=== PATIENT | female | born 1950 | race Caucasian/White ===

== ENCOUNTER 2020-12-23 09:56 | Inpatient (IN) | payer MEDICARE, SELFPAY ==
[2020-12-23] VITALS (17 sets, daily range): BP systolic 174–227; BP diastolic 73–128; PULSE 56–99; RESP 14–22; TEMP 36.2–37.4; O2SAT 94–100; BMI 38.5
--- NOTE | ~2020-12-23 | XR_ITS ---
EXAMINATION: XR CHEST CLINICAL INFORMATION: Dizziness COMPARISON: Chest x-ray August 2019 TECHNIQUE: Frontal view of the chest was obtained. FINDINGS: No significant abnormality is noted involving the heart, lungs, mediastinum, bony thorax or soft tissues. XR/XR chest 1V IMPRESSION: Unremarkable examination.
--- NOTE | ~2020-12-23 | CT_ITS ---
EXAMINATION: CT HEAD WITHOUT CONTRAST CLINICAL INFORMATION: Dizziness COMPARISON: CT scan of the head September 2015 TECHNIQUE: Contiguous axial imaging was performed from the skull base to vertex without intravenous administration of contrast. This CT examination was performed using dose optimization techniques as appropriate, variously including the following: *Automated exposure control *Adjustment of mA and/or kV according to patient size (this includes techniques or standardized protocols for targeted exams where dose is matched to indication/reason for exam; i.e. extremities or head) *Use of iterative reconstruction technique DLP: 618 mGy-cm FINDINGS: There is no evidence of acute intracranial hemorrhage or territorial infarction. No abnormal mass effect or there is stable prominence of the ventricles unchanged compared to prior. There is no measurable mass hemorrhage or cerebral edema. There is periventricular white matter changes compatible small vessel disease. Soft tissues: There 2 stable rounded appearing partially calcified nodules in the scalp on the right and left side in the parietal region on the right and left frontal region on the left unchanged nonspecific. CT/CT head/brain wo con IMPRESSION: No acute intracranial pathology. Stable prominence of the ventricles. Small nonspecific scalp lesions likely benign and unchanged compared to prior.
--- NOTE | ~2020-12-23 | MR_ITS ---
EXAMINATION: MR BRAIN WITHOUT CONTRAST CLINICAL INFORMATION: Cerebrovascular accident. COMPARISON: CT head from 12/23/2020. Brain MRI from 06/04/2011. TECHNIQUE: MRI of the brain was obtained using routine sequences without contrast. FINDINGS: No focal restricted diffusion is demonstrated to suggest acute or subacute cerebral ischemia. No evidence of acute or chronic hemorrhagic products on heme-sensitive imaging. Mild basal ganglia mineralization. Moderate to extensive periventricular and deep white matter T2 FLAIR hyperintensities consistent with underlying microangiopathy, progressed compared to 2011. Proportional prominence of the ventricles and sulcal spaces without evidence of obstructive hydrocephalus. No abnormal mass effect. No midline shift. Normal appearance of the pituitary gland. No abnormalities of the posterior fossa with normal appearance of the brainstem and cerebellum. Normal positioning of the cerebellar tonsils. Normal arterial and venous vascular flow voids are present. Normal, homogeneous marrow signal. Multifocal subcutaneous inclusion cysts along the scalp. No signal abnormalities within the paranasal sinuses or mastoids. MR/MR head/brain wo con IMPRESSION: 1. No acute intracranial abnormalities. 2. Moderate to extensive underlying microangiopathy.
--- NOTE | 2020-12-23 10:38 | ECG_ITS ---
Test Reason : SOB Blood Pressure : / mmHG Vent. Rate : 067 BPM Atrial Rate : 067 BPM P-R Int : 176 ms QRS Dur : 104 ms QT Int : 418 ms P-R-T Axes : 046 -04 159 degrees QTc Int : 441 ms Sinus rhythm with occasional Premature ventricular complexes Possible Left atrial enlargement Left ventricular hypertrophy with repolarization abnormality Abnormal ECG When compared with ECG of 14-SEP-2019 15:59, Premature ventricular complexes are now Present Referred By: Rosa Saldaña Electronically Signed By:POLINA DELCID
--- NOTE | 2020-12-23 10:40 | ED_ITS ---
HPI - Dizziness General Chief Complaint: Weakness Stated Complaint: sob, dizzy, cough x4 days Time Seen by Provider: 12/23/20 10:27 Source: patient and EMS Mode of arrival: EMS Limitations: no limitations History of Present Illness MD elicited complaint: dizziness and other (cough, shortness of breath) Onset (ago): day(s) (5) Timing: gradual onset and constant Severity: moderate Description: sense of movement and room spinning Context: change in body position History of similar symptoms: No Exacerbating factors: change in body position Relieving factors: nothing Associated symptoms: shortness of breath, weakness, nasal congestion and ear fullness Related Data Allergies Allergy/AdvReac Type Severity Reaction Status Date / Time No Known Allergies Allergy Unverified 06/02/20 15:04 N.K.D.A. Allergy Unknown Uncoded 06/17/14 00:00 Review of Systems Review of Systems: Constitutional : No Fever, No Chills ENT/Mouth : No sore throat, posRhinorrhea, No Swallowing Difficulty Eyes: No Eye Pain, No Swelling, No Redness Cardiovascular : No Chest Pain, positive SOB, No Orthopnea, no Edema Respiratory : pos Cough, No Sputum, No Wheezing, positive dyspnea Gastrointestinal : No Nausea, No Vomiting, No Diarrhea, No abdominal Pain, No Hematochezia, No Melena Genitourinary : No Dysuria, No Urinary Frequency, No Hematuria Musculoskeletal : No joint pain, No Myalgias Skin : No Skin Lesions, No rash Neuro : No Weakness, No Numbness, pos Dizziness, No Headache Psych : No Anxiety/Panic, No Depression Heme/Lymph: No Bruising, No Lymphadenopathy Endocrine : No Polyuria, No Polydipsia All other systems reviewed and are negative FORMERLY [facility], [facility] Past Medical History Attestation statement: The following information was validated with the patient. Medical History (Updated 12/23/20 @ 15:46 by Rosa Saldaña DO) HTN (hypertension) Social History Social History (Updated 12/23/20 @ 10:44 by Rosa Saldaña DO) Smoking Status: Never smoker Use of substances other than those prescribed or required for medical reasons: No Advance Directives: No Advance Directives Information Provided: No Physical Exam 2 Vital Signs: Vital Signs: Last Vital Signs Temp 98.9 F 12/23/20 15:11 Pulse 66 12/23/20 15:44 Resp 22 H 12/23/20 15:11 BP 174/81 H 12/23/20 15:58 Pulse Ox 95 12/23/20 15:11 Body Mass Index 38.5 Appearance: Alert. Oriented X3. No acute distress. Eyes: Pupils equal, round and reactive to light. ENT: Pharynx normal. No nystagmus, nasal congestion Neck: Normal inspection. Neck supple. CVS: Normal heart rate and rhythm. Pulses normal. Respiratory: No respiratory distress. Breath sounds normal. Abdomen: Soft and nontender. Skin: Skin warm and dry. Normal skin color. Normal skin turgor. Extremities: No lower extremity edema. No calf ttp Neuro: Oriented X 3. No motor deficit. No sensory deficit. Course Course Course Narrative: HTN likely causing troponin elevation IV hydralazine ordered + UA but no signs of sepsis - ordered ceftriaxone will need repeat troponin no response to hydralazine - IV labetalol ordered good response to IV labetalol, still dizzy will give IV ativan to see if this improves, dizziness could be related to HTN, troponin remains flat BP did improve from the 220s with labetalol still dizzy unable to ambulate will admit for further workup BP down to 170s MDM - Dizziness MDM Narrative Medical decision making narrative: 70 yo female with HTN not on lisinopril for 1 year due to insurance issues, here with 5 days of dizziness worse with turning head to left, URI symptoms, also c/o cough and shortness of breath, at this time will need CT head for mass though likely vertigo 5 days of dizziness could be posterior stroke but no focal neuro deficits, if BP does not reduce in ED may require treatments, labs, CXR, COVID swab, dispo per results and findings. Lab Data Result diagrams: 12/23/20 10:55 12/23/20 10:55 Labs: Lab Results 12/23/20 12/23/20 12/23/20 Range/Units 10:55 10:55 10:55 WBC 10.7 (4.8-10.8) X10*3/uL RBC 5.27 (4.20-5.50) X10*6/uL Hgb 14.6 (12.0-16.0) g/dl Hct 43.2 (37-47) % MCV 82.0 (80-98) fL MCH 27.7 (27.0-33.0) pg MCHC 33.8 (31.0-35.0) g/dl RDW 12.4 (11.0-16.0) % Plt Count 282 (160-400) X10*3/uL MPV 11.0 (9.4-12.3) fL Immature Gran % (Auto) 0.4 (0.0-0.4) % Neut % (Auto) 78.8 H (45-73) % Lymph % (Auto) 13.0 L (20-40) % Garvin % (Auto) 5.3 (2-11) % Eos % (Auto) 2.0 (0-4) % Baso % (Auto) 0.5 (0-2) % Lymph # (Auto) 1.4 (1.2-4.9) X10*3/uL Garvin # (Auto) 0.6 (0.1-1.2) X10*3/uL Eos # (Auto) 0.2 (0.0-0.4) X10*3/uL Baso # (Auto) 0.1 (0.0-0.2) X10*3/uL Abs Immat Gran (auto) 0.04 H (0.00-0.03) X10*3/uL Absolute Neuts (auto) 8.4 H (2.0-8.3) X10*3/uL Absolute Nucleated RBC 0.000 (0.0-0.012) X10*3/uL Nucleated RBC % (auto) 0.0 (0.0-0.2) /100WBC PT 15.1 H (10.8-13.0) SEC INR 1.3 H (0.9-1.1) APTT 34.8 (24.1-38.0) SEC Sodium 141 (135-145) mmol/L Potassium 3.7 (3.3-5.1) mmol/L Chloride 102 (96-108) mmol/L Carbon Dioxide 31 H (22-29) mmol/L Anion Gap 12 (12-20) BUN 9 (9-16) mg/dL Creatinine 0.76 (0.5-1.4) mg/dL Estim Creat Clear Calc 99.1 Estimated GFR > 60 Random Glucose 98 (60-115) mg/dL Calcium 8.6 (8.4-10.2) mg/dL Magnesium 1.9 (1.6-2.6) mg/dL Total Bilirubin 1.5 H (0.0-1.0) mg/dL Direct Bilirubin 0.5 (0.0-0.5) mg/dL AST 20 (5-31) U/L ALT 27 (0-31) U/L Alkaline Phosphatase 65 (39-117) U/L Troponin I High Sens (<3.5-17.0) ng/L B-Natriuretic Peptide (<100) pg/mL Total Protein 6.8 (6.5-8.0) g/dL Albumin 4.1 (3.5-5.0) g/dL Urine Color Urine Appearance Urine pH (5.0-8.0) Ur Specific [place] (1.005-1.025) Urine Protein (NEG-TRACE) MG/DL Urine Glucose (UA) (NEG) MG/DL Urine Ketones (NEG) MG/DL Urine Blood (NEG) Urine Nitrite (NEG) Ur Leukocyte Esterase (NEG) Urine RBC (0) /HPF Urine WBC (0-4) /HPF Ur Squamous Epith Cells /LPF Urine Bacteria /LPF Urine Mucus /LPF Coronavirus (PCR) (Negative) Influenza Type A (PCR) (Negative) Influenza Type B (PCR) (Negative) RSV RNA Qual (PCR) (Negative) 12/23/20 12/23/20 12/23/20 Range/Units 10:56 10:56 10:56 WBC (4.8-10.8) X10*3/uL RBC (4.20-5.50) X10*6/uL Hgb (12.0-16.0) g/dl Hct (37-47) % MCV (80-98) fL MCH (27.0-33.0) pg MCHC (31.0-35.0) g/dl RDW (11.0-16.0) % Plt Count (160-400) X10*3/uL MPV (9.4-12.3) fL Immature Gran % (Auto) (0.0-0.4) % Neut % (Auto) (45-73) % Lymph % (Auto) (20-40) % Garvin % (Auto) (2-11) % Eos % (Auto) (0-4) % Baso % (Auto) (0-2) % Lymph # (Auto) (1.2-4.9) X10*3/uL Garvin # (Auto) (0.1-1.2) X10*3/uL Eos # (Auto) (0.0-0.4) X10*3/uL Baso # (Auto) (0.0-0.2) X10*3/uL Abs Immat Gran (auto) (0.00-0.03) X10*3/uL Absolute Neuts (auto) (2.0-8.3) X10*3/uL Absolute Nucleated RBC (0.0-0.012) X10*3/uL Nucleated RBC % (auto) (0.0-0.2) /100WBC PT (10.8-13.0) SEC INR (0.9-1.1) APTT (24.1-38.0) SEC Sodium (135-145) mmol/L Potassium (3.3-5.1) mmol/L Chloride (96-108) mmol/L Carbon Dioxide (22-29) mmol/L Anion Gap (12-20) BUN (9-16) mg/dL Creatinine (0.5-1.4) mg/dL Estim Creat Clear Calc Estimated GFR Random Glucose (60-115) mg/dL Calcium (8.4-10.2) mg/dL Magnesium (1.6-2.6) mg/dL Total Bilirubin (0.0-1.0) mg/dL Direct Bilirubin (0.0-0.5) mg/dL AST (5-31) U/L ALT (0-31) U/L Alkaline Phosphatase (39-117) U/L Troponin I High Sens 78.3 H (<3.5-17.0) ng/L B-Natriuretic Peptide 292 H (<100) pg/mL Total Protein (6.5-8.0) g/dL Albumin (3.5-5.0) g/dL Urine Color YELLOW Urine Appearance CLOUDY Urine pH 8.0 (5.0-8.0) Ur Specific [place] 1.020 (1.005-1.025) Urine Protein NEG (NEG-TRACE) MG/DL Urine Glucose (UA) NEG (NEG) MG/DL Urine Ketones NEG (NEG) MG/DL Urine Blood TRACE (NEG) Urine Nitrite POS H (NEG) Ur Leukocyte Esterase 1+ H (NEG) Urine RBC 1-4 (0) /HPF Urine WBC 50-75 H (0-4) /HPF Ur Squamous Epith Cells 1+ /LPF Urine Bacteria 3+ /LPF Urine Mucus 1+ /LPF Coronavirus (PCR) NEGATIVE (Negative) Influenza Type A (PCR) NEGATIVE (Negative) Influenza Type B (PCR) NEGATIVE (Negative) RSV RNA Qual (PCR) NEGATIVE (Negative) 12/23/20 Range/Units 15:01 WBC (4.8-10.8) X10*3/uL RBC (4.20-5.50) X10*6/uL Hgb (12.0-16.0) g/dl Hct (37-47) % MCV (80-98) fL MCH (27.0-33.0) pg MCHC (31.0-35.0) g/dl RDW (11.0-16.0) % Plt Count (160-400) X10*3/uL MPV (9.4-12.3) fL Immature Gran % (Auto) (0.0-0.4) % Neut % (Auto) (45-73) % Lymph % (Auto) (20-40) % Garvin % (Auto) (2-11) % Eos % (Auto) (0-4) % Baso % (Auto) (0-2) % Lymph # (Auto) (1.2-4.9) X10*3/uL Garvin # (Auto) (0.1-1.2) X10*3/uL Eos # (Auto) (0.0-0.4) X10*3/uL Baso # (Auto) (0.0-0.2) X10*3/uL Abs Immat Gran (auto) (0.00-0.03) X10*3/uL Absolute Neuts (auto) (2.0-8.3) X10*3/uL Absolute Nucleated RBC (0.0-0.012) X10*3/uL Nucleated RBC % (auto) (0.0-0.2) /100WBC PT (10.8-13.0) SEC INR (0.9-1.1) APTT (24.1-38.0) SEC Sodium (135-145) mmol/L Potassium (3.3-5.1) mmol/L Chloride (96-108) mmol/L Carbon Dioxide (22-29) mmol/L Anion Gap (12-20) BUN (9-16) mg/dL Creatinine (0.5-1.4) mg/dL Estim Creat Clear Calc Estimated GFR Random Glucose (60-115) mg/dL Calcium (8.4-10.2) mg/dL Magnesium (1.6-2.6) mg/dL Total Bilirubin (0.0-1.0) mg/dL Direct Bilirubin (0.0-0.5) mg/dL AST (5-31) U/L ALT (0-31) U/L Alkaline Phosphatase (39-117) U/L Troponin I High Sens 75.2 H (<3.5-17.0) ng/L B-Natriuretic Peptide (<100) pg/mL Total Protein (6.5-8.0) g/dL Albumin (3.5-5.0) g/dL Urine Color Urine Appearance Urine pH (5.0-8.0) Ur Specific [place] (1.005-1.025) Urine Protein (NEG-TRACE) MG/DL Urine Glucose (UA) (NEG) MG/DL Urine Ketones (NEG) MG/DL Urine Blood (NEG) Urine Nitrite (NEG) Ur Leukocyte Esterase (NEG) Urine RBC (0) /HPF Urine WBC (0-4) /HPF Ur Squamous Epith Cells /LPF Urine Bacteria /LPF Urine Mucus /LPF Coronavirus (PCR) (Negative) Influenza Type A (PCR) (Negative) Influenza Type B (PCR) (Negative) RSV RNA Qual (PCR) (Negative) ECG Data Attestation: I personally reviewed and interpreted this ECG as follows: ECG interpretation date: 12/23/20 ECG interpretation time: 11:18 Interpretation: Rate: 67 Rhythm: NSR [place]: left, LVH Normal P waves. Normal JOSE R. Normal QRS complex. ST T wave : no MAT, repolarization abnormality lateral leads T wave inversions qTC: normal prior studies: no acute ischemia The study has been interpreted contemporaneously by me. . Discharge Plan Discharge Clinical Impression: Dizziness, HTN (hypertension), Acute UTI Patient Disposition: Admitted As Inpatient
[2020-12-23] MEDS: Meclizine HCl 25 MG TABLET PO (11:04)
[2020-12-23 11:25] LABS: MANUAL DIFF FLAG NO
[2020-12-23 11:25] LABS: Glucose Urine UA NEG (NEG); Leukocyte Esterase Urine 1+ (NEG); Nitrite Urine POS (NEG); UACC Culture Trigger YES; Urine Blood TRACE (NEG); Urine Ketones NEG (NEG); Urine Protein NEG (NEG-TRACE)
[2020-12-23 11:26] LABS: Appearance Urine CLOUDY; Color Urine YELLOW
[2020-12-23 11:34] LABS: Basophils Absolute Auto 0.1 X10*3/uL (0.0-0.2); Basophils Percent Auto 0.5 % (0-2); Eosinophils Absolute Auto 0.2 X10*3/uL (0.0-0.4); Hematocrit 43.2 % (37-47); Hemoglobin 14.6 g/dl (12.0-16.0); Imm Gran Abs Auto 0.04 X10*3/uL (0.00-0.03); Imm Gran Pct Auto 0.4 % (0.0-0.4); Lymphocytes Absolute Auto 1.4 X10*3/uL (1.2-4.9); Mean Corpuscular HGB Conc 33.8 g/dl (31.0-35.0); Mean Corpuscular Hemoglobin 27.7 pg (27.0-33.0); Monocytes Absolute Auto 0.6 X10*3/uL (0.1-1.2); Monocytes Percent Auto 5.3 % (2-11); Neutrophils Absolute Auto 8.4 X10*3/uL (2.0-8.3); Neutrophils Percent Auto 78.8 % (45-73); Platelet Count 282 X10*3/uL (160-400); Red Blood Count 5.27 X10*6/uL (4.20-5.50); Red Cell Distribution Width 12.4 % (11.0-16.0); White Blood Count 10.7 X10*3/uL (4.8-10.8)
[2020-12-23 11:36] LABS: Squamous Epithelial Cell Urine 1+ /LPF; WBC Urine 50-75 /HPF (0-4)
[2020-12-23 11:36] LABS: INTERNATIONAL NORM RATIO 1.3 (0.9-1.1); Prothrombin Time 15.1 SEC (10.8-13.0)
[2020-12-23 11:37] LABS: Bacteria Urine 3+ /LPF; Mucus Urine 1+ /LPF
[2020-12-23 11:38] LABS: Partial Thromboplastin Time 34.8 SEC (24.1-38.0)
[2020-12-23 11:53] LABS: Alanine Aminotransferase 27 U/L (0-31); Albumin Level 4.1 g/dL (3.5-5.0); Alkaline Phosphatase 65 U/L (39-117); Anion Gap 12 (12-20); Aspartate Amino Transferase 20 U/L (5-31); Bilirubin Direct 0.5 mg/dL (0.0-0.5); Bilirubin Total 1.5 mg/dL (0.0-1.0); Blood Urea Nitrogen 9 mg/dL (9-16); Calcium 8.6 mg/dL (8.4-10.2); Carbon Dioxide 31 mmol/L (22-29); Chloride 102 mmol/L (96-108); Creatinine Clr Calc Pharmacy 99.1; Estimated Glomerular Filt Rate > 60; Glucose Random 98 mg/dL (60-115); Magnesium 1.9 mg/dL (1.6-2.6); Potassium 3.7 mmol/L (3.3-5.1); Sodium 141 mmol/L (135-145); Total Protein 6.8 g/dL (6.5-8.0)
[2020-12-23 12:02] LABS: Influenza A PCR NEGATIVE (Negative); Influenza B PCR NEGATIVE (Negative); Resp Syncy Virus RNA Qual PCR NEGATIVE (Negative); SARS COV2 PCR INHOUSE NEGATIVE (Negative)
[2020-12-23 12:04] LABS: B Type Natriuretic Peptide 292 pg/mL (<100); Troponin-I High Sensitivity 78.3 ng/L (<3.5-17.0)
[2020-12-23] MEDS: cefTRIAXone sodium 1 GM in 0.9 % Sodium Chloride 50 ML IV (14:10)
[2020-12-23] MEDS: hydrALAZINE HCl 20 MG/ML VIAL 10 MG IVPUSH (14:10)
[2020-12-23] MEDS: Labetalol HCL 100 MG/20 ML VIAL 10 MG IVPUSH (15:03)
[2020-12-23 15:45] LABS: Troponin-I High Sensitivity 75.2 ng/L (<3.5-17.0)
[2020-12-23] MEDS: LORazepam 2 MG/ML VIAL 0.5 MG IVPUSH (15:55)
--- NOTE | 2020-12-23 16:53 | PC.NURSE ---
NA [phone] DAUGHTER
--- NOTE | 2020-12-23 19:03 | HP_ITS ---
DATE OF SERVICE: 12/23/2020 CHIEF COMPLAINT: Dizziness. HISTORY OF PRESENTING ILLNESS: This is a 70-year-old female patient, who has not seen a physician in last 1 year, presented to [facility] with symptoms of dizziness of 5 days duration, associated with shortness of breath, weakness, nasal congestion, itchy ears and dry cough. The patient also developed headache this morning. The patient described her dizziness as a spinning sensation with change in position and also at times feels lightheaded. On arrival to the emergency room, the patient was noted to have a blood pressure of 227/99. A CAT scan of the head was obtained to rule out posterior cerebral stroke. The study came back negative. A chest x-ray is unremarkable. The patient's troponin is elevated, but remains flat. EKG showed no evidence of acute ischemia. Due to elevated blood pressure, the patient was treated with IV Cardizem, followed by IV hydralazine and labetalol. Blood pressure improved to 175/77. The patient's dizziness is a little better. At present, she denies any spinning sensation. The patient also complained of urinary frequency, but denies any urinary burning or hematuria. Her urinalysis came back positive for 3+ bacteria, positive nitrites and wbc. In the ER, the patient received 1 dose of IV ceftriaxone. The patient is now being admitted to [facility] with hypertensive urgency, UTI, and dizziness. PAST MEDICAL HISTORY: Significant for hypertension, depression, and irritable bowel syndrome. PAST SURGICAL HISTORY: She is status post cholecystectomy, hysterectomy, appendectomy, and hernia repair. SOCIAL HISTORY: The patient lives alone. Drinks alcohol occasionally. Denies illicit drug use. Ambulates with no assistive device. The patient has 1 daughter and has 3 grandchildren. The patient's son of heroin overdose and committed suicide. FAMILY HISTORY: No premature history of coronary artery disease or cancer. MEDICATIONS: The patient is not on any medication for last 1 year. She does not recall the name of medications that she was on 1 year ago. REVIEW OF SYSTEMS: INSULATION ENGINEMAN: Intermittent dizziness/vertigo and headache. CVS: The patient denies any chest pain or palpitation. RESPIRATORY: She complains of shortness of breath and dry cough. GI: She denies any nausea or vomiting, but had diarrhea that she relates to irritable bowel syndrome. : She complains of urinary frequency. MUSCULOSKELETAL: She denies any pain. Rest of all other systems are reviewed and are negative. PHYSICAL EXAMINATION: GENERAL: Very pleasant female, resting comfortably, does not appear to be in acute distress. VITAL SIGNS: Her vitals are BP 175/77 with a pulse of 65, respiratory rate 14. She is afebrile and a finger oximetry of 96% on room air. HEENT: Pupils equal, round, and reactive to light and accommodation. Extraocular muscles are intact. Anicteric sclerae. Ears: Normal tympanic membranes with some dry wax. NECK: Supple. No JVD. LUNGS: Clear to auscultation bilaterally. HEART: Regular rate and rhythm with a systolic murmur. ABDOMEN: Soft and nontender. EXTREMITIES: Without clubbing, cyanosis, or edema. Good peripheral pulses. NEUROLOGIC: Nonfocal. LABORATORY DATA: Showed a WBC of 10.7, hematocrit of 43.2, and a platelet count of 282. Sodium 141, potassium 3.7, chloride 102, bicarb of 31, BUN 9, creatinine of 0.76, total bilirubin 1.5, normal magnesium 1.9. Troponin 78.3, repeat troponin 75.2. BNP 292. EKG showed sinus rhythm with occasional premature ventricular complexes, possible left atrial enlargement. Left ventricular hypertrophy with repolarization abnormality. Chest x-ray showed no infiltrate. CT head showed no acute abnormality. ASSESSMENT AND PLAN: This is a 70-year-old female patient, who has not seen a primary care physician due to change in her insurance, presented to [facility] with multiple complaints including dizziness of 5 days, associated with shortness of breath, weakness, nasal congestion, itchy ears, dry cough and urinary symptoms suggestive of urinary tract infection. PROBLEM LIST: 1. Hypertensive urgency. The patient noted to have significantly elevated blood pressure, that has improved with multiple antihypertensive medications. We will place the patient on Zestril 20 mg by mouth daily. Follow blood pressure closely and add Norvasc if systolic BP remains above 160. Due to left ventricular hypertrophy with repolarization abnormality and shortness of breath as well as elevated BNP, we will obtain an echocardiogram to assess diastolic function and EF. 2. UTI. The patient has been started on ceftriaxone. We will follow urine culture and adjust antibiotics. 3. Dizziness. Dizziness is likely related to hypertension and urine infection. There was a small component of benign positional vertigo. The patient appears well hydrated, have some URI symptoms. We will use cough medication and use meclizine p.r.n. 4. History of depression. The patient is not on home medication. Support provided. 5. DVT prophylaxis. The patient will be placed on Lovenox. 6. Elevated troponin, likely related to uncontrolled hypertension. We will follow echocardiogram. 7. Elevated BNP, likely related to uncontrolled hypertension causing diastolic dysfunction. We will obtain an echocardiogram and adjust medications. MD CASEY Cannon/KYUNG / [id number]
--- NOTE | 2020-12-23 19:14 | PC.NURSE ---
Pt asleep on stretcher in between care, Pt aaox4 when awoken. Pt states she came to today because I've been dizzy, having difficulty breathing, and weakness for the past four days. Pt states she lives alone and has been holding on to things to walk around the past few days. Pt is aware of plan for admission. Pt denies pain/discomfort at this time. Pt denies dysuria, urinary sx. Pt offers no additional complaints. Pt stretcher is in lowest locked position, rails raised, call young within reach.
[2020-12-23] MEDS: Enoxaparin Sodium 40 MG/0.4 ML SYRINGE SUBCUT (19:24)
--- NOTE | 2020-12-23 19:29 | PC.NURSE ---
Pt on phone with daughter, providing update per pt's request. Pt provided warm blankets per request.
--- NOTE | 2020-12-23 19:59 | PC.NURSE ---
This RN TT Dr Noe to confirm if it is ok for pt to be transferred to floor. Per Dr Noe, it's ok. This RN to call report.
[2020-12-23] MEDS: hydroCHLOROthiazide 25 MG TABLET PO (21:55)
[2020-12-23] MEDS: 0.9 % Sodium Chloride Flush 3 ML SYRINGE IVFLUSH (23:43)
[2020-12-24 07:40] VITALS: BP 172/78; PULSE 62; RESP 18; TEMP 36.4; O2SAT 98
[2020-12-24 08:37] VITALS: BP 172/78; PULSE 62
[2020-12-24] MEDS: 0.9 % Sodium Chloride Flush 3 ML SYRINGE IVFLUSH ×3 (08:37→20:16)
[2020-12-24] MEDS: lisinopriL 20 MG TABLET PO (08:37)
[2020-12-24 08:38] VITALS: BP 172/78; PULSE 62
[2020-12-24] MEDS: amLODIPine Besylate 5 MG TABLET PO (08:38)
--- NOTE | 2020-12-24 11:01 | MHC.CM.PN ---
PATIENT LIVES ALONE. SHE USES NO DME OR [facility] SERVICES. PATIENT DOES NOT HAVE A PCP AN D REPORTS DIFFICULTY SECURING A PROVIDER THAT ACCEPTS HER INSURANCE. IF PATIENT IS STILL ADMITTED THIS SATURDAY, CALL TO [facility] IN [place] WILL BE MADE TO INQUIRE ABOUT ABILITY TO SECURE A PCP. PATIENT WALKS WHERE NEEDED. HER GRANDDAUGHTER LIVES NEARBY AND PROVIDES TRANSPORT IF PATIENT HAS TO TRAVEL FURTHER. IMM 12/24 IN CHART. CM FOLLOWING FOR DC PLANS.
--- NOTE | 2020-12-24 11:51 | HO.PM.IMPN ---
Subjective Subjective Date of Service: 12/24/20 Interval History: Patient feels mild lightheadedness this morning otherwise denies any vertigo, no chest pain, shortness of breath has significantly improved, no nausea, no vomiting, no nasal congestion no headache, eating breakfast no acute issues overnight blood pressure remains elevated 172 or 78 this morning. General no headache, no dizziness no fever chills. CVS no chest pain, no palpitation. Respiratory no cough , mild shortness of breath Gastrointestinal no nausea, no vomiting, no abdominal pain Physical Exam Vital Signs: Vital Signs: Last Vital Signs Temp 97.6 F 12/24/20 07:40 Pulse 62 12/24/20 08:38 Resp 18 12/24/20 07:40 BP 172/78 H 12/24/20 08:38 Pulse Ox 98 12/24/20 07:40 Body Mass Index 38.5 General patient resting comfortably , no acute distress. No nystagmus Neck is supple no JVD. CVS regular rate rhythm, Respiratory lungs clear to auscultation, no respiratory distress, no wheeze, no rhonchi. Gastrointestinal abdomen soft, nontender, bowel sounds audible, no guarding , no rigidity. Extremities no clubbing cyanosis or edema. Neuro nonfocal , speech clear. Skin no rash Objective Data Current Medications Generic Name Dose Route Start Last Admin Trade Name Freq PRN Reason Stop Dose Admin Acetaminophen 650 mg 12/23/20 18:16 Acetaminophen 325 Mg Tablet PO Q6H PRN Pain, Mild (Pain Scale 1-3) Amlodipine Besylate 5 mg 12/24/20 09:00 12/24/20 08:38 Amlodipine Besylate 5 Mg Tablet PO 5 mg DAILY [facility] Administration Protocol Enoxaparin Sodium 40 mg 12/23/20 20:00 12/23/20 19:24 Enoxaparin Sodium 40 Mg/0.4 Ml Syringe SUBCUT 40 mg Q24H [facility] Administration Guaifenesin/Dextromethorphan 10 ml 12/23/20 21:46 Guaifenesin Dm 200/20/10 Ml 10 Ml Syrup PO Q6H PRN cough Ceftriaxone Sodium 1 gm/ 50 mls @ 100 mls/hr 12/24/20 12:00 Sodium Chloride IV Q24H [facility] Lisinopril 20 mg 12/24/20 09:00 12/24/20 08:37 Lisinopril 20 Mg Tablet PO 20 mg DAILY [facility] Administration Protocol Meclizine HCl 12.5 mg 12/23/20 21:46 Meclizine Hcl 12.5 Mg Tablet PO Q6H PRN dizziness Ondansetron HCl 4 mg 12/23/20 18:16 Ondansetron Hcl 4 Mg/2 Ml Vial IVPUSH Q8H PRN Nausea and Vomiting Pharmacy Consult 1 each 12/23/20 16:13 Consult Rx Perform Med Rec MISCELLANE ONCE PRN Consult order Sodium Chloride 3 ml 12/24/20 00:00 12/24/20 08:37 0.9 % Sodium Chloride Flush 3 Ml Syringe IVFLUSH 3 ml QSHIFT [facility] Administration Labs CBC & Chem 7: 12/23/20 10:55 12/23/20 10:55 Assessment and Plan (1) Hypertensive urgency: Status: Acute (2) Dizziness: Status: Acute (3) Acute UTI: Status: Acute (4) Elevated troponin: Status: Acute Assessment and Plan: 70-year-old female patient, who has not seen a primary care physician due to change in her insurance, presented to [facility] with multiple complaints including dizziness of 5 days, associated with shortness of breath, weakness, nasal congestion, itchy ears, dry cough and urinary symptoms suggestive of urinary tract infection. 1. Hypertensive urgency. significantly elevated blood pressure, on arrival to ED, blood pressure improving but remains elevated Patient placed on Zestril 20 mg daily, Norvasc 5 mg daily, follow blood pressure and adjust medication. Patient with history of longstanding hypertension not being treated in last 1 year now with EKG changes suggestive of left ventricular hypertrophy. Follow echo 2. UTI. Symptoms of urinary frequency improved continue IV ceftriaxone day 2 follow urine culture 3. Dizziness. likely related to hypertension and urine infection, also had some component of benign positional vertigo, Dizziness resolved 4. History of depression. not on home medication. Support provided, need outpatient PCP follow-up. 5. DVT prophylaxis. on Lovenox. 6. Elevated troponin, likely related to uncontrolled hypertension, no chest pain no EKG changes follow echo. 7. Elevated BNP, likely related to uncontrolled hypertension causing diastolic dysfunction follow echocardiogram.
[2020-12-24] MEDS: cefTRIAXone sodium 1 GM in 0.9 % Sodium Chloride 50 ML IV (13:42)
[2020-12-24 15:52] VITALS: BP 195/90; PULSE 69; RESP 16; TEMP 36.2; O2SAT 97
[2020-12-24] MEDS: Enoxaparin Sodium 40 MG/0.4 ML SYRINGE SUBCUT (20:13)
[2020-12-24] MEDS: Meclizine HCl 12.5 MG TABLET PO (20:13)
[2020-12-24 23:59] VITALS: BP 158/80; PULSE 64; RESP 16; TEMP 36.5; O2SAT 94
[2020-12-25] VITALS (9 sets, daily range): BP systolic 145–198; BP diastolic 52–90; PULSE 51–72; RESP 14–20; TEMP 36.4–37.3; O2SAT 94–96
--- NOTE | 2020-12-25 | ECG_ITS ---
Test Reason : RHYTH CHANGE Blood Pressure : / mmHG Vent. Rate : 080 BPM Atrial Rate : 079 BPM P-R Int : 000 ms QRS Dur : 108 ms QT Int : 380 ms P-R-T Axes : 000 -04 171 degrees QTc Int : 438 ms Atrial fibrillation Left ventricular hypertrophy with repolizeration abnormality. Abnormal ECG When compared with ECG of 23-DEC-2020 11:12, Atrial fibrillation has replaced Sinus rhythm Referred By: Rubén Moses Electronically Signed By:POLINA DELCID
[2020-12-25] MEDS: hydroCHLOROthiazide 25 MG TABLET PO (09:27)
[2020-12-25] MEDS: Meclizine HCl 12.5 MG TABLET PO ×2 (09:27→20:14)
[2020-12-25] MEDS: lisinopriL 10 MG TABLET 30 MG PO (09:27)
[2020-12-25] MEDS: amLODIPine Besylate 5 MG TABLET PO (09:28)
[2020-12-25] MEDS: 0.9 % Sodium Chloride Flush 3 ML SYRINGE IVFLUSH ×3 (09:28→20:11)
[2020-12-25] MEDS: guaiFENesin DM 200/20/10 ML 10 ML SYRUP PO ×2 (09:31→20:14)
--- NOTE | 2020-12-25 10:23 | P.PNIM_ITS ---
Subjective Subjective Date of Service: 12/25/20 Interval History: Patient complaining of lightheadedness this morning mostly in bed denies any chest pain no shortness of breath, no other acute issues overnight ROS General no headache, no dizziness no fever chills. CVS no chest pain, no palpitation. Respiratory no cough , mild shortness of breath Gastrointestinal no nausea, no vomiting, no abdominal pain Physical Exam Vital Signs: Vital Signs: Last Vital Signs Temp 97.5 F 12/25/20 07:39 Pulse 51 12/25/20 07:39 Resp 14 12/25/20 07:39 BP 182/76 H 12/25/20 09:28 Pulse Ox 95 12/25/20 07:39 Body Mass Index 38.5 General patient resting comfortably , no acute distress. No nystagmus Neck is supple no JVD. CVS regular rate rhythm, Respiratory lungs clear to auscultation, no respiratory distress, no wheeze, no rhonchi. Gastrointestinal abdomen soft, nontender, bowel sounds audible, no guarding , no rigidity. Extremities no clubbing cyanosis or edema. Neuro nonfocal , speech clear. Skin no rash Objective Data Current Medications Generic Name Dose Route Start Last Admin Trade Name Freq PRN Reason Stop Dose Admin Acetaminophen 650 mg 12/23/20 18:16 Acetaminophen 325 Mg Tablet PO Q6H PRN Pain, Mild (Pain Scale 1-3) Amlodipine Besylate 5 mg 12/24/20 09:00 12/25/20 09:28 Amlodipine Besylate 5 Mg Tablet PO 5 mg DAILY [facility] Administration Protocol Enoxaparin Sodium 40 mg 12/23/20 20:00 12/24/20 20:13 Enoxaparin Sodium 40 Mg/0.4 Ml Syringe SUBCUT 40 mg Q24H [facility] Administration Guaifenesin/Dextromethorphan 10 ml 12/23/20 21:46 12/25/20 09:31 Guaifenesin Dm 200/20/10 Ml 10 Ml Syrup PO 10 ml Q6H PRN Administration cough Hydrochlorothiazide 25 mg 12/25/20 09:00 12/25/20 09:27 Hydrochlorothiazide 25 Mg Tablet PO 25 mg DAILY [facility] Administration Protocol Ceftriaxone Sodium 1 gm/ 50 mls @ 100 mls/hr 12/24/20 12:00 12/24/20 15:02 Sodium Chloride IV Infused Q24H [facility] Infusion Lisinopril 30 mg 12/25/20 09:00 12/25/20 09:27 Lisinopril 10 Mg Tablet PO 30 mg DAILY [facility] Administration Protocol Meclizine HCl 12.5 mg 12/23/20 21:46 12/25/20 09:27 Meclizine Hcl 12.5 Mg Tablet PO 12.5 mg Q6H PRN Administration dizziness Ondansetron HCl 4 mg 12/23/20 18:16 Ondansetron Hcl 4 Mg/2 Ml Vial IVPUSH Q8H PRN Nausea and Vomiting Pharmacy Consult 1 each 12/23/20 16:13 Consult Rx Perform Med Rec MISCELLANE ONCE PRN Consult order Sodium Chloride 3 ml 12/24/20 00:00 12/25/20 09:28 0.9 % Sodium Chloride Flush 3 Ml Syringe IVFLUSH 3 ml QSHIFT [facility] Administration Labs CBC & Chem 7: 12/23/20 10:55 12/23/20 10:55 Microbiology Microbiology Results: Microbiology 12/23/20 Unknown Urine clean catch - Clean Catch Midstream Urine Culture - Final Escherichia coli Assessment and Plan (1) Hypertensive urgency: Status: Acute (2) Elevated troponin: Status: Acute (3) Dizziness: Status: Acute (4) Acute UTI: Status: Acute Assessment and Plan: 70-year-old female patient, who has not seen a primary care physician due to change in her insurance, presented to [facility] with multiple complaints including dizziness of 5 days, associated with shortness of breath, weakness, nasal congestion, itchy ears, dry cough and urinary symptoms suggestive of urin shyann tract infection. 1. Hypertensive urgency. significantly elevated blood pressure, on arrival to ED 227/99, blood pressure improving but remains elevated will increase dose of Zestril to 30 mg daily,cont. Norvasc 5 mg daily, and add hctz 25mg daily follow blood pressure and adjust medication. Patient with history of longstanding hypertension not being treated in last 1 year now with EKG changes suggestive of left ventricular hypertrophy. Follow echo 2. UTI. Symptoms of urinary frequency improved continue IV ceftriaxone day 3/7 urine culture 3. Dizziness. likely related to hypertension and urine infection, also had some component of benign positional vertigo, Dizziness resolved, mild persistent lightheadedness likely due to hypertension Check orthostatic studies and encourage by mouth. 4. History of depression. not on home medication. Support provided, need outpatient PCP follow-up. 5. DVT prophylaxis. on Lovenox. 6. Elevated troponin, likely related to uncontrolled hypertension, no chest pain no EKG changes follow echo. 7. Elevated BNP, likely related to uncontrolled hypertension causing diastolic dysfunction follow echocardiogram and bnp.
[2020-12-25] MEDS: cefTRIAXone sodium 1 GM in 0.9 % Sodium Chloride 50 ML IV (11:25)
[2020-12-25] MEDS: Enoxaparin Sodium 40 MG/0.4 ML SYRINGE SUBCUT (20:10)
[2020-12-26 07:06] LABS: Anion Gap 15 (12-20); Blood Urea Nitrogen 23 mg/dL (9-16); Calcium 8.9 mg/dL (8.4-10.2); Carbon Dioxide 25 mmol/L (22-29); Chloride 103 mmol/L (96-108); Creatinine Clr Calc Pharmacy 84.7; Estimated Glomerular Filt Rate > 60; Glucose Random 116 mg/dL (60-115); Potassium 3.4 mmol/L (3.3-5.1); Sodium 140 mmol/L (135-145)
[2020-12-26 07:14] LABS: B Type Natriuretic Peptide 57 pg/mL (<100)
--- NOTE | 2020-12-26 07:30 | CA_ITS ---
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 The visually estimated ejection fraction is between 60-65%. - No obvious valvular pathology seen on this study. Findings Procedure Information Contrast agent, definity, is being given per protocol without apparent complications. Left Ventricle Normal left ventricular cavity size. There is mildly increased left ventricular wall thickness. The left ventricular systolic function is normal. The visually estimated ejection fraction is between 60-65%. There is no evidence of regional wall motion abnormalities. Diastolic function is indeterminate on the basis of available data. Right Ventricle Normal right ventricular cavity size and systolic function. Atria Both atria are normal in size. Aortic Valve There is a normal trileaflet aortic valve. There is mild calcification of the aortic valve. There is no aortic valve stenosis. There is mild aortic valve regurgitation. Mitral Valve The mitral valve appears normal. There is no mitral valve regurgitation. There is no mitral valve stenosis. Pulmonic Valve The pulmonic valve was not well visualized. Tricuspid Valve Normal tricuspid valve structure. There is trace tricuspid valve regurgitation. The pulmonary artery systolic pressure is normal. Great Vessels The aortic annulus, sinuses of valsalva, and asc aorta are normal in size. Venous The inferior vena cava was not well visualized. Pericardium/Pleural There is no evidence of pericardial effusion. Prior Study Comparison No significant change compared to prior study dated: 04/05/2014. Recommendations, Care & Conclusions No obvious valvular pathology seen on this study. Measurements 2D Linear Measurements IVSd: 1.20 0.6-0.9/0.6-1.0 cm LVIDd: 3.90 3.9-5.3/4.2-5.9 cm LVIDd Index: 1.65 2.4-3.2/2.2-3.1 cm/m2 LVIDs: 2.64 2.0-3.6 cm LVPWd: 1.23 0.7-1.1 cm Ao Root: 3.00 2.1-3.5 cm LA Diam: 3.70 2.7-3.8/3.0-4.0 cm LAIDs Index: 1.57 1.5-2.3 cm/m2 LV Mass: 202.09 67-162/88-224 g LV Mass Index: 85.63 43-95/49-115 g/m2 LVOT Diam: 2.00 3.0+(-)1.3 cm 2D Systolic Function EF 4C: 56.20 >55% EF 2C: 52.80 >55% EF BiP: 55.50 >55% Aortic Valve AoV Pk Randy: 1.10 AoV Mn Randy: 0.71 AoV VTI: 0.19 AoV Pk Grad: 5.00 Aov Mn Grad: 2.00 TRISTEN Cont.VTI: 2.34 LVOT LVOT Pk Randy: 0.68 LVOT Mn Randy: 0.50 LVOT VTI: 0.14 LVOT Pk Grad: 2.00 LVOT Mn Grad: 1.00 LVOT Diam: 2.00 LVOT Area: 3.14 Great Vessels Aorta Ao Root-2D: 3.00 2.0-3.7 cm Ao Asc: 3.00 2.1-3.4 cm Ao Arch: 2.30 Updated in Other Vendor System with Status of Final Andreas Moe MD electronically signed on 12/26/2020 4:40:34 PM with status of Final
[2020-12-26 07:42] VITALS: BP 146/80; PULSE 100; RESP 18; TEMP 36.1; O2SAT 94
[2020-12-26 09:13] VITALS: BP 146/80; PULSE 100
[2020-12-26] MEDS: 0.9 % Sodium Chloride Flush 3 ML SYRINGE IVFLUSH ×3 (09:13→21:05)
[2020-12-26] MEDS: hydroCHLOROthiazide 25 MG TABLET PO (09:13)
[2020-12-26] MEDS: lisinopriL 40 MG TABLET PO (09:13)
[2020-12-26 09:16] VITALS: BP 146/80; PULSE 100
[2020-12-26] MEDS: Metoprolol Tartrate 25 MG TABLET PO ×2 (09:16→21:05)
--- NOTE | 2020-12-26 09:39 | P.CONCA_ITS ---
History of Present Illness History of Present Illness Date of Service: 12/26/20 Consult reason: hypertension Chief complaint: dizziness Narrative: This is a cardiology consultation regarding uncontrolled hypertension. It appears that she has a history of hypertension but has not taken any medications for more than year. She had a PCP but apparently due to insurance issues, she has not seen him in an ER or so. She presented with severe dizziness. Blood pressure was very high. Initial blood pressure recorded at 227/99 mm Hg. She has not had any other complaints like angina or shortness of breath or anything else. She was also found to have atrial fibril lation on telemetry which seems to be a new finding. She has had intermittent palpitations in the past. Otherwise she has been commenced on numerous medications and blood pressures are improved now. Otherwise, she has been commenced on numerous medications and blood pressure seems improved. Review of Systems Review of Systems: Yes all other systems are reviewed and are negative Cardiovascular: Cardiovascular: Reports as per HPI, Reports no additional cardiovascular complaints, Denies acrocyanosis, Denies cool extremities, Denies painful fingertips, Denies chest pain, Denies chest pain at rest, Denies diaphoresis, Denies syncope, Denies irregular heart rhythm, Denies claudication, Denies leg edema, Reports lightheadedness, Denies palpitations and Denies dyspnea Respiratory: Respiratory: Denies dyspnea Neurologic: Denies syncope Endocrine: Endocrine: Denies palpitations [facility] Past Medical History Medical History (Updated 12/24/20 @ 11:53 by Huan Lewis MD) HTN (hypertension) Family History Pertinent family history: No premature CAD. Social History Social History (Updated 12/23/20 @ 10:44 by Rosa Saldaña DO) Household Members: None Housing: Other Housing Other:: mobile home Do you presently have visiting nurse or other home services: Yes ([employer]) Smoking Status: Never smoker Use of substances other than those prescribed or required for medical reasons: No Currently Displaying Signs/Symptoms of Drug Intoxication Withdrawal: No Any prior treatment program specific to substance use: No Have you been hit, kicked, punched, or otherwise hurt by someone within the past year? If so, by whom?: No Do you feel safe in your current relationship?: No Current Relationship Is there a partner from a previous relationship who is making you feel unsafe now?: No Are you made to feel afraid or neglected: No [facility] Healthcare Practices: amish Advance Directives: No Advance Directives Information Provided: No Do you have thoughts of harming others: None Do you have a plan to hurt others: No Plan Recently lost weight without trying: No service: No Current occupational status: unemployed Meds Allergies Allergy/AdvReac Type Severity Reaction Status Date / Time No Known Allergies Allergy Unverified 06/02/20 15:04 N.K.D.A. Allergy Unknown Uncoded 06/17/14 00:00 Active Medications: Current Medications Generic Name Dose Route Start Last Admin Trade Name Freq PRN Reason Stop Dose Admin Acetaminophen 650 mg 12/23/20 18:16 Acetaminophen 325 Mg Tablet PO Q6H PRN Pain, Mild (Pain Scale 1-3) Enoxaparin Sodium 40 mg 12/23/20 20:00 12/25/20 20:10 Enoxaparin Sodium 40 Mg/0.4 Ml Syringe SUBCUT 40 mg Q24H [facility] Administration Guaifenesin/Dextromethorphan 10 ml 12/23/20 21:46 12/25/20 20:14 Guaifenesin Dm 200/20/10 Ml 10 Ml Syrup PO 10 ml Q6H PRN Administration cough Hydrochlorothiazide 25 mg 12/25/20 09:00 12/26/20 09:13 Hydrochlorothiazide 25 Mg Tablet PO 25 mg DAILY [facility] Administration Protocol Ceftriaxone Sodium 1 gm/ 50 mls @ 100 mls/hr 12/24/20 12:00 12/25/20 12:06 Sodium Chloride IV Infused Q24H [facility] Infusion Lisinopril 40 mg 12/26/20 09:00 12/26/20 09:13 Lisinopril 40 Mg Tablet PO 40 mg DAILY [facility] Administration Protocol Meclizine HCl 12.5 mg 12/23/20 21:46 12/25/20 20:14 Meclizine Hcl 12.5 Mg Tablet PO 12.5 mg Q6H PRN Administration dizziness Metoprolol Tartrate 25 mg 12/26/20 10:00 12/26/20 09:16 Metoprolol Tartrate 25 Mg Tablet PO 25 mg BID [facility] Administration Protocol Ondansetron HCl 4 mg 12/23/20 18:16 Ondansetron Hcl 4 Mg/2 Ml Vial IVPUSH Q8H PRN Nausea and Vomiting Pharmacy Consult 1 each 12/23/20 16:13 Consult Rx Perform Med Rec MISCELLANE ONCE PRN Consult order Sodium Chloride 3 ml 12/24/20 00:00 12/26/20 09:13 0.9 % Sodium Chloride Flush 3 M[facility] Home Medications Medication Instructions Recorded Confirmed Last Taken Type No Known Home Meds 12/23/20 12/23/20 Unknown History Physical Exam Vital Signs: Vital Signs: Last Vital Signs Temp 97.0 F 12/26/20 07:42 Pulse 100 12/26/20 09:16 Resp 18 12/26/20 07:42 BP 146/80 H 12/26/20 09:16 Pulse Ox 94 12/26/20 07:42 Body Mass Index 38.5 Const: General: cooperative, comfortable and no acute distress Orientation/consciousness: patient oriented x3 HENMT: Other: Unremarkable Neck: Neck: Yes normal visual inspection Chest: Chest palpation & inspection: normal inspection of the chest Resp: Auscultation: clear to auscultation bilaterally, no crackles and no wheezes Cardio: Jugular venous distension: no JVD Palpation: normal PMI Heart sounds: S1 normal heart sound present, S2 normal heart sound present, no gallops, no murmurs and no rubs GI: Palpation (GI): Soft to palpation Back/Spine/Pelvis: Other: unremarkable Skin: General skin exam: no rashes or lesions noted Neuro: General: patient oriented x3 Extrem: General: Yes no clubbing, cyanosis or edema Psych: Mental Status: mental status grossly normal Results Labs and Meds Result diagrams: 12/23/20 10:55 12/26/20 06:01 Lab results: Laboratory Results - last 24 hr 12/26/20 12/26/20 06:01 06:01 Sodium 140 Potassium 3.4 Chloride 103 Carbon Dioxide 25 Anion Gap 15 BUN 23 H D Creatinine 0.89 Estim Creat Clear Calc 84.7 Estimated GFR > 60 Random Glucose 116 H Calcium 8.9 B-Natriuretic Peptide 57 ECG Attestation: I personally reviewed and interpreted this ECG as follows: Interpretation: EKG from admission with sinus rhythm, LVH with repolarization changes and PVC. Left atrial enlargement. Repeat EKG from yesterday today shows atrial fibrillation at 80/Min. Assessment and Plan (1) Hypertensive urgency: Status: Acute (2) Elevated troponin: Status: Acute (3) Dizziness: Status: Acute Blood pressure has improved from 227/99 mm Hg to 146/80 mm Hg. She is currently on hydrochlorothiazide, lisinopril. She was started on amlodipine but has been switched to beta-blockers due to new atrial fibrillation. We can get an echocardiogram for cardiac function assessment. Otherwise, consider MRI brain to exclude any posterior circulation issues due to dizziness and uncontrolled hypertension. CT head is unremarkable. She will need long-term anticoagulation. Troponin elevation is probably from the hypertension itself but may need an outpatient stress test to look for ischemia. We will follow up with you tomorrow.
--- NOTE | 2020-12-26 09:39 | HO.PM.IMPN ---
Subjective Subjective Date of Service: 12/26/20 Interval History: Patient complaining of persistent lightheaded feel like falling down when she stands, overnight noted to be in atrial fibrillation with ventricular rate up to 130, denies chest pain no palpitation, admit symptoms of lightheadedness going on for almost 1 year, no history of syncope. ROS General no headache, no vertigo, no fever chills, lightheadedness with standing CVS no chest pain, no palpitation. Respiratory no cough , no shortness of breath Gastrointestinal no nausea, no vomiting, no abdominal pain Physical Exam Vital Signs: Vital Signs: Last Vital Signs Temp 97.0 F 12/26/20 07:42 Pulse 100 12/26/20 09:16 Resp 18 12/26/20 07:42 BP 146/80 H 12/26/20 09:16 Pulse Ox 94 12/26/20 07:42 Body Mass Index 38.5 General patient resting comfortably , no acute distress. No nystagmus Neck is supple no JVD. CVS irregular rate rhythm, Respiratory lungs clear to auscultation, no respiratory distress, no wheeze, no rhonchi. Gastrointestinal abdomen soft, nontender, bowel sounds audible, no guarding , no rigidity. Extremities no clubbing cyanosis or edema. Neuro nonfocal , speech clear. Skin no rash Objective Data Current Medications Generic Name Dose Route Start Last Admin Trade Name Freq PRN Reason Stop Dose Admin Acetaminophen 650 mg 12/23/20 18:16 Acetaminophen 325 Mg Tablet PO Q6H PRN Pain, Mild (Pain Scale 1-3) Enoxaparin Sodium 40 mg 12/23/20 20:00 12/25/20 20:10 Enoxaparin Sodium 40 Mg/0.4 Ml Syringe SUBCUT 40 mg Q24H LORETO Administration Guaifenesin/Dextromethorphan 10 ml 12/23/20 21:46 12/25/20 20:14 Guaifenesin Dm 200/20/10 Ml 10 Ml Syrup PO 10 ml Q6H PRN Administration cough Hydrochlorothiazide 25 mg 12/25/20 09:00 12/26/20 09:13 Hydrochlorothiazide 25 Mg Tablet PO 25 mg DAILY LORETO Administration Protocol Ceftriaxone Sodium 1 gm/ 50 mls @ 100 mls/hr 12/24/20 12:00 12/25/20 12:06 Sodium Chloride IV Infused Q24H LORETO Infusion Lisinopril 40 mg 12/26/20 09:00 12/26/20 09:13 Lisinopril 40 Mg Tablet PO 40 mg DAILY [facility] Administration Protocol Meclizine HCl 12.5 mg 12/23/20 21:46 12/25/20 20:14 Meclizine Hcl 12.5 Mg Tablet PO 12.5 mg Q6H PRN Administration dizziness Metoprolol Tartrate 25 mg 12/26/20 10:00 12/26/20 09:16 Metoprolol Tartrate 25 Mg Tablet PO 25 mg BID [facility] Administration Protocol Ondansetron HCl 4 mg 12/23/20 18:16 Ondansetron Hcl 4 Mg/2 Ml Vial IVPUSH Q8H PRN Nausea and Vomiting Pharmacy Consult 1 each 12/23/20 16:13 Consult Rx Perform Med Rec MISCELLANE ONCE PRN Consult order Sodium Chloride 3 ml 12/24/20 00:00 12/26/20 09:13 0.9 % Sodium Chloride Flush 3 Ml Syringe IVFLUSH 3 ml QSHIFT [facility] Administration Labs CBC & Chem 7: 12/23/20 10:55 12/26/20 06:01 Microbiology Microbiology Results: Microbiology 12/23/20 Unknown Urine clean catch - Clean Catch Midstream Urine Culture - Final Escherichia coli Assessment and Plan (1) New onset atrial fibrillation: Status: Acute (2) Hypertensive urgency: Status: Acute (3) Elevated troponin: Status: Acute (4) Dizziness: Status: Acute (5) HTN (hypertension): Status: Acute (6) Acute UTI: Status: Acute Assessment and Plan: 70-year-old female patient, who has not seen a primary care physician due to change in her insurance, presented to [facility] with multiple complaints including dizziness of 5 days, associated with shortness of breath, weakness, nasal congestion, itchy ears, dry cough and urinary symptoms suggestive of urinary tract infection. New onset atrial fibrillation with rapid ventricular rate Patient noted to be in atrial fibrillation since yesterday afternoon,ongoing lightheadedness likely related to AFib, patient has no chest pain no palpitation, chads vascular score of [address] head on admission negative but due to symptoms of lightheadedness and near-syncope will obtain an MRI study to rule out posterior cerebellar CVA prior to starting Eliquis Will start patient on metoprolol 25 b.i.d., follow echocardiogram, case discussed with Cardiology Elevated troponin, likely related to uncontrolled hypertension, and intermittent atrial fibrillation, no chest pain, no ischemic changes on EKG follow echo. Elevated BNP, likely related to uncontrolled hypertension and intermittent atrial fibrillation causing diastolic dysfunction follow echocardiogram , BNP improved from 292 to 57. Hypertensive urgency. Patient stop using her antihypertensive 1 year ago since her insurance changed and she was unable to find a new PCP Patient started on Zestril dose gradually increased to 40 mg, continue hydrochlorothiazide 20, will DC Norvasc 5 mg since added metoprolol 25 b.i.d. Will increase it further to 50 b.i.d. if heart rate and bp tolerates UTI. Symptoms of urinary frequency resolved on IV ceftriaxone day 4 will switch to by mouth ceftriaxone for 3 more days Dizziness/lightheadedness was likely related to uncontrolled hypertension and atrial fibrillation CT head negative will check MRI rule out acute CVA. History of depression. not on home medication. Support provided, need outpatient PCP follow-up. DVT prophylaxis. on Lovenox.
[2020-12-26 10:48] LABS: Thyroid Stimulating Hormone 1.77 uIU/mL (0.32-4.0)
--- NOTE | 2020-12-26 11:15 | MHC.CM.PN ---
EMR REVIEWED, PT HAS NEW AFIB, AMLODIPINE SWITCHED TO BETA BRIJESH WITH PLAN TO TITRATE UP, CARDIOLOGY CONSULT DONE AND AWAITING ECHO, NO PLAN FOR D/C TODAY.
[2020-12-26] MEDS: guaiFENesin DM 200/20/10 ML 10 ML SYRUP PO ×2 (12:36→18:46)
[2020-12-26 14:33] VITALS: BP 145/83; PULSE 98; RESP 18; TEMP 36.4; O2SAT 99
[2020-12-26 15:27] VITALS: BP 124/64; PULSE 63; RESP 20; TEMP 36.9; O2SAT 95
[2020-12-26] MEDS: Enoxaparin Sodium 40 MG/0.4 ML SYRINGE SUBCUT (21:05)
[2020-12-26 23:19] VITALS: BP 144/81; PULSE 69; RESP 20; TEMP 36.4; O2SAT 96
[2020-12-27] VITALS (9 sets, daily range): BP systolic 131–152; BP diastolic 67–92; PULSE 58–111; RESP 15–19; TEMP 36.1–36.8; O2SAT 94–97
[2020-12-27] MEDS: Apixaban 5 MG TABLET PO ×2 (08:30→20:38)
[2020-12-27] MEDS: hydroCHLOROthiazide 25 MG TABLET PO (08:30)
[2020-12-27] MEDS: lisinopriL 40 MG TABLET PO (08:31)
[2020-12-27] MEDS: 0.9 % Sodium Chloride Flush 3 ML SYRINGE IVFLUSH ×3 (08:36→20:38)
--- NOTE | 2020-12-27 09:26 | P.PNCA_ITS ---
Subjective Subjective Date of Service: 12/27/20 Interval history: She states that she feels okay. No specific complaints. Review of Systems Review of Systems Yes all other systems are reviewed and are negative Cardiovascular: Reports as per HPI, Reports no additional cardiovascular complaints, Denies acrocyanosis, Denies cool extremities, Denies painful fi ngertips, Denies chest pain, Denies chest pain at rest, Denies diaphoresis, Denies syncope, Denies irregular heart rhythm, Denies claudication, Denies leg edema, Reports lightheadedness, Denies palpitations and Denies dyspnea Respiratory: Denies dyspnea Denies syncope Endocrine: Denies palpitations Physical Exam Vital Signs: Last Vital Signs Temp 97.0 F 12/27/20 07:35 Pulse 100 12/27/20 08:31 Resp 18 12/27/20 07:35 BP 152/92 H 12/27/20 08:31 Pulse Ox 95 12/27/20 07:35 Body Mass Index 38.5 Const General: cooperative, comfortable and no acute distress Orientation/consciousness: patient oriented x3 HENMT Other: Unremarkable Neck Neck: Yes normal visual inspection Chest Chest palpation & inspection: normal inspection of the chest Resp Auscultation: clear to auscultation bilaterally, no crackles and no wheezes Cardio Jugular venous distension: no JVD Palpation: normal PMI Heart sounds: S1 normal heart sound present, S2 normal heart sound present, no gallops, no murmurs and no rubs GI Palpation (GI): Soft to palpation Back/Spine/Pelvis Other: unremarkable Skin General skin exam: no rashes or lesions noted Neuro General: patient oriented x3 Extrem General: Yes no clubbing, cyanosis or edema Psych Mental Status: mental status grossly normal Results Labs and Meds Result diagrams: 12/23/20 10:55 12/26/20 06:01 Lab results: Laboratory Results - last 24 hr 12/26/20 06:01 TSH 1.77 Imaging Radiologist's impression: Impressions Brain MRI 12/26/20 11:28 IMPRESSION: 1. No acute intracranial abnormalities. 2. Moderate to extensive underlying microangiopathy. Progress Note: A&P Assessment and plan (1) Hypertensive urgency: Status: Acute (2) Elevated troponin: Status: Acute (3) PAF (paroxysmal atrial fibrillation): Status: Acute Assessment and Plan: Blood pressure has improved from 227/99 mm Hg to 152/92 mm Hg. She is currently on hydrochlorothiazide, lisinopril, metoprolol. She was started on amlodipine but has been switched to beta-blockers due to new atrial fibrillation. Troponin elevation is probably from the hypertension itself but may need an outpatient stress test to look for ischemia. Eliquis for anticoagulation. Discharge planning. We will arrange office follow-up. Fall Risk Details Current Medications: Current Medications Generic Name Dose Route Start Last Admin Trade Name Freq PRN Reason Stop Dose Admin Acetaminophen 650 mg 12/23/20 18:16 Acetaminophen 325 Mg Tablet PO Q6H PRN Pain, Mild (Pain Scale 1-3) Apixaban 5 mg 12/27/20 09:00 12/27/20 08:30 Apixaban 5 Mg Tablet PO 5 mg BID LORETO Administration Cefuroxime Axetil 250 mg 12/27/20 08:00 12/27/20 08:47 Cefuroxime Axetil 250 Mg Tablet PO 250 mg Q12H LORETO Administration Guaifenesin/Dextromethorphan 10 ml 12/23/20 21:46 12/26/20 18:46 Guaifenesin Dm 200/20/10 Ml 10 Ml Syrup PO 10 ml Q6H PRN Administration cough Hydrochlorothiazide 25 mg 12/25/20 09:00 12/27/20 08:30 Hydrochlorothiazide 25 Mg Tablet PO 25 mg DAILY [facility] Administration Protocol Lisinopril 40 mg 12/26/20 09:00 12/27/20 08:31 Lisinopril 40 Mg Tablet PO 40 mg DAILY [facility] Administration Protocol Meclizine HCl 12.5 mg 12/23/20 21:46 12/25/20 20:14 Meclizine Hcl 12.5 Mg Tablet PO 12.5 mg Q6H PRN Administration dizziness Metoprolol Tartrate 50 mg 12/27/20 09:00 Metoprolol Tartrate 25 Mg Tablet PO BID LORETO Protocol Ondansetron HCl 4 mg 12/23/20 18:16 Ondansetron Hcl 4 Mg/2 Ml Vial IVPUSH Q8H PRN Nausea and Vomiting Pharmacy Consult 1 each 12/23/20 16:13 Consult Rx Perform Med Rec MISCELLANE ONCE PRN Consult order Sodium Chloride 3 ml 12/24/20 00:00 12/27/20 08:36 0.9 % Sodium Chloride Flush 3 Ml Syringe IVFLUSH 3 ml QSHIFT LORETO Administration Time Spent With Patient Time: Total time spent is greater than 50% in coordination of care (as documented) at patient's floor/unit and/or counseling patient: Time with patient: less than 15 minutes
[2020-12-27] MEDS: Metoprolol Tartrate 25 MG TABLET 50 MG PO (10:02)
--- NOTE | 2020-12-27 10:39 | MHC.SL.SWA ---
Speech Pathologist Impression: Within Functional Limits Risk of Aspiration Due to: None Dysphasia Diet Status: No Change Liquid Consistency and Strategies for Safe Swallow: Liquid Intake Recommendation: Thin Liquid Intake Strategies: Unrestricted Solid Food Consistency: Dietary Recommendations: Regular Additional Modifications to Solid Foods: Oral Medication Intake: Whole with Liquid Compensatory Strategies and Precautions to be Taken for Safe Swallow: Sitting Upright (90 deg) Liquids from Cup Liquids from Straw Small Bites and Sips Alternate Liquids/Solids Supervision While Eating and Drinking for Safe Swallow: None Needed Foods to Avoid: Swallowing Recommended Treatments: Recommendation for Speech: NA:Typical Evaluation Comment: Frequency/Duration: Date Range for Service Req: Timeline to reassess: Research Quality Assurance Specialist Clinican/Clinical Fellow: Yes: Jeannette Castañeda M.A., [facility] Supervisory Statement: I have reviewed and agree with the student/clinical fellow's documentation: Speech Language Pathologist:
--- NOTE | 2020-12-27 15:39 | MHC.CM.PN ---
CALL TO [facility] ([phone]) TO INQUIRE IF THEY ACCEPT PATIENT'S INSURANCE. THEY ACCEPT, BUT COPAY MAY BE HIGH. INFO RELAYED TO PATIENT. PATIENT WOULD LIKE TO RE-SECURE A PROVIDER. INFORMATION ABOUT [facility]IST[facility] ALSO GIVEN TO PATIENT IN THE EVENT THAT SHE QUALIFIES FOR ADDITIONAL BENEFITS
--- NOTE | 2020-12-27 15:50 | MHC.CM.PN ---
CALL TO TRANSPORT X [phone] RIDES TO [facility] AT 1530. TAXI VOUCHER COMPLETED AND GIVEN TO RN FOR PATIENT. IMM 12/27 IN CHART.
--- NOTE | 2020-12-27 16:16 | PM.DS ---
DS: Providers Provider Date of Service: 12/28/20 Date of admission: 12/23/20 18:16 Primary care physician: None Physician Consults: 12/26/20 07:04 Consult to Cardiology Routine Consulting Provider: Andreas Moe Reason for consultation: [facility] Has provider been notified: No DS: Diagnosis Discharge Diagnosis (1) Hypertensive urgency: Status: Acute (2) Elevated troponin: Status: Acute (3) PAF (paroxysmal atrial fibrillation): Status: Acute DS: Medications Discharge Medications Home Medications: Previous Rx's Medication Instructions Recorded apixaban [Eliquis] 5 mg PO BID #60 tab 12/27/20 cefuroxime axetil 250 mg PO Q12H #7 tab 12/27/20 hydrochlorothiazide 25 mg PO DAILY #30 tab 12/27/20 lisinopril 40 mg PO DAILY #30 tab 12/27/20 metoprolol tartrate 50 mg PO BID #60 tab 12/27/20 DS: Summary Hospital Course Hospital Course: HPI from Dr. Lewis 70-year-old female patient, who has not seen a physician in last 1 year, presented to [facility] with symptoms of dizziness of 5 days duration, associated with shortness of breath, weakness, nasal congestion, itchy ears and dry cough. The patient also developed headache this morning. The patient described her dizziness as a spinning sensation with change in position and also at times feels lightheaded. On arrival to the emergency room, the patient was noted to have a blood pressure of 227/99. A CAT scan of the head was obtained to rule out posterior cerebral stroke. The study came back negative. A chest x-ray is unremarkable. The patient's troponin is elevated, but remains flat. EKG showed no evidence of acute ischemia. Due to elevated blood pressure, the patient was treated with IV Cardizem, followed by IV hydralazine and labetalol. Blood pressure improved to 175/77. The patient's dizziness is a little better. At present, she denies any spinning sensation. The patient also complained of urinary frequency, but denies any urinary burning or hematuria. Her urinalysis came back positive for 3+ bacteria, positive nitrites and wbc. In the ER, the patient received 1 dose of IV ceftriaxone. The patient is now being admitted to [facility] with hypertensive urgency, UTI, and dizziness. Hospital coruse: Dizziness likely from HTN urgengency AFIB that is new with RVR--HR has gone up to 130s but has come down and is being managed with Metoprolol. Cardiology has seen her and recommend Eliquis for stroke prevention. HR rate is presently controlled, presently heart rate in the 60 UTI d/t EColi, treat with Ceftin upon discharge, was on Ceftriaxone in hospital elevated troponin, likely related to uncontrolled hypertension, and intermittent atrial fibrillation, no chest pain, no ischemic changes on EKG follow echo. Elevated BNP, likely related to uncontrolled hypertension and intermittent atrial fibrillation causing diastolic dysfunction follow echocardiogram , BNP improved from 292 to 57. Hypertensive urgency. Patient stop using her antihypertensive 1 year ago since her insurance changed and she was unable to find a new PCP Patient started on Zestril dose gradually increased to 40 mg, continue hydrochlorothiazide 25, Metoprolol 25 bid and titrated up to 50 bid. Time Spent with Patient Time attestation: Total time spent providing and/or coordinating discharge services: Discharge coordination time: Greater than 30 minutes Physical Exam Vital Signs: Vital Signs: Last Vital Signs Selected Entries 12/28/20 07:34 Temperature 97.2 F Pulse Rate 67 Respiratory Rate 18 Blood Pressure 158/57 H Pulse Oximetry 95 Oxygen Delivery Me thod Room Air Body Mass Index 38.5 General: AO X 3, no acute distress Resp: CTA bilateral CVS: S1,S2,iregular GI: +BS, NT, no distention Skin: No rash Neuro: motor grossly intact Psych: appropriate affect Discharge Plan Discharge Anticipated Discharge Date/Time: 12/28/20 09:28 Patient Disposition: Home, Self-Care Discharge Diagnosis: Atrial Fibrillation, dizziness, UTI, Uncontrolled HTN Referrals: Physician,None [Primary Care Provider] - Discharge Medications: New cefuroxime axetil 250 mg Tablet 250 mg PO Q12H Qty: 7 RF: 0 Eliquis 5 mg Tablet 5 mg PO BID Qty: 60 RF: 0 lisinopril 40 mg Tablet 40 mg PO DAILY Qty: 30 RF: 0 metoprolol tartrate 25 mg Tablet 50 mg PO BID Qty: 60 RF: 0 hydrochlorothiazide 25 mg Tablet 25 mg PO DAILY Qty: 30 RF: 0 Discharge Orders: Discharge Order (Routine); Ordered 12/27/20 Ordered By: Rubén Moses Activity on Discharge: As tolerated Stand Alone Forms: Patient Portal Discharge page Care Plan Goals: prevent rehospitalization and control of dizziness Health Concerns: atrial fibrilation Plan of Treatment: Take Metoprolol and Eliquis as directed and follow up with your heart doctor, and PC. Take cefuroxime for UTI. Take Lisinopril, Hydrochlorothiazide and Metoprolol for blood pressure control Assessment: New atrial fibrilation that is associated with dizziness and is now better and managment as stated above
[2020-12-27] MEDS: Meclizine HCl 12.5 MG TABLET PO (16:27)
[2020-12-27] MEDS: guaiFENesin DM 200/20/10 ML 10 ML SYRUP PO (16:31)
--- NOTE | 2020-12-27 18:30 | P.PNIM_ITS ---
Subjective Subjective Date of Service: 12/27/20 Interval History: Seen in f/u for new afib and dizziness, HR is controlled, still has some dizziness however better Physical Exam Vital Signs: Vital Signs: Last Vital Signs Temp 97.3 F 12/27/20 15:18 Pulse 58 12/27/20 15:18 Resp 16 12/27/20 15:18 BP 133/77 12/27/20 15:18 Pulse Ox 94 12/27/20 15:18 Body Mass Index 38.5 General: AO X 3, no acute distress Resp: CTA bilateral CVS: S1,S2, iregular GI: +BS, NT, no distention Skin: No rash Neuro: motor grossly intact Psych: appropriate affect Objective Data Current Medications Generic Name Dose Route Start Last Admin Trade Name Freq PRN Reason Stop Dose Admin Acetaminophen 650 mg 12/23/20 18:16 Acetaminophen 325 Mg Tablet PO Q6H PRN Pain, Mild (Pain Scale 1-3) Apixaban 5 mg 12/27/20 09:00 12/27/20 08:30 Apixaban 5 Mg Tablet PO 5 mg BID LORETO Administration Cefuroxime Axetil 250 mg 12/27/20 08:00 12/27/20 08:47 Cefuroxime Axetil 250 Mg Tablet PO 250 mg Q12H LORETO Administration Guaifenesin/Dextromethorphan 10 ml 12/23/20 21:46 12/27/20 16:31 Guaifenesin Dm 200/20/10 Ml 10 Ml Syrup PO 10 ml Q6H PRN Administration cough Hydrochlorothiazide 25 mg 12/25/20 09:00 12/27/20 08:30 Hydrochlorothiazide 25 Mg Tablet PO 25 mg DAILY [facility]OR[facility]O Administration Protocol Lisinopril 40 mg 12/26/20 09:00 12/27/20 08:31 Lisinopril 40 Mg Tablet PO 40 mg DAILY [facility] Administration Protocol Meclizine HCl 12.5 mg 12/23/20 21:46 12/27/20 16:27 Meclizine Hcl 12.5 Mg Tablet PO 12.5 mg Q6H PRN Administration dizziness Metoprolol Tartrate 50 mg 12/27/20 09:00 12/27/20 10:02 Metoprolol Tartrate 25 Mg Tablet PO 50 mg BID LORETO Administration Protocol Ondansetron HCl 4 mg 12/23/20 18:16 Ondansetron Hcl 4 Mg/2 Ml Vial IVPUSH Q8H PRN Nausea and Vomiting Pharmacy Consult 1 each 12/23/20 16:13 Consult Rx Perform Med Rec MISCELLANE ONCE PRN Consult order Sodium Chloride 3 ml 12/24/20 00:00 12/27/20 16:28 0.9 % Sodium Chloride Flush 3 Ml Syringe IVFLUSH 3 ml QSHIFT [facility] Administration Labs CBC & Chem 7: 12/23/20 10:55 12/26/20 06:01 Microbiology Microbiology Results: Microbiology 12/23/20 Unknown Urine clean catch - Clean Catch Midstream Urine Culture - Final Escherichia coli Assessment and Plan (1) Hypertensive urgency: Status: Acute (2) Elevated troponin: Status: Acute (3) PAF (paroxysmal atrial fibrillation): Status: Acute Assessment and Plan: 70-year-old female patient, who has not seen a primary care physician due to change in her insurance, presented to [facility] with multiple complaints including dizziness of 5 days, associated with shortness of breath, weakness, nasal congestion, itchy ears, dry cough and urinary symptoms suggestive of urinary tract infection. New AFIB--rate controlled, continue Metoptolol at 50 bid Eliquis for stroke prevention Elevated troponin, likely d/t af, uncontrolled HTN. No evidence of ischemia, no further w/u at this time Elevated BNP, likely related to uncontrolled hypertension and intermittent atrial fibrillation causing diastolic dysfunction follow echocardiogram , BNP improved from 292 to 57. Hypertensive urgency.--now normal, was not taken her meds at home d/t insurance issues. continue Metoprolol, Lisinopril, and HCTZ. Norvasc stopped since metoprolol added UTI d/t E. coli, stop Ceftriaxone and add Ceftin Dizziness/lightheadedness was likely related to uncontrolled hypertension and atrial fibrillation CT head negative will check MRI rule out acute CVA..symptoms treatment with meclizine History of depression. not on med, no SI, outpatient f/u DVT prophylaxis. on Lovenox.
[2020-12-28 04:00] VITALS: BP 140/70; PULSE 56; RESP 18; TEMP 36.1; O2SAT 97
[2020-12-28 07:34] VITALS: BP 158/57; PULSE 67; RESP 18; TEMP 36.2; O2SAT 95
--- NOTE | 2020-12-28 09:43 | MHC.CM.PN ---
Pt discharging today home self-care, taxi voucher for transport, pt given paphlet w/[facility] providers and pt reports she will chose [facility] since she had him before, pt aware she need to call her insurance and let them know after verifying he is taking pts.
--- NOTE | 2020-12-28 10:05 | P.PNCA_ITS ---
Subjective Subjective Date of Service: 12/28/20 Interval history: She states that she feels well. No specific complaints. Review of Systems Review of Systems Yes all other systems are reviewed and are negative Cardiovascular: Reports as per HPI, Reports no additional cardiovascular complaints, Denies acrocyanosis, Denies cool extremities, Denies painful fi ngertips, Denies chest pain, Denies chest pain at rest, Denies diaphoresis, Denies syncope, Denies irregular heart rhythm, Denies claudication, Denies leg edema, Reports lightheadedness, Denies palpitations and Denies dyspnea Respiratory: Denies dyspnea Denies syncope Endocrine: Denies palpitations Physical Exam Vital Signs: Last Vital Signs Temp 97.2 F 12/28/20 07:34 Pulse 67 12/28/20 07:34 Resp 18 12/28/20 07:34 BP 158/57 H 12/28/20 07:34 Pulse Ox 95 12/28/20 07:34 Body Mass Index 38.5 Const General: cooperative, comfortable and no acute distress Orientation/consciousness: patient oriented x3 HENMT Other: Unremarkable Neck Neck: Yes normal visual inspection Chest Chest palpation & inspection: normal inspection of the chest Resp Auscultation: clear to auscultation bilaterally, no crackles and no wheezes Cardio Jugular venous distension: no JVD Palpation: normal PMI Heart sounds: S1 normal heart sound present, S2 normal heart sound present, no gallops, no murmurs and no rubs GI Palpation (GI): Soft to palpation Back/Spine/Pelvis Other: unremarkable Skin General skin exam: no rashes or lesions noted Neuro General: patient oriented x3 Extrem General: Yes no clubbing, cyanosis or edema Psych Mental Status: mental status grossly normal Results Labs and Meds Result diagrams: 12/23/20 10:55 12/26/20 06:01 Progress Note: A&P Assessment and plan (1) Hypertensive urgency: Status: Acute (2) Elevated troponin: Status: Acute (3) PAF (paroxysmal atrial fibrillation): Status: Acute Assessment and Plan: Blood pressure has improved from 227/99 mm Hg to 158/57 mm Hg. She is currently on hydrochlorothiazide, lisinopril, metoprolol. She was started on amlodipine but has been switched to beta-blockers due to new atrial fibrillation. Troponin elevation is probably from the hypertension itself but may need an outpatient stress test to look for ischemia. [place] for anticoagulation. On telemetry today, she is back in normal sinus rhythm. Heart rate about 60/Min. We will arrange follow-up after discharge. Fall Risk Details Current Medications: Current Medications Generic Name Dose Route Start Last Admin Trade Name Freq PRN Reason Stop Dose Admin Acetaminophen 650 mg 12/23/20 18:16 Acetaminophen 325 Mg Tablet PO Q6H PRN Pain, Mild (Pain Scale 1-3) Apixaban 5 mg 12/27/20 09:00 12/27/20 20:38 Apixaban 5 Mg Tablet PO 5 mg BID LORETO Administration Cefuroxime Axetil 250 mg 12/27/20 08:00 12/27/20 20:38 Cefuroxime Axetil 250 Mg Tablet PO 250 mg Q12H LORETO Administration Guaifenesin/Dextromethorphan 10 ml 12/23/20 21:46 12/27/20 16:31 Guaifenesin Dm 200/20/10 Ml 10 Ml Syrup PO 10 ml Q6H PRN Administration cough Hydrochlorothiazide 25 mg 12/25/20 09:00 12/27/20 08:30 Hydrochlorothiazide 25 Mg Tablet PO 25 mg DAILY LORETO Administration Protocol Lisinopril 40 mg 12/26/20 09:00 12/27/20 08:31 Lisinopril 40 Mg Tablet PO 40 mg DAILY LORETO Administration Protocol Meclizine HCl 12.5 mg 12/23/20 21:46 12/27/20 16:27 Meclizine Hcl 12.5 Mg Tablet PO 12.5 mg Q6H PRN Administration dizziness Metoprolol Tartrate 50 mg 12/27/20 09:00 12/27/20 20:39 Metoprolol Tartrate 25 Mg Tablet PO Not Given BID LORETO Protocol Ondansetron HCl 4 mg 12/23/20 18:16 Ondansetron Hcl 4 Mg/2 Ml Vial IVPUSH Q8H PRN Nausea and Vomiting Pharmacy Consult 1 each 12/23/20 16:13 Consult Rx Perform Med Rec MISCELLANE ONCE PRN Consult order Sodium Chloride 3 ml 12/24/20 00:00 12/27/20 20:38 0.9 % Sodium Chloride Flush 3 Ml Syringe IVFLUSH 3 ml QSHIFT LORETO Administration Time Spent With Patient Time: Total time spent is greater than 50% in coordination of care (as documented) at patient's floor/unit and/or counseling patient: Time with patient: less than 15 minutes
[2020-12-28 10:09] VITALS: BP 158/57; PULSE 67
[2020-12-28] MEDS: Apixaban 5 MG TABLET PO (10:09)
[2020-12-28] MEDS: lisinopriL 40 MG TABLET PO (10:09)
[2020-12-28] MEDS: Metoprolol Tartrate 25 MG TABLET 50 MG PO (10:09)
[2020-12-28] MEDS: hydroCHLOROthiazide 25 MG TABLET PO (10:10)
[2020-12-28] MEDS: 0.9 % Sodium Chloride Flush 3 ML SYRINGE IVFLUSH (10:10)
[2020-12-28 11:15] VITALS: BP 147/65; PULSE 92; RESP 18; TEMP 36.8; O2SAT 95
== END 2020-12-28 13:11 | disposition home or self-care (01) | DRG 690 ==
LOC: HO.ED 16:08 → HO.EDOVER 18:39 → HO.S3 19:48
PROVIDERS: Admitting Provider Hospitalist; Emergency Provider Emergency Medicine; Visit Provider Internal Medicine
DX: N39.0 Urinary tract infection, site not specified (principal); I16.0 Hypertensive urgency; B96.20 Unspecified Escherichia coli [E. coli] as the cause of diseases classified elsewhere; I48.0 Paroxysmal atrial fibrillation; Z20.822 Contact with and (suspected) exposure to COVID-19
CPT/HCPCS: 0241U; 36415; 70450; 70551; 71045; 80048; 80076; 81001; 81003; 83735; 83880; 84443; 84484; 85025; 85610; 85730; 87086; 87088; 87186; 92610; 93005; 93306; 96365; 96375; 99285; J0696; J1650; J2060; Q9957

== ENCOUNTER → 2021-01-18 13:51 | Outpatient (BNVA) | payer MEDICARE, SELFPAY | PROVIDERS: Visit Provider Internal Medicine | DX: I48.0 Paroxysmal atrial fibrillation (principal); I10 Essential (primary) hypertension; R77.8 Other specified abnormalities of plasma proteins | CPT/HCPCS: 93005; 99212 ==

== ENCOUNTER → 2021-02-07 08:00 | Outpatient (REF) | payer MEDICARE, SELFPAY ==
--- NOTE | ~2021-02-07 | NM_ITS ---
Lexiscan Myocardial perfusion study Indication: Atrial fibrillation, uncontrolled hypertension, elevated troponins, assess for coronary disease and ischemia Technique: The patient was brought in for a Lexiscan perfusion study on 02/07/2021 and was injected 0.4 mg of Lexiscan intravenously. Within a minute of this injection 35 mCi of sestamibi was given intravenously. Images were obtained using the SPECT gamma camera interlaced with the gating device. Images were obtained in supine position. Resting perfusion study was performed on 02/10/2021. Patient was administered 35 mCi of sestamibi intravenously at rest. Images were then obtained in supine position. Total DLP 133mGy-cm. Images were processed with the software and compared side to side in short axis, horizontal long axis and vertical long axis views. Findings: Raw acquisition reviewed. The stress perfusion study showed slightly diminished tracer uptake in the mid to distal anterior, anteroseptal wall, basal inferolateral cardoso. With CT attenuation correction, overall, there is significant improvement in uptake in the above areas and hence could be all artifactual. The gated study shows normal LV systolic function with calculated LVEF of 58%. LV cavity is normal in size. The gated study shows normal wall thickening and contraction of segments. Resting study shows no significant perfusion abnormality. Gating at rest reveals normal wall motion with ejection fraction at 58%. The findings are consistent with no definite reversible or fixed perfusion defects. NM/NM cardiolite stress test Impression: 1. Myocardial perfusion imaging study shows no definitive evidence of any ischemia or infarction. 2. Gated LVEF is 58% during stress and rest. 3. Transient ischemic dilatation not present. EKG component of the test reported separately.
--- NOTE | 2021-02-07 08:30 | CA_ITS ---
Acquisition Time: 2021-02-07 08:34:52 Total Exercise Time: 00:03:53 Test Indications: CP Medications: SEE CHART Protocol: MADDIE Max HR: 095 BPM 62% of Pred: 151 BPM Max BP: 154/090 mmHG Max Work Load: 5.6 METS Exercise stress test with exercise 3 min 53 sec of Maddei protocol, with moderate shortness of breath and fatigue with request to stop exercise. Assisted to sitting position and once recovered testing changed to a pharmacological stress test with Lexiscan injection while sitting and kicking her legs, without anginal symptoms, with isolated PVCs, PACs and 2-3 beat runs atrial tachycardia, with normotensive response to injection, with nondiagnostic EKG for ischemia, In recovery she reported lightheadedness that was treated with Aminophylline 75mg IVP with resolution of symptom. Nuclear images pending. Test reviewed with Dr Moe. Referred By: Andreas Moe Overread By: LYLA HILARIO
== END ==
LOC: HO.CARD 08:00
PROVIDERS: Visit Provider Internal Medicine
DX: I48.0 Paroxysmal atrial fibrillation (principal); R77.8 Other specified abnormalities of plasma proteins
CPT/HCPCS: 78452; 93016; 93017; 93018; A9500; J0280; J2785

== ENCOUNTER 2021-04-17 09:02 | Outpatient (REF) | payer MEDICARE, SELFPAY ==
[2021-04-17 10:54] LABS: Anion Gap 13 (12-20); Blood Urea Nitrogen 20 mg/dL (9-16); Calcium 9.9 mg/dL (8.4-10.2); Carbon Dioxide 29 mmol/L (22-29); Chloride 104 mmol/L (96-108); Estimated Glomerular Filt Rate > 60; Glucose Random 88 mg/dL (60-115); Potassium 3.9 mmol/L (3.3-5.1); Sodium 142 mmol/L (135-145)
== END 2021-04-17 09:03 | disposition home or self-care (01) ==
LOC: HO.LAB 09:02
PROVIDERS: Visit Provider Internal Medicine
DX: I10 Essential (primary) hypertension (principal); I48.0 Paroxysmal atrial fibrillation; R77.8 Other specified abnormalities of plasma proteins; Z79.01 Long term (current) use of anticoagulants; Z79.899 Other long term (current) drug therapy
CPT/HCPCS: 36415; 80048; 99212

== ENCOUNTER 2021-08-08 11:49 | Outpatient (REF) | payer MEDICARE, SELFPAY ==
--- NOTE | ~2021-08-08 | XR_ITS ---
EXAMINATION: XR knee RT 3V, XR knee LT 3V CLINICAL INFORMATION: Reason for Exam M25.561 - Pain in right knee COMPARISON: None available at the time of this dictation. TECHNIQUE: frontal, lateral, tunnel and patella sunrise views FINDINGS: BONES: No fracture or dislocation is present. JOINTS: Narrowing of joint spaces suggest mild degenerative osteoarthritis. This has involved medial compartment on both side, symmetric involvement. Small osteophyte from the edges of articular surface medial compartment femoral condyles. 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 No joint effusion.
--- NOTE | ~2021-08-08 | XR_ITS ---
EXAMINATION: XR knee RT 3V, XR knee LT 3V CLINICAL INFORMATION: Reason for Exam M25.561 - Pain in right knee COMPARISON: None available at the time of this dictation. TECHNIQUE: frontal, lateral, tunnel and patella sunrise views FINDINGS: BONES: No fracture or dislocation is present. JOINTS: Narrowing of joint spaces suggest mild degenerative osteoarthritis. This has involved medial compartment on both side, symmetric involvement. Small osteophyte from the edges of articular surface medial compartment femoral condyles. 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 No joint effusion.
[2021-08-08 12:04] LABS: MANUAL DIFF FLAG NO
[2021-08-08 12:51] LABS: Basophils Absolute Auto 0.1 X10*3/uL (0.0-0.2); Basophils Percent Auto 0.8 % (0-2); Eosinophils Absolute Auto 0.2 X10*3/uL (0.0-0.4); Eosinophils Percent Auto 2.8 % (0-4); Hematocrit 43.1 % (37.0-47.0); Hemoglobin 14.5 g/dl (12.0-16.0); Imm Gran Abs Auto 0.02 X10*3/uL (0.00-0.03); Imm Gran Pct Auto 0.3 % (0.0-0.4); Lymphocytes Absolute Auto 2.3 X10*3/uL (1.2-4.9); Mean Corpuscular HGB Conc 33.6 g/dl (31.0-35.0); Mean Corpuscular Hemoglobin 28.5 pg (27.0-33.0); Mean Corpuscular Volume 84.7 fL (80.0-98.0); Mean Platelet Volume 11.5 fL (9.4-12.3); Monocytes Absolute Auto 0.5 X10*3/uL (0.1-1.2); Monocytes Percent Auto 6.5 % (2-11); Neutrophils Absolute Auto 4.5 x10*3/uL (2.0-8.3); Neutrophils Percent Auto 59.6 % (45-73); Platelet Count 307 X10*3/uL (160-400); Red Blood Count 5.09 X10*6/uL (4.20-5.50); Red Cell Distribution Width 11.9 % (11.0-16.0); White Blood Count 7.5 X10*3/uL (4.8-10.8)
[2021-08-08 13:13] LABS: Alanine Aminotransferase 13 U/L (0-31); Albumin Level 4.3 g/dL (3.5-5.0); Alkaline Phosphatase 52 U/L (39-117); Anion Gap 12 (12-20); Aspartate Amino Transferase 13 U/L (5-31); Bilirubin Total 1.1 mg/dL (0.0-1.0); Blood Urea Nitrogen 14 mg/dL (9-16); Calcium 9.5 mg/dL (8.4-10.2); Carbon Dioxide 29 mmol/L (22-29); Chloride 104 mmol/L (96-108); Cholesterol 204 mg/dL; Estimated Glomerular Filt Rate > 60; Glucose Fasting 91 mg/dL (60-99); HDL Cholesterol 33 mg/dL; LDL Cholesterol Calculated 132 mg/dl; Potassium 4.6 mmol/L (3.3-5.1); Sodium 140 mmol/L (135-145); Total Protein 7.1 g/dL (6.5-8.0); Triglycerides 199 mg/dL
[2021-08-08 13:30] LABS: Erythrocyte Sedimentation Rate 7 MM/HR (0-20)
[2021-08-08 13:35] LABS: Vitamin D 25-OH Total 13.4 ng/mL (>30)
[2021-08-08 13:42] LABS: Folate 13.1 ng/mL (> or = 4.0); Vitamin B12 582 pg/mL (200-900)
[2021-08-08 14:41] LABS: Appearance Urine CLOUDY; Color Urine YELLOW; Glucose Urine UA NEG (NEG); Leukocyte Esterase Urine 3+ (NEG); Nitrite Urine NEG (NEG); Specific Gravity - Urine 1.025 (1.005-1.025); UACC Culture Trigger YES; Urine Blood 1+ (NEG); Urine Ketones NEG (NEG); Urine Protein TRACE MG/DL (NEG-TRACE)
[2021-08-08 14:53] LABS: WBC Urine TNTC /HPF (0-4)
[2021-08-08 14:54] LABS: Bacteria Urine 1+ /LPF; Squamous Epithelial Cell Urine 1+ /LPF
== END 2021-08-08 11:50 | disposition home or self-care (01) ==
LOC: HO.LAB 11:49
PROVIDERS: PCP Internal Medicine; Visit Provider Internal Medicine
DX: I10 Essential (primary) hypertension (principal); E55.9 Vitamin D deficiency, unspecified; E53.8 Deficiency of other specified B group vitamins; E78.00 Pure hypercholesterolemia, unspecified; M25.561 Pain in right knee; M25.562 Pain in left knee
CPT/HCPCS: 36415; 73562; 80053; 80061; 81001; 82306; 82607; 82746; 84443; 85025; 85652; 87086; 87088; 87186

== ENCOUNTER 2021-08-30 11:46 | Emergency (ER) | payer MEDICARE, SELFPAY ==
--- NOTE | ~2021-08-30 | CT_ITS ---
EXAMINATION: CT HEAD WITHOUT CONTRAST CLINICAL INFORMATION: Dizziness COMPARISON: December 21, [id number] and December 23, 2020 TECHNIQUE: Contiguous axial imaging was performed from the skull base to vertex without intravenous administration of contrast. This CT examination was performed using dose optimization techniques as appropriate, variously including the following: *Automated exposure control *Adjustment of mA and/or kV according to patient size (this includes techniques or standardized protocols for targeted exams where dose is matched to indication/reason for exam; i.e. extremities or head) *Use of iterative reconstruction technique DLP: 610 mGy-cm FINDINGS: There is an intraparenchymal hemorrhage seen within the left cerebellum with no extension into the fourth ventricle. There is mass impression upon the fourth ventricle with some low density surrounding edema present about the hematoma. No evidence of herniation is seen. There is diffuse prominence of the ventricular system which is stable compared to prior study but which also seems more prominent than suspected for the sulci and there may be some degree of hydrocephalus present. No midline structure shift is appreciated. There is a large amount of periventricular white matter low density consistent with microangiopathy. Paranasal sinuses and mastoid air cells unremarkable. Calcified scalp lesions again seen. CT/CT head/brain wo con IMPRESSION: Left cerebellar hemorrhage without herniation. No intraventricular hemorrhage identified. Findings consistent with microangiopathy. This critical result was discussed with Dr. Saldaña at 12:50 PM on August 30, 2021 and it was ascertained that the content and urgency of the report was understood at the time of direct communication.
--- NOTE | ~2021-08-30 | XR_ITS ---
EXAMINATION: XR CHEST CLINICAL INFORMATION: Weakness COMPARISON: December 23, 2020 TECHNIQUE: AP portable view of the chest was obtained. FINDINGS: No significant abnormality is noted involving the heart, lungs, mediastinum, bony thorax or soft tissues. XR/XR chest 1V IMPRESSION: No acute disease.
--- NOTE | 2021-08-30 12:11 | ED.DIZZY ---
HPI - Dizziness General Stated Complaint: DIZZY,WEAK,VOMITING,DIARRHEA Time Seen by Provider: 08/30/21 11:52 Source: patient and old records reviewed Mode of arrival: EMS Limitations: no limitations History of Present Illness MD elicited complaint: dizziness, lightheadedness and other (n/v/d ) Onset (ago): day(s) (Saturday) Timing: sudden onset Severity: severe Description: lightheadedness, off-balance and difficulty walking Context: change in body position History of similar symptoms: No Exacerbating factors: movement/ambulation and change in body position Relieving factors: remaining still Associated symptoms: nausea, vomiting, malaise, weakness and other (states she cannot get up, did not take her medications since saturday) Associated neuro symptoms: other (cannot walk because she is so weak) Related Data Previous Rx's Medication Instructions Recorded apixaban 5 mg tablet (Eliquis) 5 mg PO BID #60 tab 08/09/21 hydrochlorothiazide 25 mg tablet 25 mg PO DAILY #90 tab 08/16/21 lisinopril 40 mg tablet 40 mg PO DAILY #90 tab 08/16/21 metoprolol tartrate 50 mg tablet 50 mg PO BID 90 Days #180 tab 08/16/21 Allergies Allergy/AdvReac Type Severity Reaction Status Date / Time No Known Allergies Allergy Verified 06/30/21 10:55 Review of Systems Review of Systems: Constitutional : No Weight loss, No Fever, No Chills, pos Fatigue, pos Malaise ENT/Mouth : No sore throat, No Rhinorrhea Eyes: No Eye Pain, No Swelling, No Redness Cardiovascular : No Chest Pain, No SOB, No Dyspnea on Exertion, No Orthopnea, No Edema, No Palpitations Respiratory : No Cough, No Sputum, No Wheezing Gastrointestinal : pos Nausea, pos Vomiting, pos Diarrhea, No Constipation, No abdominal Pain, No Hematochezia, No Melena Genitourinary : No Dysuria, No Urinary Frequency, No Hematuria, Musculoskeletal : No joint pain, No Myalgias, No Joint Swelling Skin : No Skin Lesions, No rash Neuro : pos Weakness, No Numbness, pos Dizziness, No Headache Psych : No Anxiety/Panic, No Depression Heme/Lymph: No Bruising, No Bleeding,No Lymphadenopathy Endocrine : No Polyuria, No Polydipsia All other systems reviewed and are negative [facility] Past Medical History Medical History Essential hypertension HTN (hypertension) Obesity (BMI 30-39.9) Surgical History Hx of appendectomy Hx of cholecystectomy Hx of hernia repair Hx of hysterectomy Family History Family History Father No problems noted. Mother No problems noted. Social History Social History Household Members: None Housing: Other Housing Other:: mobile home Do you presently have visiting nurse or other home services: Yes ([employer]) Alcohol intake: current Alcohol intake frequency: does not drink Patient Tobacco Use Status: Never used Tobacco Second Hand Smoke Exposure: Yes Use of substances other than those prescribed or required for medical reasons: No Advance Directives: Yes Advance Directives Information Provided: No Advance Directives on File: No service: No Current occupational status: disabled Physical Exam Vital Signs: Vital Signs: Last Vital Signs Temp 98.3 F 08/30/21 12:35 Pulse 68 08/30/21 13:12 Resp 14 08/30/21 13:12 BP 184/72 H 08/30/21 13:12 Pulse Ox 99 08/30/21 13:12 BMI result Body Mass Index 31.5 Appearance: Alert. Oriented X3. No acute distress. Eyes: Pupils equal, round and reactive to light. no nystagmus, denies visual field cut ENT: Pharynx moderately dry MM Neck: Normal inspection. Neck supple. CVS: Normal heart rate and rhythm. Pulses normal. Respiratory: No respiratory distress. Breath sounds normal. Abdomen: Soft and nontender. Skin: Skin warm and dry. pale skin color. Normal skin turgor. Extremities: No lower extremity edema. No calf ttp Neuro: Oriented X 3. No motor deficit. No sensory deficit. no drift, cannot ambulate Course Course Course Narrative: + CT head for L cerebellar bleed patient adamantly denies vision changes to me, she adamantly denies trauma and her last dose of eliquis was Saturday AM 1236 BP 180 will order nicardipine drip goal 140 - GCS 15 call from Radiology no herniation but L cerebellar bleed - some mass effect, patient remains GCS 15 - stat call to transfer centers. [facility] call out to neurology 1pm - call back decision 115pm Dr. Shah to ICU, continue nicardipine gtt The intraparenchymal bleed within the left cerebellum measures approximately 3.0 x 2.5 cm in size and extends vertically for a length of 2.6 cm. LABS PENDING POC INR 1.2 MDM - Dizziness MDM Narrative Medical decision making narrative: 71 yo female hx of HTN, PAF on metoprolol and eliquis - has had dizziness weakness, n/v/d that started abruptly on Saturday she has no focal deficits - at this time denies CP/SOB or GIB symptoms will need labs, IVF, symptomatic medications, EKG, ortho VS and CT head to r/o ICH - she denies trauma but does take eliquis has not taken any of her medications since Saturday. Dispo per results and findings. Lab Data Result diagrams: 08/30/21 12:52 08/30/21 12:52 Labs: Lab Results 08/30/21 Range/Units 13:05 Whole Blood PT 14.9 H (11.1-13.5) sec Whole Blood INR 1.2 H (0.9-1.1) Critical Care Time Critical Care Time Critical Care Time: Yes Total Critical Care Time: 60 Attestation: review of records, medical consult, nicardipine gtt, transfer to tertiary center I attest to this time spent taking care of the patient Discharge Plan Discharge Clinical Impression: Acute cerebellar hemorrhage Patient Disposition: Pending Sale To [facility] Transfer Details: [facility] Prescriptions: No Action Eliquis 5 mg tablet 5 mg PO BID Qty: 60 RF: 5 hydrochlorothiazide 25 mg tablet 25 mg PO DAILY Qty: 90 RF: 3 lisinopril 40 mg tablet 40 mg PO DAILY Qty: 90 RF: 3 metoprolol tartrate 50 mg tablet 50 mg PO BID 90 Days Qty: 180 RF: 3
[2021-08-30 12:35] VITALS: BP 180/100; BP 186/72; PULSE 58; PULSE 62; RESP 16; TEMP 36.8; O2SAT 97; O2SAT 98; BMI 31.5
[2021-08-30] MEDS: niCARdipine HCL 25 MG in 0.9 % Sodium Chloride 250 ML 52 MG IVCONT (12:56)
--- NOTE | 2021-08-30 12:58 | PC.NURSE ---
@ 1257PM DR SNOWDEN REQUESTS CALL OUT TO [facility] PT TX LINE ELIA ANSWERS,TAKES PT INFO AND REQUESTS TO SPEAK WITH DR SP SNOWDEN TAKES OVER CALL RIGHT AWAY
[2021-08-30 13:00] LABS: MANUAL DIFF FLAG NO
[2021-08-30 13:02] LABS: Basophils Absolute Auto 0.1 X10*3/uL (0.0-0.2); Basophils Percent Auto 0.3 % (0-2); Eosinophils Percent Auto 0.3 % (0-4); Hematocrit 50.3 % (37.0-47.0); Hemoglobin 17.2 g/dl (12.0-16.0); Imm Gran Abs Auto 0.06 X10*3/uL (0.00-0.03); Imm Gran Pct Auto 0.4 % (0.0-0.4); Lymphocytes Absolute Auto 1.9 X10*3/uL (1.2-4.9); Lymphocytes Percent Auto 12.9 % (20-40); Mean Corpuscular HGB Conc 34.2 g/dl (31.0-35.0); Mean Corpuscular Volume 81.9 fL (80.0-98.0); Mean Platelet Volume 10.9 fL (9.4-12.3); Monocytes Percent Auto 6.9 % (2-11); Neutrophils Absolute Auto 11.5 x10*3/uL (2.0-8.3); Neutrophils Percent Auto 79.2 % (45-73); Platelet Count 352 X10*3/uL (160-400); Red Blood Count 6.14 X10*6/uL (4.20-5.50); Red Cell Distribution Width 12.1 % (11.0-16.0); White Blood Count 14.5 X10*3/uL (4.8-10.8)
[2021-08-30] MEDS: ondansetron HCL 4 MG/2 ML VIAL IVPUSH (13:08)
[2021-08-30 13:09] LABS: Prothrombin Time Whole Bld POC 14.9 sec (11.1-13.5); ~PT, ~INR - Anti Coag Clinic 1.2 (0.9-1.1)
[2021-08-30 13:12] VITALS: BP 184/72; PULSE 68; RESP 14; O2SAT 99
--- NOTE | 2021-08-30 13:15 | MHC.STROKE ---
I RECEIVED A CALL FROM DR SNOWDEN IN THE ED + LEFT OCCIPITAL BLEED. ONSET 08/28/21. THE PATIENT SAID SHE HAS FELT WEAK, DIZZY, NAUSEOUS, AND UPON EXAMINATION SHE HAS A RIGHT VISUAL FIELD CUT. I AM UNABLE TO WALK HER BUT + FOR [place]. SHE IS BEING KEPT NPO. I DID EXPLAIN THE PLAN OF CARE. SHE IS ON ELIQUIS FOR AFIB AND HAS NOT TAKEN IT SINCE SATURDAY. SHE DOES NOT HAVE ANY CANCER HISTORY. SHE IS HTN AND CURRENTLY BEING TREATED. DR SNOWDEN IS CONTACTING TERTIARY FACILITIES FOR NEUROSURGICAL BACK UP.
[2021-08-30 13:17] VITALS: BP 180/72
[2021-08-30 13:20] LABS: COVID-19 Test Negative (Negative)
[2021-08-30 13:24] LABS: INTERNATIONAL NORM RATIO 1.3 (0.9-1.1); Prothrombin Time 14.8 SEC (9.9-13.0)
[2021-08-30 13:27] LABS: Partial Thromboplastin Time 36.3 SEC (24.1-38.0)
[2021-08-30 13:29] VITALS: BP 177/61; PULSE 67; RESP 14; O2SAT 96
[2021-08-30 13:32] VITALS: BP 175/68
[2021-08-30 13:36] LABS: Troponin-I High Sensitivity 50.2 ng/L (<3.5-17.0)
[2021-08-30] MEDS: 0.9 % Sodium Chloride 1,000 ML 999 ML IV (13:41)
[2021-08-30 14:07] LABS: Alanine Aminotransferase 14 U/L (0-31); Albumin Level 4.6 g/dL (3.5-5.0); Alkaline Phosphatase 69 U/L (39-117); Anion Gap 18 (12-20); Aspartate Amino Transferase 21 U/L (5-31); Bilirubin Direct 0.5 mg/dL (0.0-0.5); Blood Urea Nitrogen 14 mg/dL (9-16); Calcium 10.2 mg/dL (8.4-10.2); Carbon Dioxide 24 mmol/L (22-29); Chloride 103 mmol/L (96-108); Creatinine Clr Calc Pharmacy 76.9; Estimated Glomerular Filt Rate > 60; Glucose Random 109 mg/dL (60-115); Lipase 28 U/L (8-78); Magnesium 2.1 mg/dL (1.6-2.6); Potassium 3.7 mmol/L (3.3-5.1); Sodium 141 mmol/L (135-145); Total Protein 8.1 g/dL (6.5-8.0)
--- NOTE | 2021-08-30 15:01 | PC.NURSE ---
this Rn attempted twice to call number that was provided for nurse to nurse transfer. there was no answer twice from nurses station. this rn notifed ems of this and told them if [facility] could call this nurse for report. the floor patient had gone to called about 1 hour post patient leaving the Ed and stated that they did not receive report and that this rn should have called the monorail charger operator phone. explained above scenario to nurse and she did not trudi report from this rn, hung up the phone.
== END 2021-08-30 14:13 | disposition short-term general hospital (02) ==
PROVIDERS: Emergency Provider Emergency Medicine; PCP Internal Medicine
DX: I61.4 Nontraumatic intracerebral hemorrhage in cerebellum (principal); I10 Essential (primary) hypertension; I48.0 Paroxysmal atrial fibrillation; Z79.01 Long term (current) use of anticoagulants; Z79.899 Other long term (current) drug therapy; Z20.822 Contact with and (suspected) exposure to COVID-19
CPT/HCPCS: 36415; 70450; 71045; 80048; 80076; 83690; 83735; 84484; 85025; 85610; 85730; 87040; 87147; 87205; 87635; 96361; 96374; 96375; 99285; 99291; J2405

== ENCOUNTER 2021-09-25 15:45 | Emergency (ER) | payer MEDICARE, SELFPAY ==
--- NOTE | ~2021-09-25 | CT_ITS ---
EXAMINATION: CT ABDOMEN AND PELVIS WITHOUT CONTRAST CLINICAL INFORMATION: Abdominal pain with leukocytosis. COMPARISON: None TECHNIQUE: Multidetector volumetric imaging was performed from the superior aspect of the liver through the pubic symphysis. Sagittal and coronal reformatted images were obtained on the technologist's workstation. This CT examination was performed using dose optimization techniques as appropriate, variously including the following: *Automated exposure control *Adjustment of mA and/or kV according to patient size (this includes techniques or standardized protocols for targeted exams where dose is matched to indication/reason for exam; i.e. extremities or head) *Use of iterative reconstruction technique DLP: 829 mGy-cm FINDINGS: LUNG BASES: There is bandlike atelectasis right lower lobe with minimal right posterior pleural thickening. The heart size is normal. There are coronary artery calcifications present. LIVER, GALLBLADDER, AND BILIARY TREE: The liver is normal in size, shape, and attenuation. No focal hepatic lesion or biliary ductal dilatation is present. The gallbladder has been surgically removed. PANCREAS: Unremarkable. SPLEEN: Unremarkable. ADRENAL GLANDS: Unremarkable. KIDNEYS AND URETERS: The kidneys are normal in size, shape, and attenuation. No hydronephrosis, hydroureter, or calculi seen. No perinephric stranding. There is anechoic cyst in midpole left kidney measuring 4.6 x 2.8 cm. BLADDER: The bladder is significantly distended without any bladder wall thickening, radiopaque calculi. GASTROINTESTINAL TRACT: There is scattered stool throughout the colon without any significant distention. The small bowel loops are normal caliber. Appendix is not visualized. No inflammatory process seen in the abdomen. There is no free air or free fluid. ABDOMINAL WALL: There is abdominal mesh in the epigastric region from previous surgical hernia repair. LYMPH NODES: Normal. VASCULAR: Unremarkable. PELVIC VISCERA: There is distended distal sigmoid colon and rectum with mural thickening and pre sacral soft tissue thickening with fat stranding suggestive of proctitis. Anal narrowing or stricture cannot be excluded. This could be causing bladder outlet obstruction. OSSEOUS STRUCTURES: There is vacuum disc phenomena at the L4-L5 disc level. Rest of the disc levels appear unremarkable. No lytic or sclerotic process seen. CT/CT abdomen pelvis wo con IMPRESSION: Significant bilateral distention from bladder outlet obstruction. Mural thickening of distal sigmoid and rectal region likely proctitis. [id number] presacral soft tissue thickening and mild fat stranding is seen in this region. Cannot exclude anal stricture. Recommend clinical correlation. There is no proximal bowel obstruction seen. Left renal cyst with bilateral perinephric stranding. No radiopaque renal calculi or hydronephrosis. Fleischner guidelines were followed.
--- NOTE | ~2021-09-25 | XR_ITS ---
EXAMINATION: XR CHEST CLINICAL INFORMATION: Leukocytosis. COMPARISON: Chest x-ray 08/30/2021 TECHNIQUE: Frontal view of the chest was obtained. FINDINGS: No significant abnormality is noted involving the heart, lungs, mediastinum, bony thorax or soft tissues. XR/XR chest 1V IMPRESSION: Unremarkable examination.
[2021-09-25 16:00] VITALS: BP 156/82; PULSE 86; O2SAT 97
[2021-09-25 16:08] VITALS: BP 125/44; PULSE 86; RESP 16; TEMP 37.3; O2SAT 97; BMI 32.5
--- NOTE | 2021-09-25 16:14 | ED_ITS ---
HPI - Abdominal Pain General Chief Complaint: Nausea/Vomiting/Diarrhea Stated Complaint: Abdominal Pain Time Seen by Provider: 09/25/21 16:13 Source: patient Mode of arrival: ambulatory Limitations: no limitations History of Present Illness HPI narrative: Patient is 71 years old came from [facility] with history of hypertension CVA with left-sided weakness walks with walker came here for diarrhea and nausea for last 2 days patient had multiple bowel movements more than 10 day was not taking any antibiotics lately labs were done in the intermediate showed WBC count of 23.3. No fever no chills complaining of diffuse abdominal pain. No fever no chills Related Data Home Medications Medication Instructions Recorded Confirmed nifedipine 60 mg PO DAILY 09/26/21 09/26/21 rosuvastatin 5 mg PO BEDTIME 09/26/21 09/26/21 Previous Rx's Medication Instructions Recorded hydrochlorothiazide 25 mg tablet 25 mg PO DAILY #90 tab 08/16/21 lisinopril 40 mg tablet 40 mg PO DAILY #90 tab 08/16/21 metoprolol tartrate 50 mg tablet 50 mg PO BID 90 Days #180 tab 08/16/21 Allergies Allergy/AdvReac Type Severity Reaction Status Date / Time No Known Allergies Allergy Verified 06/30/21 10:55 Review of Systems Review of Systems Yes all other systems are reviewed and are negative Physical Exam Vital Signs: Vital Signs: Last Vital Signs Temp 100.8 F H 09/25/21 21:12 Pulse 81 09/25/21 23:34 Resp 18 09/25/21 23:34 BP 169/64 H 09/25/21 23:34 Pulse Ox 98 09/25/21 23:34 BMI result Body Mass Index 32.5 Appearance: Alert. Oriented X3. No acute distress. Eyes: No pallor or icterus ENT: Pharynx normal. Oral Mucosa dry Neck: Normal inspection. Neck supple. CVS: Normal heart rate and rhythm. Pulses normal. Respiratory: No respiratory distress. Equal air entry bilateral, no wheezing/rales/rhonchi Abdomen: Soft , diffuse tenderness no rebound tenderness or guarding, Bowel sounds are present, no mass palpable, no CVA tenderness Rectal semi-soft stool manual disimpaction done Skin: Skin warm and dry. Normal skin color. Normal skin turgor. Extremities: No lower extremity edema. No calf tenderness Neuro: Oriented X 3. Left-sided residual weakness MDM - Abdominal Pain MDM Narrative Medical decision making narrative: Patient diffuse abdominal pain rectal examination revealed soft stool no significant tenderness on examination patient a elevated WBC count CT scan showed proctitis patient has significant elevated WBC count etiology not clear, significant leukocytosis without any significant source of infection except proctitis, stool sample sent for C diff was negative patient is COVID negative also dose of Levaquin and Flagyl given the ER. Case discussed with intermediate staff will not be able to take the patient back to intermediate as patient supposed to go home today. Humphrey catheter was placed in the ER patient is feeling much better case discussed with case management patient does not have any arrangement made yet to go home will keep her overnight for case management evaluation and management the morning once arrangement is done will remove the Uhmphrey catheter Differential Diagnosis Differential diagnosis: Likely abdominal pain Medical Records Attestation: I reviewed the patient's medical records. Lab Data Attestation: I reviewed the patient's lab results. Result diagrams: 09/25/21 22:51 09/25/21 16:47 Labs: Lab Results 09/25/21 09/25/21 09/25/21 Range/Units 16:47 16:47 16:47 WBC 21.6 H (4.8-10.8) X10*3/uL RBC 4.98 (4.20-5.50) X10*6/uL Hgb 14.2 (12.0-16.0) g/dl Hct 41.8 (37.0-47.0) % MCV 83.9 (80.0-98.0) fL MCH 28.5 (27.0-33.0) pg MCHC 34.0 (31.0-35.0) g/dl RDW 11.9 (11.0-16.0) % Plt Count 334 (160-400) X10*3/uL MPV 10.8 (9.4-12.3) fL Immature Gran % (Auto) 0.5 H (0.0-0.4) % Neut % (Auto) 85.1 H (45-73) % Lymph % (Auto) 7.1 L (20-40) % Nash % (Auto) 7.0 (2-11) % Eos % (Auto) 0.1 (0-4) % Baso % (Auto) 0.2 (0-2) % Lymph # (Auto) 1.5 (1.2-4.9) X10*3/uL Nash # (Auto) 1.5 H (0.1-1.2) X10*3/uL Eos # (Auto) 0.0 (0.0-0.4) X10*3/uL Baso # (Auto) 0.1 (0.0-0.2) X10*3/uL Abs Immat Gran (auto) 0.10 H (0.00-0.03) X10*3/uL Absolute Neuts (auto) 18.4 H (2.0-8.3) x10*3/uL Absolute Nucleated RBC 0.000 (0.0-0.012) X10*3/uL Nucleated RBC % (auto) 0.0 (0.0-0.2) /100WBC Smear Tech's Comments VERIFIED Sodium 139 (135-145) mmol/L Potassium 4.1 (3.3-5.1) mmol/L Chloride 101 (96-108) mmol/L Carbon Dioxide 32 H (22-29) mmol/L Anion Gap 10 L (12-20) BUN 20 H (9-16) mg/dL Creatinine 0.81 (0.5-1.4) mg/dL Estim Creat Clear Calc 81.2 Estimated GFR > 60 Random Glucose 120 H (60-115) mg/dL Lactic Acid (0.5-2.0) mmol/L Calcium 9.4 D (8.4-10.2) mg/dL Magnesium 2.0 (1.6-2.6) mg/dL Total Bilirubin 1.3 H (0.0-1.0) mg/dL AST 15 (5-31) U/L ALT 19 (0-31) U/L Alkaline Phosphatase 51 D (39-117) U/L Total Protein 6.9 (6.5-8.0) g/dL Albumin 4.0 (3.5-5.0) g/dL Lipase 14 (8-78) U/L Urine Color Urine Appearance Urine pH (5.0-8.0) Ur Specific [place] (1.005-1.025) Urine Protein (NEG-TRACE) MG/DL Urine Glucose (UA) (NEG) MG/DL Urine Ketones (NEG) MG/DL Urine Blood (NEG) Urine Nitrite (NEG) Ur Leukocyte Esterase (NEG) C. difficile Tox B Gene (Negative) COVID-19 (DENNIS) Negative (Negative) COVID-19 Clin Com See Note 09/25/21 09/25/21 09/25/21 Range/Units 18:06 19:44 21:29 WBC (4.8-10.8) X10*3/uL RBC (4.20-5.50) X10*6/uL Hgb (12.0-16.0) g/dl Hct (37.0-47.0) % MCV (80.0-98.0) fL MCH (27.0-33.0) pg MCHC (31.0-35.0) g/dl RDW (11.0-16.0) % Plt Count (160-400) X10*3/uL MPV (9.4-12.3) fL Immature Gran % (Auto) (0.0-0.4) % Neut % (Auto) (45-73) % Lymph % (Auto) (20-40) % Nash % (Auto) (2-11) % Eos % (Auto) (0-4) % Baso % (Auto) (0-2) % Lymph # (Auto) (1.2-4.9) X10*3/uL Nash # (Auto) (0.1-1.2) X10*3/uL Eos # (Auto) (0.0-0.4) X10*3/uL Baso # (Auto) (0.0-0.2) X10*3/uL Abs Immat Gran (auto) (0.00-0.03) X10*3/uL Absolute Neuts (auto) (2.0-8.3) x10*3/uL Absolute Nucleated RBC (0.0-0.012) X10*3/uL Nucleated RBC % (auto) (0.0-0.2) /100WBC Smear Tech's Comments Sodium (135-145) mmol/L Potassium (3.3-5.1) mmol/L Chloride (96-108) mmol/L Carbon Dioxide (22-29) mmol/L Anion Gap (12-20) BUN (9-16) mg/dL Creatinine (0.5-1.4) mg/dL Estim Creat Clear Calc Estimated GFR Random Glucose (60-115) mg/dL Lactic Acid 1.8 (0.5-2.0) mmol/L Calcium (8.4-10.2) mg/dL Magnesium (1.6-2.6) mg/dL Total Bilirubin (0.0-1.0) mg/dL AST (5-31) U/L ALT (0-31) U/L Alkaline Phosphatase (39-117) U/L Total Protein (6.5-8.0) g/dL Albumin (3.5-5.0) g/dL Lipase (8-78) U/L Urine Color YELLOW Urine Appearance CLEAR Urine pH 6.0 (5.0-8.0) Ur Specific [place] 1.015 (1.005-1.025) Urine Protein NEG (NEG-TRACE) MG/DL Urine Glucose (UA) NEG (NEG) MG/DL Urine Ketones NEG (NEG) MG/DL Urine Blood NEG (NEG) Urine Nitrite NEG (NEG) Ur Leukocyte Esterase NEG (NEG) C. difficile Tox B Gene NEGATIVE (Negative) COVID-19 (DENNIS) (Negative) COVID-19 Clin Com 09/25/21 Range/Units 22:51 WBC 18.2 H (4.8-10.8) X10*3/uL RBC 4.37 (4.20-5.50) X10*6/uL Hgb 12.4 (12.0-16.0) g/dl Hct 36.7 L (37.0-47.0) % MCV 84.0 (80.0-98.0) fL MCH 28.4 (27.0-33.0) pg MCHC 33.8 (31.0-35.0) g/dl RDW 12.0 (11.0-16.0) % Plt Count 266 (160-400) X10*3/uL MPV 10.4 (9.4-12.3) fL Immature Gran % (Auto) 0.4 (0.0-0.4) % Neut % (Auto) 85.0 H (45-73) % Lymph % (Auto) 7.6 L (20-40) % Nash % (Auto) 6.5 (2-11) % Eos % (Auto) 0.2 (0-4) % Baso % (Auto) 0.3 (0-2) % Lymph # (Auto) 1.4 (1.2-4.9) X10*3/uL Nash # (Auto) 1.2 (0.1-1.2) X10*3/uL Eos # (Auto) 0.0 (0.0-0.4) X10*3/uL Baso # (Auto) 0.1 (0.0-0.2) X10*3/uL Abs Immat Gran (auto) 0.07 H (0.00-0.03) X10*3/uL Absolute Neuts (auto) 15.4 H (2.0-8.3) x10*3/uL Absolute Nucleated RBC 0.000 (0.0-0.012) X10*3/uL Nucleated RBC % (auto) 0.0 (0.0-0.2) /100WBC Smear Tech's Comments Sodium (135-145) mmol/L Potassium (3.3-5.1) mmol/L Chloride (96-108) mmol/L Carbon Dioxide (22-29) mmol/L Anion Gap (12-20) BUN (9-16) mg/dL Creatinine (0.5-1.4) mg/dL Estim Creat Clear Calc Estimated GFR Random Glucose (60-115) mg/dL Lactic Acid (0.5-2.0) mmol/L Calcium (8.4-10.2) mg/dL Magnesium (1.6-2.6) mg/dL Total Bilirubin (0.0-1.0) mg/dL AST (5-31) U/L ALT (0-31) U/L Alkaline Phosphatase (39-117) U/L Total Protein (6.5-8.0) g/dL Albumin (3.5-5.0) g/dL Lipase (8-78) U/L Urine Color Urine Appearance Urine pH (5.0-8.0) Ur Specific [place] (1.005-1.025) Urine Protein (NEG-TRACE) MG/DL Urine Glucose (UA) (NEG) MG/DL Urine Ketones (NEG) MG/DL Urine Blood (NEG) Urine Nitrite (NEG) Ur Leukocyte Esterase (NEG) C. difficile Tox B Gene (Negative) COVID-19 (DENNIS) (Negative) COVID-19 Clin Com Discharge Plan Discharge Clinical Impression: Acute proctitis, Acute urinary retention Patient Disposition: Home, Self-Care Instructions: Proctitis (ED), Acute Urinary Retention in Women (ED) Additional Instructions: Avoid constipation Antibiotics as advised for local proctitis Stool softener for chronic constipation Report to the ER if high-grade fever or worsening of abdominal pain/vomiting Prescriptions: New amoxicillin-pot clavulanate [Augmentin] 875-125 mg tablet 1 tab PO BID Qty: 20 RF: 0 No Action Eliquis 5 mg tablet 5 mg PO BID Qty: 60 RF: 5 hydrochlorothiazide 25 mg tablet 25 mg PO DAILY Qty: 90 RF: 3 lisinopril 40 mg tablet 40 mg PO DAILY Qty: 90 RF: 3 metoprolol tartrate 50 mg tablet 50 mg PO BID 90 Days Qty: 180 RF: 3 PMFSH Past Medical History Medical History Essential hypertension HTN (hypertension) Obesity (BMI 30-39.9) Surgical History Hx of appendectomy Hx of cholecystectomy Hx of hernia repair Hx of hysterectomy Family History Family History Father No problems noted. Mother No problems noted. Social History Social History Household Members: None Housing: Other Housing Other:: mobile home Do you presently have visiting nurse or other home services: Yes ([employer]) Alcohol intake: current Alcohol intake frequency: does not drink Patient Tobacco Use Status: Never used Tobacco Second Hand Smoke Exposure: Yes Advance Directives: No Advance Directives Information Provided: Yes service: No Current occupational status: disabled
[2021-09-25 16:55] LABS: Basophils Absolute Auto 0.1 X10*3/uL (0.0-0.2); Basophils Percent Auto 0.2 % (0-2); Eosinophils Percent Auto 0.1 % (0-4); Hematocrit 41.8 % (37.0-47.0); Hemoglobin 14.2 g/dl (12.0-16.0); Imm Gran Pct Auto 0.5 % (0.0-0.4); Lymphocytes Absolute Auto 1.5 X10*3/uL (1.2-4.9); Lymphocytes Percent Auto 7.1 % (20-40); MANUAL DIFF FLAG SCAN; Mean Corpuscular Hemoglobin 28.5 pg (27.0-33.0); Mean Corpuscular Volume 83.9 fL (80.0-98.0); Mean Platelet Volume 10.8 fL (9.4-12.3); Monocytes Absolute Auto 1.5 X10*3/uL (0.1-1.2); Neutrophils Absolute Auto 18.4 x10*3/uL (2.0-8.3); Neutrophils Percent Auto 85.1 % (45-73); Platelet Count 334 X10*3/uL (160-400); Red Blood Count 4.98 X10*6/uL (4.20-5.50); Red Cell Distribution Width 11.9 % (11.0-16.0); SCAN SMEAR FLAG 1; White Blood Count 21.6 X10*3/uL (4.8-10.8)
[2021-09-25 17:10] LABS: Alanine Aminotransferase 19 U/L (0-31); Alkaline Phosphatase 51 U/L (39-117); Anion Gap 10 (12-20); Aspartate Amino Transferase 15 U/L (5-31); Bilirubin Total 1.3 mg/dL (0.0-1.0); Blood Urea Nitrogen 20 mg/dL (9-16); Calcium 9.4 mg/dL (8.4-10.2); Carbon Dioxide 32 mmol/L (22-29); Chloride 101 mmol/L (96-108); Creatinine Clr Calc Pharmacy 81.2; Estimated Glomerular Filt Rate > 60; Glucose Random 120 mg/dL (60-115); Lipase 14 U/L (8-78); Potassium 4.1 mmol/L (3.3-5.1); Sodium 139 mmol/L (135-145); Total Protein 6.9 g/dL (6.5-8.0)
[2021-09-25] MEDS: 0.9 % Sodium Chloride 1,000 ML 999 ML IV ×2 (17:10→22:12)
[2021-09-25 17:12] LABS: COVID-19 Test Negative (Negative); IDNOW Serial# 55D5AD1C
[2021-09-25 17:13] LABS: SLIDE REVIEW VERIFIED
[2021-09-25 18:00] VITALS: BP 169/69; PULSE 74; RESP 17; O2SAT 96
[2021-09-25] MEDS: ondansetron HCL 4 MG/2 ML VIAL IVPUSH (18:15)
[2021-09-25] MEDS: levoFLOXacin/D5W 500 MG/100 ML PIGGYBACK 100 MG IV (18:18)
[2021-09-25 18:22] LABS: Lactic Acid 1.8 mmol/L (0.5-2.0)
[2021-09-25] MEDS: metroNIDAZOLE/NS 500 MG/100 ML PIGGYBACK 100 MG IV (18:29)
--- NOTE | 2021-09-25 19:42 | PC.NURSE ---
pt cleaned up several times and pt has loose stool in stretcher. Pt to CT at this time. stool sample collected to lab for eval.
--- NOTE | 2021-09-25 20:14 | PC.NURSE ---
family updated with pt's permission. pt c/o abd pain rating pain 05/26. aware.
[2021-09-25 21:09] LABS: CDiff Gene PCR NEGATIVE (Negative)
[2021-09-25 21:12] VITALS: TEMP 38.2
[2021-09-25 21:39] LABS: Appearance Urine CLEAR; Color Urine YELLOW; Glucose Urine UA NEG (NEG); Leukocyte Esterase Urine NEG (NEG); Nitrite Urine NEG (NEG); Specific Gravity - Urine 1.015 (1.005-1.025); Urine Blood NEG (NEG); Urine Ketones NEG (NEG); Urine Protein NEG (NEG-TRACE)
[2021-09-25 22:56] LABS: MANUAL DIFF FLAG NO
[2021-09-25 22:57] LABS: Basophils Absolute Auto 0.1 X10*3/uL (0.0-0.2); Basophils Percent Auto 0.3 % (0-2); Eosinophils Percent Auto 0.2 % (0-4); Hematocrit 36.7 % (37.0-47.0); Hemoglobin 12.4 g/dl (12.0-16.0); Imm Gran Abs Auto 0.07 X10*3/uL (0.00-0.03); Imm Gran Pct Auto 0.4 % (0.0-0.4); Lymphocytes Absolute Auto 1.4 X10*3/uL (1.2-4.9); Lymphocytes Percent Auto 7.6 % (20-40); Mean Corpuscular HGB Conc 33.8 g/dl (31.0-35.0); Mean Corpuscular Hemoglobin 28.4 pg (27.0-33.0); Mean Platelet Volume 10.4 fL (9.4-12.3); Monocytes Absolute Auto 1.2 X10*3/uL (0.1-1.2); Monocytes Percent Auto 6.5 % (2-11); Neutrophils Absolute Auto 15.4 x10*3/uL (2.0-8.3); Platelet Count 266 X10*3/uL (160-400); Red Blood Count 4.37 X10*6/uL (4.20-5.50); White Blood Count 18.2 X10*3/uL (4.8-10.8)
--- NOTE | 2021-09-25 22:58 | PC.NURSE ---
PT WAS BLADDER SCAN +900 ML, PT WAS THEN STRAIGHT CATH AND GOT OUT 960ML OF DK COLORED URINE OBTAINED. MD AT BEDSIDE AND INSTRUCTED TO PUT IN ZAPIEN CATH. NS UP AND RUNNING W/O, SITE INTACT. REPEAT CBC OBTAINED TO LAB PER INSTRUCTIONS. PT ALERT, AND SPEAKING IN FULL SENTENCES. RESPIRATIONS EASY, N/L. SKIN W/D/PALE. VS OBTAINED.
[2021-09-25 23:34] VITALS: BP 169/64; PULSE 81; RESP 18; O2SAT 98
--- NOTE | 2021-09-25 23:38 | PC.NURSE ---
SPOKE WITH [facility] AND ACCORDING TO NURSING THEY REFUSE TO TAKE PT BACK D/T INSURANCE LAPSE. CALLED DAUGHTER NA AND PT IS GOING THERE INSTEAD. PT DENIES ANY COMPLAINTS AT THIS TIME. ZAPIEN BEING REMOVED P/T DISCHARGE. PT DENIES ANY ABD PAIN OR COMPLAINTS. NS INFUSED AND REPEAT CBC OK'D ACCORDING TO . IV BEING REMOVED ALSO.
--- NOTE | 2021-09-25 23:55 | PC.NURSE ---
case mgt involved and conversing with [facility] nurse about d/c to home. Daughter, Joan, denies having home care at home. pt states i can walk with a walker . [facility] states everything is set up for home care and meals on wheels .
--- NOTE | 2021-09-26 00:08 | PC.NURSE ---
pt is now staying for case mgt.
--- NOTE | 2021-09-26 00:11 | MHC.CM.ED ---
Dr Nguyen asked CM to speak with patient and retirement about D/C plans for pt. Pt came from [facility]. Was supposed to be d/c today. Was sent to ED for evaluation for N/diarrhea and abd pain. Elevated WBC. Medically cleared by Dr. Nguyen. Pt states she needs a walker. States to CM that she doesn't walk. Has some deficits from the stroke. Pt thinks she was supposed to go home. Pt cannot stay awake for interview. CM called her daughter, Joan Chi ([phone]). Joan states she wasn't expecting her mother to stay with her, but I guess I'll figure it out . Joan tells CM she is unprepared to take her mother tonight. States she doesn't know if D/C services were arranged by the retirement. CM called the retirement ([facility]) and spoke to the nurse, who tells CM that she cannot go back, as she was supposed to be D/C and her insurance ran out . States she will speak with her DON. CM asked about D/C services. RN for [facility] read the [facility] notes. Pt has D/C services set up with [facility] for SN and PT. Pt also has meals on wheels set up from [facility]. States they did not give her a walker. Pt has not ambulated in the ED. Ambulance was called to transport pt home before CM had the opportunity to evaluate the situation. Ambulance transportation was cancelled. CM spoke with Dr. Nguyen regarding safe discharge at midnight for this patient. Pt to stay as CM until the am when D/C plans can be verified and patient can be assessed for ambulation. CM will need to speak with daughter in the am after services can be verified. CM to follow for d/c needs.
[2021-09-26 03:54] VITALS: PULSE 85; RESP 20; O2SAT 96
--- NOTE | 2021-09-26 05:48 | PC.NURSE ---
pt had lg BM in stretcher, pt cleaned up at this time. pt denies complaints. pt is aware she is staying for case mgt. in am. Pt alert, respirations easy, n/l. skin w/d will continue to monitor pt.
[2021-09-26 05:55] VITALS: BP 127/76; PULSE 82; RESP 16; O2SAT 98
--- NOTE | 2021-09-26 08:47 | PC.NURSE ---
physical therapy at bedside
--- NOTE | 2021-09-26 08:55 | PHA.MEDREC ---
Pharmacy Consult ? Medication Reconciliation Pharmacy has reviewed the medication reconciliation completed by Alma Rosa Lizarraga. Hydralazine and colace were missed. Nifedipine dose was entered incorrectly. Patient came from [facility]. Jaimee Sotomayor, PharmD
[2021-09-26 08:57] VITALS: BP 127/76; PULSE 82; O2SAT 98
--- NOTE | 2021-09-26 09:13 | MHC.CM.ED ---
Patient remains in ER. Physical therapy eval completed. Short term rehab is recommended. Referral made to [facility] [place]. Continue to monitor for d/c needs.
[2021-09-26 09:34] VITALS: BP 136/67; PULSE 81; RESP 18; TEMP 36.8; O2SAT 97
[2021-09-26] MEDS: Metoprolol Tartrate 50 MG TABLET PO (09:35)
[2021-09-26] MEDS: lisinopriL 40 MG TABLET PO (09:36)
[2021-09-26] MEDS: Docusate Sodium 100 MG CAPSULE PO (09:36)
[2021-09-26] MEDS: Amoxicillin/Potassium Clav 875 MG TABLET PO (09:36)
[2021-09-26] MEDS: hydroCHLOROthiazide 25 MG TABLET PO (09:36)
[2021-09-26] MEDS: hydrALAZINE HCl 10 MG TABLET PO ×2 (09:36→12:31)
--- NOTE | 2021-09-26 09:40 | PC.NURSE ---
pt alert and oriented, skin pwd, reparations even and unlabored, pt denies pain at this time. pt does heave a vaughn cath in place and 750ml of dark yellow urine emptied
--- NOTE | 2021-09-26 10:25 | MHC.CM.ED ---
[facility] requesting Flu swab and updated Covid swab. Swabs ordered and pending. Continue to monitor for d/c needs.
[2021-09-26 11:49] LABS: Influenza A PCR NEGATIVE (Negative); Influenza B PCR NEGATIVE (Negative); Resp Syncy Virus RNA Qual PCR NEGATIVE (Negative); SARS COV2 PCR INHOUSE NEGATIVE (Negative)
--- NOTE | 2021-09-26 11:58 | MHC.CM.ED ---
Addendum entered by Tanisha Armenta 09/26/21 12:39: Attempted to reach patient's daughter, Joan Chi, via telephone at [phone]. Left voicemail explaining [facility] [place] was in the process of obtaining insurance auth. Original Note: Covid and Flu swabs are negative. [facility] is in the process of obtaining insurance auth. Continue to monitor for d/c needs.
[2021-09-26 12:28] VITALS: BP 147/56; PULSE 61; RESP 16; O2SAT 97
--- NOTE | 2021-09-26 14:59 | MHC.CM.ED ---
Addendum entered by Tanisha Armenta 09/26/21 15:43: Received telephone call from patient's son in law, Jon. Jon can be reached via telephone at [phone]. Joan's correct telephone number is [phone]. Both are aware patient will be returning back to [facility]. Patient stated to Martine of [facility] that she was not returning to [facility]. Crystal RN spoke with patient. Patient verbalizes understanding and agreeable to d/c plan. Original Note: [facility] has obtained insurance auth. Patient can leave at 4pm. [facility] booked. Med [facility] with chart. Attempted to reach patient's daughter, Joan via telephone at [phone]. Left voicemail explaining patient was returning to [facility]. Patient, Ana MONTGOMERY and Tasha HEADLEY aware. Continue to monitor for d/c needs.
--- NOTE | 2021-09-26 16:15 | PC.NURSE ---
johana quiroz d/c per dr palomo verbal order prior to transfer report given kaila mckenna
== END 2021-09-26 16:21 | disposition skilled nursing facility (03) ==
PROVIDERS: Physician Assistant Medical; Emergency Provider Internal Medicine
DX: K62.89 Other specified diseases of anus and rectum (principal); R33.9 Retention of urine, unspecified; R10.9 Unspecified abdominal pain; R19.7 Diarrhea, unspecified; D72.829 Elevated white blood cell count, unspecified; Z20.822 Contact with and (suspected) exposure to COVID-19; I69.351 Hemiplegia and hemiparesis following cerebral infarction affecting right dominant side
CPT/HCPCS: 0241U; 36415; 51702; 51798; 71045; 74176; 80053; 81003; 83605; 83690; 83735; 85025; 87040; 87493; 87635; 96361; 96374; 96375; 97162; 99284; 99285; J1956; J2405

== ENCOUNTER 2021-11-09 14:22 | Emergency (ER) | payer MEDICARE, SELFPAY ==
--- NOTE | 2021-11-09 | ECG_ITS ---
Test Reason : BRADYCARDIA Blood Pressure : / mmHG Vent. Rate : 050 BPM Atrial Rate : 050 BPM P-R Int : 176 ms QRS Dur : 092 ms QT Int : 456 ms P-R-T Axes : 104 003 233 degrees QTc Int : 415 ms Sinus bradycardia Septal infarct , age undetermined ST & T wave abnormality, consider inferolateral ischemia Abnormal ECG When compared with ECG of 25-DEC-2020 23:53, Sinus rhythm has replaced Atrial fibrillation Vent. rate has decreased BY [address] no longer depressed in Lateral leads Referred By: Generic ED Physician Electronically Signed By:POLINA DELCID
--- NOTE | ~2021-11-09 | XR_ITS ---
EXAMINATION: XR CHEST CLINICAL INFORMATION: Hypertension COMPARISON: September 25, 2021 TECHNIQUE: Frontal view of the chest was obtained. FINDINGS: No significant abnormality is noted involving the heart, lungs, mediastinum, bony thorax or soft tissues. XR/XR chest 1V IMPRESSION: No acute disease.
--- NOTE | ~2021-11-09 | CT_ITS ---
EXAMINATION: CT HEAD WITHOUT CONTRAST CLINICAL INFORMATION: Hypertension and dizziness. COMPARISON: CT head dated from 08/30/2021. TECHNIQUE: Contiguous axial imaging was performed from the skull base to vertex without intravenous administration of contrast. This CT examination was performed using dose optimization techniques as appropriate, variously including the following: *Automated exposure control *Adjustment of mA and/or kV according to patient size (this includes techniques or standardized protocols for targeted exams where dose is matched to indication/reason for exam; i.e. extremities or head) *Use of iterative reconstruction technique DLP: 598 mGy-cm FINDINGS: There is no evidence of acute intracranial hemorrhage or edematous territorial infarction. Scattered hypoattenuation in the periventricular and deep white matter are consistent with moderate microangiopathy. Batista-white matter differentiation is preserved. Stable prominence of the ventricles. No evidence for obstructive hydrocephalus. No abnormal mass effect or midline shift. No extra-axial fluid collections. No acute soft tissue or osseous abnormalities. Nonspecific left occipital scalp lesion is unchanged. Mild mucosal thickening of the paranasal sinuses. 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 The mastoids are clear. CT/CT head/brain wo con IMPRESSION: No evidence of acute intracranial hemorrhage or edematous territorial infarction. Background of chronic microangiopathy and generalized cerebral volume loss.
[2021-11-09 14:41] VITALS: BP 178/49; BP 189/99; PULSE 51; PULSE 52; RESP 12; TEMP 36.7; O2SAT 99; BMI 30.5
[2021-11-09 15:24] LABS: Appearance Urine HAZY; Color Urine YELLOW; Glucose Urine UA NEG (NEG); Leukocyte Esterase Urine NEG (NEG); Nitrite Urine NEG (NEG); Specific Gravity - Urine <= 1.005 (1.005-1.025); Urine Blood NEG (NEG); Urine Ketones NEG (NEG); Urine Protein NEG (NEG-TRACE)
--- NOTE | 2021-11-09 16:04 | ED.GENADULT ---
HPI - General Adult General Chief complaint: General Medical Stated complaint: HYPERTENSION Time Seen by Provider: 11/09/21 15:51 Source: patient Mode of arrival: ambulatory Limitations: no limitations History of Present Illness HPI narrative: 71-year-old female history of hypertension takes metoprolol 50 mg and lisinopril, recently prescribed another 2 medication for high blood pressure but unable to felt because high co-payment and patient do not have the money, sent by her PCP to check up on her high blood pressure, patient been complaining also of being dizzy and lightheadedness, felt chest pain while she is waiting in the emergency department about an hour ago, now she is chest pain-free describes the pain as mid chest pain with no radiation, no shortness of breath, pain free now. Nothing aggravated the pain or relieved the pain, patient used to that dizziness and chest pain. Patient declined any recent travel or lower extremity swelling. Related Data Home Medications Medication Instructions Recorded Confirmed docusate sodium 100 mg capsule 100 mg PO BID 09/26/21 09/26/21 (Colace) Previous Rx's Medication Instructions Recorded amoxicillin 875 mg-potassium 1 tab PO BID 10 Days #20 tab 09/26/21 clavulanate 125 mg tablet (Augmentin) hydralazine 10 mg tablet 10 mg PO QID 30 Days #120 tab 11/04/21 hydrochlorothiazide 25 mg tablet 25 mg PO DAILY 30 Days #30 tab 11/04/21 lisinopril 40 mg tablet 40 mg PO DAILY 30 Days #30 tab 11/04/21 metoprolol tartrate 50 mg tablet 50 mg PO BID 30 Days #60 tab 11/04/21 nifedipine 60 mg tablet,extended 120 mg PO DAILY 30 Days #60 tab 11/04/21 release 24 hr rosuvastatin 5 mg tablet 5 mg PO BEDTIME 30 Days #30 tab 11/04/21 Allergies Allergy/AdvReac Type Severity Reaction Status Date / Time No Known Allergies Allergy Verified 10/27/21 13:53 Review of Systems Review of Systems: All other systems are reviewed and are negative Constitutional: Reports as per HPI and Reports no additional constitutional complaints Eyes: Reports as per HPI and Reports no additional eye complaints Reports system reviewed and no additional complaints, except as documented Cardiovascular: Reports as per HPI and Reports no additional cardiovascular complaints Respiratory: Reports as per HPI and Reports no additional respiratory complaints Gastrointestinal: Reports as per HPI and Reports no additional gastrointestinal complaints Genitourinary: Reports no additional female genitourinary complaints Musculoskeletal: Reports no additional musculoskeletal complaints Skin/Breast: Reports system reviewed and no additional complaints, except as docu Psychiatric: Reports no additional psychiatric complaints Endocrine: Reports no additional endocrine complaints Hematologic/Lymphatic: Reports no additional hematologic/lymphatic complaints Allergic/Immunologic: Reports no additional allergic/immunologic complaints Reports system reviewed and no additional complaints, except as documented and Reports Abnormal speech present [facility] Past Medical History Medical History Essential hypertension HTN (hypertension) Left-sided cerebrovascular accident (CVA) Obesity (BMI 30-39.9) Surgical History Hx of appendectomy Hx of cholecystectomy Hx of hernia repair Hx of hysterectomy Family History Family History Father No problems noted. Mother No problems noted. 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 Blood pressure elevated. Heart rate normal. Respiration rate normal. Temperature normal. Oxygen saturation normal. Appearance: Alert. Oriented X3. No acute distress. Head: Normal external exam. Normocephalic. Atraumatic. No Reinoso signs noted. No raccoon eyes noted Eyes: PERRLA. EOMI. Conjunctiva and sclera normal. Eyelids normal. ENT: TM's Normal. Pharynx normal. Uvula midline. Moist mucous membranes. No trismus noted. No drooling noted. No muffled voice noted. Neck: Normal inspection. Neck supple. FROM. No adenopathy. Thyroid Normal. No meningeal signs. No neck mass noted. CVS: Normal heart rate and rhythm. Heart sound normal. No murmurs noted. Pulses normal throughout. Respiratory: No respiratory distress. Painless inspiration. Breath sounds normal. No wheezes/rales/rhonchi noted. Chest nontender. No accessory muscle usage noted or decreased air movement noted. Abdomen: Soft and nontender. Bowel sounds normal in all 4 quadrants. No distention noted. No organomegaly noted. No visible injury noted. Back: No CVA tenderness. Full range of motion noted. Skin: Skin warm and dry. Normal skin color. Normal skin turgor. No rashes/lesions/lacerations noted. Extremities: No lower extremity edema. Extremities exhibit normal range of motion. Extremities nontender. Neuro: Oriented X 3. Cranial nerve exam: II-XII are grossly intact No motor deficit. No sensory deficit. Reflexes normal. Course Course Course Narrative: Assessment and plan. 71-year-old female came in for evaluation of high blood pressure and found to be also bradycardic could be an effect of beta ortega, patient also is feeling dizziness and felt chest pain while she is in the emergency department. Labs are pending, case was signed out to Dr. Wang for further evaluation and labs check and dispo accordingly. Medical Decision Making Lab Data Lab results reviewed: Yes I reviewed the patient's lab results. Labs: Lab Results 11/09/21 Range/Units 15:10 Urine Color YELLOW Urine Appearance HAZY Urine pH 6.0 (5.0-8.0) Ur Specific [place] <= 1.005 (1.005-1.025) Urine Protein NEG (NEG-TRACE) MG/DL Urine Glucose (UA) NEG (NEG) MG/DL Urine Ketones NEG (NEG) MG/DL Urine Blood NEG (NEG) Urine Nitrite NEG (NEG) Ur Leukocyte Esterase NEG (NEG) ECG Data Attestation: I personally reviewed and interpreted this ECG as follows: Interpretation: Sinus bradycardia at 50 beats per minutes, normal intervals, diffuse T-wave inversion in V 4 to V 6. Discharge Plan Discharge Clinical Impression: Essential hypertension, Bradycardia, Dizziness, Chest pain Prescriptions: No Action hydralazine 10 mg tablet 10 mg PO QID 30 Days Qty: 120 0RF hydrochlorothiazide 25 mg tablet 25 mg PO DAILY 30 Days Qty: 30 0RF Protocol: Hold for SBP< HOLD for SBP < : 90 lisinopril 40 mg tablet 40 mg PO DAILY 30 Days Qty: 30 0RF Protocol: Hold for SBP< HOLD for SBP < : 90 metoprolol tartrate 50 mg tablet 50 mg PO BID 30 Days Qty: 60 0RF nifedipine 60 mg tablet extended release 24 hr 120 mg PO DAILY 30 Days Qty: 60 0RF rosuvastatin 5 mg tablet 5 mg PO BEDTIME 30 Days Qty: 30 0RF docusate sodium [Colace] 100 mg Capsule 100 mg PO BID 0RF amoxicillin-pot clavulanate [Augmentin] 875-125 mg tablet 1 tab PO BID 10 Days Qty: 20 0RF
[2021-11-09 16:08] VITALS: BP 192/73; PULSE 48; RESP 12; TEMP 36.8; O2SAT 97
[2021-11-09 16:19] LABS: MANUAL DIFF FLAG NO
[2021-11-09 16:31] LABS: Basophils Absolute Auto 0.1 X10*3/uL (0.0-0.2); Basophils Percent Auto 0.7 % (0-2); Eosinophils Absolute Auto 0.3 X10*3/uL (0.0-0.4); Eosinophils Percent Auto 3.7 % (0-4); Hematocrit 34.5 % (37.0-47.0); Hemoglobin 11.4 g/dl (12.0-16.0); Imm Gran Abs Auto 0.04 X10*3/uL (0.00-0.03); Imm Gran Pct Auto 0.5 % (0.0-0.4); Lymphocytes Absolute Auto 2.4 X10*3/uL (1.2-4.9); Lymphocytes Percent Auto 32.4 % (20-40); Mean Corpuscular Hemoglobin 28.1 pg (27.0-33.0); Mean Platelet Volume 10.4 fL (9.4-12.3); Monocytes Absolute Auto 0.7 X10*3/uL (0.1-1.2); Monocytes Percent Auto 8.9 % (2-11); Neutrophils Absolute Auto 3.9 x10*3/uL (2.0-8.3); Neutrophils Percent Auto 53.8 % (45-73); Platelet Count 296 X10*3/uL (160-400); Red Blood Count 4.06 X10*6/uL (4.20-5.50); Red Cell Distribution Width 13.2 % (11.0-16.0); White Blood Count 7.3 X10*3/uL (4.8-10.8)
[2021-11-09 16:39] LABS: Alanine Aminotransferase 6 U/L (0-31); Albumin Level 3.8 g/dL (3.5-5.0); Alkaline Phosphatase 53 U/L (39-117); Anion Gap 10 (12-20); Aspartate Amino Transferase 9 U/L (5-31); Bilirubin Direct 0.3 mg/dL (0.0-0.5); Bilirubin Total 0.9 mg/dL (0.0-1.0); Blood Urea Nitrogen 11 mg/dL (9-16); Calcium 9.1 mg/dL (8.4-10.2); Carbon Dioxide 30 mmol/L (22-29); Chloride 106 mmol/L (96-108); Creatinine Clr Calc Pharmacy 83.4; Estimated Glomerular Filt Rate > 60; Glucose Random 83 mg/dL (60-115); Lipase 38 U/L (8-78); Potassium 4.2 mmol/L (3.3-5.1); Sodium 142 mmol/L (135-145); Total Protein 6.3 g/dL (6.5-8.0)
[2021-11-09 16:45] LABS: Troponin-I High Sensitivity 20.3 ng/L (<3.5-17.0)
[2021-11-09] MEDS: hydrALAZINE HCl 25 MG TABLET PO (17:23)
--- NOTE | 2021-11-09 17:42 | PC.NURSE ---
spoke with pt about d/c - she will need transportation. ambulates with a walker following a stroke she had two months ago
== END 2021-11-09 19:17 | disposition home or self-care (01) ==
PROVIDERS: Emergency Provider Emergency Medicine
DX: I10 Essential (primary) hypertension (principal); R42 Dizziness and giddiness; R07.9 Chest pain, unspecified; R51.9 Headache, unspecified; R00.1 Bradycardia, unspecified; I48.91 Unspecified atrial fibrillation; E78.5 Hyperlipidemia, unspecified; Z79.02 Long term (current) use of antithrombotics/antiplatelets; Z86.73 Personal history of transient ischemic attack (TIA), and cerebral infarction without residual deficits
CPT/HCPCS: 36415; 70450; 71045; 80048; 80076; 81003; 83690; 84484; 85025; 93005; 99284

== ENCOUNTER 2022-07-28 16:57 | Inpatient (IN) | payer MEDICARE, SELFPAY ==
[2022-07-28] VITALS (7 sets, daily range): BP systolic 132–207; BP diastolic 64–88; PULSE 51–68; RESP 12–16; TEMP 36.5–37.2; O2SAT 95–98; BMI 29.8
--- NOTE | 2022-07-28 | ECG_ITS ---
Test Reason : assessing rhythm change Blood Pressure : / mmHG Vent. Rate : 061 BPM Atrial Rate : 061 BPM P-R Int : 208 ms QRS Dur : 120 ms QT Int : 438 ms P-R-T Axes : 045 -46 168 degrees QTc Int : 440 ms Normal sinus rhythm Left anterior fascicular block Left ventricular hypertrophy with QRS widening and repolarization abnormality ( R in aVL , [place] product , Romhilt-Mora ) Abnormal ECG No significant changes seen Referred By: Kamari Gallegos Electronically Signed By:JUSTO BARNETT MD
--- NOTE | ~2022-07-28 | XR_ITS ---
EXAMINATION: XR chest 1V CLINICAL INFORMATION: Reason for Exam dizziness, cp COMPARISON: October 2021 TECHNIQUE: XR chest 1V Tubes and lines: None Lungs and pleura: Both lungs are clear. Heart and mediastinum: The mediastinum is within normal limits.. Bones/soft tissue: Skeletal structures included are normal for patient's age. XR/XR chest 1V IMPRESSION: No radiographic evidence of acute cardiopulmonary disease.
--- NOTE | ~2022-07-28 | CT_ITS ---
EXAMINATION: CT HEAD WITHOUT CONTRAST CLINICAL INFORMATION: Severe headache COMPARISON: 11/09/2021 TECHNIQUE: Contiguous axial imaging was performed from the skull base to vertex without intravenous administration of contrast. This CT examination was performed using dose optimization techniques as appropriate, variously including the following: *Automated exposure control *Adjustment of mA and/or kV according to patient size (this includes techniques or standardized protocols for targeted exams where dose is matched to indication/reason for exam; i.e. extremities or head) *Use of iterative reconstruction technique DLP: 611 mGy-cm FINDINGS: There is no evidence of acute intracranial hemorrhage or territorial infarction. No abnormal mass effect or midline shift is seen. [place] to white matter differentiation is well preserved. No extra-axial fluid collections are identified. Similar appearance of the ventricles and sulci prominence of the lateral ventricles bilaterally. No hydrocephalus. Patchy areas of periventricular and subcortical white matter hypoattenuation are again seen. No skull fracture. Calcified scalp lesions again seen. The mastoid air cells and visualized portions of the paranasal sinuses are well aerated. CT/CT head/brain wo IV con IMPRESSION: No acute intracranial pathology. No significant change from prior study.
--- NOTE | 2022-07-28 17:04 | ECG_ITS ---
Test Reason : WEAKNESS Blood Pressure : / mmHG Vent. Rate : 053 BPM Atrial Rate : 053 BPM P-R Int : 194 ms QRS Dur : 116 ms QT Int : 460 ms P-R-T Axes : 033 -45 170 degrees QTc Int : 431 ms Sinus bradycardia Left anterior fascicular block Left ventricular hypertrophy with QRS widening and repolarization abnormality ( R in aVL , [place] product , Romhilt-Mora ) Abnormal ECG When compared with ECG of 09-NOV-2021 14:40, Left anterior fascicular block is now Present T wave inversion no longer evident in Inferior leads Referred By: Cuate Kirby Electronically Signed By:JUSTO BARNETT MD
[2022-07-28 17:52] LABS: MANUAL DIFF FLAG NO
--- NOTE | 2022-07-28 17:52 | ED.WEAKNESS ---
HPI - Weakness General Chief complaint: Weakness Stated complaint: dizziness Time Seen by Provider: 07/28/22 17:03 Source: patient and EMS Mode of arrival: EMS Limitations: no limitations History of Present Illness HPI Narrative: This is a 72-year-old female history of left-sided CVA, hypertension, paroxysmal AFib, depression, anxiety presenting to the emergency department with weakness, dry cough, malaise, fatigue, dizziness sore throat, headache x1 day. Patient reports that this all came on suddenly, she reports that her cough is very uncomfortable, tells me she feels very tired and out of energy. Reports a sudden-onset headache, she tells me it is bothering her a lot. Patient reports dizziness she tells me she gets dizzy all the time feels like her typical dizziness. She denies chest pain, shortness of breath, nausea, vomiting, abdominal pain, urinary symptoms, fevers, chills. To note patient's living environment is unkempt per EMS, they were barely able to get in to patient's home, patient arrives with his strong odor again appears unkempt. Patient not on blood thinners. MD Complaint: generalized weakness Related Data Home Medications Medication Instructions Recorded Confirmed docusate sodium 100 mg capsule 100 mg PO BID 09/26/21 11/09/21 (Colace) Previous Rx's Medication Instructions Recorded amoxicillin 875 mg-potassium 1 tab PO BID Proctitis 10 days #20 09/26/21 clavulanate 125 mg tablet tabs (Augmentin) hydralazine 10 mg tablet 10 mg PO QID 30 days #120 tabs 11/04/21 hydrochlorothiazide 25 mg tablet 25 mg PO DAILY 30 days #30 tabs 11/04/21 lisinopril 40 mg tablet 40 mg PO DAILY 30 days #30 tabs 11/04/21 metoprolol tartrate 50 mg tablet 50 mg PO BID 30 days #60 tabs 11/04/21 hydralazine 25 mg tablet 25 mg PO QID #120 tabs 11/09/21 nifedipine 60 mg tablet,extended 120 mg PO DAILY #60 tabs 12/04/21 release 24 hr rosuvastatin 5 mg tablet 5 mg PO BEDTIME 30 days #30 tabs 04/02/22 Allergies Allergy/AdvReac Type Severity Reaction Status Date / Time No Known Allergies Allergy Verified 10/27/21 13:53 Review of Systems Review of Systems: Constitutional : No Weight loss, No Fever, No Chills, + Fatigue, + Malaise ENT/Mouth : + sore throat, No Rhinorrhea Eyes: No Eye Pain, No Swelling, No Redness Cardiovascular : No Chest Pain, No SOB, No Dyspnea on Exertion, No Orthopnea, No Edema, No Palpitations Respiratory : No Cough, No Sputum, No Wheezing Gastrointestinal : No Nausea, No Vomiting, No Diarrhea, No Constipation, No abdominal Pain, No Hematochezia, No Melena Genitourinary : No Dysuria, No Urinary Frequency, No Hematuria, Musculoskeletal : No joint pain, No Myalgias, No Joint Swelling Skin : No Skin Lesions, No rash Neuro : + Weakness, No Numbness, + Dizziness, + Headache Psych : No Anxiety/Panic, No Depression All other systems reviewed and are negative Yes all other systems are reviewed and are negative [facility] Past Medical History Attestation statement: The following information was validated with the patient. Source: old records reviewed and nursing notes reviewed Medical History Essential hypertension HTN (hypertension) Left-sided cerebrovascular accident (CVA) Obesity (BMI 30-39.9) Surgical History Hx of appendectomy Hx of cholecystectomy Hx of hernia repair Hx of hysterectomy Family History Family History Father No problems noted. Mother No problems noted. Social History Social History Household Members: None Housing: Other Housing Other:: mobile home Do you presently have visiting nurse or other home services: Yes ([employer]) Alcohol intake: current Alcohol intake frequency: does not drink Patient Tobacco Use Status: Former Tobacco user Smoked in Last 30 Days: No Second Hand Smoke Exposure: Yes Use of substances other than those prescribed or required for medical reasons: No Advance Directives: Yes Advance Directives on File: Yes Advance Directives Date on File: 09/26/21 service: No Current occupational status: disabled Physical Exam Vital Signs: Vital Signs: Last Vital Signs Temp 98.8 F 07/28/22 20:16 Pulse 59 07/28/22 20:16 Resp 16 07/28/22 20:16 BP 207/84 H 07/28/22 20:16 Pulse Ox 95 07/28/22 20:16 O2 Del Method 07/28/22 20:16 BMI result Body Mass Index 29.8 vss Appearance: Alert.? Oriented X3.? No acute distress.?Unkempt . Patient speaking in full sentences controlling secretions well. Head: Normocephalic, atraumatic, no step-offs or deformities Eyes: Pupils equal, round and reactive to light.? ENT: Pharynx normal. Uvula midline. No signs of abscess. Neck: Normal inspection.? Neck supple.? CVS: Normal heart rate and rhythm.? Pulses normal.? Respiratory: No respiratory distress.? Breath sounds normal.? Abdomen: Soft and nontender.? Skin: Skin warm and dry.? Normal skin color.? Normal skin turgor.? Extremities: No lower extremity edema.? No calf ttp. Global weakness Neuro: Oriented X 3.? No motor deficit.? No sensory deficit. CN 2-12 intact. Normal finger to nose, heel to valencia, negative pronator drift. Course Reevaluation(s) Reevaluation #1: Patient's CBC with slight leukocytosis. Chemistry with no acute electrolyte abnormalities requiring intervention. Patient's troponin elevated 32.2, repeat troponin pending EKG with some ST depressions in the lateral leads more prominent than previous EKGs. Bilirubin elevated however no tenderness to palpation of abdomen. Flu/COVID/RSV negative. Chest x-ray with no acute findings. Head CT pending. Repeat troponin, urine, orthostatics vital signs pending. Gave patient's home blood pressure medications as patient is noted to be hypertensive. Time: 20:16 Reevaluation #2: Gave more of patient's home blood pressure medications. Patient noted to have significant UTI lactic acid, blood cultures and antibiotics given. Time: 20:46 Reevaluation #3: Trop flat unlikley acs Time: 20:56 Additional Reevaluation(s): 2114 Pressure improving, at this time patient will be admitted to the hospital for further intervention and treatment. Hospitalist accepts admission. Medications Administered Discontinued Medications Generic Name Dose Route Start Last Admin Trade Name Freq PRN Reason Stop Dose Admin Hydrochlorothiazide 25 mg 07/28/22 20:15 07/28/22 20:49 Hydrochlorothiazide 25 Mg Tablet PO 07/28/22 20:16 25 mg ONCE ONE Administration Protocol Ceftriaxone Sodium 1 gm/ 50 mls @ 100 mls/hr 07/28/22 20:43 07/28/22 20:48 Sodium Chloride IV 07/28/22 21:12 100 mls/hr ONCE ONE Administration Lisinopril 40 mg 07/28/22 20:15 07/28/22 20:49 Lisinopril 40 Mg Tablet PO 07/28/22 20:16 40 mg ONCE ONE Administration Protocol Metoprolol Tartrate 50 mg 07/28/22 20:41 07/28/22 20:49 Metoprolol Tartrate 50 Mg Tablet PO 07/28/22 20:42 50 mg ONCE ONE Administration Protocol MDM - Weakness MDM Narrative Medical decision making narrative: 1704 72-year-old female presents with upper respiratory symptoms, sore throat, headache x1 day. Sudden onset Physical examination patient appears unkempt, neuro nonfocal, cerebellar intact. Global weakness. Headache likely typical headache, unlikely stroke, posterior stroke. Sore throat likely viral in origin unlikely peritonsillar abscess or epiglottitis. Cough likely secondary to viral infection unlikely pneumonia, PE. Will obtain flu/COVID/RSV to rule this out. Plan at this time is strep test, flu/COVID/RSV, basic labs, urine, chest x-ray. Will also order obtain troponin and EKG. Medical Records Attestation: I reviewed the patient's medical records. Lab Data Attestation: I reviewed the patient's lab results. Result diagrams: 07/28/22 17:47 07/28/22 18:15 Labs: Lab Results 07/28/22 07/28/22 07/28/22 Range/Units 17:47 17:47 17:47 WBC 12.1 H (4.8-10.8) X10*3/uL RBC 5.02 D (4.20-5.50) X10*6/uL Hgb 13.9 D (12.0-16.0) g/dl Hct 40.5 (37.0-47.0) % MCV 80.7 (80.0-98.0) fL MCH 27.7 (27.0-33.0) pg MCHC 34.3 (31.0-35.0) g/dl RDW 12.7 (11.0-16.0) % Plt Count 280 (160-400) X10*3/uL MPV 10.8 (9.4-12.3) fL Immature Gran % (Auto) 0.3 (0.0-0.4) % Neut % (Auto) 72.0 (45-73) % Lymph % (Auto) 19.3 L (20-40) % Forrest % (Auto) 6.6 (2-11) % Eos % (Auto) 1.2 (0-4) % Baso % (Auto) 0.6 (0-2) % Lymph # (Auto) 2.3 (1.2-4.9) X10*3/uL Forrest # (Auto) 0.8 (0.1-1.2) X10*3/uL Eos # (Auto) 0.2 (0.0-0.4) X10*3/uL Baso # (Auto) 0.1 (0.0-0.2) X10*3/uL Abs Immat Gran (auto) 0.04 H (0.00-0.03) X10*3/uL Absolute Neuts (auto) 8.7 H (2.0-8.3) x10*3/uL Absolute Nucleated RBC 0.000 (0.0-0.012) X10*3/uL Nucleated RBC % (auto) 0.0 (0.0-0.2) /100WBC Sodium (135-145) mmol/L Potassium (3.3-5.1) mmol/L Chloride (96-108) mmol/L Carbon Dioxide (22-29) mmol/L Anion Gap (12-20) BUN (9-16) mg/dL Creatinine (0.5-1.4) mg/dL Estim Creat Clear Calc Estimated GFR Random Glucose (60-115) mg/dL Calcium (8.4-10.2) mg/dL Magnesium (1.6-2.6) mg/dL Total Bilirubin (0.0-1.0) mg/dL AST (5-31) U/L ALT (0-31) U/L Alkaline Phosphatase (39-117) U/L Troponin I High Sens 32.2 H D (<3.5-17.0) ng/L B-Natriuretic Peptide (<100) pg/mL Total Protein (6.5-8.0) g/dL Albumin (3.5-5.0) g/dL Urine Color Urine Appearance Urine pH (5.0-9.0) Ur Specific Misenheimer (1.005-1.025) Urine Protein (Neg-Trace) mg/dL Urine Glucose (UA) (Negative) mg/dL Urine Ketones (Negative) mg/dL Urine Blood (Negative) Urine Nitrite (Negative) Ur Leukocyte Esterase (Negative) Urine RBC (0-2) /HPF Urine WBC (0-5) /HPF Ur Squamous Epith Cells (0-2) /HPF Urine Bacteria (None Seen) Hyaline Casts (0-2) /LPF COVID-19 ([facility]) Negative (Negative) COVID-19 Clin Com See Note Influenza Type A (PCR) (Negative) Influenza Type B (PCR) (Negative) RSV RNA Qual (PCR) (Negative) SARS-CoV-2 RNA (RT-PCR) (Negative) S. pyogenes GrpA JULIO CESAR (Negative) 07/28/22 07/28/22 07/28/22 Range/Units 17:47 18:15 18:15 WBC (4.8-10.8) X10*3/uL RBC (4.20-5.50) X10*6/uL Hgb (12.0-16.0) g/dl Hct (37.0-47.0) % MCV (80.0-98.0) fL MCH (27.0-33.0) pg MCHC (31.0-35.0) g/dl RDW (11.0-16.0) % Plt Count (160-400) X10*3/uL MPV (9.4-12.3) fL Immature Gran % (Auto) (0.0-0.4) % Neut % (Auto) (45-73) % Lymph % (Auto) (20-40) % Forrest % (Auto) (2-11) % Eos % (Auto) (0-4) % Baso % (Auto) (0-2) % Lymph # (Auto) (1.2-4.9) X10*3/uL Forrest # (Auto) (0.1-1.2) X10*3/uL Eos # (Auto) (0.0-0.4) X10*3/uL Baso # (Auto) (0.0-0.2) X10*3/uL Abs Immat Gran (auto) (0.00-0.03) X10*3/uL Absolute Neuts (auto) (2.0-8.3) x10*3/uL Absolute Nucleated RBC (0.0-0.012) X10*3/uL Nucleated RBC % (auto) (0.0-0.2) /100WBC Sodium 139 (135-145) mmol/L Potassium 4.0 (3.3-5.1) mmol/L Chloride 105 (96-108) mmol/L Carbon Dioxide 22 (22-29) mmol/L Anion Gap 16 (12-20) BUN 13 (9-16) mg/dL Creatinine 0.82 (0.5-1.4) mg/dL Estim Creat Clear Calc 78.3 Estimated GFR > 60 Random Glucose 94 (60-115) mg/dL Calcium 8.9 (8.4-10.2) mg/dL Magnesium 1.9 (1.6-2.6) mg/dL Total Bilirubin 1.5 H (0.0-1.0) mg/dL AST 16 D (5-31) U/L ALT 10 (0-31) U/L Alkaline Phosphatase 56 (39-117) U/L Troponin I High Sens (<3.5-17.0) ng/L B-Natriuretic Peptide 139 H (<100) pg/mL Total Protein 7.0 (6.5-8.0) g/dL Albumin 4.0 (3.5-5.0) g/dL Urine Color Urine Appearance Urine pH (5.0-9.0) Ur Specific Misenheimer (1.005-1.025) Urine Protein (Neg-Trace) mg/dL Urine Glucose (UA) (Negative) mg/dL Urine Ketones (Negative) mg/dL Urine Blood (Negative) Urine Nitrite (Negative) Ur Leukocyte Esterase (Negative) Urine RBC (0-2) /HPF Urine WBC (0-5) /HPF Ur Squamous Epith Cells (0-2) /HPF Urine Bacteria (None Seen) Hyaline Casts (0-2) /LPF COVID-19 ([facility]) (Negative) COVID-19 Clin Com Influenza Type A (PCR) (Negative) Influenza Type B (PCR) (Negative) RSV RNA Qual (PCR) (Negative) SARS-CoV-2 RNA (RT-PCR) (Negative) S. pyogenes GrpA JULIO CESAR Negative (Negative) 07/28/22 07/28/22 07/28/22 Range/Units 18:15 20:23 20:23 WBC (4.8-10.8) X10*3/uL RBC (4.20-5.50) X10*6/uL Hgb (12.0-16.0) g/dl Hct (37.0-47.0) % MCV (80.0-98.0) fL MCH (27.0-33.0) pg MCHC (31.0-35.0) g/dl RDW (11.0-16.0) % Plt Count (160-400) X10*3/uL MPV (9.4-12.3) fL Immature Gran % (Auto) (0.0-0.4) % Neut % (Auto) (45-73) % Lymph % (Auto) (20-40) % Forrest % (Auto) (2-11) % Eos % (Auto) (0-4) % Baso % (Auto) (0-2) % Lymph # (Auto) (1.2-4.9) X10*3/uL Forrest # (Auto) (0.1-1.2) X10*3/uL Eos # (Auto) (0.0-0.4) X10*3/uL Baso # (Auto) (0.0-0.2) X10*3/uL Abs Immat Gran (auto) (0.00-0.03) X10*3/uL Absolute Neuts (auto) (2.0-8.3) x10*3/uL Absolute Nucleated RBC (0.0-0.012) X10*3/uL Nucleated RBC % (auto) (0.0-0.2) /100WBC Sodium (135-145) mmol/L Potassium (3.3-5.1) mmol/L Chloride (96-108) mmol/L Carbon Dioxide (22-29) mmol/L Anion Gap (12-20) BUN (9-16) mg/dL Creatinine (0.5-1.4) mg/dL Estim Creat Clear Calc Estimated GFR Random Glucose (60-115) mg/dL Calcium (8.4-10.2) mg/dL Magnesium (1.6-2.6) mg/dL Total Bilirubin (0.0-1.0) mg/dL AST (5-31) U/L ALT (0-31) U/L Alkaline Phosphatase (39-117) U/L Troponin I High Sens 29.6 H (<3.5-17.0) ng/L B-Natriuretic Peptide (<100) pg/mL Total Protein (6.5-8.0) g/dL Albumin (3.5-5.0) g/dL Urine Color Yellow Urine Appearance Cloudy Urine pH 7.0 (5.0-9.0) Ur Specific Misenheimer <= 1.005 (1.005-1.025) Urine Protein Trace (Neg-Trace) mg/dL Urine Glucose (UA) Negative (Negative) mg/dL Urine Ketones Negative (Negative) mg/dL Urine Blood Trace H (Negative) Urine Nitrite Positive H (Negative) Ur Leukocyte Esterase Large (3+) H (Negative) Urine RBC 0-2 (0-2) /HPF Urine WBC >50 H (0-5) /HPF Ur Squamous Epith Cells 0-2 (0-2) /HPF Urine Bacteria 2+ (None Seen) Hyaline Casts 0-2 (0-2) /LPF COVID-19 ([facility]) (Negative) COVID-19 Clin Com Influenza Type A (PCR) NEGATIVE (Negative) Influenza Type B (PCR) NEGATIVE (Negative) RSV RNA Qual (PCR) NEGATIVE (Negative) SARS-CoV-2 RNA (RT-PCR) NEGATIVE (Negative) S. pyogenes GrpA JULIO CESAR (Negative) ECG Data Attestation: I personally reviewed and interpreted this ECG as follows: ECG interpretation date: 07/28/22 ECG interpretation time: 18:13 Prior ECG tracings: available for review Interpretation: Ventricular rate of 53, AL QRS normal, QT/QTC normal. EKG with sinus bradycardia and a left anterior fascicular lack left ventricular hypertrophy, some ST depressions noted in the lateral leads, will compare to previous. Critical Care Time Critical Care Time Critical Care Time: No Discharge Plan Discharge Clinical Impression: Hypertensive urgency, Urinary tract infection, Elevated troponin, Weakness Patient Disposition: Admitted As Inpatient
[2022-07-28 17:54] LABS: Basophils Absolute Auto 0.1 X10*3/uL (0.0-0.2); Basophils Percent Auto 0.6 % (0-2); Eosinophils Absolute Auto 0.2 X10*3/uL (0.0-0.4); Eosinophils Percent Auto 1.2 % (0-4); Hematocrit 40.5 % (37.0-47.0); Hemoglobin 13.9 g/dl (12.0-16.0); Imm Gran Abs Auto 0.04 X10*3/uL (0.00-0.03); Imm Gran Pct Auto 0.3 % (0.0-0.4); Lymphocytes Absolute Auto 2.3 X10*3/uL (1.2-4.9); Lymphocytes Percent Auto 19.3 % (20-40); Mean Corpuscular HGB Conc 34.3 g/dl (31.0-35.0); Mean Corpuscular Hemoglobin 27.7 pg (27.0-33.0); Mean Corpuscular Volume 80.7 fL (80.0-98.0); Mean Platelet Volume 10.8 fL (9.4-12.3); Monocytes Absolute Auto 0.8 X10*3/uL (0.1-1.2); Monocytes Percent Auto 6.6 % (2-11); Neutrophils Absolute Auto 8.7 x10*3/uL (2.0-8.3); Platelet Count 280 X10*3/uL (160-400); Red Blood Count 5.02 X10*6/uL (4.20-5.50); Red Cell Distribution Width 12.7 % (11.0-16.0); White Blood Count 12.1 X10*3/uL (4.8-10.8)
--- NOTE | 2022-07-28 17:57 | ECG_ITS ---
Test Reason : EKG CHANGES Blood Pressure : / mmHG Vent. Rate : 055 BPM Atrial Rate : 055 BPM P-R Int : 202 ms QRS Dur : 122 ms QT Int : 454 ms P-R-T Axes : 042 -44 140 degrees QTc Int : 434 ms Sinus bradycardia Left anterior fascicular block Left ventricular hypertrophy with QRS widening and repolarization abnormality ( R in aVL , [place] product , Romhilt-Mora ) Abnormal ECG When compared with ECG of 28-JUL-2022 17:31, No significant change was found Referred By: Cuate Kirby Electronically Signed By:JUSTO BARNETT MD
[2022-07-28 18:07] LABS: COVID-19 Test Negative (Negative)
[2022-07-28 18:13] LABS: Troponin-I High Sensitivity 32.2 ng/L (<3.5-17.0)
[2022-07-28 18:29] LABS: Strep A Nucleic Acid Negative (Negative)
[2022-07-28 18:39] LABS: Alanine Aminotransferase 10 U/L (0-31); Alkaline Phosphatase 56 U/L (39-117); Anion Gap 16 (12-20); Aspartate Amino Transferase 16 U/L (5-31); Bilirubin Total 1.5 mg/dL (0.0-1.0); Blood Urea Nitrogen 13 mg/dL (9-16); Calcium 8.9 mg/dL (8.4-10.2); Carbon Dioxide 22 mmol/L (22-29); Chloride 105 mmol/L (96-108); Creatinine Clr Calc Pharmacy 78.3; Estimated Glomerular Filt Rate > 60; Glucose Random 94 mg/dL (60-115); Magnesium 1.9 mg/dL (1.6-2.6); Sodium 139 mmol/L (135-145)
[2022-07-28 18:53] LABS: B Type Natriuretic Peptide 139 pg/mL (<100)
[2022-07-28 18:59] LABS: Influenza A PCR NEGATIVE (Negative); Influenza B PCR NEGATIVE (Negative); Resp Syncy Virus RNA Qual PCR NEGATIVE (Negative); SARS COV2 PCR INHOUSE NEGATIVE (Negative)
[2022-07-28 20:32] LABS: Appearance Urine Cloudy; Color Urine Yellow; Glucose Urine UA Negative (Negative); Leukocyte Esterase Urine Large (3+) (Negative); Nitrite Urine Positive (Negative); Specific Gravity - Urine <= 1.005 (1.005-1.025); UMIC TRIGGER UACC YES; Urine Blood Trace (Negative); Urine Ketones Negative (Negative); Urine Protein Trace mg/dL (Neg-Trace)
[2022-07-28 20:47] LABS: Bacteria Urine 2+ (None Seen); Hyaline Casts Urine 0-2 /LPF (0-2); RBC Urine 0-2 /HPF (0-2); Squamous Epithelial Cell Urine 0-2 /HPF (0-2); Troponin-I High Sensitivity 29.6 ng/L (<3.5-17.0); UACC Culture Trigger YES; WBC Urine >50 /HPF (0-5)
[2022-07-28] MEDS: cefTRIAXone sodium 1 GM in 0.9 % Sodium Chloride 50 ML IV (20:48)
[2022-07-28] MEDS: lisinopriL 40 MG TABLET PO (20:49)
[2022-07-28] MEDS: hydroCHLOROthiazide 25 MG TABLET PO (20:49)
[2022-07-28] MEDS: Metoprolol Tartrate 50 MG TABLET PO (20:49)
--- NOTE | 2022-07-28 21:09 | PM.IMHP ---
History of Present Illness Date of Service: 07/28/22 Chief Complaint: Headache This is a 72-year-old female with pertinent history of paroxysmal atrial fibrillation, essential hypertension who presents to the emergency department for evaluation of headache. Patient also complaining of dizziness, generalized weakness, increased urinary frequency , sore throat. Patient reports sudden-onset headache, bilateral, constant and without any relieving factors. Also states she has been dizzy over the last couple of days. Patient lives in a trailer and as per EMS, her living environment was very unkempt and with strong odor. There was cat/dog litter everywhere. Patient use a walker to ambulate but states she has been getting progressively weaker and does not think she can go back to her trailer due to weakness. Patient does have a history of UTI and complains of increased frequency and hesitancy that started 2-3 days ago. States she is compliant with all her medications but does not remember the name of them. Was supposed to be on Eliquis for paroxysmal AFib but as per ER provider, she is not taking it. At the time of my evaluation, she told me she is taking all her medications. She last saw her primary care physician more than a year ago. In the emergency department, patient was found to have elevated blood pressure with systolic greater than 200 Review of Systems Constitutional: Constitutional: Reports fatigue, Reports poor appetite and Reports weakness ENT: Reports dizziness Cardiovascular: Cardiovascular: Reports lightheadedness Respiratory: Respiratory: Reports cough Gastrointestinal: Gastrointestinal: Reports no additional gastrointestinal complaints Genitourinary: Genitourinary: Reports urinary frequency Neurologic: Reports dizziness and Reports weakness Endocrine: Endocrine: Reports fatigue [facility] Medical History Essential hypertension HTN (hypertension) Left-sided cerebrovascular accident (CVA) Obesity (BMI 30-39.9) Family History Father No problems noted. Mother No problems noted. Surgical History Hx of appendectomy Hx of cholecystectomy Hx of hernia repair Hx of hysterectomy Social History Household Members: None Housing: Other Housing Other:: mobile home Do you presently have visiting nurse or other home services: Yes ([employer]) Alcohol intake: current Alcohol intake frequency: does not drink Patient Tobacco Use Status: Former Tobacco user Smoked in Last 30 Days: No Second Hand Smoke Exposure: Yes Use of substances other than those prescribed or required for medical reasons: No Advance Directives: Yes Advance Directives on File: Yes Advance Directives Date on File: 09/26/21 service: No Current occupational status: disabled Meds Allergies Allergy/AdvReac Type Severity Reaction Status Date / Time No Known Allergies Allergy Verified 10/27/21 13:53 Active Medications: Current Medications Acetaminophen (Acetaminophen 325 Mg Tablet) 650 mg PO Q6H PRN PRN Reason: Pain, Mild (Pain Scale 1-3) Enoxaparin Sodium (Enoxaparin Sodium 40 Mg/0.4 Ml Syringe) 40 mg SUBCUT Q24H [facility] Ceftriaxone Sodium 1 gm/ (Sodium Chloride) 50 mls @ 100 mls/hr IV ONCE ONE Stop: 07/28/22 21:12 Last Admin: 07/28/22 20:48 Dose: 100 mls/hr Ceftriaxone Sodium 1 gm/ (Sodium Chloride) 50 mls @ 100 mls/hr IV DAILY [facility] Melatonin (Melatonin 3 Mg Tablet) 6 mg PO BEDTIME PRN PRN Reason: Insomnia Ondansetron HCl (Ondansetron Hcl 4 Mg/2 Ml Vial) 4 mg IVPUSH Q8H PRN PRN Reason: Nausea and Vomiting Pharmacy Consult (Consult Rx Perform Med Rec) 1 each MISCELLANE ONCE PRN PRN Reason: Consult order Sodium Chloride (0.9 % Sodium Chloride Flush 3 Ml Syringe) 3 ml IVFLUSH QSHIFT [facility] Home Medications Medication Instructions Recorded Confirmed Last Taken Type docusate sodium 100 mg capsule 100 mg PO BID 09/26/21 11/09/21 Unknown History (Colace) Physical Exam Vital Signs and Narrative: Vital Signs: Last Vital Signs Temp 98.8 F 07/28/22 20:16 Pulse 59 07/28/22 20:16 Resp 16 07/28/22 20:16 BP 207/84 H 07/28/22 20:16 Pulse Ox 95 07/28/22 20:16 O2 Del Method 07/28/22 20:16 BMI result Body Mass Index 29.8 Elderly female lying in bed in no distress Neck supple, no JVD Bradycardic, S1-S2 heard Decreased breath sounds at bases Abdomen soft nontender, no guarding, no rigidity Patient is awake, alert and oriented to self, place, time and person ; no focal motor deficit Psych: Normal mood Results Labs CBC and Chem 7: 07/28/22 17:47 07/28/22 18:15 Labs: Laboratory Results - last 24 hr 07/28/22 07/28/22 07/28/22 17:47 17:47 17:47 MCV 80.7 MCH 27.7 MCHC 34.3 RDW 12.7 Plt Count 280 MPV 10.8 Immature Gran % (Auto) 0.3 Neut % (Auto) 72.0 Lymph % (Auto) 19.3 L [place] % (Auto) 6.6 Eos % (Auto) 1.2 Baso % (Auto) 0.6 Lymph # (Auto) 2.3 [place] # (Auto) 0.8 Eos # (Auto) 0.2 Baso # (Auto) 0.1 Abs Immat Gran (auto) 0.04 H Absolute Neuts (auto) 8.7 H Absolute Nucleated RBC 0.000 Nucleated RBC % (auto) 0.0 Anion Gap Estim Creat Clear Calc Estimated GFR Random Glucose Calcium Magnesium Total Bilirubin AST ALT Alkaline Phosphatase Troponin I High Sens 32.2 H D B-Natriuretic Peptide Total Protein Albumin Urine Color Urine Appearance Urine pH Ur Specific [place] Urine Protein Urine Glucose (UA) Urine Ketones Urine Blood Urine Nitrite Ur Leukocyte Esterase Urine RBC Urine WBC Ur Squamous Epith Cells Urine Bacteria Hyaline Casts COVID-19 ([facility]) Negative COVID-19 Clin Com See Note Influenza Type A (PCR) Influenza Type B (PCR) RSV RNA Qual (PCR) SARS-CoV-2 RNA (RT-PCR) S. pyogenes GrpA JULIO CESAR 07/28/22 07/28/22 07/28/22 17:47 18:15 18:15 MCV MCH MCHC RDW Plt Count MPV Immature Gran % (Auto) Neut % (Auto) Lymph % (Auto) [place] % (Auto) Eos % (Auto) Baso % (Auto) Lymph # (Auto) [place] # (Auto) Eos # (Auto) Baso # (Auto) Abs Immat Gran (auto) Absolute Neuts (auto) Absolute Nucleated RBC Nucleated RBC % (auto) Anion Gap 16 Estim Creat Clear Calc 78.3 Estimated GFR > 60 Random Glucose 94 Calcium 8.9 Magnesium 1.9 Total Bilirubin 1.5 H AST 16 D ALT 10 Alkaline Phosphatase 56 Troponin I High Sens B-Natriuretic Peptide 139 H Total Protein 7.0 Albumin 4.0 Urine Color Urine Appearance Urine pH Ur Specific [place] Urine Protein Urine Glucose (UA) Urine Ketones Urine Blood Urine Nitrite Ur Leukocyte Esterase Urine RBC Urine WBC Ur Squamous Epith Cells Urine Bacteria Hyaline Casts COVID-19 ([facility]) COVID-19 Clin Com Influenza Type A (PCR) Influenza Type B (PCR) RSV RNA Qual (PCR) SARS-CoV-2 RNA (RT-PCR) S. pyogenes GrpA JULIO CESAR Negative 07/28/22 07/28/22 07/28/22 18:15 20:23 20:23 MCV MCH MCHC RDW Plt Count MPV Immature Gran % (Auto) Neut % (Auto) Lymph % (Auto) [place] % (Auto) Eos % (Auto) Baso % (Auto) Lymph # (Auto) [place] # (Auto) Eos # (Auto) Baso # (Auto) Abs Immat Gran (auto) Absolute Neuts (auto) Absolute Nucleated RBC Nucleated RBC % (auto) Anion Gap Estim Creat Clear Calc Estimated GFR Random Glucose Calcium Magnesium Total Bilirubin AST ALT Alkaline Phosphatase Troponin I High Sens 29.6 H B-Natriuretic Peptide Total Protein Albumin Urine Color Yellow Urine Appearance Cloudy Urine pH 7.0 Ur Specific [place] <= 1.005 Urine Protein Trace Urine Glucose (UA) Negative Urine Ketones Negative Urine Blood Trace H Urine Nitrite Positive H Ur Leukocyte Esterase Large (3+) H Urine RBC 0-2 Urine WBC >50 H Ur Squamous Epith Cells 0-2 Urine Bacteria 2+ Hyaline Casts 0-2 COVID-19 ([place]) COVID-19 Clin Com Influenza Type A (PCR) NEGATIVE Influenza Type B (PCR) NEGATIVE RSV RNA Qual (PCR) NEGATIVE SARS-CoV-2 RNA (RT-PCR) NEGATIVE S. pyogenes GrpA JULIO CESAR Imaging Radiologist's Impressions: Impressions Chest X-Ray 07/28/22 17:30 IMPRESSION: No radiographic evidence of acute cardiopulmonary disease. Head CT 07/28/22 20:23 IMPRESSION: No acute intracranial pathology. No significant change from prior study. Assessment and Plan (1) Hypertensive urgency: Status: Acute (2) Urinary tract infection: Status: Acute (3) Elevated troponin: Status: Acute (4) Essential hypertension: Status: Acute (5) PAF (paroxysmal atrial fibrillation): Status: Acute Plan This is a 72-year-old female with pertinent history of paroxysmal atrial fibrillation, essential hypertension who presents to the emergency department for evaluation of headache. #. Hypertensive urgency -?complicance of home medications. Has not followed up with a physician outpatient for more than a year. Home po medications and IV hydralazine given in the ER. Normalize BP over 24hours to prevent suddent lowering. Follow BP and adjust medications -EKG with LVH. Obtaining echo #. Acute UTI -Iniated IV rocephin. Follow culture #. Dizziness -likely d/t elevated BP. Will place on cardiac specialist as has a history of afib. Orthostatic vital signs pending #. Elevated troponin -likely type2. No chest pain #. Paroxysmal Afib -previously on eliquis. Unclear complicance. Restart anticoagulation #. Generalized weakness -progressive due to deconditioning and patient does not think she can go back to her trailer. Consult PT to eval and treat. May need placement Med rec pending DVT prophylaxis: Eliquis 5 mg b.i.d. Cardiac diet Full code Admit as inpatient and will require two night minimum hospital stay for close monitoring of blood pressure. Physical eval pending for safe disposition. Quality Stroke Does the patient have a stroke diagnosis?: No VTE Prior VTE?: No VTE Risk Level:: Medical - moderate - high VTE Device Contraindication: Treatment Not Indicated VTE Drug Contraindication: N/A - Med Ordered
[2022-07-28] MEDS: Apixaban 5 MG TABLET PO (21:48)
[2022-07-28] MEDS: hydrALAZINE HCl 20 MG/ML VIAL IVPUSH (21:48)
--- NOTE | 2022-07-28 22:09 | PC.NURSE ---
RN to RN report given to VALENTINA Joseph at overflow. Pt going to bed 2. Pt aware.
[2022-07-28 22:14] LABS: Lactic Acid 0.9 mmol/L (0.5-2.0)
[2022-07-28] MEDS: Benzonatate 100 MG CAPSULE 200 MG PO (22:55)
[2022-07-28] MEDS: ondansetron HCL 4 MG/2 ML VIAL IVPUSH (22:55)
[2022-07-28] MEDS: Melatonin 3 MG TABLET 6 MG PO (22:55)
[2022-07-28] MEDS: 0.9 % Sodium Chloride Flush 3 ML SYRINGE IVFLUSH (23:50)
[2022-07-29] VITALS (7 sets, daily range): BP systolic 144–180; BP diastolic 57–90; PULSE 49–63; RESP 13–19; TEMP 36.8–37.2; O2SAT 91–95
[2022-07-29 06:20] LABS: MANUAL DIFF FLAG NO
--- NOTE | 2022-07-29 06:28 | PC.NURSE ---
Patient slept the majority of the night without incident. Turns self in bed as needed. VSS.
[2022-07-29 06:29] LABS: Basophils Absolute Auto 0.1 X10*3/uL (0.0-0.2); Basophils Percent Auto 0.6 % (0-2); Eosinophils Absolute Auto 0.1 X10*3/uL (0.0-0.4); Eosinophils Percent Auto 1.2 % (0-4); Hematocrit 44.2 % (37.0-47.0); Hemoglobin 14.6 g/dl (12.0-16.0); Imm Gran Abs Auto 0.03 X10*3/uL (0.00-0.03); Imm Gran Pct Auto 0.3 % (0.0-0.4); Lymphocytes Percent Auto 20.1 % (20-40); Mean Corpuscular Hemoglobin 26.9 pg (27.0-33.0); Mean Corpuscular Volume 81.4 fL (80.0-98.0); Mean Platelet Volume 11.3 fL (9.4-12.3); Monocytes Absolute Auto 0.8 X10*3/uL (0.1-1.2); Monocytes Percent Auto 7.7 % (2-11); Neutrophils Absolute Auto 6.9 x10*3/uL (2.0-8.3); Neutrophils Percent Auto 70.1 % (45-73); Platelet Count 296 X10*3/uL (160-400); Red Blood Count 5.43 X10*6/uL (4.20-5.50); Red Cell Distribution Width 12.9 % (11.0-16.0); White Blood Count 9.8 X10*3/uL (4.8-10.8)
[2022-07-29 06:51] LABS: Anion Gap 16 (12-20); Blood Urea Nitrogen 14 mg/dL (9-16); Calcium 9.5 mg/dL (8.4-10.2); Carbon Dioxide 23 mmol/L (22-29); Chloride 104 mmol/L (96-108); Creatinine Clr Calc Pharmacy 79.2; Estimated Glomerular Filt Rate > 60; Glucose Random 107 mg/dL (60-115); Potassium 3.8 mmol/L (3.3-5.1); Sodium 139 mmol/L (135-145)
[2022-07-29 07:02] LABS: Thyroid Stimulating Hormone 1.72 uIU/mL (0.32-4.0)
[2022-07-29] MEDS: Apixaban 5 MG TABLET PO ×2 (07:45→20:24)
--- NOTE | 2022-07-29 07:45 | HO.PM.IMPN ---
Subjective Subjective Date of Service: 07/29/22 Interval History: Seen in f/u for HTN urgency and UTI Interval history: Feels better, up and walking to bathroom on own, BP is better Review of Systems no chest pain no sob weakness Physical Exam Vital Signs: Vital Signs: Last Vital Signs Temp 98.5 F 07/28/22 22:52 Pulse 49 L 07/29/22 06:28 Resp 15 07/29/22 04:03 BP 162/63 H 07/29/22 06:28 Pulse Ox 96 07/28/22 22:52 O2 Del Method 07/29/22 06:28 BMI result Body Mass Index 29.8 Const: Other: Neck supple, no JVD Bradycardic, S1-S2 heard Decreased breath sounds at bases Abdomen soft nontender, no guarding, no rigidity Patient is awake, alert and oriented to self, place, time and person ; no focal motor deficit Psych: Normal mood Objective Data Active Medications Acetaminophen (Acetaminophen 325 Mg Tablet) 650 mg PO Q6H PRN PRN Reason: Pain, Mild (Pain Scale 1-3) Apixaban (Apixaban 5 Mg Tablet) 5 mg PO BID [facility] Last Admin: 07/28/22 21:48 Dose: 5 mg Documented By: JOSE Benzonatate (Benzonatate 100 Mg Capsule) 200 mg PO TID PRN PRN Reason: cough Last Admin: 07/28/22 22:55 Dose: 200 mg Documented By: ANNIE Ceftriaxone Sodium 1 gm/ (Sodium Chloride) 50 mls @ 100 mls/hr IV DAILY [facility] Melatonin (Melatonin 3 Mg Tablet) 6 mg PO BEDTIME PRN PRN Reason: Insomnia Last Admin: 07/28/22 22:55 Dose: 6 mg Documented By: ANNIE Ondansetron HCl (Ondansetron Hcl 4 Mg/2 Ml Vial) 4 mg IVPUSH Q8H PRN PRN Reason: Nausea and Vomiting Last Admin: 07/28/22 22:55 Dose: 4 mg Documented By: ANNIE Pharmacy Consult (Consult Rx Perform Med Rec) 1 each MISCELLANE ONCE PRN PRN Reason: Consult order Sodium Chloride (0.9 % Sodium Chloride Flush 3 Ml Syringe) 3 ml IVFLUSH QSHIFT [facility] Last Admin: 07/29/22 07:07 Dose: Not Given Documented By: JESSICA Non-Admin Reason: IV Running Labs CBC & Chem 7: 07/29/22 05:59 07/29/22 05:59 Labs: Laboratory Results - last 24 hr 07/28/22 07/28/22 07/28/22 17:47 17:47 17:47 MCV 80.7 MCH 27.7 MCHC 34.3 RDW 12.7 Plt Count 280 MPV 10.8 Immature Gran % (Auto) 0.3 Neut % (Auto) 72.0 Lymph % (Auto) 19.3 L [place] % (Auto) 6.6 Eos % (Auto) 1.2 Baso % (Auto) 0.6 Lymph # (Auto) 2.3 [place] # (Auto) 0.8 Eos # (Auto) 0.2 Baso # (Auto) 0.1 Abs Immat Gran (auto) 0.04 H Absolute Neuts (auto) 8.7 H Absolute Nucleated RBC 0.000 Nucleated RBC % (auto) 0.0 Anion Gap Estim Creat Clear Calc Estimated GFR Random Glucose Lactic Acid Calcium Magnesium Total Bilirubin AST ALT Alkaline Phosphatase Troponin I High Sens 32.2 H D B-Natriuretic Peptide Total Protein Albumin TSH Urine Color Urine Appearance Urine pH Ur Specific [place] Urine Protein Urine Glucose (UA) Urine Ketones Urine Blood Urine Nitrite Ur Leukocyte Esterase Urine RBC Urine WBC Ur Squamous Epith Cells Urine Bacteria Hyaline Casts COVID-19 ([facility]) Negative COVID-19 Clin Com See Note Influenza Type A (PCR) Influenza Type B (PCR) RSV RNA Qual (PCR) SARS-CoV-2 RNA (RT-PCR) S. pyogenes GrpA JULIO CESAR 07/28/22 07/28/22 07/28/22 17:47 18:15 18:15 MCV MCH MCHC RDW Plt Count MPV Immature Gran % (Auto) Neut % (Auto) Lymph % (Auto) [place] % (Auto) Eos % (Auto) Baso % (Auto) Lymph # (Auto) [place] # (Auto) Eos # (Auto) Baso # (Auto) Abs Immat Gran (auto) Absolute Neuts (auto) Absolute Nucleated RBC Nucleated RBC % (auto) Anion Gap 16 Estim Creat Clear Calc 78.3 Estimated GFR > 60 Random Glucose 94 Lactic Acid Calcium 8.9 Magnesium 1.9 Total Bilirubin 1.5 H AST 16 D ALT 10 Alkaline Phosphatase 56 Troponin I High Sens B-Natriuretic Peptide 139 H Total Protein 7.0 Albumin 4.0 TSH Urine Color Urine Appearance Urine pH Ur Specific [place] Urine Protein Urine Glucose (UA) Urine Ketones Urine Blood Urine Nitrite Ur Leukocyte Esterase Urine RBC Urine WBC Ur Squamous Epith Cells Urine Bacteria Hyaline Casts COVID-19 ([facility]) COVID-19 Clin Com Influenza Type A (PCR) Influenza Type B (PCR) RSV RNA Qual (PCR) SARS-CoV-2 RNA (RT-PCR) S. pyogenes GrpA JULIO CESAR Negative 07/28/22 07/28/22 07/28/22 18:15 20:23 20:23 MCV MCH MCHC RDW Plt Count MPV Immature Gran % (Auto) Neut % (Auto) Lymph % (Auto) [place] % (Auto) Eos % (Auto) Baso % (Auto) Lymph # (Auto) [place] # (Auto) Eos # (Auto) Baso # (Auto) Abs Immat Gran (auto) Absolute Neuts (auto) Absolute Nucleated RBC Nucleated RBC % (auto) Anion Gap Estim Creat Clear Calc Estimated GFR Random Glucose Lactic Acid Calcium Magnesium Total Bilirubin AST ALT Alkaline Phosphatase Troponin I High Sens 29.6 H B-Natriuretic Peptide Total Protein Albumin TSH Urine Color Yellow Urine Appearance Cloudy Urine pH 7.0 Ur Specific [place] <= 1.005 Urine Protein Trace Urine Glucose (UA) Negative Urine Ketones Negative Urine Blood Trace H Urine Nitrite Positive H Ur Leukocyte Esterase Large (3+) H Urine RBC 0-2 Urine WBC >50 H Ur Squamous Epith Cells 0-2 Urine Bacteria 2+ Hyaline Casts 0-2 COVID-19 ([place]) COVID-19 Clin Com Influenza Type A (PCR) NEGATIVE Influenza Type B (PCR) NEGATIVE RSV RNA Qual (PCR) NEGATIVE SARS-CoV-2 RNA (RT-PCR) NEGATIVE S. pyogenes GrpA JULIO CESAR 07/28/22 07/29/22 07/29/22 21:59 05:59 05:59 MCV 81.4 MCH 26.9 L MCHC 33.0 RDW 12.9 Plt Count 296 MPV 11.3 Immature Gran % (Auto) 0.3 Neut % (Auto) 70.1 Lymph % (Auto) 20.1 [place] % (Auto) 7.7 Eos % (Auto) 1.2 Baso % (Auto) 0.6 Lymph # (Auto) 2.0 [place] # (Auto) 0.8 Eos # (Auto) 0.1 Baso # (Auto) 0.1 Abs Immat Gran (auto) 0.03 Absolute Neuts (auto) 6.9 Absolute Nucleated RBC 0.000 Nucleated RBC % (auto) 0.0 Anion Gap 16 Estim Creat Clear Calc 79.2 Estimated GFR > 60 Random Glucose 107 Lactic Acid 0.9 Calcium 9.5 D Magnesium Total Bilirubin AST ALT Alkaline Phosphatase Troponin I High Sens B-Natriuretic Peptide Total Protein Albumin TSH 1.72 Urine Color Urine Appearance Urine pH Ur Specific [place] Urine Protein Urine Glucose (UA) Urine Ketones Urine Blood Urine Nitrite Ur Leukocyte Esterase Urine RBC Urine WBC Ur Squamous Epith Cells Urine Bacteria Hyaline Casts COVID-19 ([place]) COVID-19 Clin Com Influenza Type A (PCR) Influenza Type B (PCR) RSV RNA Qual (PCR) SARS-CoV-2 RNA (RT-PCR) S. pyogenes GrpA JULIO CESAR Assessment and Plan (1) Hypertensive urgency: Status: Acute (2) Urinary tract infection: Status: Acute Plan This is a 72-year-old female with pertinent history of paroxysmal atrial fibrillation, essential hypertension who presents to the emergency department for evaluation of headache. #. Hypertensive urgency -?complicance of home medications. Has not followed up with a physician outpatient for more than a year. given hoe po lisinopril 40 and IV hydralazine given in the ER. Normalize BP over 24hours to prevent suddent lowering. Follow BP and adjust medications -EKG with LVH. Obtaining echo -hold home metoprolol d/t bradycardia -hold Lisinopril d/t receiving 40 last night but resume tomorrow #. Acute --UTI, no sepsis - IV rocephin. Follow culture #. Dizziness resolved -likely d/t elevated BP. continue monitoring #. Elevated troponin 32-->29 -likely type2. No chest pain and repeat lower #. Paroxysmal Afib -previously on eliquis. Unclear complicance. Restart anticoagulation #. Generalized weakness -progressive due to deconditioning and patient does not think she can go back to her trailer. Consult PT to eval and treat. May need placement case managment to look into living situation tomorrow DVT prophylaxis:? Eliquis 5 mg b.i.d. Cardiac diet Full code Need for inaptient: HTN urgency that needs med adjustement, including IV meds for BP control Quality Stroke Does the patient have a stroke diagnosis?: No VTE Prior VTE?: No VTE Risk Level:: Medical - moderate - high VTE Device Contraindication: Treatment Not Indicated VTE Drug Contraindication: N/A - Med Ordered
--- NOTE | 2022-07-29 09:07 | PC.NURSE ---
pt 1 assist to get out of bed. ambulates independently with steady gait to bathroom and back. aware of plan of care denied having any questions at this time.
--- NOTE | 2022-07-29 10:13 | MHC.CM.PN ---
Patient reports living alone, does not drive; takes [facility] transport services, owns walker. Goal is to return home (? services). CM to follow.
--- NOTE | 2022-07-29 10:42 | PHA.MEDREC ---
Pharmacy Consult ? Medication Reconciliation Pharmacy has completed the medication reconciliation. Spoke with patient in overflow. patient is only taking metoprolol and lisinopril. She does not take any OTC meds or cholesterol medications
--- NOTE | 2022-07-29 14:22 | PC.NURSE ---
attempt to call report. awaiting rn call back
--- NOTE | 2022-07-29 16:00 | MHC.CM.PN ---
LATE NOTE FOR 07/29/22 09:45: Attempted to connect w/patient's contact listed on file (daughter Joan) via phone x's 2. No answer. This CM then interviewed patient at bedside (see documented note/intake review). CM to follow.
[2022-07-29] MEDS: 0.9 % Sodium Chloride Flush 3 ML SYRINGE IVFLUSH ×2 (17:17→19:47)
[2022-07-29] MEDS: Docusate Sodium 100 MG CAPSULE PO (20:24)
[2022-07-29] MEDS: cefTRIAXone sodium 1 GM in 0.9 % Sodium Chloride 50 ML IV (20:24)
[2022-07-30] VITALS (8 sets, daily range): BP systolic 143–170; BP diastolic 67–85; PULSE 50–74; RESP 16–18; TEMP 36.3–37.2; O2SAT 93–98
--- NOTE | 2022-07-30 07:00 | CA_ITS ---
Transthoracic Echocardiogram Patient (Last, First, Middle): Jazmyn Chi, Gender: Female Date of : 1950 Age: 72 Procedure Date: 07/30/2022 Procedure Type: Transthoracic Echocardiogram Location: S3E Height: 180.34 cm Weight: 93.9 kg BSA: 2.14 m2 Heart Rate: 63 bpm BP: 161 / 84 mmHg Officer Lieutenant: CONRAD Referring MD: Cherie Gallegos MD Hot Iron Worker: Karri Jackson MD Symptoms: uncontrolled HTN Study Quality: Adequate w contrast ECG Rhythm: Sinus Conclusions: - 1. Hyperdynamic LV systolic function with LVEF of greater than 70% with impaired relaxation filling pattern 2. Normal cardiac valvular Doppler 3. Normal RV systolic pressure 4. No pericardial effusion Findings Procedure Information Contrast agent, definity, is being given per protocol without apparent complications. Left Ventricle Normal left ventricular cavity size. There is normal left ventricular wall thickness. The left ventricular systolic function is hyperdynamic. The visually estimated ejection fraction is >70%. Spectral Doppler is indicative of an impaired relaxation filling pattern. E/E prime ratio is between 8 and 15 consistent with indeterminate filling pressures. There is mild septal asymmetric hypertrophy. Right Ventricle Normal right ventricular cavity size and systolic function. Atria The left atrium is normal in size. Interatrial shunt cannot be excluded. The right atrium is normal in size. Aortic Valve Normal aortic valve structure and function. There is no aortic valve stenosis. There is no aortic valve regurgitation. Mitral Valve There is mild anterior and posterior mitral leaflet thickening. There is trace mitral valve regurgitation. There is no mitral valve stenosis. Pulmonic Valve The pulmonic valve was not well visualized. Tricuspid Valve Likely normal tricuspid valve structure and function. There is trace tricuspid valve regurgitation. The right ventricular systolic pressure is normal. Great Vessels All visible segments of the aorta are normal in size. The pulmonary artery was not well visualized. Venous The inferior vena cava is normal in size and collapses greater than 50% with inspiration. Pericardium/Pleural There is no evidence of pericardial effusion. Prior Study Comparison No significant change compared to prior study dated: 12/26/2020. Measurements 2D Linear Measurements IVSd: 1.32 0.6-0.9/0.6-1.0 cm LVIDd: 4.44 3.9-5.3/4.2-5.9 cm LVIDd Index: 2.07 2.4-3.2/2.2-3.1 cm/m2 LVIDs: 2.83 2.0-3.6 cm LVPWd: 0.85 0.7-1.1 cm LA Diam: 4.00 2.7-3.8/3.0-4.0 cm LAIDs Index: 1.87 1.5-2.3 cm/m2 LV Mass: 208.65 67-162/88-224 g LV Mass Index: 97.50 43-95/49-115 g/m2 LVOT Diam: 2.10 3.0+(-)1.3 cm 2D Systolic Function EF 4C: 73.50 >55% EF 2C: 75.50 >55% EF BiP: 74.60 >55% Mitral Valve MV Pk E: 0.38 MV PK A: 0.75 MV Decel Time: 251.00 E/A: 0.50 E'Lateral: 4.62 E'Medial: 2.50 E/E' Med: 15.10 E/E' Lat: 8.20 PHT: 73.00 MVA PHT: 3.01 Decel Hamilton: 1.50 Aortic Valve AoV Pk Randy: 1.71 AoV Mn Randy: 1.04 AoV VTI: 0.29 AoV Pk Grad: 12.00 Aov Mn Grad: 5.00 TRISTEN Cont.VTI: 2.40 LVOT LVOT Pk Randy: 1.01 LVOT Mn Randy: 0.72 LVOT VTI: 0.20 LVOT Pk Grad: 4.00 LVOT Mn Grad: 2.00 LVOT Diam: 2.10 LVOT Area: 3.46 Diastolic Function MV Pk E: 0.38 MV Pk A: 0.75 E/A: 0.50 E'Medial: 2.50 E/E' Med: 15.10 E' Laterial: 4.62 E/E' Lat: 8.20 Right Ventricle TAPSE (mm): 21.40 TVS' Randy: 15.50 Great Vessels Aorta Sinus of Valsalva: 2.60 2.0-3.5 cm Ao Asc: 3.00 2.1-3.4 cm Pulmonary Veins Pulm Vein S/D 1.80 Pulmonary Valve PV Pk Randy: 1.34 Peak PV Grad: 7.00 Updated in Other Vendor System with Status of Final Karri Jackson MD electronically signed on 07/30/2022 4:39:17 PM with status of Final
[2022-07-30] MEDS: Apixaban 5 MG TABLET PO ×2 (07:54→20:16)
[2022-07-30] MEDS: 0.9 % Sodium Chloride Flush 3 ML SYRINGE IVFLUSH ×3 (07:54→23:55)
[2022-07-30] MEDS: Docusate Sodium 100 MG CAPSULE PO ×2 (07:54→20:16)
[2022-07-30] MEDS: cefTRIAXone sodium 1 GM in 0.9 % Sodium Chloride 50 ML IV (07:55)
--- NOTE | 2022-07-30 09:40 | P.PNIM_ITS ---
Subjective Subjective Date of Service: 07/30/22 Interval History: cc:weakness interval history:cough Cardiovascular Cardiovascular: Reports no additional cardiovascular complaints Respiratory Respiratory: Reports no additional respiratory complaints Physical Exam Vital Signs: Vital Signs: Last Vital Signs Temp 98.6 F 07/30/22 07:43 Pulse 51 07/30/22 07:43 Resp 18 07/30/22 07:43 BP 165/76 H 07/30/22 07:43 Pulse Ox 93 07/30/22 07:43 O2 Del Method 07/30/22 07:43 BMI result Body Mass Index 29.8 Const: Other: Neck supple, no JVD Bradycardic, S1-S2 heard Decreased breath sounds at bases Abdomen soft nontender, no guarding, no rigidity Patient is awake, alert and oriented to self, place, time and person ; no focal motor deficit Psych: Normal mood Objective Data Active Medications Acetaminophen (Acetaminophen 325 Mg Tablet) 650 mg PO Q6H PRN PRN Reason: Pain, Mild (Pain Scale 1-3) Apixaban (Apixaban 5 Mg Tablet) 5 mg PO BID [facility] Last Admin: 07/30/22 07:54 Dose: 5 mg Documented By: MARIAJOSE Benzonatate (Benzonatate 100 Mg Capsule) 200 mg PO TID PRN PRN Reason: cough Last Admin: 07/28/22 22:55 Dose: 200 mg Documented By: ANNIE Docusate Sodium (Docusate Sodium 100 Mg Capsule) 100 mg PO BID [facility] Last Admin: 07/30/22 07:54 Dose: 100 mg Documented By: MARIAJOSE Ceftriaxone Sodium 1 gm/ (Sodium Chloride) 50 mls @ 100 mls/hr IV DAILY [facility] Last Infusion: 07/30/22 08:30 Dose: 100 mls/hr Documented By: MARIAJOSE Melatonin (Melatonin 3 Mg Tablet) 6 mg PO BEDTIME PRN PRN Reason: Insomnia Last Admin: 07/28/22 22:55 Dose: 6 mg Documented By: ANNIE Ondansetron HCl (Ondansetron Hcl 4 Mg/2 Ml Vial) 4 mg IVPUSH Q8H PRN PRN Reason: Nausea and Vomiting Last Admin: 07/28/22 22:55 Dose: 4 mg Documented By: ANNIE Pharmacy Consult (Consult Rx Perform Med Rec) 1 each MISCELLANE ONCE PRN PRN Reason: Consult order Sodium Chloride (0.9 % Sodium Chloride Flush 3 Ml Syringe) 3 ml IVFLUSH QSHIFT [facility] Last Admin: 07/30/22 07:54 Dose: 3 ml Documented By: MARIAJOSE Labs CBC & Chem 7: 07/29/22 05:59 07/29/22 05:59 Microbiology Microbiology Results: Microbiology 07/28/22 22:13 Blood Culture - Preliminary Blood - Venous No growth after 24 hours. 07/28/22 22:13 Blood Culture - Preliminary Blood - Venous No growth after 24 hours. Assessment and Plan (1) Hypertensive urgency: Status: Acute (2) Urinary tract infection: Status: Acute Plan 72-year-old female with pertinent history of paroxysmal atrial fibrillation, essential hypertension who presents to the emergency department for evaluation of headache. Hypertensive urgency ?compliance of home medications. Has not followed up with a physician outpatient for more than a yearadjust medications EKG with LVH. Obtaining echo hold home metoprolol d/t bradycardia continue lisinopril 40mg daily Acute --UTI, no sepsis IV rocephin. Follow culture Dizziness resolved Paroxysmal Afib restarted eliquis hold metoprolol for sinus radha Generalized weakness progressive due to deconditioning and patient does not think she can go back to her trailer. Consult PT to eval and treat. May need placement DVT prophylaxis:? Eliquis 5 mg b.i.d. Cardiac diet Full code reason for continued hospitalization:follow up echo, awaiting cultures, rehab Quality Stroke Does the patient have a stroke diagnosis?: No VTE Prior VTE?: No VTE Risk Level:: Medical - moderate - high VTE Device Contraindication: Treatment Not Indicated VTE Drug Contraindication: N/A - Med Ordered
[2022-07-30] MEDS: lisinopriL 40 MG TABLET PO (10:58)
[2022-07-30] MEDS: Benzonatate 100 MG CAPSULE 200 MG PO (11:39)
[2022-07-30] MEDS: Metoprolol Tartrate 12.5 MG HALFTAB PO ×2 (13:01→20:15)
[2022-07-30] MEDS: Metoprolol Tartrate 25 MG TABLET PO (14:01)
--- NOTE | 2022-07-30 15:23 | MHC.CM.PN ---
EMR REVIEWED, PT RECOMMENDING HOME W/SERVICES, PER PT REQUEST PCP APPT MADE FOR THIS 08/02 AT 11:30AM, CM HAS SET UP C SHUTTLE FOR TRANSPORT AND THEY WILL GRADES 1 THRU 6 VISITING TEACHER PT AT 10:30AM. PT ADAMANTLY DENIES HAVING CATS OR BRYCE LITTER AROUND, PT DID REPORT SHE HAS A DOG AND PEE PADS FOR DOG, PT REPORTS HER MICHAEL COMES DAILY TO ASSIST HER AND SHE IS ADAMANT ABOUT RETURNING HOME AND NOT TO [facility], PT AGREEABLE TO HOME SERVICES.
--- NOTE | 2022-07-30 15:25 | PC.NURSE ---
Dr Costa made aware of increase in heart rate from radha to 80-90's Given 12.5 metoprolol. rate then increased into 130's. additional 25mg given at 1500 a-fib in the 70's-80's
[2022-07-30] MEDS: Acetaminophen 325 MG TABLET 650 MG PO (18:36)
[2022-07-30] MEDS: ondansetron HCL 4 MG/2 ML VIAL IVPUSH (19:24)
[2022-07-31] VITALS (8 sets, daily range): BP systolic 141–182; BP diastolic 65–79; PULSE 55–60; RESP 17–18; TEMP 36.3–37; O2SAT 95–98
--- NOTE | 2022-07-31 | ECG_ITS ---
Test Reason : cp Blood Pressure : / mmHG Vent. Rate : 058 BPM Atrial Rate : 000 BPM P-R Int : 000 ms QRS Dur : 124 ms QT Int : 446 ms P-R-T Axes : 000 -47 141 degrees QTc Int : 437 ms Atrial fibrillation with slow ventricular response Left anterior fascicular block Left ventricular hypertrophy with QRS widening and repolarization abnormality ( R in aVL , Tee product , Romhilt-Mora ) Abnormal ECG When compared with ECG of 28-JUL-2022 23:23, Atrial fibrillation has replaced Sinus rhythm T wave inversion less evident in Lateral leads Referred By: Sylvester Brown Electronically Signed By:JUSTO BARNETT MD
--- NOTE | 2022-07-31 02:25 | PM.EVENT ---
Event Note Date of Service: 07/31/22 Event Note: pt HR is the 30s w 3 s pause. asymptomatic. will obtail ekg. hold metoprolol. get tsh
--- NOTE | 2022-07-31 03:20 | PC.NURSE ---
REPORTED FROM [facility] [place] [facility], 2345 THAT PATIENTS HR DIPPED TO 34 FOR AN INSTANT WITH A RHYTHM OF AFIB. PATIENT WAS AWAKENED AND DENIED CP/PRESSURE, HEADACHE, FEELING DIZZY, OR ANY CHANGE OR PAIN. VITALS 97.6-55-17-149/72 95 % ROOM AIR. HOSPITALIST MADE AWARE WITH NO NEW ORDERS. 0213 ALERTED BY [facility] [place] [facility] OF HR AGAIN 34 WITH A 3 SECOND PAUSE. PT AGAIN AWAKENED WITH NO CHANGES. HOSPITALIST AT THIS TIME ASKED FOR AN EKG READING WHICH WAS DONE AND PHOTO RESULTS SENT TO HER. NOTED SHE ORDERED LABWORK AND WROTE A NOTE; SEE DOCUMENTATION. EKG PLACED IN CHART. 0300 [facility] [place] [facility] LET THIS MOLD MAKER PLASTER KNOW THAT PATIENT CONVERTED TO SB WITH FIRST DEGREE AV BLOCK. PT REMAINS COMFORTABLE AND AGAIN HOSPITALIST WAS MADE AWARE OF HER CONVERSION. WILL CONTINUE TO MONITOR PT CLOSELY.
[2022-07-31 06:30] LABS: Thyroid Stimulating Hormone 1.66 uIU/mL (0.32-4.0)
[2022-07-31] MEDS: Apixaban 5 MG TABLET PO ×2 (08:20→20:13)
[2022-07-31] MEDS: lisinopriL 40 MG TABLET PO (08:20)
[2022-07-31] MEDS: cefTRIAXone sodium 1 GM in 0.9 % Sodium Chloride 50 ML IV (08:20)
[2022-07-31] MEDS: Docusate Sodium 100 MG CAPSULE PO ×2 (08:20→20:13)
[2022-07-31] MEDS: 0.9 % Sodium Chloride Flush 3 ML SYRINGE IVFLUSH ×3 (08:20→20:13)
--- NOTE | 2022-07-31 11:27 | P.PNIM_ITS ---
Subjective Subjective Date of Service: 07/31/22 Interval History: cc:weakness interval history:cough, asymptomatic radha in 30s overnight Cardiovascular Cardiovascular: Reports no additional cardiovascular complaints Respiratory Respiratory: Reports no additional respiratory complaints Physical Exam Vital Signs: Vital Signs: Last Vital Signs Temp 97.7 F 07/31/22 11:16 Pulse 57 07/31/22 11:16 Resp 17 07/31/22 11:16 BP 172/72 H 07/31/22 11:16 Pulse Ox 98 07/31/22 11:16 O2 Del Method 07/31/22 11:16 BMI result Body Mass Index 29.8 Const: Other: Neck supple, no JVD Bradycardic, S1-S2 heard Decreased breath sounds at bases Abdomen soft nontender, no guarding, no rigidity Patient is awake, alert and oriented to self, place, time and person ; no focal motor deficit Psych: Normal mood Objective Data Active Medications Acetaminophen (Acetaminophen 325 Mg Tablet) 650 mg PO Q6H PRN PRN Reason: Pain, Mild (Pain Scale 1-3) Last Admin: 07/30/22 18:36 Dose: 650 mg Documented By: HARRY Apixaban (Apixaban 5 Mg Tablet) 5 mg PO BID [facility] Last Admin: 07/31/22 08:20 Dose: 5 mg Documented By: MARIAJOSE Benzonatate (Benzonatate 100 Mg Capsule) 200 mg PO TID PRN PRN Reason: cough Last Admin: 07/30/22 11:39 Dose: 200 mg Documented By: MARIAJOSE Docusate Sodium (Docusate Sodium 100 Mg Capsule) 100 mg PO BID [facility] Last Admin: 07/31/22 08:20 Dose: 100 mg Documented By: MARIAJOSE Ceftriaxone Sodium 1 gm/ (Sodium Chloride) 50 mls @ 100 mls/hr IV DAILY [facility] Last Infusion: 07/31/22 09:18 Dose: 100 mls/hr Documented By: MARIAJOSE Lisinopril (Lisinopril 40 Mg Tablet) 40 mg PO DAILY [facility]; Protocol Last Admin: 07/31/22 08:20 Dose: 40 mg Documented By: MARIAJOSE Melatonin (Melatonin 3 Mg Tablet) 6 mg PO BEDTIME PRN PRN Reason: Insomnia Last Admin: 07/28/22 22:55 Dose: 6 mg Documented By: ANNIE Ondansetron HCl (Ondansetron Hcl 4 Mg/2 Ml Vial) 4 mg IVPUSH Q8H PRN PRN Reason: Nausea and Vomiting Last Admin: 07/30/22 19:24 Dose: 4 mg Documented By: HARRY Pharmacy Consult (Consult Rx Perform Med Rec) 1 each MISCELLANE ONCE PRN PRN Reason: Consult order Sodium Chloride (0.9 % Sodium Chloride Flush 3 Ml Syringe) 3 ml IVFLUSH QSHIFT [facility] Last Admin: 07/31/22 08:20 Dose: 3 ml Documented By: MARIAJOSE Labs CBC & Chem 7: 07/29/22 05:59 07/29/22 05:59 Labs: Laboratory Results - last 24 hr 07/31/22 05:11 TSH 1.66 Microbiology Microbiology Results: Microbiology 07/28/22 22:13 Blood Culture - Preliminary Blood - Venous No growth after 48 hours. 07/28/22 22:13 Blood Culture - Preliminary Blood - Venous No growth after 48 hours. 07/28/22 Unknown Urine Culture - Final Urine clean catch - Urine hicks top Assessment and Plan (1) Hypertensive urgency: Status: Acute (2) Urinary tract infection: Status: Acute Plan 72-year-old female with pertinent history of paroxysmal atrial fibrillation, essential hypertension who presents to the emergency department for evaluation o f headache. Hypertensive urgency ?compliance of home medications. Has not followed up with a physician outpatient for more than a yearadjust medications EKG with LVH. echo - hyperdynamic continue lisinopril 40mg daily amlodipine 5mg daily added pyuria urine culture with normal chi dc IV rocephin Dizziness resolved Paroxysmal Afib with RVR and sinus radha and occasional pauses restarted eliquis holding metoprolol for sinus radha cardio eval, ?need for pacer DVT prophylaxis:? Eliquis 5 mg b.i.d. Cardiac diet Full code reason for continued hospitalization:tachy radha, cardio eval Quality Stroke Does the patient have a stroke diagnosis?: No VTE Prior VTE?: No VTE Risk Level:: Medical - moderate - high VTE Device Contraindication: Treatment Not Indicated VTE Drug Contraindication: N/A - Med Ordered
[2022-07-31] MEDS: amLODIPine Besylate 5 MG TABLET PO (12:05)
[2022-07-31] MEDS: Spironolactone 25 MG TABLET 12.5 MG PO (12:05)
[2022-07-31] MEDS: Dronedarone HCl 400 MG TABLET PO ×2 (12:06→20:13)
--- NOTE | 2022-07-31 12:10 | PM.CNCAR ---
History of Present Illness History of Present Illness Date of Service: 07/31/22 Requesting physician: Zaid Costa Consult reason: atrial fibrillation Chief complaint: headache Narrative: I was consulted to see Jazmyn in cardiology consultation today for recurrent atrial fibrillation with slow heart rate during nighttime. She then subsequently converted to sinus rhythm without any significant pauses. Patient remained in sinus rhythm since then. She was diagnosed with atrial fibrillation last year and had workup done at that time which has shown normal structure of the heart with normal myocardial perfusion and normal LV systolic function. She was on Eliquis at that point time and subsequently had seen Dr. Moe and the last office visit was last April. Since then she has not been in cardiology office. She says that she was never given a follow-up appointment. She was also told as per her to come of the Eliquis therapy. She has prior history of noncompliance. She says she has been compliant medications and not been feeling well in the last few days was having headache and came to the hospital was noted to have uncontrolled blood pressure as well also noted to have UTI. Blood pressure remains uncontrolled. She developed atrial fibrillation yesterday with rapid ventricular response subsequently converted to sinus rhythm. She did have symptoms of palpitation rapid heart rate with chest pressure. She denies any symptoms when I was interviewing her. Review of Systems Constitutional: Constitutional: Reports no additional constitutional complaints and Reports headache(s) Eyes: Eyes: Reports no additional eye complaints ENT: Reports headache(s) Cardiovascular: Cardiovascular: Reports chest pain, Denies leg edema, Denies lightheadedness, Denies Loss of Consciousness, Reports palpitations and Denies dyspnea Respiratory: Respiratory: Reports no additional respiratory complaints and Denies dyspnea Gastrointestinal: Gastrointestinal: Reports no additional gastrointestinal complaints Musculoskeletal: Musculoskeletal: Reports no additional musculoskeletal complaints Neurologic: Reports headache(s) Psychiatric: Psychiatric: Reports no additional psychiatric complaints Endocrine: Endocrine: Reports palpitations PMFSH Past Medical History Medical History Essential hypertension HTN (hypertension) Left-sided cerebrovascular accident (CVA) Obesity (BMI 30-39.9) Family History Family History Father No problems noted. Mother No problems noted. Surgical History Surgical History Hx of appendectomy Hx of cholecystectomy Hx of hernia repair Hx of hysterectomy Social History Social History Household Members: None Housing: Other Housing Other:: lives in a trailer Do you presently have visiting nurse or other home services: No Alcohol intake: current Alcohol intake frequency: does not drink Patient Tobacco Use Status: Former Tobacco user Second Hand Smoke Exposure: Yes Advance Directives Date on File: 09/26/21 service: No Current occupational status: disabled Meds Allergies Allergy/AdvReac Type Severity Reaction Status Date / Time No Known Allergies Allergy Verified 10/27/21 13:53 Active Medications: Current Medications Acetaminophen (Acetaminophen 325 Mg Tablet) 650 mg PO Q6H PRN PRN Reason: Pain, Mild (Pain Scale 1-3) Last Admin: 07/30/22 18:36 Dose: 650 mg Amlodipine Besylate (Amlodipine Besylate 5 Mg Tablet) 5 mg PO DAILY [facility]; Protocol Last Admin: 07/31/22 12:05 Dose: 5 mg Apixaban (Apixaban 5 Mg Tablet) 5 mg PO BID [facility] Last Admin: 07/31/22 08:20 Dose: 5 mg Benzonatate (Benzonatate 100 Mg Capsule) 200 mg PO TID PRN PRN Reason: cough Last Admin: 07/30/22 11:39 Dose: 200 mg Docusate Sodium (Docusate Sodium 100 Mg Capsule) 100 mg PO BID [facility] Last Admin: 07/31/22 08:20 Dose: 100 mg Dronedarone (Dronedarone Hcl 400 Mg Tablet) 400 mg PO BID [facility] Last Admin: 07/31/22 12:06 Dose: 400 mg Lisinopril (Lisinopril 40 Mg Tablet) 40 mg PO DAILY [facility]; Protocol Last Admin: 07/31/22 08:20 Dose: 40 mg Melatonin (Melatonin 3 Mg Tablet) 6 mg PO BEDTIME PRN PRN Reason: Insomnia Last Admin: 07/28/22 22:55 Dose: 6 mg Ondansetron HCl (Ondansetron Hcl 4 Mg/2 Ml Vial) 4 mg IVPUSH Q8H PRN PRN Reason: Nausea and Vomiting Last Admin: 07/30/22 19:24 Dose: 4 mg Pharmacy Consult (Consult Rx Perform Med Rec) 1 each MISCELLANE ONCE PRN PRN Reason: Consult order Sodium Chloride (0.9 % Sodium Chloride Flush 3 Ml Syringe) 3 ml IVFLUSH QSHIFT [facility] Last Admin: 07/31/22 08:20 Dose: 3 ml Spironolactone (Spironolactone 25 Mg Tablet) 12.5 mg PO DAILY [facility]; Protocol Last Admin: 07/31/22 12:05 Dose: 12.5 mg Physical Exam Vital Signs: Vital Signs: Last Vital Signs Temp 97.7 F 07/31/22 11:16 Pulse 57 07/31/22 11:16 Resp 17 07/31/22 11:16 BP 172/72 H 07/31/22 11:16 Pulse Ox 98 07/31/22 11:16 O2 Del Method 07/31/22 11:16 BMI result Body Mass Index 29.8 Const: General: cooperative, comfortable, no acute distress, alert and awake Nutritional Appearance: overweight Orientation/consciousness: patient oriented x3 Limitations: no limitations HEENT: Head: Yes normocephalic and Yes atraumatic Neck: Neck: Yes trachea midline, Yes supple and Yes no JVD Resp: Effort & Inspection: normal respiratory effort Auscultation: clear to auscultation bilaterally Cardio: Jugular venous distension: no JVD Palpation: normal PMI Rate: regular rate Rhythm: regular rhythm Heart sounds: S1 normal heart sound present, S2 normal heart sound present, no click, no gallops, no murmurs and no rubs GI: Auscultation: normal bowel sounds Skin: General skin exam: no rashes or lesions noted Neuro: General: patient oriented x3 and no focal motor deficits Extrem: General: Yes no clubbing, cyanosis or edema Objective Labs and Meds Result diagrams: 07/29/22 05:59 07/29/22 05:59 Lab results: Laboratory Results - last 24 hr 07/31/22 05:11 TSH 1.66 Assessment and Plan (1) PAF (paroxysmal atrial fibrillation): Status: Acute Symptomatic paroxysmal atrial fibrillation this elderly woman with multiple risk factors. She is at high risk for thromboembolic complication and strongly recommended her to be on oral anticoagulation therapy without interpretation given her prior CVA. Eliquis has been restarted on hospitalization. Also given symptomatic nature of atrial fibrillation and only on low-dose metoprolol with slow heart rate, will switch her to antiarrhythmic drug therapy with Multaq. 400 mg b.i.d.. Perform EKG prior to Multaq and tomorrow to check for QT prolongation. She does have sinus bradycardia and may have a component of tachy-radha but there is no indication for pacemaker at this point time. She needs better blood pressure control. Also possibility of obstructive sleep apnea treatment for that should be pursued. (2) Severe uncontrolled high blood pressure: Status: Acute Uncontrolled blood pressure, she says she is compliant with medications. Currently on lisinopril therapy. Please add amlodipine 5 mg to regimen as well as Aldactone 12.5 mg to regimen. Better blood pressure control is required. Education regarding hypertension to be pursued. Low-salt diet to be pursued. A blood pressure is better controlled by tomorrow can probably be discharged home. Check basic metabolic profile tomorrow. Will follow up with you Procedures Date of Service Date of Service: 07/31/22
[2022-07-31] MEDS: Benzonatate 100 MG CAPSULE 200 MG PO (20:50)
--- NOTE | 2022-07-31 23:55 | PC.NURSE ---
Patient blood pressure at is 182/78 manual in semi henderson at 2350. Hospitalist is aware, no action at this time.
--- NOTE | 2022-08-01 | ECG_ITS ---
Test Reason : f/u qtc Blood Pressure : / mmHG Vent. Rate : 053 BPM Atrial Rate : 053 BPM P-R Int : 192 ms QRS Dur : 124 ms QT Int : 458 ms P-R-T Axes : 025 -43 129 degrees QTc Int : 429 ms Sinus bradycardia Left axis deviation Left ventricular hypertrophy with QRS widening and repolarization abnormality ( R in aVL , Tee product , Romhilt-Mora ) Abnormal ECG When compared with ECG of 31-JUL-2022 02:32, Sinus rhythm has replaced Atrial fibrillation Referred By: Alejandro Desir Electronically Signed By:JUSTO BARNETT MD
[2022-08-01 03:10] VITALS: BP 180/77; PULSE 54; RESP 18; TEMP 36.3; O2SAT 99
[2022-08-01 07:31] VITALS: BP 195/84; PULSE 53; RESP 18; TEMP 36.7; O2SAT 97
[2022-08-01] MEDS: Docusate Sodium 100 MG CAPSULE PO (08:07)
[2022-08-01] MEDS: 0.9 % Sodium Chloride Flush 3 ML SYRINGE IVFLUSH (08:07)
[2022-08-01] MEDS: Dronedarone HCl 400 MG TABLET PO (08:07)
[2022-08-01] MEDS: lisinopriL 40 MG TABLET PO (08:07)
[2022-08-01] MEDS: Apixaban 5 MG TABLET PO (08:07)
[2022-08-01 08:52] LABS: Hematocrit 43.2 % (37.0-47.0); Hemoglobin 14.5 g/dl (12.0-16.0); Mean Corpuscular HGB Conc 33.6 g/dl (31.0-35.0); Mean Corpuscular Hemoglobin 27.8 pg (27.0-33.0); Mean Corpuscular Volume 82.9 fL (80.0-98.0); Mean Platelet Volume 11.4 fL (9.4-12.3); Platelet Count 251 X10*3/uL (160-400); Red Blood Count 5.21 X10*6/uL (4.20-5.50); Red Cell Distribution Width 12.5 % (11.0-16.0); White Blood Count 8.3 X10*3/uL (4.8-10.8)
[2022-08-01] MEDS: amLODIPine Besylate 10 MG TABLET PO (09:13)
[2022-08-01] MEDS: Spironolactone 25 MG TABLET 12.5 MG PO (09:14)
[2022-08-01 11:15] LABS: Anion Gap 14 (12-20); Calcium 9.2 mg/dL (8.4-10.2); Carbon Dioxide 25 mmol/L (22-29); Chloride 107 mmol/L (96-108); Creatinine Clr Calc Pharmacy 84.4; Estimated Glomerular Filt Rate > 60; Glucose Fasting 113 mg/dL (60-99); Potassium 3.9 mmol/L (3.3-5.1); Sodium 142 mmol/L (135-145)
[2022-08-01 11:21] LABS: Blood Urea Nitrogen 16 mg/dL (9-16)
[2022-08-01 11:31] VITALS: BP 132/60; PULSE 59; RESP 17; TEMP 36.9; O2SAT 96
--- NOTE | 2022-08-01 12:02 | PM.DS ---
DS: Providers Provider Date of Service: 08/01/22 Date of admission: 07/28/22 21:25 Primary care physician: Unknown Physician Consults: 07/31/22 09:52 Consult to Cardiology Routine Consulting Provider: Karri Jackson Reason for consultation: afib, tachy radha DS: Diagnosis Discharge Diagnosis (1) PAF (paroxysmal atrial fibrillation): Status: Acute (2) Severe uncontrolled high blood pressure: Status: Acute (3) Hypertensive urgency: Status: Acute (4) Urinary tract infection: Status: Acute DS: Summary Hospital Course Hospital Course: Admission note HPI This is a 72-year-old female with pertinent history of paroxysmal atrial fibrillation, essential hypertension who presents to the emergency department for evaluation of headache.? Patient also complaining of dizziness, generalized weakness, increased urinary frequency ,? sore throat.? Patient reports sudden-onset headache, bilateral, constant and without any relieving factors. Also states she has been dizzy over the last couple of days. ? Patient lives in a trailer and as per EMS, her living environment was very unkempt and with strong odor.? There was cat/dog litter everywhere. Patient use a walker to ambulate but states she has been getting progressively weaker and does not think she can go back to her trailer due to weakness. Patient does have a history of UTI and complains of increased frequency and hesitancy that started 2-3 days ago.? States she is compliant with all her medications but does not remember the name of them.? Was supposed to be on Eliquis for paroxysmal AFib but as per ER provider, she is not taking it.? At the time of my evaluation, she told me she is taking all her medications.? She last saw her primary care physician more than a year ago. Hospital course The patient was admitted for evaluation of headache. Found to have significantly elevated blood pressure readings. Controlled with addition of amlodipine, lisinopril and spironolactone. Recommended for close monitoring of blood pressure at home and record readings for 1 week with a plan to follow-up with PCP or pairer substandard for further adjustments of home medications. Noticed to have sinus bradycardia and occasional pauses on her cardiac monitoring believed to be a result of being metoprolol which was held per cardiology recommendation with fair response as it heart rate remained in 50s to 60s with no episode of pauses noted. To be followed as outpatient with Cardiology. Found to have urine infection treated with IV ceftriaxone with good response. Finished antibiotic course during hospital stay as urine culture grew mixed bacteria. Discontinue metoprolol Start amlodipine 10 mg and spironolactone 12.5 mg Continue lisinopril 40 mg daily Monitor your blood pressure at home and record readings twice daily for the next week and reported to your PCP or pairer substandard Time Spent with Patient Time attestation: Total time spent providing and/or coordinating discharge services: Discharge coordination time: Greater than 30 minutes Quality: Safe Use of Opioids Does Pt have an Active Cancer Diagnosis on the Problem List?: No Quality: Stroke Does the patient have a stroke diagnosis?: No Physical Exam Vital Signs: Vital Signs: Last Vital Signs Temp 98.4 F 08/01/22 11:31 Pulse 59 08/01/22 11:31 Resp 17 08/01/22 11:31 BP 132/60 08/01/22 11:31 Pulse Ox 96 08/01/22 11:31 O2 Del Method 08/01/22 11:31 BMI result Body Mass Index 29.8 Const: Other: Constitutional : Awake, interactive, not in distress Neck : Normal inspection, Supple Cardiovascular : RRR, no JVP, no lower extremity edema Respiratory : good bilateral air entry, no crackles, wheezes or rhonchi Gastrointestinal: soft, lax, Normal bowel sounds, Non tender Skin : Warm, Dry Neurological : Alert & oriented x3, No focal deficit DS: Data Data Completed and Pending Labs on day of discharge: Laboratory Results - last 24 hr 08/01/22 08/01/22 08:16 10:20 WBC 8.3 RBC 5.21 Hgb 14.5 Hct 43.2 MCV 82.9 MCH 27.8 MCHC 33.6 RDW 12.5 Plt Count 251 MPV 11.4 Absolute Nucleated RBC 0.000 Nucleated RBC % (auto) 0.0 Sodium 142 Potassium 3.9 Chloride 107 Carbon Dioxide 25 Anion Gap 14 BUN 16 Creatinine 0.76 Estim Creat Clear Calc 84.4 Estimated GFR > 60 Fasting Glucose 113 H Calcium 9.2 Preliminary micro results at discharge 07/28/22 22:13 Blood Culture - Preliminary Blood - Venous No growth after 48 hours. 07/28/22 22:13 Blood Culture - Preliminary Blood - Venous No growth after 48 hours. Imaging Chest x-ray: Radiologist's impression: ITS Impressions Chest X-Ray 07/28/22 17:30 IMPRESSION: No radiographic evidence of acute cardiopulmonary disease. Head CT 07/28/22 20:23 IMPRESSION: No acute intracranial pathology. No significant change from prior study. Discharge Plan Discharge Anticipated Discharge Date/Time: 08/01/22 11:58 Patient Disposition: Home Health Service Discharge Diagnosis: Hypertensive urgency UTI Referrals: Luis HASTINGS [Outside] - 3-5 Days (RETIREMENT AND HOME PHYSICAL THERAPY) Brenden Guzmán MD [Physician] - 1 Day (YOU HAVE AN APPT THURSDAY 08/02 AT 11:30AM, [facility] [place] [facility] WILL PICK YOU UP AT 10:30AM ) Discharge Medications: New amlodipine 10 mg Tablet 10 mg PO DAILY 30 Days Qty: 30 0RF Protocol: Hold for SBP< HOLD for SBP < : 90 Multaq 400 mg Tablet 400 mg PO BID Qty: 60 0RF spironolactone 25 mg Tablet 12.5 mg PO DAILY Qty: 30 0RF Protocol: Hold for SBP< HOLD for SBP < : 90 Continued lisinopril 40 mg tablet 40 mg PO DAILY 30 Days Qty: 30 0RF Protocol: Hold for SBP< HOLD for SBP < : 90 Discontinued metoprolol tartrate 50 mg tablet 50 mg PO BID 30 Days Qty: 60 0RF Discharge Orders: Discharge Order (Routine); Ordered 08/01/22 Ordered By: Alejandro Desir Diet: Low salt diet Activity on Discharge: As tolerated Stand Alone Forms: Patient Portal Discharge page Care Plan Goals: Read below Health Concerns: Read below Plan of Treatment: Read below Assessment: You were admitted to the hospital for evaluation of headache. Found to have significantly elevated blood pressure readings controlled with adjustments of your home medications with addition of amlodipine. Seen by Cardiology for recurrent episode of slow heart rate recommending to discontinue metoprolol. Discontinue metoprolol Start amlodipine 10 mg and spironolactone 12.5 mg Continue lisinopril 40 mg daily Monitor your blood pressure at home and record readings twice daily for the next week and reported to your PCP or pairer substandard Discharge Date/Time: 08/01/22 13:35
--- NOTE | 2022-08-01 12:06 | W.MHC.F2F ---
Service Date Service Date: 08/01/22 Encounter Date of encounter: 08/01/22 Reasons for Services Signs and symptoms assessed: physical deconditioning Reason for care home: medication treatment and teach disease management Reason for physical therapy: home safety and mobility and therapeutic exercises Homebound: Leaving the home is medically contraindicated at this time without the asist of a device and/or another person due th the listed conditions above and below. Reason homebound: unsteady gait / fall risk Certification: Based on the above findings, I certify that this patient is confined to the home and needs intermittent care home care, physical therapy and/or speech therapy, or continues to need occupational therapy. The patient is under my care, and I have initiated the establishment of the plan of care. The patient will be followed by a physician who will periodically review the plan of care.
--- NOTE | 2022-08-01 12:20 | MHC.CM.PN ---
PT MEDICALLY CLEARED FOR D/C HOME W/NEW [facility] FOR [facility] AND HOME PT, PT WILL NEED [facility] [place] [facility] FOR TRANSPORT.
--- NOTE | 2022-08-01 13:03 | P.PNCA_ITS ---
Subjective Subjective Date of Service: 08/01/22 <JUAN Posada - Last Filed: 08/01/22 13:18> 08/01/22 <Karri Jackson MD - Last Filed: 08/01/22 14:35> Principal diagnosis: Uncontrolled HTN, PAF <JUAN Posada - Last Filed: 08/01/22 13:18> Interval history: Seen at 1000. Today she reports feeling well and would like to go home. She denies any headache or vision changes. No dizziness with walking this am. No chest pains, sob, palpitations. Tele monitor showing SB/ SR with rates 50-60s. <JUAN Posada - Last Filed: 08/01/22 13:18> Review of Systems Review of Systems as above <JUAN Posada - Last Filed: 08/01/22 13:18> Yes all other systems are reviewed and are negative <JUAN Posada - Last Filed: 08/01/22 13:18> Physical Exam Vital Signs: Last Vital Signs Temp 98.4 F 08/01/22 11:31 Pulse 59 08/01/22 11:31 Resp 17 08/01/22 11:31 BP 132/60 08/01/22 11:31 Pulse Ox 96 08/01/22 11:31 O2 Del Method 08/01/22 11:31 BMI result Body Mass Index 29.8 <JUAN Posada - Last Filed: 08/01/22 13:18> Const General: cooperative, comfortable and no acute distress <JUAN Posada - Last Filed: 08/01/22 13:18> Orientation/consciousness: patient oriented x3 <JUAN Posada - Last Filed: 08/01/22 13:18> HEENT Head: Yes normal to inspection <JUAN Posada - Last Filed: 08/01/22 13:18> Neck Neck: Yes normal visual inspection <JUAN Posada - Last Filed: 08/01/22 13:18> Resp Effort & Inspection: normal respiratory effort <JUAN Posada - Last Filed: 08/01/22 13:18> Auscultation: clear to auscultation bilaterally, no crackles, no rales, no rhonchi and no wheezes <Katiamilka Bacon [facility] - Last Filed: 08/01/22 13:18> Cardio Jugular venous distension: no JVD <[facility] Arleen [facility] - Last Filed: 08/01/22 13:18> Rate: regular rate <[facility] Arleen [facility] - Last Filed: 08/01/22 13:18> Rhythm: regular rhythm <[facility] - Last Filed: 08/01/22 13:18> Heart sounds: S1 normal heart sound present, S2 normal heart sound present, no gallops, no murmurs and no rubs <[facility] Arleen [facility] - Last Filed: 08/01/22 13:18> GI Inspection: Yes normal to inspection <[facility] Arleen [facility] - Last Filed: 08/01/22 13:18> Neuro General: patient oriented x3 <Katia Arleen [facility] - Last Filed: 08/01/22 13:18> Extrem General: Yes normal to inspection <[facility] Arleen [facility] - Last Filed: 08/01/22 13:18> Psych Appearance: grossly normal <[facility] Arleen [facility] - Last Filed: 08/01/22 13:18> Mental Status: mental status grossly normal <[facility] Arleen [facility] - Last Filed: 08/01/22 13:18> Speech and movement: Normal speech and movement present <[facility] Arleen [facility] - Last Filed: 08/01/22 13:18> Objective Labs and Meds Result diagrams: : 08/01/22 08:16 08/01/22 10:20 <Katia Arleen [facility] - Last Filed: 08/01/22 13:18> Lab results: Laboratory Results - last 24 hr 08/01/22 08/01/22 08:16 10:20 WBC 8.3 RBC 5.21 Hgb 14.5 Hct 43.2 MCV 82.9 MCH 27.8 MCHC 33.6 RDW 12.5 Plt Count 251 MPV 11.4 Absolute Nucleated RBC 0.000 Nucleated RBC % (auto) 0.0 Sodium 142 Potassium 3.9 Chloride 107 Carbon Dioxide 25 Anion Gap 14 BUN 16 Creatinine 0.76 Estim Creat Clear Calc 84.4 Estimated GFR > 60 Fasting Glucose 113 H Calcium 9.2 <JUAN Posada - Last Filed: 08/01/22 13:18> Progress Note: A&P Assessment and plan (1) Severe uncontrolled high blood pressure: Status: Acute <JUAN Posada - Last Filed: 08/01/22 13:18> Assessment and Plan: Hx HTN and noncompliance. BP uncontrolled this admit. Given her usual Lisinopril. Metoprolol had been stopped. Started on Amlodipine and then dose increased. Aldactone added. BP this am after recieving meds is down to 132/60. She reports feeling well with no concerning symptoms. If BP remains controlled this afternoon - can be discharged from cardiology perspective. Continue Lisinopril, Amlodipine, aldactone. Plan for BMP in 1 week. <SHAMEKA Posada - Last Filed: 08/01/22 13:18> Hx HTN and noncompliance. BP uncontrolled this admit. Given her usual Lisinopril. Metoprolol had been stopped. Started on Amlodipine and then dose increased. Aldactone added. BP this am after recieving meds is down to 132/60. She reports feeling well with no concerning symptoms. If BP remains controlled this afternoon - can be discharged from cardiology perspective. Continue Lisinopril, Amlodipine, aldactone. Plan for BMP in 1 week. Patient seen and examined. Case discussed with Katia Bacon. Blood pressure is better controlled after addition of Aldactone and amlodipine. Continue the same. Outpatient follow-up in couple of weeks after blood test in 1 week. Continue lisinopril therapy. Importance of compliance with medication was discussed. <Karri Jackson MD - Last Filed: 08/01/22 14:35> (2) PAF (paroxysmal atrial fibrillation): Status: Acute <JUAN Posada - Last Filed: 08/01/22 13:18> Assessment and Plan: Hx of PAF. Had been on metoprolol however notes indicate noncompliance. She had stopped her Eliquis. She has high CXHADSVASc score 5, with prior CVA. Strict need for Eliquis compliance reviewed with her. Noted to have PAF at times this admit. Rates mostly slow. Her Metoprolol was stopped and changed to Multaq 400mg bid. EKG this am shows SB, rate 53, QTc 429ms. We will arrange for outpt c ardiology follow up. <JUAN Posada - Last Filed: 08/01/22 13:18> Hx of PAF. Had been on metoprolol however notes indicate noncompliance. She had stopped her Eliquis. She has high CXHADSVASc score 5, with prior CVA. Strict need for Eliquis compliance reviewed with her. Noted to have PAF at times this admit. Rates mostly slow. Her Metoprolol was stopped and changed to Multaq 400mg bid. EKG this am shows SB, rate 53, QTc 429ms. We will arrange for outpt cardiology follow up. Patient seen and examined. Case discussed with Katia dominguez. Continue Multaq for rhythm control. Patient symptomatic atrial fibrillation. Avoid other rate lowering medication due to sinus bradycardia. Follow up with outpatient Holter monitor. Continue full oral anticoagulation, currently on Eliquis. With prior history of stroke she is at high risk for recurrent stroke. This was discussed with her. Compliance was strongly recommended. Will follow up in the clinic after outpatient Holter monitor. Will sign of the case at this point time. Patient can be discharged home. <Karri Jackson MD - Last Filed: 08/01/22 14:35> Time Spent With Patient Time: Total time spent is greater than 50% in coordination of care (as documented) at patient's floor/unit and/or counseling patient: 22 <JUAN Posada - Last Filed: 08/01/22 13:18> Progress Note: Quality Stroke Does the patient have a stroke diagnosis?: No <JUAN Posada - Last Filed: 08/01/22 13:18> Procedures Date of Service Date of Service: 08/01/22 <JUAN Posada - Last Filed: 08/01/22 13:18>
== END 2022-08-01 13:35 | disposition home health service (06) | DRG 305 ==
LOC: HO.ED 21:15 → HO.EDOVER 21:43 → HO.S3 07-29 14:09
PROVIDERS: Internal Medicine; Physician Assistant; Admitting Provider Student in an Organized Health Care Education/Training Program; Emergency Provider Student in an Organized Health Care Education/Training Program; Visit Provider Student in an Organized Health Care Education/Training Program
DX: I16.0 Hypertensive urgency (principal); N39.0 Urinary tract infection, site not specified; I49.5 Sick sinus syndrome; I10 Essential (primary) hypertension; Z86.73 Personal history of transient ischemic attack (TIA), and cerebral infarction without residual deficits; Z20.822 Contact with and (suspected) exposure to COVID-19; Z91.199 Patient's noncompliance with other medical treatment and regimen due to unspecified reason; Z87.891 Personal history of nicotine dependence; Z79.899 Other long term (current) drug therapy
CPT/HCPCS: 0241U; 36415; 70450; 71045; 80048; 80053; 81001; 83605; 83735; 83880; 84443; 84484; 85025; 85027; 87040; 87086; 87635; 87651; 93005; 93306; 97110; 97116; 97161; 99285; J0696; J2405; Q9957

== ENCOUNTER 2022-08-29 16:02 | Inpatient (IN) | payer MEDICARE, SELFPAY ==
--- NOTE | ~2022-08-29 | CT_ITS ---
EXAMINATION: CT ABDOMEN AND PELVIS WITHOUT CONTRAST CLINICAL INFORMATION: Diffuse abdominal pain, diarrhea. COMPARISON: CT abdomen/pelvis 09/25/2021. TECHNIQUE: Multidetector volumetric imaging was performed from the superior aspect of the liver through the pubic symphysis. Sagittal and coronal reformatted images were obtained on the technologist's workstation. This CT examination was performed using dose optimization techniques as appropriate, variously including the following: *Automated exposure control *Adjustment of mA and/or kV according to patient size (this includes techniques or standardized protocols for targeted exams where dose is matched to indication/reason for exam; i.e. extremities or head) *Use of iterative reconstruction technique DLP: 923 mGy-cm FINDINGS: LUNG BASES: Multiple sub-5 mm are noted, for instance in the left lower lobe on image 60 and lingula on image 93, series 4. Mild subsegmental atelectasis. No focal consolidation or pleural effusion. Partially imaged coronary artery calcifications. LIVER, GALLBLADDER, AND BILIARY TREE: The liver is normal in size, shape, and attenuation. No focal hepatic lesion or biliary ductal dilatation is present. Cholecystectomy. PANCREAS: Unremarkable. SPLEEN: Unremarkable. ADRENAL GLANDS: Unremarkable. KIDNEYS AND URETERS: No nephrolithiasis or hydronephrosis. Redemonstration of a lobulated thinly septated water density cyst in the left kidney measuring up to 4.7 cm on axial image 41, series 3. No perinephric fat stranding. BLADDER: Unremarkable. GASTROINTESTINAL TRACT: Small hiatal hernia with circumferential wall thickening of the lower esophagus. There is fluid distention of the distal small bowel and proximal colon suggesting diarrhea. There is mild wall thickening and hyperemia with minimal surrounding fat stranding of the terminal ileum (7:47). No significant pericolonic inflammatory changes. ABDOMINAL WALL: Surgical changes in the upper abdominal wall with multiple surgical tacks. No significant hernia. LYMPH NODES: No pathologically enlarged lymph nodes. VASCULAR: Limited noncontrast examination. The abdominal aorta is of normal diameter. PELVIC VISCERA: Hysterectomy. No pelvic mass. OSSEOUS STRUCTURES: No acute or aggressive appearing osseous abnormalities. Degenerative changes of the spine. CT/CT abdomen pelvis wo IV con IMPRESSION: 1. Fluid distention of the distal small bowel and proximal colon suggesting diarrhea. 2. There is mild wall thickening and hyperemia of the terminal ileum with minimal surrounding fat stranding suggesting an active inflammatory process of the small bowel. 3. Small hiatal hernia with circumferential wall thickening of the lower esophagus which could be related with reflux esophagitis. 4. Sub-5 mm pulmonary nodules are nonspecific. Assuming patient has no history of malignancy, recommend follow-up per Fleischner Society recommendations. According to the UPDATED 2017 Fleischner Society recommendations, the advised followup imaging for solid nodules < 6 mm is: LOW RISK PATIENT: No routine follow up. HIGH RISK PATIENT: Optional CT at 12 months.
--- NOTE | ~2022-08-29 | NM_ITS ---
Lexiscan Myocardial perfusion study Indication: Abnormal EKG, assess for coronary disease and ischemia Technique: The patient was brought in for a Lexiscan perfusion study on 09/03/2022 and was injected 0.4 mg of Lexiscan intravenously. Within a minute of this injection 35 mCi of sestamibi was given intravenously. Images were obtained using the SPECT gamma camera interlaced with the gating device. Images were obtained in supine position. Resting perfusion study was performed on 08/31/2022. Patient was administered 35 mCi of sestamibi intravenously at rest. Images were then obtained in supine position. Images were processed with the software and compared side to side in short axis, horizontal long axis and vertical long axis views. Total DLP 136mGy-cm. Findings: Raw acquisition reviewed. The stress perfusion study showed diminished tracer uptake in the distal part of lateral wall. With CT attenuation correction there is complete resolution in this area suggestive of soft tissue attenuation artifact. The gated study shows normal LV systolic function with calculated LVEF of 55%. LV cavity is normal in size. The gated study shows normal wall thickening and contraction of segments. Resting study shows no significant perfusion abnormality. Gating at rest reveals normal wall motion with ejection fraction at 57%. The findings are consistent with reversible lateral wall defect but resolving with CT attenuation correction suggestive of soft tissue attenuation artifact. NM/NM delmy perf SPECT rest & str Impression: 1. Myocardial perfusion imaging study shows no clear evidence of any ischemia or infarction. Likely normal myocardial perfusion. 2. Gated LVEF is 54% during stress and 57% during rest. 3. Transient ischemic dilatation not present. EKG component of the test reported separately.
--- NOTE | ~2022-08-29 | XR_ITS ---
EXAMINATION: XR CHEST CLINICAL INFORMATION: Symptomatic bradycardia COMPARISON: July 28, 2022 TECHNIQUE: AP portable view of the chest was obtained. FINDINGS: No significant abnormality is noted involving the heart, lungs, mediastinum, bony thorax or soft tissues. Pads are seen overlying the left chest. XR/XR chest 1V IMPRESSION: No acute disease.
[2022-08-29 16:07] VITALS: BP 128/70; PULSE 62; O2SAT 98
--- NOTE | 2022-08-29 16:20 | ED_ITS ---
HPI - Abdominal Pain General Chief Complaint: Nausea/Vomiting/Diarrhea <Noemy Phoenix NP - Last Filed: 08/29/22 16:23> Stated Complaint: N/V/D X'S 3 DAYS PER EMS <Noemy Phoenix NP - Last Filed: 08/29/22 16:23> Time Seen by Provider: 08/29/22 20:44 <Noemy Phoenix NP - Last Filed: 08/29/22 16:23> Source: patient <Santiago Hernandez MD - Last Filed: 08/29/22 23:43> Mode of arrival: EMS <Santiago Hernandez MD - Last Filed: 08/29/22 23:43> Limitations: no limitations <Santiago Hernandez MD - Last Filed: 08/29/22 23:43> History of Present Illness HPI narrative: 72-year-old female who presents emergency department for evaluation of 4 days of diarrhea and abdominal pain. The patient states that she has had constant diarrhea over the past 4 days. She states she is moving her bowels every 30 minutes. She describes the diarrhea as her right knee and brown with no blood in it. She also states that has a very foul smell. The patient states that she is also having lower abdominal pain which she describes as a sharp, intermittent pain which is 8/10. She states that today prior to coming to the emergency department she was feeling lightheaded and dizzy as if she was going to pass out. The patient denied fever but states she has been having chills. She states she had a slight sore throat and a nonproductive cough and feels short of breath. Patient had nausea with no vomiting. The patient was hospitalized at [facility] from 07/28/2022 until 08/01/2022. She presented for hypertension, headache, weakness and a urinary tract infection. Patient was treated with ceftriaxone while she was on the hospital. Patient grew mixed chi greater than 100,000 colony-forming urine out of her urine culture. <Santiago Hernandez MD - Last Filed: 08/29/22 23:43> MD elicited complaint: abdominal pain <Santiago Hernandez MD - Last Filed: 08/29/22 23:43> Pertinent past history: past UTI <Santiago Hernandez MD - Last Filed: 08/29/22 23:43> Onset (ago): day(s) (4) <Santiago Hernandez MD - Last Filed: 08/29/22 23:43> Pain Consistency: intermittent <Santiago Hernandez MD - Last Filed: 08/29/22 23:43> Location: LUQ, RLQ and suprapubic <Santiago Hernandez MD - Last Filed: 08/29/22 23:43> Severity: severe <Santiago Hernandez MD - Last Filed: 08/29/22 23:43> Pain scale (0-10): 8 <Santiago Hernandez MD - Last Filed: 08/29/22 23:43> Quality: sharp <Santiago Hernandez MD - Last Filed: 08/29/22 23:43> Radiation: none <Santiago Hernandez MD - Last Filed: 08/29/22 23:43> Migration to: no migration <Santiago Hernandez MD - Last Filed: 08/29/22 23:43> Exacerbating factors: bowel movement <Santiago Hernandez MD - Last Filed: 08/29/22 23:43> Relieving factors: nothing <Santiago Hernandez MD - Last Filed: 08/29/22 23:43> Context: recent antibiotic use (07/28/2022) <Santiago Hernandez MD - Last Filed: 08/29/22 23:43> Associated symptoms: nausea, diarrhea and chills <Santiago Hernandez MD - Last Filed: 08/29/22 23:43> Related Data Home Medications: Previous Rx's Medication Instructions Recorded Eliquis 2.5 mg tablet (apixaban) 2.5 mg PO BID 30 days #60 tabs 08/02/22 amlodipine 10 mg tablet 10 mg PO DAILY 30 days #30 tabs 08/02/22 dronedarone 400 mg tablet (Multaq) 400 mg PO BID #60 tabs 08/02/22 lisinopril 40 mg tablet 40 mg PO DAILY 30 days #30 tabs 08/02/22 spironolactone 25 mg tablet 12.5 mg PO DAILY #30 tabs 08/02/22 warfarin 5 mg tablet 5 mg PO DAILY 30 days #30 tabs 08/27/22 <Noemy Phoenix NP - Last Filed: 08/29/22 16:23> Allergies/Adverse Reactions: Allergies Allergy/AdvReac Type Severity Reaction Status Date / Time No Known Allergies Allergy Verified 08/05/22 17:12 <Noemy Phoenix NP - Last Filed: 08/29/22 16:23> Review of Systems Review of Systems Yes all other systems are reviewed and are negative <Santiago Hernandez MD - Last Filed: 08/29/22 23:43> [facility] Past Medical History [facility] Narrative: Social history: She denies tobacco use, she states she was a former cigarette smoker and quit 1 year prior. She occasionally drinks alcohol. She denies drug use. <Santiago Hernandez MD - Last Filed: 08/29/22 23:43> Medical History: Medical History Essential hypertension HTN (hypertension) Left-sided cerebrovascular accident (CVA) Obesity (BMI 30-39.9) PAF (paroxysmal atrial fibrillation) Paroxysmal atrial fibrillation Pure hypercholesterolemia Severe uncontrolled high blood pressure <Noemy Phoenix NP - Last Filed: 08/29/22 16:23> Surgical History: Surgical History Hx of appendectomy Hx of cholecystectomy Hx of hernia repair Hx of hysterectomy <Noemy Phoenix NP - Last Filed: 08/29/22 16:23> Family History Family History: Family History Father No problems noted. Mother No problems noted. <Noemy Phoenix NP - Last Filed: 08/29/22 16:23> Social History Social History: Social History Household Members: None Housing: Other Housing Other:: lives in a trailer Do you presently have visiting nurse or other home services: No Alcohol intake: current Alcohol intake frequency: does not drink Patient Tobacco Use Status: Former Tobacco user Second Hand Smoke Exposure: Yes Advance Directives: Yes Advance Directives on File: Yes Advance Directives Date on File: 09/26/21 service: No Current occupational status: disabled <Noemy Phoenix NP - Last Filed: 08/29/22 16:23> Physical Exam ED Vital Signs: Vital Signs - 24 hr 08/29/22 16:21 08/29/22 22:23 Temperature 98.2 F 98.4 F Pulse Rate 58 54 Respiratory Rate 20 16 Blood Pressure 144/57 H 139/60 Pulse Oximetry 97 99 Oxygen Delivery Method Room Air Room Air BMI result Body Mass Index 28.7 <Noemy Phoenix NP - Last Filed: 08/29/22 16:23> Vital Signs - 24 hr 08/29/22 16:21 08/29/22 22:23 Temperature 98.2 F 98.4 F Pulse Rate 58 54 Respiratory Rate 20 16 Blood Pressure 144/57 H 139/60 Pulse Oximetry 97 99 Oxygen Delivery Method Room Air Room Air BMI result Body Mass Index 28.7 <Santiago Hernandez MD - Last Filed: 08/29/22 23:43> Const Other: Awake, alert, female patient, pleasant, cooperative, answers all questions appropriately, patient was incontinent of diarrheal stool <Santiago Hernandez MD - Last Filed: 08/29/22 23:43> HENMT Head: Yes normal to inspection, Yes normocephalic and Yes atraumatic <Santiago Hernandez MD - Last Filed: 08/29/22 23:43> Ears: external ears normal <Santiago Hernandez MD - Last Filed: 08/29/22 23:43> General nose exam: Normal external nose present <Santiago Hernandez MD - Last Filed: 08/29/22 23:43> Face and sinus: Yes normal facial exam <Santiago Hernandez MD - Last Filed: 08/29/22 23:43> Mouth: Normal oral and palatal mucosa present <Santiago Hernandez MD - Last Filed: 12/14/22 23:43> Throat: Yes posterior oropharynx normal <Santiaog Hernandez MD - Last Filed: 08/29/22 23:43> Eyes General: appearance normal, both eyes and all related structures <Santiago Hernandez MD - Last Filed: 08/29/22 23:43> Pupils: Equal, round and reactive pupils present <Santiago Hernandez MD - Last Filed: 08/29/22 23:43> Neck Neck: Yes normal visual inspection, Yes no lymphadenopathy, Yes trachea midline and Yes supple <Santiago Hernandez MD - Last Filed: 08/29/22 23:43> Chest Chest palpation & inspection: normal inspection of the chest and normal palpation of entire chest wall <Santiago Hernandez MD - Last Filed: 08/29/22 23:43> Resp Effort & Inspection: normal respiratory effort and able to speak in complete sentences <Santiago Hernandez MD - Last Filed: 08/29/22 23:43> Auscultation: clear to auscultation bilaterally <Santiago Hernandez MD - Last Filed: 08/29/22 23:43> Cardio Rate: regular rate <MD Luis Lam Last Filed: 08/29/22 23:43> Rhythm: regular rhythm <Santiago Hernandez MD - Last Filed: 08/29/22 23:43> Heart sounds: S1 normal heart sound present, S2 normal heart sound present and no murmurs <Santiago Hernandez MD - Last Filed: 08/29/22 23:43> GI Inspection: Yes normal to inspection <Santiago Hernandez MD - Last Filed: 08/29/22 23:43> Palpation (GI): Soft to palpation, Tenderness to palpation present (GI) in the LLQ ([id number]), in the RLQ ([id number]) and suprapubicly (Mild) and no guarding <MD Luis Lam Last Filed: 08/29/22 23:43> Auscultation: normal bowel sounds <MD Luis Lam Last Filed: 08/29/22 23:43> General: Yes no CVA tenderness <Santiago Hernandez MD - Last Filed: 08/29/22 23:43> Back/Spine/Pelvis Back: no CVA tenderness <Santiago Hernandez MD - Last Filed: 08/29/22 23:43> Skin General skin exam: no rashes or lesions noted <Santiago Hernandez MD - Last Filed: 08/29/22 23:43> Neuro Cranial nerves: Yes CN's II-XII intact bilaterally and Yes Equal, round and reactive pupils present <Santiago Hernandez MD - Last Filed: 08/29/22 23:43> Cognition (Neuro): normal cognition <Santiago Hernandez MD - Last Filed: 08/29/22 23:43> Motor exam (neuro): 5/5 motor strength present throughout <Santiago Hernandez MD - Last Filed: 08/29/22 23:43> Extrem General: Yes normal to inspection <Santiago Hernandez MD - Last Filed: 08/29/22 23:43> Psych Appearance: grossly normal <Santiago Hernandez MD - Last Filed: 08/29/22 23:43> Speech and movement: Normal speech and movement present <Santiago Hernandez MD - Last Filed: 23:43> Affect: normal affect <Santiago Hernandez MD - Last Filed: 08/29/22 23:43> Attitude: cooperative <Santiago Hernandez MD - Last Filed: 08/29/22 23:43> Thought process: Normal thought process present <Santiago Hernandez MD - Last Filed: 08/29/22 23:43> Thought content: Normal thought content present <Santiago Hernandez MD - Last Filed: 08/29/22 23:43> Course Course Course Narrative: This is a rapid medical exam. Defer additional HPI, ROS and PE to primary provider. 72-year-old female history of left-sided CVA, hypertension, paroxysmal AFib on coumadin, depression, anxiety?here complaints of diarrhea (episodes >10 per day nonbloody), abdominal pain, nausea. No fevers, chills, urinary symptoms. Will need labs, stool studies, UA, EKG, rsv/flu/covid testing. VSS <Noemy Phoenix NP - Last Filed: 08/29/22 16:23> This is a rapid medical exam. Defer additional HPI, ROS and PE to primary provider. 72-year-old female history of left-sided CVA, hypertension, paroxysmal AFib on coumadin, depression, anxiety?here complaints of diarrhea (episodes >10 per day nonbloody), abdominal pain, nausea. No fevers, chills, urinary symptoms. Will need labs, stool studies, UA, EKG, rsv/flu/covid testing. VSS 2151: RME reviewed. 72-year-old female presented to the emergency department for evaluation of constant, diarrhea every 30 minutes x4 days, weakness, lightheadedness and lower abdominal pain. Patient was recently hospitalized and treated with IV antibiotics from 07/28/2022 until 08/01/2022. Vital signs were unremarkable. Abdominal exam did reveal lower abdominal tenderness. Patient most likely has C difficile colitis. Laboratory evaluation: CBC was normal. CMP was normal except for an elevated BUN of 23. INR was 1.2 (patient is on warfarin-she is subtherapeutic). Bilirubin is elevated at 1.4-this is mainly indirect. COVID-19, flu and RSV were negative. Patient was ordered to get normal saline IV x1 L, Zofran 4 mg IV and Toradol 15 mg IV. Stool samples will be obtained. I ordered vancomycin 250 mg orally. I will discuss admission with the covering hospitalist. 2340: I did discuss the patient's presentation with the covering hospitalist, Dr. Brown and patient will be admitted. <Santiago Hernandez MD - Last Filed: 08/29/22 23:43> Medical Decision Making Lab Data Result Diagrams: : 08/29/22 16:53 08/29/22 16:51 <Noemy Phoenix NP - Last Filed: 08/29/22 16:23> Labs: Lab Results 08/29/22 08/29/22 08/29/22 Range/Units 16:51 16:51 16:51 WBC (4.8-10.8) X10*3/uL RBC (4.20-5.50) X10*6/uL Hgb (12.0-16.0) g/dl Hct (37.0-47.0) % MCV (80.0-98.0) fL MCH (27.0-33.0) pg MCHC (31.0-35.0) g/dl RDW (11.0-16.0) % Plt Count (160-400) X10*3/uL MPV (9.4-12.3) fL Immature Gran % (Auto) (0.0-0.4) % Neut % (Auto) (45-73) % Lymph % (Auto) (20-40) % Ripley % (Auto) (2-11) % Eos % (Auto) (0-4) % Baso % (Auto) (0-2) % Lymph # (Auto) (1.2-4.9) X10*3/uL Ripley # (Auto) (0.1-1.2) X10*3/uL Eos # (Auto) (0.0-0.4) X10*3/uL Baso # (Auto) (0.0-0.2) X10*3/uL Abs Immat Gran (auto) (0.00-0.03) X10*3/uL Absolute Neuts (auto) (2.0-8.3) x10*3/uL Absolute Nucleated RBC (0.0-0.012) X10*3/uL Nucleated RBC % (auto) (0.0-0.2) /100WBC PT 14.2 H (10.0-13.1) SEC INR 1.2 H (0.9-1.1) Sodium 140 (135-145) mmol/L Potassium 4.8 D (3.3-5.1) mmol/L Chloride 103 (96-108) mmol/L Carbon Dioxide 28 (22-29) mmol/L Anion Gap 14 (12-20) BUN 23 H (9-16) mg/dL Creatinine 0.96 (0.5-1.4) mg/dL Estim Creat Clear Calc 65.6 Estimated GFR 57 Random Glucose 95 (60-115) mg/dL Lactic Acid (0.5-2.0) mmol/L Calcium 10.0 D (8.4-10.2) mg/dL Magnesium 2.0 (1.6-2.6) mg/dL Total Bilirubin 1.4 H (0.0-1.0) mg/dL Direct Bilirubin 0.3 (0.0-0.5) mg/dL AST 14 (5-31) U/L ALT 13 (0-31) U/L Alkaline Phosphatase 62 (39-117) U/L Total Protein 7.9 (6.5-8.0) g/dL Albumin 4.7 (3.5-5.0) g/dL Influenza Type A (PCR) NEGATIVE (Negative) Influenza Type B (PCR) NEGATIVE (Negative) RSV RNA Qual (PCR) NEGATIVE (Negative) SARS-CoV-2 RNA (RT-PCR) NEGATIVE (Negative) 08/29/22 08/29/22 Range/Units 16:51 16:53 WBC 8.9 (4.8-10.8) X10*3/uL RBC 5.70 H (4.20-5.50) X10*6/uL Hgb 15.4 (12.0-16.0) g/dl Hct 46.3 (37.0-47.0) % MCV 81.2 (80.0-98.0) fL MCH 27.0 (27.0-33.0) pg MCHC 33.3 (31.0-35.0) g/dl RDW 12.8 (11.0-16.0) % Plt Count 349 D (160-400) X10*3/uL MPV 10.9 (9.4-12.3) fL Immature Gran % (Auto) 0.2 (0.0-0.4) % Neut % (Auto) 64.2 (45-73) % Lymph % (Auto) 27.0 (20-40) % Ripley % (Auto) 6.0 (2-11) % Eos % (Auto) 1.7 (0-4) % Baso % (Auto) 0.9 (0-2) % Lymph # (Auto) 2.4 (1.2-4.9) X10*3/uL Ripley # (Auto) 0.5 (0.1-1.2) X10*3/uL Eos # (Auto) 0.2 (0.0-0.4) X10*3/uL Baso # (Auto) 0.1 (0.0-0.2) X10*3/uL Abs Immat Gran (auto) 0.02 (0.00-0.03) X10*3/uL Absolute Neuts (auto) 5.7 (2.0-8.3) x10*3/uL Absolute Nucleated RBC 0.000 (0.0-0.012) X10*3/uL Nucleated RBC % (auto) 0.0 (0.0-0.2) /100WBC PT (10.0-13.1) SEC INR (0.9-1.1) Sodium (135-145) mmol/L Potassium (3.3-5.1) mmol/L Chloride (96-108) mmol/L Carbon Dioxide (22-29) mmol/L Anion Gap (12-20) BUN (9-16) mg/dL Creatinine (0.5-1.4) mg/dL Estim Creat Clear Calc Estimated GFR Random Glucose (60-115) mg/dL Lactic Acid 1.3 (0.5-2.0) mmol/L Calcium (8.4-10.2) mg/dL Magnesium (1.6-2.6) mg/dL Total Bilirubin (0.0-1.0) mg/dL Direct Bilirubin (0.0-0.5) mg/dL AST (5-31) U/L ALT (0-31) U/L Alkaline Phosphatase (39-117) U/L Total Protein (6.5-8.0) g/dL Albumin (3.5-5.0) g/dL Influenza Type A (PCR) (Negative) Influenza Type B (PCR) (Negative) RSV RNA Qual (PCR) (Negative) SARS-CoV-2 RNA (RT-PCR) (Negative) <Noemy Phoenix, CONCAVING MACHINE OPERATOR - Last Filed: 08/29/22 16:23> Lab Results 08/29/22 08/29/22 08/29/22 Range/Units 16:51 16:51 16:51 WBC (4.8-10.8) X10*3/uL RBC (4.20-5.50) X10*6/uL Hgb (12.0-16.0) g/dl Hct (37.0-47.0) % MCV (80.0-98.0) fL MCH (27.0-33.0) pg MCHC (31.0-35.0) g/dl RDW (11.0-16.0) % Plt Count (160-400) X10*3/uL MPV (9.4-12.3) fL Immature Gran % (Auto) (0.0-0.4) % Neut % (Auto) (45-73) % Lymph % (Auto) (20-40) % Ripley % (Auto) (2-11) % Eos % (Auto) (0-4) % Baso % (Auto) (0-2) % Lymph # (Auto) (1.2-4.9) X10*3/uL Ripley # (Auto) (0.1-1.2) X10*3/uL Eos # (Auto) (0.0-0.4) X10*3/uL Baso # (Auto) (0.0-0.2) X10*3/uL Abs Immat Gran (auto) (0.00-0.03) X10*3/uL Absolute Neuts (auto) (2.0-8.3) x10*3/uL Absolute Nucleated RBC (0.0-0.012) X10*3/uL Nucleated RBC % (auto) (0.0-0.2) /100WBC PT 14.2 H (10.0-13.1) SEC INR 1.2 H (0.9-1.1) Sodium 140 (135-145) mmol/L Potassium 4.8 D (3.3-5.1) mmol/L Chloride 103 (96-108) mmol/L Carbon Dioxide 28 (22-29) mmol/L Anion Gap 14 (12-20) BUN 23 H (9-16) mg/dL Creatinine 0.96 (0.5-1.4) mg/dL Estim Creat Clear Calc 65.6 Estimated GFR 57 Random Glucose 95 (60-115) mg/dL Lactic Acid (0.5-2.0) mmol/L Calcium 10.0 D (8.4-10.2) mg/dL Magnesium 2.0 (1.6-2.6) mg/dL Total Bilirubin 1.4 H (0.0-1.0) mg/dL Direct Bilirubin 0.3 (0.0-0.5) mg/dL AST 14 (5-31) U/L ALT 13 (0-31) U/L Alkaline Phosphatase 62 (39-117) U/L Total Protein 7.9 (6.5-8.0) g/dL Albumin 4.7 (3.5-5.0) g/dL Influenza Type A (PCR) NEGATIVE (Negative) Influenza Type B (PCR) NEGATIVE (Negative) RSV RNA Qual (PCR) NEGATIVE (Negative) SARS-CoV-2 RNA (RT-PCR) NEGATIVE (Negative) 08/29/22 08/29/22 Range/Units 16:51 16:53 WBC 8.9 (4.8-10.8) X10*3/uL RBC 5.70 H (4.20-5.50) X10*6/uL Hgb 15.4 (12.0-16.0) g/dl Hct 46.3 (37.0-47.0) % MCV 81.2 (80.0-98.0) fL MCH 27.0 (27.0-33.0) pg MCHC 33.3 (31.0-35.0) g/dl RDW 12.8 (11.0-16.0) % Plt Count 349 D (160-400) X10*3/uL MPV 10.9 (9.4-12.3) fL Immature Gran % (Auto) 0.2 (0.0-0.4) % Neut % (Auto) 64.2 (45-73) % Lymph % (Auto) 27.0 (20-40) % Ripley % (Auto) 6.0 (2-11) % Eos % (Auto) 1.7 (0-4) % Baso % (Auto) 0.9 (0-2) % Lymph # (Auto) 2.4 (1.2-4.9) X10*3/uL Ripley # (Auto) 0.5 (0.1-1.2) X10*3/uL Eos # (Auto) 0.2 (0.0-0.4) X10*3/uL Baso # (Auto) 0.1 (0.0-0.2) X10*3/uL Abs Immat Gran (auto) 0.02 (0.00-0.03) X10*3/uL Absolute Neuts (auto) 5.7 (2.0-8.3) x10*3/uL Absolute Nucleated RBC 0.000 (0.0-0.012) X10*3/uL Nucleated RBC % (auto) 0.0 (0.0-0.2) /100WBC PT (10.0-13.1) SEC INR (0.9-1.1) Sodium (135-145) mmol/L Potassium (3.3-5.1) mmol/L Chloride (96-108) mmol/L Carbon Dioxide (22-29) mmol/L Anion Gap (12-20) BUN (9-16) mg/dL Creatinine (0.5-1.4) mg/dL Estim Creat Clear Calc Estimated GFR Random Glucose (60-115) mg/dL Lactic Acid 1.3 (0.5-2.0) mmol/L Calcium (8.4-10.2) mg/dL Magnesium (1.6-2.6) mg/dL Total Bilirubin (0.0-1.0) mg/dL Direct Bilirubin (0.0-0.5) mg/dL AST (5-31) U/L ALT (0-31) U/L Alkaline Phosphatase (39-117) U/L Total Protein (6.5-8.0) g/dL Albumin (3.5-5.0) g/dL Influenza Type A (PCR) (Negative) Influenza Type B (PCR) (Negative) RSV RNA Qual (PCR) (Negative) SARS-CoV-2 RNA (RT-PCR) (Negative) <Santiago Hernandez MD - Last Filed: 08/29/22 23:43> Medications Administered Discontinued Medications Generic Name Dose Route Start Last Admin Trade Name Freq PRN Reason Stop Dose Admin Sodium Chloride 1,000 mls @ 999 mls/hr 08/29/22 21:56 08/29/22 22:34 Ns IV 08/29/22 22:56 999 mls/hr .Q1H1M STA Administration Ketorolac Tromethamine 15 mg 08/29/22 21:56 08/29/22 22:34 Ketorolac Tromethamine 15 Mg/Ml Vial IVPUSH 08/29/22 21:57 15 mg ONCE STA Administration Ondansetron HCl 4 mg 08/29/22 21:56 08/29/22 22:33 Ondansetron Hcl 4 Mg/2 Ml Vial IVPUSH 08/29/22 21:57 4 mg ONCE ONE Administration Vancomycin HCl 250 mg 08/29/22 21:56 08/29/22 22:33 Vancomycin Hcl 125 Mg Capsule PO 08/29/22 21:57 250 mg ONCE ONE Administration <Noemy Phoenix NP - Last Filed: 08/29/22 16:23> Medications Administered Discontinued Medications Generic Name Dose Route Start Last Admin Trade Name Katelynn PRN Reason Stop Dose Admin Sodium Chloride 1,000 mls @ 999 mls/hr 08/29/22 21:56 08/29/22 22:34 Ns IV 08/29/22 22:56 999 mls/hr .Q1H1M STA Administration Ketorolac Tromethamine 15 mg 08/29/22 21:56 08/29/22 22:34 Ketorolac Tromethamine 15 Mg/Ml Vial IVPUSH 08/29/22 21:57 15 mg ONCE STA Administration Ondansetron HCl 4 mg 08/29/22 21:56 08/29/22 22:33 Ondansetron Hcl 4 Mg/2 Ml Vial IVPUSH 08/29/22 21:57 4 mg ONCE ONE Administration Vancomycin HCl 250 mg 08/29/22 21:56 08/29/22 22:33 Vancomycin Hcl 125 Mg Capsule PO 08/29/22 21:57 250 mg ONCE ONE Administration <Santiago Hernandez MD - Last Filed: 08/29/22 23:43> Discharge Plan Discharge Prescriptions: No Action warfarin 5 mg tablet 5 mg PO DAILY 30 Days Qty: 30 3RF amlodipine 10 mg tablet 10 mg PO DAILY 30 Days Qty: 30 2RF Protocol: Hold for SBP< HOLD for SBP < : 90 Multaq 400 mg tablet 400 mg PO BID Qty: 60 2RF lisinopril 40 mg tablet 40 mg PO DAILY 30 Days Qty: 30 2RF Protocol: Hold for SBP< HOLD for SBP < : 90 spironolactone 25 mg tablet 12.5 mg PO DAILY Qty: 30 2RF Protocol: Hold for SBP< HOLD for SBP < : 90 Eliquis 2.5 mg tablet 2.5 mg PO BID 30 Days Qty: 60 5RF <Noemy Phoenix CONCAVING MACHINE OPERATOR - Last Filed: 08/29/22 16:23>
[2022-08-29 16:21] VITALS: BP 144/57; PULSE 58; RESP 20; TEMP 36.8; O2SAT 97; BMI 28.7
--- NOTE | 2022-08-29 16:22 | ECG_ITS ---
Test Reason : WEAKNESS Blood Pressure : / mmHG Vent. Rate : 059 BPM Atrial Rate : 059 BPM P-R Int : 174 ms QRS Dur : 108 ms QT Int : 424 ms P-R-T Axes : 045 -30 132 degrees QTc Int : 419 ms Sinus bradycardia Left axis deviation Left ventricular hypertrophy with repolarization abnormality ( R in aVL , [place] product ) Abnormal ECG When compared with ECG of 01-AUG-2022 10:59, No significant change was found Referred By: Noemy Phoenix Electronically Signed By:POLINA DELCID
[2022-08-29 17:00] LABS: MANUAL DIFF FLAG NO
[2022-08-29 17:02] LABS: Basophils Absolute Auto 0.1 X10*3/uL (0.0-0.2); Basophils Percent Auto 0.9 % (0-2); Eosinophils Absolute Auto 0.2 X10*3/uL (0.0-0.4); Eosinophils Percent Auto 1.7 % (0-4); Hematocrit 46.3 % (37.0-47.0); Hemoglobin 15.4 g/dl (12.0-16.0); Imm Gran Abs Auto 0.02 X10*3/uL (0.00-0.03); Imm Gran Pct Auto 0.2 % (0.0-0.4); Lymphocytes Absolute Auto 2.4 X10*3/uL (1.2-4.9); Mean Corpuscular HGB Conc 33.3 g/dl (31.0-35.0); Mean Corpuscular Volume 81.2 fL (80.0-98.0); Mean Platelet Volume 10.9 fL (9.4-12.3); Monocytes Absolute Auto 0.5 X10*3/uL (0.1-1.2); Neutrophils Absolute Auto 5.7 x10*3/uL (2.0-8.3); Neutrophils Percent Auto 64.2 % (45-73); Platelet Count 349 X10*3/uL (160-400); Red Cell Distribution Width 12.8 % (11.0-16.0); White Blood Count 8.9 X10*3/uL (4.8-10.8)
[2022-08-29 17:07] LABS: INTERNATIONAL NORM RATIO 1.2 (0.9-1.1); Prothrombin Time 14.2 SEC (10.0-13.1)
[2022-08-29 17:12] LABS: Lactic Acid 1.3 mmol/L (0.5-2.0)
[2022-08-29 17:18] LABS: Alanine Aminotransferase 13 U/L (0-31); Albumin Level 4.7 g/dL (3.5-5.0); Alkaline Phosphatase 62 U/L (39-117); Anion Gap 14 (12-20); Aspartate Amino Transferase 14 U/L (5-31); Bilirubin Direct 0.3 mg/dL (0.0-0.5); Bilirubin Total 1.4 mg/dL (0.0-1.0); Blood Urea Nitrogen 23 mg/dL (9-16); Carbon Dioxide 28 mmol/L (22-29); Chloride 103 mmol/L (96-108); Creatinine Clr Calc Pharmacy 65.6; Estimated Glomerular Filt Rate 57; Glucose Random 95 mg/dL (60-115); Potassium 4.8 mmol/L (3.3-5.1); Sodium 140 mmol/L (135-145); Total Protein 7.9 g/dL (6.5-8.0)
[2022-08-29 17:53] LABS: Influenza A PCR NEGATIVE (Negative); Influenza B PCR NEGATIVE (Negative); Resp Syncy Virus RNA Qual PCR NEGATIVE (Negative); SARS COV2 PCR INHOUSE NEGATIVE (Negative)
[2022-08-29 22:23] VITALS: BP 139/60; PULSE 54; RESP 16; TEMP 36.9; O2SAT 99
[2022-08-29] MEDS: vancomycin HCL 125 MG CAPSULE 250 MG PO (22:33)
[2022-08-29] MEDS: ondansetron HCL 4 MG/2 ML VIAL IVPUSH (22:33)
[2022-08-29] MEDS: 0.9 % Sodium Chloride 1,000 ML 999 ML IV (22:34)
[2022-08-29] MEDS: Ketorolac Tromethamine 15 MG/ML VIAL IVPUSH (22:34)
[2022-08-29 23:54] LABS: CDiff Gene PCR NEGATIVE (Negative)
[2022-08-30] VITALS (15 sets, daily range): BP systolic 105–137; BP diastolic 46–92; PULSE 32–69; RESP 12–20; TEMP 36.7–37; O2SAT 88–100; BMI 32.2
--- NOTE | 2022-08-30 | ECG_ITS ---
Test Reason : syncope Blood Pressure : / mmHG Vent. Rate : 041 BPM Atrial Rate : 041 BPM P-R Int : 238 ms QRS Dur : 128 ms QT Int : 500 ms P-R-T Axes : 047 -35 159 degrees QTc Int : 412 ms Marked sinus bradycardia with 1st degree A-V block Left axis deviation Left ventricular hypertrophy with QRS widening and repolarization abnormality ( R in aVL , Tee product ) Cannot rule out Septal infarct , age undetermined Abnormal ECG When compared with ECG of 29-AUG-2022 16:37, DC interval has increased Minimal criteria for Septal infarct are now Present Nonspecific T wave abnormality now evident in Inferior leads T wave inversion more evident in Lateral leads [facility]: [facility] Electron[facility] Signed By:
[2022-08-30] MEDS: 0.9 % Sodium Chloride 1,000 ML 999 ML IV (00:09)
[2022-08-30] MEDS: Lactated Ringers 1,000 ML 100 ML IVCONT ×2 (04:07→12:27)
[2022-08-30 05:51] LABS: Basophils Absolute Auto 0.1 X10*3/uL (0.0-0.2); Basophils Percent Auto 0.8 % (0-2); Eosinophils Absolute Auto 0.2 X10*3/uL (0.0-0.4); Eosinophils Percent Auto 2.1 % (0-4); Hematocrit 38.6 % (37.0-47.0); Hemoglobin 12.7 g/dl (12.0-16.0); Imm Gran Abs Auto 0.01 X10*3/uL (0.00-0.03); Imm Gran Pct Auto 0.1 % (0.0-0.4); Lymphocytes Absolute Auto 2.5 X10*3/uL (1.2-4.9); Lymphocytes Percent Auto 34.9 % (20-40); MANUAL DIFF FLAG NO; Mean Corpuscular HGB Conc 32.9 g/dl (31.0-35.0); Mean Corpuscular Hemoglobin 26.7 pg (27.0-33.0); Mean Corpuscular Volume 81.1 fL (80.0-98.0); Mean Platelet Volume 10.9 fL (9.4-12.3); Monocytes Absolute Auto 0.5 X10*3/uL (0.1-1.2); Monocytes Percent Auto 6.9 % (2-11); Neutrophils Absolute Auto 3.9 x10*3/uL (2.0-8.3); Neutrophils Percent Auto 55.2 % (45-73); Platelet Count 258 X10*3/uL (160-400); Red Blood Count 4.76 X10*6/uL (4.20-5.50); Red Cell Distribution Width 12.7 % (11.0-16.0); White Blood Count 7.1 X10*3/uL (4.8-10.8)
--- NOTE | 2022-08-30 06:02 | PM.IMHP ---
History of Present Illness Date of Service: 08/30/22 Chief Complaint: abd pain, diarrhea 72-year-old female with past medical history of AFib, CVA, HLD, depression and anxiety, HTN, obesity, presents to the hospital with complaints of abdominal pain as well as diarrhea. Patient was recently discharged from the hospital after being treated for UTI. Patient reports that she was on antibiotics about a week and half ago. Treated with ceftriaxone IV. Patient returns today stating significant abdominal pain around the umbilical region, nonradiating, sharp, intermittent, relieved with pain pain medication received in the ED. Patient reports nausea with no vomiting, she reports significant diarrhea every 30 minutes to the point where she cannot even get to the bathroom. She denies any fever no chills, no chest pain no shortness of breath, no urinary symptoms and no lower extremity edema. No weakness numbness or tingling. On arrival to the ED patient hemodynamically stable with no significant abnormal vitals Labs are significant for WBC count of 8.9, otherwise unremarkable, INR 1.2, labs otherwise unremarkable Abdominal pelvic CT shows fluid distension of the distal small bowel and proximal colon suggesting diarrhea, mild wall thickening and hyperemia of the terminal ileum with minimal surrounding fat stranding suggesting an active inflammatory process of the small bowel C diff negative, GI panel pending Review of Systems Review of Systems: Yes all other systems are reviewed and are negative [facility] Medical History Essential hypertension HTN (hypertension) Left-sided cerebrovascular accident (CVA) Obesity (BMI 30-39.9) PAF (paroxysmal atrial fibrillation) Paroxysmal atrial fibrillation Pure hypercholesterolemia Severe uncontrolled high blood pressure Family History Father No problems noted. Mother No problems noted. Surgical History Hx of appendectomy Hx of cholecystectomy Hx of hernia repair Hx of hysterectomy Social History Household Members: None Housing: Other Housing Other:: lives in a trailer Do you presently have visiting nurse or other home services: No Alcohol intake: current Alcohol intake frequency: holidays/special occasions only Patient Tobacco Use Status: Former Tobacco user Smoked in Last 30 Days: No Second Hand Smoke Exposure: Yes Use of substances other than those prescribed or required for medical reasons: No Advance Directives: Yes Advance Directives on File: Yes Advance Directives Date on File: 09/26/21 service: No Current occupational status: disabled Meds Allergies Allergy/AdvReac Type Severity Reaction Status Date / Time No Known Allergies Allergy Verified 08/05/22 17:12 Active Medications: Current Medications Acetaminophen (Acetaminophen 325 Mg Tablet) 650 mg PO Q6H PRN PRN Reason: Pain, Mild (Pain Scale 1-3) Enoxaparin Sodium (Enoxaparin Sodium 40 Mg/0.4 Ml Syringe) 40 mg SUBCUT Q24H [facility] Lactated Ringer's (Lr) 1,000 mls @ 100 mls/hr IVCONT .Q10H [facility] Last Admin: 08/30/22 04:07 Dose: 100 mls/hr Omeprazole (Omeprazole 40 Mg Capsule.Dr) 40 mg PO BID@0630,1630 [facility] Ondansetron HCl (Ondansetron Hcl 4 Mg/2 Ml Vial) 4 mg IVPUSH Q8H PRN PRN Reason: Nausea and Vomiting Sodium Chloride (0.9 % Sodium Chloride Flush 3 Ml Syringe) 3 ml IVFLUSH QSHIFT [facility] Home Medications Medication Instructions Recorded Confirmed Last Taken Type ibuprofen 600 mg tablet 1 tab PO Q6H PRN pain 08/30/22 08/30/22 Unknown History lisinopril 40 mg tablet 1 tab PO DAILY 08/30/22 08/30/22 Unknown History metoprolol tartrate 50 mg tablet 1 tab PO BID 08/30/22 08/30/22 Unknown History Physical Exam Vital Signs and Narrative: Vital Signs: Last Vital Signs Temp 98.2 F 08/30/22 02:56 Pulse 50 08/30/22 02:56 Resp 13 08/30/22 02:56 BP 123/52 L 08/30/22 02:56 Pulse Ox 96 08/30/22 02:56 O2 Del Method 08/30/22 02:56 BMI result Body Mass Index 28.7 Const: General: cooperative and no acute distress Orientation/consciousness: patient oriented x3 Eyes: General: appearance normal, both eyes and all related structures Resp: Effort & Inspection: normal respiratory effort Auscultation: clear to auscultation bilaterally Cardio: Rate: regular rate Rhythm: regular rhythm GI: Other: abdomen is tender diffusely, worse in the umbilical region, no rebound or guarding Palpation (GI): Soft to palpation Auscultation: normal bowel sounds Skin: General skin exam: no rashes or lesions noted Neuro: General: patient oriented x3 Cognition (Neuro): normal cognition Extrem: General: Yes normal to inspection and Yes no pedal edema Results Labs CBC and Chem 7: 08/30/22 05:42 08/30/22 05:42 Labs: Laboratory Results - last 24 hr 08/29/22 08/29/22 08/29/22 16:51 16:51 16:51 MCV MCH MCHC RDW Plt Count MPV Immature Gran % (Auto) Neut % (Auto) Lymph % (Auto) [place] % (Auto) Eos % (Auto) Baso % (Auto) Lymph # (Auto) [place] # (Auto) Eos # (Auto) Baso # (Auto) Abs Immat Gran (auto) Absolute Neuts (auto) Absolute Nucleated RBC Nucleated RBC % (auto) PT 14.2 H INR 1.2 H Anion Gap 14 Estim Creat Clear Calc 65.6 Estimated GFR 57 Random Glucose 95 Lactic Acid Calcium 10.0 D Magnesium 2.0 Total Bilirubin 1.4 H Direct Bilirubin 0.3 AST 14 ALT 13 Alkaline Phosphatase 62 Total Protein 7.9 Albumin 4.7 C. difficile Tox B Gene Influenza Type A (PCR) NEGATIVE Influenza Type B (PCR) NEGATIVE RSV RNA Qual (PCR) NEGATIVE SARS-CoV-2 RNA (RT-PCR) NEGATIVE 08/29/22 08/29/22 08/29/22 16:51 16:53 23:00 MCV 81.2 MCH 27.0 MCHC 33.3 RDW 12.8 Plt Count 349 D MPV 10.9 Immature Gran % (Auto) 0.2 Neut % (Auto) 64.2 Lymph % (Auto) 27.0 [place] % (Auto) 6.0 Eos % (Auto) 1.7 Baso % (Auto) 0.9 Lymph # (Auto) 2.4 [place] # (Auto) 0.5 Eos # (Auto) 0.2 Baso # (Auto) 0.1 Abs Immat Gran (auto) 0.02 Absolute Neuts (auto) 5.7 Absolute Nucleated RBC 0.000 Nucleated RBC % (auto) 0.0 PT INR Anion Gap Estim Creat Clear Calc Estimated GFR Random Glucose Lactic Acid 1.3 Calcium Magnesium Total Bilirubin Direct Bilirubin AST ALT Alkaline Phosphatase Total Protein Albumin C. difficile Tox B Gene NEGATIVE Influenza Type A (PCR) Influenza Type B (PCR) RSV RNA Qual (PCR) SARS-CoV-2 RNA (RT-PCR) 08/30/22 05:42 MCV 81.1 MCH 26.7 L MCHC 32.9 RDW 12.7 Plt Count 258 D MPV 10.9 Immature Gran % (Auto) 0.1 Neut % (Auto) 55.2 Lymph % (Auto) 34.9 [place] % (Auto) 6.9 Eos % (Auto) 2.1 Baso % (Auto) 0.8 Lymph # (Auto) 2.5 [place] # (Auto) 0.5 Eos # (Auto) 0.2 Baso # (Auto) 0.1 Abs Immat Gran (auto) 0.01 Absolute Neuts (auto) 3.9 Absolute Nucleated RBC 0.000 Nucleated RBC % (auto) 0.0 PT INR Anion Gap Estim Creat Clear Calc Estimated GFR Random Glucose Lactic Acid Calcium Magnesium Total Bilirubin Direct Bilirubin AST ALT Alkaline Phosphatase Total Protein Albumin C. difficile Tox B Gene Influenza Type A (PCR) Influenza Type B (PCR) RSV RNA Qual (PCR) SARS-CoV-2 RNA (RT-PCR) Imaging Radiologist's Impressions: Impressions Abdomen/Pelvis CT 08/30/22 01:00 IMPRESSION: 1. Fluid distention of the distal small bowel and proximal colon suggesting diarrhea. 2. There is mild wall thickening and hyperemia of the terminal ileum with minimal surrounding fat stranding suggesting an active inflammatory process of the small bowel. 3. Small hiatal hernia with circumferential wall thickening of the lower esophagus which could be related with reflux esophagitis. 4. Sub-5 mm pulmonary nodules are nonspecific. Assuming patient has no history of malignancy, recommend follow-up per Fleischner Society recommendations. According to the UPDATED 2017 Fleischner Society recommendations, the advised followup imaging for solid nodules < 6 mm is: LOW RISK PATIENT: No routine follow up. HIGH RISK PATIENT: Optional CT at 12 months. Assessment and Plan (1) Abdominal pain: Qualifiers: Abdominal location: generalized Qualified Code(s): R10.84 - Generalized abdominal pain Status: Acute (2) Diarrhea: Qualifiers: Diarrhea type: infectious Qualified Code(s): A09 - Infectious gastroenteritis and colitis, unspecified Status: Acute (3) At risk for Clostridium difficile infection: Status: Acute (4) Inflammation of small intestine: Status: Acute Plan 72-year-old female who was recently discharged from the hospital after being treated with IV antibiotics for UTI presents to the hospital with complaints of abdominal pain and diarrhea # abdominal pain/diarrhea - although at high risk of C diff infection given the recent antibiotic and the frequency of diarrhea patient has but c diff serology negative - CT abdomen showing small bowel inflammation - at this time will place on bowel rest - IV fluids - GI consulted - GI panel pending # paroxysmal AFib - subtherapeutic INR - resume Coumadin - continue metoprolol # hypertension - soft - hold antihypertensives in the setting of acute diarrhea DVT prophylaxis: Coumadin Time Spent With Patient Time: Total time managing care of this patient today ____ minutes. Quality Stroke Does the patient have a stroke diagnosis?: No VTE Prior VTE?: No VTE Risk Level:: Medical - moderate - high VTE Device Contraindication: Treatment Not Tolerated VTE Drug Contraindication: N/A - Med Ordered
[2022-08-30 06:09] LABS: Anion Gap 10 (12-20); Blood Urea Nitrogen 23 mg/dL (9-16); Calcium 8.4 mg/dL (8.4-10.2); Carbon Dioxide 24 mmol/L (22-29); Chloride 108 mmol/L (96-108); Creatinine Clr Calc Pharmacy 74.1; Estimated Glomerular Filt Rate > 60; Glucose Random 97 mg/dL (60-115); Potassium 4.3 mmol/L (3.3-5.1); Sodium 138 mmol/L (135-145)
--- NOTE | 2022-08-30 06:21 | PC.NURSE ---
pt has abd pain 03/25 hospitalist called and order for pain med being entered.
[2022-08-30 06:30] LABS: Appearance Urine Cloudy; Color Urine Yellow; Glucose Urine UA Negative (Negative); Leukocyte Esterase Urine Trace (Negative); Nitrite Urine Negative (Negative); UMIC TRIGGER UACC YES; Urine Blood Negative (Negative); Urine Ketones Negative (Negative); Urine Protein Negative (Neg-Trace)
[2022-08-30] MEDS: Omeprazole 40 MG CAPSULE.DR PO ×2 (06:34→16:38)
[2022-08-30 06:42] LABS: Bacteria Urine Trace (None Seen); Calcium Oxalate Crystals Urine Present; Hyaline Casts Urine >20 /LPF (0-2); UACC Culture Trigger YES
--- NOTE | 2022-08-30 07:17 | PM.GICN ---
History of Present Illness Data of Consult Service Date: 08/30/22 Requesting physician: Sylvester Brown Primary Care Provider: Unknown Physician HPI Reason for consult: Diarrhea, abd pain, small bowel inflammation? ?72 YF with history of AFib, CVA, HLD, depression and anxiety, HTN, obesity seen at [facility] on 08/29/22 abdominal pain and diarrhea for 4 days.? Patient stated that she has had constant diarrhea and moves her bowels every 30 minutes.? She described the diarrhea as foul smelling, brown with no blood in it.? Patient also complained of sharp, intermittent, 8/10 lower abdominal pain. She states that today prior to coming to the emergency department she was feeling lightheaded and dizzy as if she was going to pass out.? She complained of chills, slight sore throat, a nonproductive cough and felt short of breath and denied fever.? Patient had nausea with no vomiting. Pt lives by herself and has meals delivered to her daily (Meals on wheels) and may have eaten macaroni and cheese before her symptoms started. Her daughter's BF checks in on her every day. She denies having any BMs over night. Pt denies having a colonoscopy in the past and no records found in [employer]. The patient was hospitalized at from 07/28/2022 until 08/01/2022.? She presented for hypertension, headache, weakness and a urinary tract infection and was treated with ceftriaxone while she was on the hospital.? Urine test grew mixed chi greater than 100,000 colony-forming urine out of her urine culture She reported that she was on antibiotics about a week and half ago.? On arrival to the ED patient hemodynamically stable with no significant abnormal vitals Labs are significant for WBC count of 8.9, INR 1.2,? labs otherwise unremarkable C diff negative, GI panel pending Pain was relieved with pain? pain medication received in the ED. 08/30/[address] showed: 1.? Fluid distention of the distal small bowel and proximal colon suggesting diarrhea. 2.? There is mild wall thickening and hyperemia of the terminal ileum with minimal surrounding fat stranding suggesting an active inflammatory process of the small bowel. 3.? Small hiatal hernia with circumferential wall thickening of the lower esophagus which could be related with reflux esophagitis. 4.? Sub-5 mm pulmonary nodules are nonspecific. Assuming patient has no history of malignancy, recommend follow-up per Fleischner Society ? Review of Systems Constitutional: Constitutional: Reports no additional constitutional complaints, Denies chills, Denies fever(s) and Denies night sweats Eyes: Eyes: Reports no additional eye complaints, Denies blurry vision, Denies change in vision, Denies diplopia, Denies eye discharge, Denies loss of vision and Denies eye pain ENT: Denies dizziness Cardiovascular: Cardiovascular: Reports no additional cardiovascular complaints, Denies chest pain, Denies lightheadedness, Denies Loss of Consciousness and Denies dyspnea Respiratory: Respiratory: Reports no additional respiratory complaints and Denies dyspnea Gastrointestinal: Gastrointestinal: Reports no additional gastrointestinal complaints, Denies abdominal pain, Denies melena, Denies hematochezia, Denies change in bowel habits, Denies change in stool character, Reports diarrhea, Reports nausea and Reports vomiting Genitourinary: Genitourinary: Denies hematuria, Denies urinary frequency, Denies dysuria, Denies urinary incontinence, Denies urinary hesitancy and Denies urinary urgency Musculoskeletal: Musculoskeletal: Reports no additional musculoskeletal complaints, Denies numbness and Denies tingling Neurologic: Denies dizziness, Denies loss of vision, Denies numbness and Denies tingling Psychiatric: Psychiatric: Reports no additional psychiatric complaints Endocrine: Endocrine: Reports no additional endocrine complaints Hematologic/Lymphatic: Hematologic/Lymphatic: Reports no additional hematologic/lymphatic complaints Allergic/Immunologic: Allergic/Immunologic: Reports no additional allergic/immunologic complaints PMFSH Past Medical History Medical History Essential hypertension HTN (hypertension) Left-sided cerebrovascular accident (CVA) Obesity (BMI 30-39.9) Paroxysmal atrial fibrillation Pure hypercholesterolemia Severe uncontrolled high blood pressure Family History Family History Father Heart disease Pacemaker Diabetes Mother Stroke Sister Thyroid disease Surgical History Surgical History Hx of appendectomy Hx of cholecystectomy Hx of hernia repair Hx of hysterectomy Social History Social History Household Members: None Housing: Other Housing Other:: [facility] Do you presently have visiting nurse or other home services: Yes ([facility] 2 x/week, PT 1 x/week) Alcohol intake: current Alcohol intake frequency: does not drink Alcohol type: beer Patient Tobacco Use Status: Former Tobacco user Quit Date: 2016 Tobacco use type: Cigarette Smoked in Last 30 Days: No e-Cigarette/Vaping Use: Never Used Second Hand Smoke Exposure: Yes Use of substances other than those prescribed or required for medical reasons: No Advance Directives: Yes Advance Directives on File: Yes Advance Directives Date on File: 09/26/21 service: No Current occupational status: disabled Gender identity: Female Meds Allergies Allergy/AdvReac Type Severity Reaction Status Date / Time No Known Allergies Allergy Verified 08/05/22 17:12 Active Medications: Current Medications Acetaminophen (Acetaminophen 325 Mg Tablet) 650 mg PO Q6H PRN PRN Reason: Pain, Mild (Pain Scale 1-3) Amlodipine Besylate (Amlodipine Besylate 10 Mg Tablet) 10 mg PO DAILY [facility]; Protocol Dronedarone (Dronedarone Hcl 400 Mg Tablet) 400 mg PO BID [facility] Enoxaparin Sodium (Enoxaparin Sodium 40 Mg/0.4 Ml Syringe) 40 mg SUBCUT Q24H [facility] Lactated Ringer's (Lr) 1,000 mls @ 100 mls/hr IVCONT .Q10H [facility] Last Admin: 08/30/22 04:07 Dose: 100 mls/hr Metoprolol Tartrate (Metoprolol Tartrate 50 Mg Tablet) 50 mg PO BID [facility]; Protocol Morphine Sulfate (Morphine Sulfate 4 Mg/Ml Cartridge) 4 mg IVPUSH Q4H PRN; Protocol PRN Reason: Pain, Severe (Pain Scale 7-10) Omeprazole (Omeprazole 40 Mg Capsule.Dr) 40 mg PO BID@0630,1630 [facility] Last Admin: 08/30/22 06:34 Dose: 40 mg Ondansetron HCl (Ondansetron Hcl 4 Mg/2 Ml Vial) 4 mg IVPUSH Q8H PRN PRN Reason: Nausea and Vomiting Sodium Chloride (0.9 % Sodium Chloride Flush 3 Ml Syringe) 3 ml IVFLUSH QSHIFT [facility] Warfarin Sodium (Warfarin Sodium 5 Mg Tablet) 5 mg PO DAILY [facility] Home Medications Medication Instructions Recorded Confirmed Last Taken Type lisinopril 40 mg tablet 1 tab PO DAILY 08/30/22 09/07/22 Unknown History metoprolol tartrate 50 mg tablet 1 tab PO BID 09/07/22 Unknown History omeprazole 40 mg capsule,delayed 1 cap PO DAILY 09/07/22 Unknown History release Physical Exam Vital Signs: Vital Signs: Last Vital Signs Temp 98.2 F 08/30/22 02:56 Pulse 50 08/30/22 02:56 Resp 13 08/30/22 02:56 BP 123/52 L 08/30/22 02:56 Pulse Ox 96 08/30/22 02:56 O2 Del Method 08/30/22 02:56 BMI result Body Mass Index 28.7 Const: General: no acute distress and ill appearing Nutritional Appearance: overweight Orientation/consciousness: patient oriented x3 Limitations: no limitations HEENT: Head: Yes normal to inspection Ears: hearing grossly normal bilaterally Eyes: Sclerae: sclerae normal Pupils: Equal, round and reactive pupils present Neck: Neck: Yes normal visual inspection Chest: Chest palpation & inspection: normal inspection of the chest Resp: Effort & Inspection: normal respiratory effort Auscultation: clear to auscultation bilaterally Cardio: Palpation: normal PMI Rhythm: other (Irregularly irregular ) Heart sounds: S1 normal heart sound present, S2 normal heart sound present and no murmurs GI: Palpation (GI): Soft to palpation, Tenderness to palpation present (GI) (Mild to moderate diffuse abdominal tenderness without rebound) and No hepatosplenomegaly present Auscultation: normal bowel sounds Rectal Exam - Female: deferred Skin: General skin exam: no rashes or lesions noted Neuro: General: patient oriented x3, gait normal and moves all extremities Cranial nerves: Yes Equal, round and reactive pupils present Psych: Appearance: grossly normal Mental Status: mental status grossly normal Results Labs 09/04/22 05:57 09/04/22 05:57 Labs: Short CBC 08/29/22 08/30/22 Range/Units 16:53 05:42 WBC 8.9 7.1 (4.8-10.8) X10*3/uL Hgb 15.4 12.7 (12.0-16.0) g/dl Hct 46.3 38.6 (37.0-47.0) % Plt Count 349 D 258 D (160-400) X10*3/uL BMP 08/29/22 08/30/22 16:51 05:42 Sodium 140 138 Potassium 4.8 D 4.3 Chloride 103 108 Carbon Dioxide 28 24 BUN 23 H 23 H Creatinine 0.96 0.85 Calcium 10.0 D 8.4 D Liver Function 08/29/22 Range/Units 16:51 Total Bilirubin 1.4 H (0.0-1.0) mg/dL Direct Bilirubin 0.3 (0.0-0.5) mg/dL AST 14 (5-31) U/L ALT 13 (0-31) U/L Alkaline Phosphatase 62 (39-117) U/L Albumin 4.7 (3.5-5.0) g/dL Urine 08/30/22 Range/Units 06:24 Urine Color Yellow Urine Appearance Cloudy Urine pH 5.0 (5.0-9.0) Ur Specific [place] 1.020 (1.005-1.025) Urine Protein Negative (Neg-Trace) mg/dL Urine Glucose (UA) Negative (Negative) mg/dL Assessment and Plan (1) Abdominal pain: Qualifiers: Abdominal location: generalized Qualified Code(s): R10.84 - Generalized abdominal pain Status: Resolved (2) Inflammation of small intestine: Status: Resolved (3) Diarrhea: Qualifiers: Diarrhea type: infectious Qualified Code(s): A09 - Infectious gastroenteritis and colitis, unspecified Status: Resolved Plan 72 YF with history of AFib, CVA, HLD, depression and anxiety, HTN, obesity seen at [facility] on 08/29/22 abdominal pain and diarrhea for 4 days.? She reported that she was on antibiotics about a week and half ago. Denies having any BMs overnight? C diff negative, GI panel pending. Pt likely has acute viral or bacterial gastroenteritis - (possibly Yersinia or Campylobacter infection) 08/30/[address] showed 1. Fluid distention of the distal small bowel and proximal colon suggesting diarrhea. 2.? There is mild wall thickening and hyperemia of the terminal ileum with minimal surrounding fat stranding suggesting an active inflammatory process of the small bowel. RECOMMENDATIONS: 1. Continue IV fluids 2. Start a clear liquid diet today. 3. Await results of GI panel Time Spent With Patient Time: Total time managing care of this patient today ____ minutes. Procedures Date of Service Date of Service: 08/30/22
[2022-08-30] MEDS: Morphine Sulfate 4 MG/ML CARTRIDGE IVPUSH ×2 (07:42→22:18)
--- NOTE | 2022-08-30 07:58 | PM.EVENT ---
Event Note Date of Service: 08/30/22 Event Note: Pt seen, labs, meds, vitals reviewed. Had a syncopal episode while on comode and has been bradycardic into 30s, 40s, no heart bloock. Given a 1 mg of atropine with improved HR. A/P per H and P from this morning, awaiting GI input for further diarreha, abd pain. Cardiology eval for syncope, bradycadia Time Spent With Patient Time: Total time managing care of this patient today ____ minutes.
[2022-08-30] MEDS: Atropine Sulfate 1 MG/10 ML SYRINGE IVPUSH (08:44)
--- NOTE | 2022-08-30 08:44 | PHA.MEDREC ---
Pharmacy Consult ? Medication Reconciliation Pharmacy has reviewed the medication reconciliation competed by Velma. Patient no longer taking ibuprofen. Patient report warfarin was a new medication that was start about 2 days ago. She was schedule this week to get INR check. Jaimee Sotomayor, [employer]
--- NOTE | 2022-08-30 08:49 | PC.NURSE ---
Pt became unresponsive while on the commode, was placed back into bed, admitting attending contacted. Pads placed on pt, ekg obtained showing heart block. MD bedside for verbal order of Atropine given at 0844/ HR was in the 30s and increased into the 60s
[2022-08-30 09:02] LABS: Glucose, Whole Blood 116 mg/dL (60-115)
--- NOTE | 2022-08-30 11:17 | PM.CNCAR ---
History of Present Illness History of Present Illness Date of Service: 08/30/22 Chief complaint: N/V/D Narrative: This is a cardiology consultation regarding sinus bradycardia/syncope. She has a history of paroxysmal atrial fibrillation. In the past, she was only on metoprolol 50 mg b.i.d.. Subsequently, it seems that she was put on Multaq recently after recent hospitalization. Currently, she is here for abdominal pain and diarrhea and found to have C diff infection. In this process, she apparently was on the commode and at that time not clear she was straining or not. However, the heart rate was in the 30s and apparently there is a question of syncope. Then she got atropine. Now heart rate is higher somewhere in the 50s. Patient herself seems very sleepy and barely answering any questions. When I questioned her regarding cardiac symptoms, she is stating no. 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 Review of Systems Review of Systems: Yes all other systems are reviewed and are negative Constitutional: Constitutional: Reports as per HPI Eyes: Eyes: Reports as per HPI ENT: Reports as per HPI Cardiovascular: Cardiovascular: Reports as per HPI, Denies acrocyanosis, Denies cool extremities, Denies chest pain, Denies leg edema, Denies lightheadedness, Denies palpitations and Denies dyspnea Respiratory: Respiratory: Reports as per HPI, Reports no additional respiratory complaints and Denies dyspnea Gastrointestinal: Gastrointestinal: Reports as per HPI and Reports no additional gastrointestinal complaints Genitourinary: Genitourinary: Reports as per HPI Musculoskeletal: Musculoskeletal: Reports no additional musculoskeletal complaints and Reports as per HPI Integumentary/Breasts: Skin/Breast: Reports system reviewed and no additional complaints, except as docu Neurologic: Reports system reviewed and no additional complaints, except as documented and Reports as per HPI Psychiatric: Psychiatric: Reports no additional psychiatric complaints and Reports as per HPI Endocrine: Endocrine: Reports no additional endocrine complaints, Reports as per HPI and Denies palpitations Hematologic/Lymphatic: Hematologic/Lymphatic: Reports no additional hematologic/lymphatic complaints and Reports as per HPI Allergic/Immunologic: Allergic/Immunologic: Reports no additional allergic/immunologic complaints and Reports as per HPI [facility] Past Medical History Medical History (Updated 08/30/22 @ 11:22 by Andreas Moe MD) Essential hypertension HTN (hypertension) Left-sided cerebrovascular accident (CVA) Obesity (BMI 30-39.9) PAF (paroxysmal atrial fibrillation) Paroxysmal atrial fibrillation Pure hypercholesterolemia Severe uncontrolled high blood pressure Family History Family History Father No problems noted. Mother No problems noted. Surgical History Surgical History Hx of appendectomy Hx of cholecystectomy Hx of hernia repair Hx of hysterectomy Social History Social History Household Members: None Housing: Other Housing Other:: lives in a trailer Do you presently have visiting nurse or other home services: No Alcohol intake: current Alcohol intake frequency: holidays/special occasions only Patient Tobacco Use Status: Former Tobacco user Smoked in Last 30 Days: No Second Hand Smoke Exposure: Yes Use of substances other than those prescribed or required for medical reasons: No Advance Directives: Yes Advance Directives on File: Yes Advance Directives Date on File: 09/26/21 service: No Current occupational status: disabled [employer] Allergies Allergy/AdvReac Type Severity Reaction Status Date / Time No Known Allergies Allergy Verified 08/05/22 17:12 Active Medications: Current Medications Acetaminophen (Acetaminophen 325 Mg Tablet) 650 mg PO Q6H PRN PRN Reason: Pain, Mild (Pain Scale 1-3) Amlodipine Besylate (Amlodipine Besylate 10 Mg Tablet) 10 mg PO DAILY [facility]; Protocol Last Admin: 08/30/22 08:53 Dose: Not Given Enoxaparin Sodium (Enoxaparin Sodium 40 Mg/0.4 Ml Syringe) 40 mg SUBCUT Q24H [facility] Lactated Ringer's (Lr) 1,000 mls @ 100 mls/hr IVCONT .Q10H [facility] Last Admin: 08/30/22 04:07 Dose: 100 mls/hr Morphine Sulfate (Morphine Sulfate 4 Mg/Ml Cartridge) 4 mg IVPUSH Q4H PRN; Protocol PRN Reason: Pain, Severe (Pain Scale 7-10) Last Admin: 08/30/22 07:42 Dose: 4 mg Omeprazole (Omeprazole 40 Mg Capsule.Dr) 40 mg PO BID@0630,1630 [facility] Last Admin: 08/30/22 06:34 Dose: 40 mg Ondansetron HCl (Ondansetron Hcl 4 Mg/2 Ml Vial) 4 mg IVPUSH Q8H PRN PRN Reason: Nausea and Vomiting Sodium Chloride (0.9 % Sodium Chloride Flush 3 Ml Syringe) 3 ml IVFLUSH QSHIFT [facility] Last Admin: 08/30/22 07:34 Dose: Not Given Warfarin Sodium (Warfarin Sodium 5 Mg Tablet) 5 mg PO DAILY@1800 [facility] Home Medications Medication Instructions Recorded Confirmed Last Taken Type ibuprofen 600 mg tablet 1 tab PO Q6H PRN pain 08/30/22 08/30/22 Unknown History lisinopril 40 mg tablet 1 tab PO DAILY 08/30/22 08/30/22 Unknown History metoprolol tartrate 50 mg tablet 1 tab PO BID 08/30/22 08/30/22 Unknown History Physical Exam Vital Signs: Vital Signs: Last Vital Signs Temp 98.2 F 08/30/22 02:56 Pulse 69 08/30/22 08:48 Resp 14 08/30/22 08:48 BP 114/57 L 08/30/22 08:48 Pulse Ox 93 08/30/22 08:48 O2 Del Method 08/30/22 08:48 O2 Flow Rate 2 08/30/22 08:48 BMI result Body Mass Index 28.7 Const: General: comfortable, no acute distress, ill appearing, lethargic and tired appearing Orientation/consciousness: lethargic HEENT: Other: Unremarkable Head: Yes normal to inspection Neck: Neck: Yes normal visual inspection Chest: Chest palpation & inspection: normal inspection of the chest Resp: Auscultation: clear to auscultation bilaterally Cardio: Palpation: normal PMI Heart sounds: S1 normal heart sound present, S2 normal heart sound present, no gallops, no murmurs and no rubs GI: Palpation (GI): Soft to palpation Back/Spine/Pelvis: Other: unremarkable Skin: General skin exam: no rashes or lesions noted Neuro: Other: No clear focal deficits but she seems sleepy. Extrem: General: Yes normal to inspection Psych: Mental Status: mental status grossly abnormal Objective Labs and Meds Result diagrams: 08/30/22 05:42 08/30/22 05:42 Lab results: Laboratory Results - last 24 hr 08/29/22 08/29/22 08/29/22 16:51 16:51 16:51 WBC RBC Hgb Hct MCV MCH MCHC RDW Plt Count MPV Immature Gran % (Auto) Neut % (Auto) Lymph % (Auto) Sherman % (Auto) Eos % (Auto) Baso % (Auto) Lymph # (Auto) [place] # (Auto) Eos # (Auto) Baso # (Auto) Abs Immat Gran (auto) Absolute Neuts (auto) Absolute Nucleated RBC Nucleated RBC % (auto) PT 14.2 H INR 1.2 H Sodium 140 Potassium 4.8 D Chloride 103 Carbon Dioxide 28 Anion Gap 14 BUN 23 H Creatinine 0.96 Estim Creat Clear Calc 65.6 Estimated GFR 57 POC Glucose Random Glucose 95 Lactic Acid Calcium 10.0 D Magnesium 2.0 Total Bilirubin 1.4 H Direct Bilirubin 0.3 AST 14 ALT 13 Alkaline Phosphatase 62 Total Protein 7.9 Albumin 4.7 Urine Color Urine Appearance Urine pH Ur Specific [place] Urine Protein Urine Glucose (UA) Urine Ketones Urine Blood Urine Nitrite Ur Leukocyte Esterase Urine RBC Urine WBC Ur Squamous Epith Cells Calcium Oxalate Crystal Urine Bacteria Hyaline Casts Stl C. cayetanensis PCR Stool Rotavirus A PCR Stl Adenov F 40/41 PCR Stool Astrovirus (PCR) Stool Campylobacter PCR Stool Cryptosporidium PCR Stl Sh Tox Pr E STEC PCR Stool E coli O157 PCR Stl Enterotoxigenic E PCR Stool EPEC (PCR) Stool EAEC (PCR) Stl E. histolytica PCR Stool Giardia Lamblia PCR Stl P. shigelloides PCR Stool Salmonella PCR Stool Sapovirus (PCR) Stl Shigella/EIEC PCR St Y.enterocolitica PCR Stool Vibrio (PCR) Stl Vibrio cholerae PCR Stl Norovirus GI/GII PCR C. difficile Tox B Gene Influenza Type A (PCR) NEGATIVE Influenza Type B (PCR) NEGATIVE RSV RNA Qual (PCR) NEGATIVE SARS-CoV-2 RNA (RT-PCR) NEGATIVE 08/29/22 08/29/22 08/29/22 16:51 16:53 23:00 WBC 8.9 RBC 5.70 H Hgb 15.4 Hct 46.3 MCV 81.2 MCH 27.0 MCHC 33.3 RDW 12.8 Plt Count 349 D MPV 10.9 Immature Gran % (Auto) 0.2 Neut % (Auto) 64.2 Lymph % (Auto) 27.0 Sherman % (Auto) 6.0 Eos % (Auto) 1.7 Baso % (Auto) 0.9 Lymph # (Auto) 2.4 Sherman # (Auto) 0.5 Eos # (Auto) 0.2 Baso # (Auto) 0.1 Abs Immat Gran (auto) 0.02 Absolute Neuts (auto) 5.7 Absolute Nucleated RBC 0.000 Nucleated RBC % (auto) 0.0 PT INR Sodium Potassium Chloride Carbon Dioxide Anion Gap BUN Creatinine Estim Creat Clear Calc Estimated GFR POC Glucose Random Glucose Lactic Acid 1.3 Calcium Magnesium Total Bilirubin Direct Bilirubin AST ALT Alkaline Phosphatase Total Protein Albumin Urine Color Urine Appearance Urine pH Ur Specific [place] Urine Protein Urine Glucose (UA) Urine Ketones Urine Blood Urine Nitrite Ur Leukocyte Esterase Urine RBC Urine WBC Ur Squamous Epith Cells Calcium Oxalate Crystal Urine Bacteria Hyaline Casts Stl C. cayetanensis PCR Stool Rotavirus A PCR Stl Adenov F PCR Stool Astrovirus (PCR) Stool Campylobacter PCR Stool Cryptosporidium PCR Stl Sh Tox Pr E STEC PCR Stool E coli O157 PCR Stl Enterotoxigenic E PCR Stool EPEC (PCR) Stool EAEC (PCR) Stl E. histolytica PCR Stool Giardia Lamblia PCR Stl P. shigelloides PCR Stool Salmonella PCR Stool Sapovirus (PCR) Stl Shigella/EIEC PCR St Y.enterocolitica PCR Stool Vibrio (PCR) Stl Vibrio cholerae PCR Stl Norovirus GI/GII PCR C. difficile Tox B Gene NEGATIVE Influenza Type A (PCR) Influenza Type B (PCR) RSV RNA Qual (PCR) SARS-CoV-2 RNA (RT-PCR) 08/29/22 08/30/22 08/30/22 23:23 05:42 05:42 WBC 7.1 RBC 4.76 Hgb 12.7 Hct 38.6 MCV 81.1 MCH 26.7 L MCHC 32.9 RDW 12.7 Plt Count 258 D MPV 10.9 Immature Gran % (Auto) 0.1 Neut % (Auto) 55.2 Lymph % (Auto) 34.9 Sherman % (Auto) 6.9 Eos % (Auto) 2.1 Baso % (Auto) 0.8 Lymph # (Auto) 2.5 Sherman # (Auto) 0.5 Eos # (Auto) 0.2 Baso # (Auto) 0.1 Abs Immat Gran (auto) 0.01 Absolute Neuts (auto) 3.9 Absolute Nucleated RBC 0.000 Nucleated RBC % (auto) 0.0 PT INR Sodium 138 Potassium 4.3 Chloride 108 Carbon Dioxide 24 Anion Gap 10 L BUN 23 H Creatinine 0.85 Estim Creat Clear Calc 74.1 Estimated GFR > 60 POC Glucose Random Glucose 97 Lactic Acid Calcium 8.4 D Magnesium Total Bilirubin Direct Bilirubin AST ALT Alkaline Phosphatase Total Protein Albumin Urine Color Urine Appearance Urine pH Ur Specific [place] Urine Protein Urine Glucose (UA) Urine Ketones Urine Blood Urine Nitrite Ur Leukocyte Esterase Urine RBC Urine WBC Ur Squamous Epith Cells Calcium Oxalate Crystal Urine Bacteria Hyaline Casts Stl C. cayetanensis PCR Cancelled Stool Rotavirus A PCR Cancelled Stl Adenov F 40/41 PCR Cancelled Stool Astrovirus (PCR) Cancelled Stool Campylobacter PCR Cancelled Stool Cryptosporidium PCR Cancelled Stl Sh Tox Pr E STEC PCR Cancelled Stool E coli O157 PCR Cancelled Stl Enterotoxigenic E PCR Cancelled Stool EPEC (PCR) Cancelled Stool EAEC (PCR) Cancelled Stl E. histolytica PCR Cancelled Stool Giardia Lamblia PCR Cancelled Stl P. shigelloides PCR Cancelled Stool Salmonella PCR Cancelled Stool Sapovirus (PCR) Cancelled Stl Shigella/EIEC PCR Cancelled St Y.enterocolitica PCR Cancelled Stool Vibrio (PCR) Cancelled Stl Vibrio cholerae PCR Cancelled Stl Norovirus GI/GII PCR Cancelled C. difficile Tox B Gene Influenza Type A (PCR) Influenza Type B (PCR) RSV RNA Qual (PCR) SARS-CoV-2 RNA (RT-PCR) 08/30/22 08/30/22 06:24 08:37 WBC RBC Hgb Hct MCV MCH MCHC RDW Plt Count MPV Immature Gran % (Auto) Neut % (Auto) Lymph % (Auto) Sherman % (Auto) Eos % (Auto) Baso % (Auto) Lymph # (Auto) Sherman # (Auto) Eos # (Auto) Baso # (Auto) Abs Immat Gran (auto) Absolute Neuts (auto) Absolute Nucleated RBC Nucleated RBC % (auto) PT INR Sodium Potassium Chloride Carbon Dioxide Anion Gap BUN Creatinine Estim Creat Clear Calc Estimated GFR POC Glucose 116 H Random Glucose Lactic Acid Calcium Magnesium Total Bilirubin Direct Bilirubin AST ALT Alkaline Phosphatase Total Protein Albumin Urine Color Yellow Urine Appearance Cloudy Urine pH 5.0 Ur Specific [place] 1.020 Urine Protein Negative Urine Glucose (UA) Negative Urine Ketones Negative Urine Blood Negative Urine Nitrite Negative Ur Leukocyte Esterase Trace H Urine RBC 6-10 H Urine WBC 11-20 H Ur Squamous Epith Cells 6-10 Calcium Oxalate Crystal Present Urine Bacteria Trace Hyaline Casts >20 Stl C. cayetanensis PCR Stool Rotavirus A PCR Stl Adenov F 40/41 PCR Stool Astrovirus (PCR) Stool Campylobacter PCR Stool Cryptosporidium PCR Stl Sh Tox Pr E STEC PCR Stool E coli O157 PCR Stl Enterotoxigenic E PCR Stool EPEC (PCR) Stool EAEC (PCR) Stl E. histolytica PCR Stool Giardia Lamblia PCR Stl P. shigelloides PCR Stool Salmonella PCR Stool Sapovirus (PCR) Stl Shigella/EIEC PCR St Y.enterocolitica PCR Stool Vibrio (PCR) Stl Vibrio cholerae PCR Stl Norovirus GI/GII PCR C. difficile Tox B Gene Influenza Type A (PCR) Influenza Type B (PCR) RSV RNA Qual (PCR) SARS-CoV-2 RNA (RT-PCR) ECG Interpretation: In the most recent EKG, underlying sinus bradycardia at 41/Min with borderline ME prolongation. Left ventricular hypertrophy with repolarization changes. In the EKG prior to that, she was at 59/Min. Imaging Radiologist's impression: Impressions Abdomen/Pelvis CT 08/30/22 01:00 IMPRESSION: 1. Fluid distention of the distal small bowel and proximal colon suggesting diarrhea. 2. There is mild wall thickening and hyperemia of the terminal ileum with minimal surrounding fat stranding suggesting an active inflammatory process of the small bowel. 3. Small hiatal hernia with circumferential wall thickening of the lower esophagus which could be related with reflux esophagitis. 4. Sub-5 mm pulmonary nodules are nonspecific. Assuming patient has no history of malignancy, recommend follow-up per Fleischner Society recommendations. According to the UPDATED 2017 Fleischner Society recommendations, the advised followup imaging for solid nodules < 6 mm is: LOW RISK PATIENT: No routine follow up. HIGH RISK PATIENT: Optional CT at 12 months. Assessment and Plan (1) Syncope: Status: Acute (2) Sinus bradycardia: Status: Acute (3) PAF (paroxysmal atrial fibrillation): Status: Acute Plan The syncopal episode from sinus bradycardia is due to likely vasovagal event. Do not think cardiac is primary. Okay to hold beta-blockers today and monitor her. In the long run, management is going to be difficult as she is noncompliant and does not come for office visits. Also likely noncompliance at home with regard to medications. Do not think she is taking the Multaq at home and hence we can stop it. Otherwise, monitor on telemetry. Will hold pacemaker at this time, as the bradycardia was only transient and currently heart rate is much higher. Discussed with Dr. Moses. Also discussed with RN taking care of the patient. Time Spent With Patient Time: Total time managing care of this patient today 70 minutes. Procedures Date of Service Date of Service: 08/30/22
--- NOTE | 2022-08-30 11:55 | PC.NURSE ---
Pt given jello, tolerated well
--- NOTE | 2022-08-30 12:07 | PC.NURSE ---
Pt alert and oriented, not remembering syncopal event from this morning.
--- NOTE | 2022-08-30 14:31 | PC.NURSE ---
Dr Moses aware of pts bradycardia, she is arousable but lethargic
[2022-08-30] MEDS: Heparin Sodium,Porcine 5,000 UNIT/ML VIAL 5000 UNIT SUBCUT (15:20)
--- NOTE | 2022-08-30 15:35 | P.CONCC_ITS ---
History of Present Illness Data of Consult Service Date: 08/30/22 [facility] Provider: Unknown Physician HPI Reason for consult: Symptomatic bradycardia 72-year-old female who apparently has history of paroxysmal atrial fibrillation but presented because of the nausea and abdominal discomfort found to be COVID positive and believed to have COVID colitis and apparently up on the commode had an episode of bradycardia with heart rate in the 30s and a sense of near syncope at home she has been increasingly fatigable with exertional chest mostly subs ternal pressure with associated with dyspnea and the severe weakness forcing her to sit down and relax and 0 symptoms will dissipate and apparently it has been happening more frequently of late she just is very weak and only feels like staying in bed at this point Apparently non compliant she had had a CVA 1 year ago she was supposed to be taking Eliquis apparently that was too expensive and she was initiated on Multaq that also is considered by her to be too expensive so they started her on Cou madin and she presented with an INR of 1.2 so I would wonder about compliance even with that drug but she has had no more symptoms of of focal neurologic difficulty but did severe exertional difficulties and looking at the EKG serially we had a a normal except for just minimal nonspecific ST-T in in the lateral leads namely 1 aVL and V6 But between yesterday and today she had what appeared to be some hyperacute ST elevation in V1 to V6 and and now the ST Ts are evolving 3 approaching baseline but with biphasic T-waves and with classic symptoms with a recent crescendo pattern I have concerns for be potentially an acute coronary syndrome in the and at least the anterior precordium Review of Systems Review of Systems: All symptoms revolve around exertional chest pressure with associated fatigue and dyspnea and even a sense of weakness and lightheadedness but no syncope thus far Yes all other systems are reviewed and are negative [facility] Past Medical History Medical History (Updated 08/30/22 @ 15:54 by Bernard Hernandez MD) Essential hypertension HTN (hypertension) Left-sided cerebrovascular accident (CVA) Obesity (BMI 30-39.9) PAF (paroxysmal atrial fibrillation) Paroxysmal atrial fibrillation Pure hypercholesterolemia Severe uncontrolled high blood pressure Family History Family History Father No problems noted. Mother No problems noted. Surgical History Surgical History Hx of appendectomy Hx of cholecystectomy Hx of hernia repair Hx of hysterectomy Social History Social History Household Members: None Housing: Other Housing Other:: lives in a trailer Do you presently have visiting nurse or other home services: No Alcohol intake: current Alcohol intake frequency: holidays/special occasions only Patient Tobacco Use Status: Former Tobacco user Smoked in Last 30 Days: No Second Hand Smoke Exposure: Yes Use of substances other than those prescribed or required for medical reasons: No Advance Directives: Yes Advance Directives on File: Yes Advance Directives Date on File: 09/26/21 service: No Current occupational status: disabled Meds Allergies Allergy/AdvReac Type Severity Reaction Status Date / Time No Known Allergies Allergy Verified 08/05/22 17:12 Active Medications: Current Medications Acetaminophen (Acetaminophen 325 Mg Tablet) 650 mg PO Q6H PRN PRN Reason: Pain, Mild (Pain Scale 1-3) Amlodipine Besylate (Amlodipine Besylate 10 Mg Tablet) 10 mg PO DAILY [facility]; Protocol Last Admin: 08/30/22 08:53 Dose: Not Given Atropine Sulfate (Atropine Sulfate 1 Mg/10 Ml Syringe) 1 mg IVPUSH Q2H PRN PRN Reason: bradycardia Heparin Sodium (Porcine) (Heparin Sodium,Porcine 5,000 Unit/Ml Vial) 5,000 unit SUBCUT Q8H [facility] Last Admin: 08/30/22 15:20 Dose: 5,000 unit Lactated Ringer's (Lr) 1,000 mls @ 100 mls/hr IVCONT .Q10H [facility] Last Admin: 08/30/22 12:27 Dose: 100 mls/hr Morphine Sulfate (Morphine Sulfate 4 Mg/Ml Cartridge) 4 mg IVPUSH Q4H PRN; Protocol PRN Reason: Pain, Severe (Pain Scale 7-10) Last Admin: 08/30/22 07:42 Dose: 4 mg Omeprazole (Omeprazole 40 Mg Capsule.Dr) 40 mg PO BID@0630,1630 [facility] Last Admin: 08/30/22 06:34 Dose: 40 mg Ondansetron HCl (Ondansetron Hcl 4 Mg/2 Ml Vial) 4 mg IVPUSH Q8H PRN PRN Reason: Nausea and Vomiting Sodium Chloride (0.9 % Sodium Chloride Flush 3 Ml Syringe) 3 ml IVFLUSH QSHIFT [facility] Last Admin: 08/30/22 15:20 Dose: Not Given Home Medications Medication Instructions Recorded Confirmed Last Taken Type ibuprofen 600 mg tablet 1 tab PO Q6H PRN pain 08/30/22 08/30/22 Unknown History lisinopril 40 mg tablet 1 tab PO DAILY 08/30/22 08/30/22 Unknown History metoprolol tartrate 50 mg tablet 1 tab PO BID 08/30/22 08/30/22 Unknown History Physical Exam Vital Signs: Vital Signs: Last Vital Signs Temp 98.2 F 08/30/22 02:56 Pulse 38 L 08/30/22 14:24 Resp 12 08/30/22 14:24 BP 134/46 L 08/30/22 14:24 Pulse Ox 100 08/30/22 14:24 O2 Del Method 08/30/22 14:24 O2 Flow Rate 3 08/30/22 14:24 BMI result Body Mass Index 28.7 Alert and oriented and nonfocal neurologically Bedside echo shows globally normal systolic wall motion of the left ventricle normal right ventricle no pericardial disease no significant gradient across the aortic valve but just a trace of aortic insufficiency Lungs clear and equal bilaterally Abdomen benign good bowel sounds no organomegaly Results Labs CBC & Chem 7: 08/30/22 05:42 08/30/22 05:42 Labs: Short CBC 08/29/22 08/30/22 Range/Units 16:53 05:42 WBC 8.9 7.1 (4.8-10.8) X10*3/uL Hgb 15.4 12.7 (12.0-16.0) g/dl Hct 46.3 38.6 (37.0-47.0) % Plt Count 349 D 258 D (160-400) X10*3/uL BMP 08/29/22 08/30/22 16:51 05:42 Sodium 140 138 Potassium 4.8 D 4.3 Chloride 103 108 Carbon Dioxide 28 24 BUN 23 H 23 H Creatinine 0.96 0.85 Calcium 10.0 D 8.4 D Liver Function 08/29/22 Range/Units 16:51 Total Bilirubin 1.4 H (0.0-1.0) mg/dL Direct Bilirubin 0.3 (0.0-0.5) mg/dL AST 14 (5-31) U/L ALT 13 (0-31) U/L Alkaline Phosphatase 62 (39-117) U/L Albumin 4.7 (3.5-5.0) g/dL Urine 08/30/22 Range/Units 06:24 Urine Color Yellow Urine Appearance Cloudy Urine pH 5.0 (5.0-9.0) Ur Specific [place] 1.020 (1.005-1.025) Urine Protein Negative (Neg-Trace) mg/dL Urine Glucose (UA) Negative (Negative) mg/dL Assessment and Plan (1) PAF (paroxysmal atrial fibrillation): Status: Acute (2) Sinus bradycardia: Status: Acute (3) Syncope: Status: Acute (4) Diarrhea: Qualifiers: Diarrhea type: infectious Qualified Code(s): A09 - Infectious gastroenteritis and colitis, unspecified Status: Acute (5) Abdominal pain: Qualifiers: Abdominal location: generalized Qualified Code(s): R10.84 - Generalized abdominal pain Status: Acute (6) Paroxysmal atrial fibrillation: Status: Acute (7) Left-sided cerebrovascular accident (CVA): Status: Acute (8) Obesity (BMI 30-39.9): Status: Acute (9) Acute UTI: Status: Acute (10) Symptomatic bradycardia: Status: Acute (11) Crescendo angina: Status: Acute Plan So she clearly has features of sick sinus syndrome with both symptomatic bradycardia when in sinus rhythm as well as paroxysmal atrial fibrillation and is 1 year status post CVA presumably embolic but unfortunately noncompliant with medicines including anticoagulants and is not therapeutically anticoagulated right now But superimposed is a story of potential unstable or crescendo angina with what she describes and evolutionary EKG changes in the anterior precordium so I feel that the no prior to any decisions about permanent pacing a cardiac cat heterization should be done in case there is a need for coronary intervention but at least for now in the evening I would transfer to the ICU but I would give her aspirin and heparinize her for coronary protection and should she breakthrough then and an acute need for transfer for urgent cardiac cat heterization Will check troponins and BNP tonight but not withstanding those results based on the EKGs and classic symptoms I would still consider catheterization primarily but short of that if things are still equivocal and symptoms not compelling we could always do a screening Lexiscan nuclear stress Time Spent With Patient Time: Total time managing care of this patient today ____ minutes.
[2022-08-30] MEDS: Heparin Sodium,Porcine 5,000 UNIT/ML VIAL 7600 UNIT IVPUSH (16:36)
[2022-08-30] MEDS: Aspirin 325 MG TABLET PO (16:38)
--- NOTE | 2022-08-30 17:19 | MHC.EDTECH ---
this pct assist pt with bedpan ,care given ,pt reposiotion and fresh linen and warm blankets given .
[2022-08-30 17:31] LABS: Troponin-I High Sensitivity 20.1 ng/L (<3.5-17.0)
[2022-08-30 18:06] LABS: INTERNATIONAL NORM RATIO 1.5 (0.9-1.1); Prothrombin Time 16.9 SEC (10.0-13.1)
[2022-08-30 18:23] LABS: Partial Thromboplastin Time > 200.0 SEC (26.0-36.4)
[2022-08-30 18:28] LABS: COVID-19 Test Negative (Negative); IDNOW Serial# 16C4AD1C
[2022-08-30 19:37] LABS: PTT Heparin Drip 157.8 SEC (53-77.9)
--- NOTE | 2022-08-30 20:49 | P.HPCC_ITS ---
History of Present Illness Date of Service: 08/30/22 Attending physician on admission: Bernard Hernandez Chief Complaint: Symptomatic bradycardia Ms. Chi is a 72-year-old female with a past medical history of essential hypertension, left-sided CVA,? paroxysmal AFib, and hypercholesterolemia.? The patient was hospitalized here at [facility] [place] Jul 28- for evaluation of a headache and dizziness.? At that time she was found to have significantly elevated blood pressure readings and was noted to have sinus bradycardia and occasional pauses. Blood pressure was ultimately controlled with amlodipine, lisinopril and spironolactone.? Additionally she was given a course of IV ceftriaxone for UTI with good response. Prior to this last admission, the patient had not seen her primary care physician in about a year.?? The patient reports compliance with her meds, but does admit that cost is a factor and she sometimes does not have money to get her medication.? EMS previously reported that the patient lives in a trailer and her living environment was very unkempt and with a strong odor.? She lives alone and has VNA twice a week and is supposed to have PT once a week. ? She reports a lack of assistive devices (shower chair,? grab bars) and uses a donated cane to ambulate because insurance would not cover a walker.? She returned to the ER yesterday with a complaint of periumbilical abdominal pain and significant diarrhea occurring about every 30 minutes. She reports nausea with no vomiting. She denies any fever; no chills, no chest pain, no shortness of breath, no urinary symptoms, no lower extremity edema and no numbness or tingling. On arrival, she was hemodynamically stable with no significant abnormal vitals. Labs were significant for WBC count of 8.9, INR 1.2 (on coumadin). Labs otherwise unremarkable. CT abdomen showed small bowel inflammation and fluid distention suggesting diarrhea. She was given 2L normal saline,? Zofran and morphine for pain with good effect and admitted to Medicine.? This morning,? she was up on the commode and had an episode of bradycardia with a heart rate in the 30s and a sense of near syncope.? She was given 1 mg of atropine with improvement to her heart rate. At home she has been increasingly fatigable with exertional chest pressure, mostly substernal, with associated dyspnea and severe weakness,? dissipating with rest.? She reports that this has been happening more frequently as of late; she states she is very weak and only feels like staying in bed at this point.? Sometime between yesterday and today she had what appeared to be some hyperacute ST elevations in leads V1 to V6. Previous EKGs were normal except for minimal nonspecific ST changes in the lateral leads (namely 1, aVL and V6). She displays classic symptoms with a recent crescendo pattern concerning for acute coronary syndrome.? A bedside echo by Dr. Hernandez showed globally normal systolic wall motion of the left ventricle, normal right ventricle, no pericardial disease, and no significant gradient across the aortic valve but just a trace of aortic insufficiency.? She was admitted to the ICU with clear features of sick sinus syndrome with both symptomatic bradycardia when in sinus rhythm as well as paroxysmal atrial fibrillation. On my exam in the ICU, the patient was alert and following commands, appropriate affect, breathing easy, in no acute distress.? HR 62? BP 133/73? RR 16 on 2LNC, w SpO2 98%. Both lungs clear? throughout with normal exp phase.? AFib, normal S1 and S2, no M or G.? Abdomen obese, benign, good bowel sounds, no organomegaly, no rebound tenderness. No central edema.? No focal neuro deficits. Review of Systems Review of Systems: All symptoms revolve around exertional chest pressure with associated fatigue and dyspnea and even a sense of weakness and lightheadedness but no syncope thus far. Constitutional: Constitutional: Reports fatigue, Reports lethargy, Reports malaise and Reports weakness ( Patient reports residual weakness both left extremities after CVA.) Eyes: Eyes: Reports no additional eye complaints ENT: Reports system reviewed and no additional complaints, except as documented Cardiovascular: Cardiovascular: Reports as per HPI, Reports chest pain with activity, Reports Epigastric Pain, Reports lightheadedness, Reports dyspnea on exertion and Reports slow heart rate Respiratory: Respiratory: Reports dyspnea on exertion Gastrointestinal: Gastrointestinal: Reports abdominal pain (periumbilical), Reports diarrhea, Reports nausea and Denies hematemesis Comments: The patient reports many years of diarrhea due to IBS for which she takes 1-2 Immodium daily worsening since discharge from hospital. baseline is 1-2 BMs weekly with Imodium use. Genitourinary: Genitourinary: Reports no additional female genitourinary complaints Musculoskeletal: Musculoskeletal: Reports as per HPI Integumentary/Breasts: Skin/Breast: Reports system reviewed and no additional complaints, except as docu Neurologic: Reports as per HPI and Reports weakness ( Patient reports residual weakness both left extremities after CVA.) Psychiatric: Psychiatric: Reports no additional psychiatric complaints Endocrine: Endocrine: Reports no additional endocrine complaints and Reports fatigue Hematologic/Lymphatic: Hematologic/Lymphatic: Reports no additional hematologic/lymphatic complaints Allergic/Immunologic: Allergic/Immunologic: Reports no additional all ergic/immunologic complaints PMFSH Past Medical History Medical History (Updated 08/31/22 @ 01:52 by Alysia Gill NP) Essential hypertension HTN (hypertension) Left-sided cerebrovascular accident (CVA) Obesity (BMI 30-39.9) Paroxysmal atrial fibrillation Pure hypercholesterolemia Severe uncontrolled high blood pressure Functional capacity: uses cane/walker Family History Family History Father Heart disease Pacemaker Diabetes Mother Stroke Sister Thyroid disease Surgical History Surgical History Hx of appendectomy Hx of cholecystectomy Hx of hernia repair Hx of hysterectomy Social History Social History (Updated 08/30/22 @ 23:38 by Alysia Gill NP) Household Members: None Housing: Other Housing Other:: [facility] Do you presently have visiting nurse or other home services: Yes (VNA 2 x/week, PT 1 x/week) Alcohol intake: current Alcohol intake frequency: holidays/special occasions only Alcohol type: beer Patient Tobacco Use Status: Former Tobacco user Quit Date: 2016 Tobacco use type: Cigarette e-Cigarette/Vaping Use: Never Used Second Hand Smoke Exposure: Yes Use of substances other than those prescribed or required for medical reasons: No Advance Directives Date on File: 09/26/21 service: No Current occupational status: disabled Gender identity: Female Travel History Ebola Risk: Travel/Contact With Anyone From Affected Area/s: No Meds Allergies Allergy/AdvReac Type Severity Reaction Status Date / Time No Known Allergies Allergy Verified 08/05/22 17:12 Active Medications: Current Medications Acetaminophen (Acetaminophen 325 Mg Tablet) 650 mg PO Q6H PRN PRN Reason: Pain, Mild (Pain Scale 1-3) Amlodipine Besylate (Amlodipine Besylate 10 Mg Tablet) 10 mg PO DAILY [facility]; Protocol Last Admin: 08/30/22 08:53 Dose: Not Given Atropine Sulfate (Atropine Sulfate 1 Mg/10 Ml Syringe) 1 mg IVPUSH Q2H PRN PRN Reason: bradycardia Heparin Sodium (Porcine) (Heparin Sodium,Porcine 5,000 Unit/Ml Vial) 3,800 unit 40 unit/kg (3800 unit) IVPUSH PROTOCOL BOLUS PRN; Protocol PRN Reason: 40 unit/kg - Heparin Protocol Heparin Sodium (Porcine) (Heparin Sodium,Porcine 5,000 Unit/Ml Vial) 7,600 unit 80 unit/kg (7600 unit) IVPUSH PROTOCOL BOLUS PRN; Protocol PRN Reason: 80 unit/kg - Heparin Protocol Lactated Ringer's (Lr) 1,000 mls @ 100 mls/hr IVCONT .Q10H [facility] Last Admin: 08/30/22 12:27 Dose: 100 mls/hr Heparin Sodium/Sodium Chloride (Heparin Sodium,Porcine/1/2ns) 25,000 unit in 250 mls @ 0 mls/hr IVCONT .Q0M [facility]; Protocol Morphine Sulfate (Morphine Sulfate 4 Mg/Ml Cartridge) 4 mg IVPUSH Q4H PRN; Protocol PRN Reason: Pain, Severe (Pain Scale 7-10) Last Admin: 08/30/22 07:42 Dose: 4 mg Omeprazole (Omeprazole 40 Mg Capsule.Dr) 40 mg PO BID@0630,1630 [facility] Last Admin: 08/30/22 16:38 Dose: 40 mg Ondansetron HCl (Ondansetron Hcl 4 Mg/2 Ml Vial) 4 mg IVPUSH Q8H PRN PRN Reason: Nausea and Vomiting Sodium Chloride (0.9 % Sodium Chloride Flush 3 Ml Syringe) 3 ml IVFLUSH QSHIFT [facility] Last Admin: 08/30/22 15:20 Dose: Not Given Home Medications Medication Instructions Recorded Confirmed Last Taken Type ibuprofen 600 mg tablet 1 tab PO Q6H PRN pain 08/30/22 08/30/22 Unknown History lisinopril 40 mg tablet 1 tab PO DAILY 08/30/22 08/30/22 Unknown History metoprolol tartrate 50 mg tablet 1 tab PO BID 08/30/22 08/30/22 Unknown History Physical Exam Vital Signs: Vital Signs: Last Vital Signs Temp 98.1 F 08/30/22 19:30 Pulse 62 08/30/22 20:00 Resp 16 08/30/22 20:00 BP 133/73 08/30/22 20:00 Pulse Ox 98 08/30/22 20:00 O2 Del Method 08/30/22 20:00 O2 Flow Rate 2 08/30/22 20:00 BMI result Body Mass Index 32.2 Const: General: no acute distress and alert Nutritional Appearance: obese Orientation/consciousness: patient oriented x3 (answering appropriately.) HEENT: Head: Yes normocephalic and Yes atraumatic General nose exam: Normal external nose present (Nares patent, septum midline, sinuses nontender bilaterally.) Mouth: Normal oral and palatal mucosa present (No thrush, tongue in midline, mucosa moist.) Throat: Yes other (No erythema, no exudate.) Neck: Neck: Yes supple (no thyromegaly, trachea midline.) Carotids: normal carotid upstroke Resp: Effort & Inspection: normal respiratory effort Auscultation: clear to auscultation bilaterally (normal work of breathing, no accessory muscle use) Cardio: Jugular venous distension: no JVD Rate: bradycardic Rhythm: abnormal rhythm (Afib) irregularly irregular Heart sounds: no gallops, no murmurs and no rubs Peripheral pulses: Peripheral pulses 2+ throughout GI: Palpation (GI): Soft to palpation (nondistended.) and Tenderness to palpation present (GI) periumbilically; with no rebound tenderness Auscultation: normal bowel sounds Skin: General skin exam: no rashes or lesions noted Neuro: General: patient oriented x3 (answering appropriately.) Cognition (Neuro): normal cognition Extrem: General: Yes full ROM, Yes capillary refill normal and Yes no cl ubbing, cyanosis or edema Psych: Affect: normal affect Attitude: cooperative Results Labs CBC and Chem 7: 08/30/22 05:42 08/30/22 05:42 Labs: Laboratory Results - last 24 hr 08/29/22 08/29/22 08/30/22 23:00 23:23 05:42 MCV 81.1 MCH 26.7 L MCHC 32.9 RDW 12.7 Plt Count 258 D MPV 10.9 Immature Gran % (Auto) 0.1 Neut % (Auto) 55.2 Lymph % (Auto) 34.9 [place] % (Auto) 6.9 Eos % (Auto) 2.1 Baso % (Auto) 0.8 Lymph # (Auto) 2.5 [place] # (Auto) 0.5 Eos # (Auto) 0.2 Baso # (Auto) 0.1 Abs Immat Gran (auto) 0.01 Absolute Neuts (auto) 3.9 Absolute Nucleated RBC 0.000 Nucleated RBC % (auto) 0.0 PT INR APTT aPTT Heparin Protocol Anion Gap Estim Creat Clear Calc Estimated GFR POC Glucose Random Glucose Calcium Troponin I High Sens Urine Color Urine Appearance Urine pH Ur Specific [place] Urine Protein Urine Glucose (UA) Urine Ketones Urine Blood Urine Nitrite Ur Leukocyte Esterase Urine RBC Urine WBC Ur Squamous Epith Cells Calcium Oxalate Crystal Urine Bacteria Hyaline Casts Stl C. cayetanensis PCR Cancelled Stool Rotavirus A PCR Cancelled Stl Adenov F 40 PCR Cancelled Stool Astrovirus (PCR) Cancelled Stool Campylobacter PCR Cancelled Stool Cryptosporidium PCR Cancelled Stl Sh Tox Pr E STEC PCR Cancelled Stool E coli O157 PCR Cancelled Stl Enterotoxigenic E PCR Cancelled Stool EPEC (PCR) Cancelled Stool EAEC (PCR) Cancelled Stl E. histolytica PCR Cancelled Stool Giardia Lamblia PCR Cancelled Stl P. shigelloides PCR Cancelled Stool Salmonella PCR Cancelled Stool Sapovirus (PCR) Cancelled Stl Shigella/EIEC PCR Cancelled St Y.enterocolitica PCR Cancelled Stool Vibrio (PCR) Cancelled Stl Vibrio cholerae PCR Cancelled Stl Norovirus GI/GII PCR Cancelled C. difficile Tox B Gene NEGATIVE COVID-19 ([place]) COVID-19 Clin [facility] 08/30/22 08/30/22 08/30/22 05:42 06:24 08:37 MCV MCH MCHC RDW Plt Count MPV Immature Gran % (Auto) Neut % (Auto) Lymph % (Auto) [place] % (Auto) Eos % (Auto) Baso % (Auto) Lymph # (Auto) [place] # (Auto) Eos # (Auto) Baso # (Auto) Abs Immat Gran (auto) Absolute Neuts (auto) Absolute Nucleated RBC Nucleated RBC % (auto) PT INR APTT aPTT Heparin Protocol Anion Gap 10 L Estim Creat Clear Calc 74.1 Estimated GFR > 60 POC Glucose 116 H Random Glucose 97 Calcium 8.4 D Troponin I High Sens Urine Color Yellow Urine Appearance Cloudy Urine pH 5.0 Ur Specific [place] 1.020 Urine Protein Negative Urine Glucose (UA) Negative Urine Ketones Negative Urine Blood Negative Urine Nitrite Negative Ur Leukocyte Esterase Trace H Urine RBC 6-10 H Urine WBC 11-20 H Ur Squamous Epith Cells 6-10 Calcium Oxalate Crystal Present Urine Bacteria Trace Hyaline Casts >20 Stl C. cayetanensis PCR Stool Rotavirus A PCR Stl Adenov F PCR Stool Astrovirus (PCR) Stool Campylobacter PCR Stool Cryptosporidium PCR Stl Sh Tox Pr E STEC PCR Stool E coli O157 PCR Stl Enterotoxigenic E PCR Stool EPEC (PCR) Stool EAEC (PCR) Stl E. histolytica PCR Stool Giardia Lamblia PCR Stl P. shigelloides PCR Stool Salmonella PCR Stool Sapovirus (PCR) Stl Shigella/EIEC PCR St Y.enterocolitica PCR Stool Vibrio (PCR) Stl Vibrio cholerae PCR Stl Norovirus GI/GII PCR C. difficile Tox B Gene COVID-19 ([place]) COVID-19 Clin Com 08/30/22 08/30/22 08/30/22 16:52 17:53 18:05 MCV MCH MCHC RDW Plt Count MPV Immature Gran % (Auto) Neut % (Auto) Lymph % (Auto) [place] % (Auto) Eos % (Auto) Baso % (Auto) Lymph # (Auto) [place] # (Auto) Eos # (Auto) Baso # (Auto) Abs Immat Gran (auto) Absolute Neuts (auto) Absolute Nucleated RBC Nucleated RBC % (auto) PT 16.9 H INR 1.5 H APTT > 200.0 H* aPTT Heparin Protocol Cancelled Anion Gap Estim Creat Clear Calc Estimated GFR POC Glucose Random Glucose Calcium Troponin I High Sens 20.1 H Urine Color Urine Appearance Urine pH Ur Specific [place] Urine Protein Urine Glucose (UA) Urine Ketones Urine Blood Urine Nitrite Ur Leukocyte Esterase Urine RBC Urine WBC Ur Squamous Epith Cells Calcium Oxalate Crystal Urine Bacteria Hyaline Casts Stl C. cayetanensis PCR Stool Rotavirus A PCR Stl Adenov F PCR Stool Astrovirus (PCR) Stool Campylobacter PCR Stool Cryptosporidium PCR Stl Sh Tox Pr E STEC PCR Stool E coli O157 PCR Stl Enterotoxigenic E PCR Stool EPEC (PCR) Stool EAEC (PCR) Stl E. histolytica PCR Stool Giardia Lamblia PCR Stl P. shigelloides PCR Stool Salmonella PCR Stool Sapovirus (PCR) Stl Shigella/EIEC PCR St Y.enterocolitica PCR Stool Vibrio (PCR) Stl Vibrio cholerae PCR Stl Norovirus GI/GII PCR C. difficile Tox B Gene COVID-19 ([place]) Negative COVID-19 Clin Com See Note 08/30/22 19:02 MCV MCH MCHC RDW Plt Count MPV Immature Gran % (Auto) Neut % (Auto) Lymph % (Auto) [place] % (Auto) Eos % (Auto) Baso % (Auto) Lymph # (Auto) [place] # (Auto) Eos # (Auto) Baso # (Auto) Abs Immat Gran (auto) Absolute Neuts (auto) Absolute Nucleated RBC Nucleated RBC % (auto) PT INR APTT aPTT Heparin Protocol 157.8 H* Anion Gap Estim Creat Clear Calc Estimated GFR POC Glucose Random Glucose Calcium Troponin I High Sens Urine Color Urine Appearance Urine pH Ur Specific [place] Urine Protein Urine Glucose (UA) Urine Ketones Urine Blood Urine Nitrite Ur Leukocyte Esterase Urine RBC Urine WBC Ur Squamous Epith Cells Calcium Oxalate Crystal Urine Bacteria Hyaline Casts Stl C. cayetanensis PCR Stool Rotavirus A PCR Stl Adenov F 40/41 PCR Stool Astrovirus (PCR) Stool Campylobacter PCR Stool Cryptosporidium PCR Stl Sh Tox Pr E STEC PCR Stool E coli O157 PCR Stl Enterotoxigenic E PCR Stool EPEC (PCR) Stool EAEC (PCR) Stl E. histolytica PCR Stool Giardia Lamblia PCR Stl P. shigelloides PCR Stool Salmonella PCR Stool Sapovirus (PCR) Stl Shigella/EIEC PCR St Y.enterocolitica PCR Stool Vibrio (PCR) Stl Vibrio cholerae PCR Stl Norovirus GI/GII PCR C. difficile Tox B Gene COVID-19 ([place]) COVID-19 Clin Com Imaging Radiologist's Impressions: Impressions Abdomen/Pelvis CT 08/30/22 01:00 IMPRESSION: 1. Fluid distention of the distal small bowel and proximal colon suggesting diarrhea. 2. There is mild wall thickening and hyperemia of the terminal ileum with minimal surrounding fat stranding suggesting an active inflammatory process of the small bowel. 3. Small hiatal hernia with circumferential wall thickening of the lower esophagus which could be related with reflux esophagitis. 4. Sub-5 mm pulmonary nodules are nonspecific. Assuming patient has no history of malignancy, recommend follow-up per Fleischner Society recommendations. According to the UPDATED 2017 Fleischner Society recommendations, the advised followup imaging for solid nodules < 6 mm is: LOW RISK PATIENT: No routine follow up. HIGH RISK PATIENT: Optional CT at 12 months. Assessment and Plan (1) Crescendo angina: Status: Acute (2) Symptomatic bradycardia: Status: Acute (3) PAF (paroxysmal atrial fibrillation): Status: Acute (4) Sinus bradycardia: Status: Acute (5) Syncope: Status: Acute (6) Weakness: Status: Acute (7) Essential hypertension: Status: Acute (8) Inflammation of small intestine: Status: Acute (9) Abdominal pain: Qualifiers: Abdominal location: generalized Qualified Code(s): R10.84 - Generalized abdominal pain Status: Acute (10) Diarrhea: Qualifiers: Diarrhea type: infectious Qualified Code(s): A09 - Infectious gastroenteritis and colitis, unspecified Status: Acute (11) At risk for Clostridium difficile infection: Status: Acute Plan Plan Assessment: 72-year-old female? with known history of history of essential hypertension, left-sided CVA,? paroxysmal AFib, hypercholesterolemia and IBS admitted with diarrhea and symptomatic bradycardia. Neuro: No acute issues. Cardiac: AFib RVR:? patient s/p CVA w/ history of atrial fibrillation, not therapeutic on coumadin, has features of sick sinus syndrome with both symptomatic bradycardia when in sinus rhythm as well as paroxysmal atrial fibrillation with superimposed potential unstable or crescendo angina. Aspirin and heparin gtt for coronary protection. Recheck trop and BNP in AM. CXR. Consider cardiac catheterization vs Lexiscan nuclear stress. Continue Amlodipine. Pulmonary: No acute issues Renal: BUN 23 (baseline 16), probably due to dehydration. Cont IVF. Recheck in AM. Endo:? No acute issues.? GI: Worsening chronic diarrhea with abdominal pain. CT abdomen showed small bowel inflammation. C.diff negative. 2L normal saline in ED. Continue maintenance IVF. Recheck electrolytes in AM. Await input from GI. Heme/Onc: No acute issues. PLT normal. Cont to monitor coag studies while on anticoagulation. ID: At high risk of C diff infection given the recent antibiotic and the frequency of diarrhea patient has but c diff serology negative. Psych:? No acute issues. Miscellaneous: No acute issues. DVT Prophylaxis: intermittent pneumatic compression, heparin gtt. Diet: clear liquid Critical Care Time Critical Care Time (minutes): 60
[2022-08-30 21:27] LABS: PTT Heparin Drip 53.5 SEC (53-77.9)
[2022-08-30] MEDS: Heparin Sodium,Porcine/1/2NS 25,000 UNIT/250 ML IV.SOLN 13.3 UNIT IVCONT (21:40)
[2022-08-30] MEDS: 0.9 % Sodium Chloride 1,000 ML 100 ML IVCONT (22:24)
[2022-08-31] VITALS (14 sets, daily range): BP systolic 108–158; BP diastolic 39–89; PULSE 44–89; RESP 10–18; TEMP 36.6–37.2; O2SAT 92–100; BMI 32.2
--- NOTE | 2022-08-31 | CA_ITS ---
Acquisition Time: 2022-09-03 10:38:05 Total Exercise Time: 00:02:00 Test Indications: Post DE Medications: Protocol: LEXISCAN Max HR: 103 BPM 69% of Pred: 149 BPM Max BP: 140/068 mmHG Max Work Load: 1.0 METS Pharmacological stress test with Lexiscan injection, while sitting and moving left arm, without anginal symptoms, with isolated PVCs, with normotensive response to injection, with nondiagnostic EKG for ischemia. In recovery she reported nausea that was treated with Aminophylline 75 mg IVP to reverse Lexiscan with resolution of symptom. Nuclear images pending. Test reviewed with Dr Hubbard. Referred By: Bernard Hernandez Overread By: LYLA HILARIO
--- NOTE | 2022-08-31 | ECG_ITS ---
Test Reason : ischemia Blood Pressure : / mmHG Vent. Rate : 062 BPM Atrial Rate : 062 BPM P-R Int : 206 ms QRS Dur : 114 ms QT Int : 408 ms P-R-T Axes : 073 -32 142 degrees QTc Int : 414 ms Normal sinus rhythm Left axis deviation Left ventricular hypertrophy with repolarization abnormality ( R in aVL , Tee product ) Abnormal ECG When compared with ECG of 31-AUG-2022 08:39, No significant change was found Referred By: Bernard Hernandez Electronically Signed By:POLINA DELCID
--- NOTE | 2022-08-31 | ECG_ITS ---
Test Reason : ischemia Blood Pressure : / mmHG Vent. Rate : 058 BPM Atrial Rate : 058 BPM P-R Int : 212 ms QRS Dur : 112 ms QT Int : 406 ms P-R-T Axes : 068 -32 149 degrees QTc Int : 398 ms Sinus bradycardia with 1st degree A-V block Left axis deviation Incomplete right bundle branch block Left ventricular hypertrophy with repolarization abnormality ( R in aVL , [place] product ) Abnormal ECG When compared with ECG of 30-AUG-2022 08:38, Minimal criteria for Septal infarct are no longer Present Referred By: Bernard Hernandez Electronically Signed By:
[2022-08-31 02:22] LABS: PTT Heparin Drip 182.3 SEC (53-77.9)
[2022-08-31] MEDS: 0.9 % Sodium Chloride Flush 3 ML SYRINGE IVFLUSH ×3 (02:53→20:29)
--- NOTE | 2022-08-31 04:36 | PC.NURSE ---
PT ADMITTED TO ICU AT 1930 IN NO ACUTE DISTRESS. A&O X3, DENIES COMPLAINTS. STARTED ON HEPARIN DRIP AT 14 UNITS/HR AT 2130 AFTER PTT RESULTED AT 53.5. REPEAT PTT DONE AT [address] SUN (NOT PER HEPARIN PROTOCOL). HEPARIN SHUT OFF AY 0230 FOR PTT 182.3 AND HAS BEEN OFF EVER SINCE. HAVE DONE PTT'S Q1HR AND WILL RESTART DRIP ACCORDING TO PROTOCOL WHEN PTT LESS THAN 93. IV FLUIDS INFUSING AT 100 ML/HR. TAKING CLEAR LIQUIDS WELL. NO BM. VOIDING ON BEDPAN. PT ON HIGH FALL PRECAUTIONS. STATES SHE HAS RECENTLY FALLEN AT HOME. SHE USES A CANE AT HOME. PT IS UNKEMPT. STATES SHE'S NOT ABLE TO TAKE A SHOWER AT HOME BECAUSE SHE DOESN'T HAVE A SHOWER CHAIR OR GRAB BARS IN THE SHOWER. SHE DOES NOT DRIVE AND GETS MEALS ON WHEELS AT HOME. SHE ALSO STATES SHE GETS VNA TWICE A WEEK. SHE LIVES IN A TRAILER PARK IN [place] AND REPORTS THERE ARE RATS LIVING IN HER TRAILER.
[2022-08-31 04:54] LABS: MANUAL DIFF FLAG NO
[2022-08-31 05:02] LABS: INTERNATIONAL NORM RATIO 1.4 (0.9-1.1); Prothrombin Time 16.4 SEC (10.0-13.1)
[2022-08-31 05:03] LABS: Basophils Absolute Auto 0.1 X10*3/uL (0.0-0.2); Basophils Percent Auto 0.8 % (0-2); Eosinophils Absolute Auto 0.2 X10*3/uL (0.0-0.4); Hematocrit 35.2 % (37.0-47.0); Hemoglobin 11.7 g/dl (12.0-16.0); Imm Gran Abs Auto 0.01 X10*3/uL (0.00-0.03); Imm Gran Pct Auto 0.1 % (0.0-0.4); Lymphocytes Absolute Auto 2.9 X10*3/uL (1.2-4.9); Lymphocytes Percent Auto 39.4 % (20-40); Mean Corpuscular HGB Conc 33.2 g/dl (31.0-35.0); Mean Corpuscular Hemoglobin 27.3 pg (27.0-33.0); Mean Corpuscular Volume 82.1 fL (80.0-98.0); Mean Platelet Volume 10.6 fL (9.4-12.3); Monocytes Absolute Auto 0.4 X10*3/uL (0.1-1.2); Monocytes Percent Auto 5.6 % (2-11); Neutrophils Absolute Auto 3.9 x10*3/uL (2.0-8.3); Neutrophils Percent Auto 52.1 % (45-73); Platelet Count 237 X10*3/uL (160-400); Red Blood Count 4.29 X10*6/uL (4.20-5.50); Red Cell Distribution Width 12.5 % (11.0-16.0); White Blood Count 7.4 X10*3/uL (4.8-10.8)
[2022-08-31 05:05] LABS: PTT Heparin Drip 61.3 SEC (53-77.9)
[2022-08-31 05:12] LABS: Anion Gap 9 (12-20); Blood Urea Nitrogen 14 mg/dL (9-16); Calcium 8.2 mg/dL (8.4-10.2); Carbon Dioxide 26 mmol/L (22-29); Chloride 110 mmol/L (96-108); Creatinine Clr Calc Pharmacy 87.6; Estimated Glomerular Filt Rate > 60; Glucose Random 92 mg/dL (60-115); Phosphorus 3.2 mg/dL (2.7-4.5); Potassium 4.2 mmol/L (3.3-5.1); Sodium 141 mmol/L (135-145)
[2022-08-31 05:15] LABS: B Type Natriuretic Peptide 244 pg/mL (<100)
[2022-08-31 05:19] LABS: Troponin-I High Sensitivity 70.2 ng/L (<3.5-17.0)
--- NOTE | 2022-08-31 07:00 | CA_ITS ---
Transthoracic Echocardiogram Limited Patient (Last, First, Middle): Jazmyn Chi, Gender: Female Date of : 1950 Age: 72 Procedure Date: 08/31/2022 Procedure Type: Transthoracic Echocardiogram Limited Location: ICU Height: 177.8 cm Weight: 94.8 kg BSA: 2.13 m2 Heart Rate: bpm BP: 158 / 68 mmHg Pharmacy Benefit Manager: Referring MD: Andreas Moe MD Symptoms: bradycardia Study Quality: Good ECG Rhythm: Sinus Conclusions: - The left ventricular systolic function is normal. The visually estimated ejection fraction is between 65-70%. - There is no evidence of regional wall motion abnormalities. Findings Left Ventricle Normal left ventricular cavity size. There is moderately increased left ventricular wall thickness. The left ventricular systolic function is normal. The visually estimated ejection fraction is between 65-70%. There is no evidence of regional wall motion abnormalities. Right Ventricle Normal right ventricular cavity size and systolic function. Prior Study Comparison No significant change compared to prior study dated: 07/30/2022. Measurements 2D Linear Measurements IVSd: 1.34 0.6-0.9/0.6-1.0 cm LVIDd: 4.03 3.9-5.3/4.2-5.9 cm LVIDd Index: 1.89 2.4-3.2/2.2-3.1 cm/m2 LVIDs: 2.72 2.0-3.6 cm LVPWd: 1.35 0.7-1.1 cm LV Mass: 247.53 67-162/88-224 g LV Mass Index: 116.21 43-95/49-115 g/m2 2D Systolic Function EF 4C: 59.70 >55% EF 2C: 58.80 >55% EF BiP: 59.80 >55% Mitral Valve MV Pk E: 0.87 MV PK A: 0.81 MV Decel Time: 225.00 E/A: 1.10 E'Lateral: 6.09 E'Medial: 4.90 E/E' Med: 17.70 E/E' Lat: 14.20 PHT: 66.00 MVA PHT: 3.33 Decel [place]: 3.84 Diastolic Function MV Pk E: 0.87 MV Pk A: 0.81 E/A: 1.10 E'Medial: 4.90 E/E' Med: 17.70 E' Laterial: 6.09 E/E' Lat: 14.20 Right Ventricle TAPSE (mm): 30.00 TVS' Randy: 13.00 Updated in Other Vendor System with Status of Final Andreas Moe MD electronically signed on 08/31/2022 12:00:26 PM with status of Final
[2022-08-31] MEDS: 0.9 % Sodium Chloride 1,000 ML 100 ML IVCONT (09:05)
[2022-08-31] MEDS: amLODIPine Besylate 10 MG TABLET PO (09:06)
[2022-08-31] MEDS: Omeprazole 40 MG CAPSULE.DR PO ×2 (09:06→16:42)
--- NOTE | 2022-08-31 09:31 | PM.CCPN ---
Subjective Subjective Date of Service: 08/31/22 Interval History: A 72-year-old female nonsmoker and nondiabetic with moderate obesity presenting with paroxysmal atrial fibrillation but symptomatic sinus bradycardia evidence of diffuse conduction disease but clearly symptomatic when in sinus and along with which she has had not only exertional fatigability which has been increasing of late but she has a sense of chest pressure and shortness of breath forcing her to stop what she is doing and then sitting down in order to let the symptoms prashanth and between the and the of this month on presenting here she developed some ST-elevation in the anterior precordial leads which then evolved with co associated T-wave inversion and although the numbers of very small and she did have a small bump in her troponin so there is a question along with symptoms and especially since the complaints sounds classic that at this could represent underlying ischemic heart disease of a crescendo nature so at this point because the numbers are relatively small and decision about permanent pacing has to be made my feel that at the very least we should screen her this morning with Lexiscan nuclear stress testing although I still pro far going directly to cardiac catheterization at least review ruling out a contribution from significant coronary disease because of coronary disease seems to be primary I probably would treat that 1st before pursuing the permanent pacemaker Critical Care Time (minutes): 30 Physical Exam Vital Signs: Vital Signs: Last Vital Signs Temp 98 F 08/31/22 01:55 Pulse 54 08/31/22 05:57 Resp 18 08/31/22 05:57 BP 140/52 H 08/31/22 05:57 Pulse Ox 100 08/31/22 05:57 O2 Del Method 08/31/22 05:57 O2 Flow Rate 2 08/31/22 05:57 BMI result Body Mass Index 32.2 She is in sinus rhythm now with a resting rate of 60 to but overnight she did to 37 without specific symptom oxygen saturation is 95% with a pressure 140/50 Awake alert and nonfocal neurologically My bedside echo shows normal cardiac anatomy Lungs are clear to exam and chest x-ray Abdomen is soft with no organomegaly Objective Data Labs CBC & Chem 7: 08/31/22 04:39 08/31/22 04:39 Labs: Laboratory Results - last 24 hr 08/30/22 08/30/22 08/30/22 16:52 17:53 18:05 WBC RBC Hgb Hct MCV MCH MCHC RDW Plt Count MPV Immature Gran % (Auto) Neut % (Auto) Lymph % (Auto) [place] % (Auto) Eos % (Auto) Baso % (Auto) Lymph # (Auto) [place] # (Auto) Eos # (Auto) Baso # (Auto) Abs Immat Gran (auto) Absolute Neuts (auto) Absolute Nucleated RBC Nucleated RBC % (auto) PT 16.9 H INR 1.5 H APTT > 200.0 H* aPTT Heparin Protocol Cancelled Sodium Potassium Chloride Carbon Dioxide Anion Gap BUN Creatinine Estim Creat Clear Calc Estimated GFR Random Glucose Calcium Phosphorus Troponin I High Sens 20.1 H B-Natriuretic Peptide COVID-19 ([place]) Negative COVID-19 Clin Com See Note 08/30/22 08/30/22 08/31/22 19:02 20:59 01:41 WBC RBC Hgb Hct MCV MCH MCHC RDW Plt Count MPV Immature Gran % (Auto) Neut % (Auto) Lymph % (Auto) [place] % (Auto) Eos % (Auto) Baso % (Auto) Lymph # (Auto) [place] # (Auto) Eos # (Auto) Baso # (Auto) Abs Immat Gran (auto) Absolute Neuts (auto) Absolute Nucleated RBC Nucleated RBC % (auto) PT INR APTT aPTT Heparin Protocol 157.8 H* 53.5 D 182.3 H* D Sodium Potassium Chloride Carbon Dioxide Anion Gap BUN Creatinine Estim Creat Clear Calc Estimated GFR Random Glucose Calcium Phosphorus Troponin I High Sens B-Natriuretic Peptide COVID-19 ([place]) COVID-19 [place] 08/31/22 08/31/22 08/31/22 03:36 04:39 04:39 WBC 7.4 RBC 4.29 Hgb 11.7 L Hct 35.2 L MCV 82.1 MCH 27.3 MCHC 33.2 RDW 12.5 Plt Count 237 MPV 10.6 Immature Gran % (Auto) 0.1 Neut % (Auto) 52.1 Lymph % (Auto) 39.4 [place] % (Auto) 5.6 Eos % (Auto) 2.0 Baso % (Auto) 0.8 Lymph # (Auto) 2.9 [place] # (Auto) 0.4 Eos # (Auto) 0.2 Baso # (Auto) 0.1 Abs Immat Gran (auto) 0.01 Absolute Neuts (auto) 3.9 Absolute Nucleated RBC 0.000 Nucleated RBC % (auto) 0.0 PT 16.4 H INR 1.4 H APTT aPTT Heparin Protocol 105.0 H D 61.3 D Sodium Potassium Chloride Carbon Dioxide Anion Gap BUN Creatinine Estim Creat Clear Calc Estimated GFR Random Glucose Calcium Phosphorus Troponin I High Sens B-Natriuretic Peptide COVID-19 ([place]) COVID-19 Clin Com 08/31/22 08/31/22 08/31/22 04:39 04:39 04:39 WBC RBC Hgb Hct MCV MCH MCHC RDW Plt Count MPV Immature Gran % (Auto) Neut % (Auto) Lymph % (Auto) [place] % (Auto) Eos % (Auto) Baso % (Auto) Lymph # (Auto) [place] # (Auto) Eos # (Auto) Baso # (Auto) Abs Immat Gran (auto) Absolute Neuts (auto) Absolute Nucleated RBC Nucleated RBC % (auto) PT INR APTT aPTT Heparin Protocol Sodium 141 Potassium 4.2 Chloride 110 H Carbon Dioxide 26 Anion Gap 9 L BUN 14 Creatinine 0.76 Estim Creat Clear Calc 87.6 Estimated GFR > 60 Random Glucose 92 Calcium 8.2 L Phosphorus 3.2 Troponin I High Sens 70.2 H* B-Natriuretic Peptide 244 H COVID-19 ([place]) COVID-19 Clin Com Microbiology Microbiology Results: Microbiology 08/29/22 16:51 Blood - Venous Blood Culture - Preliminary No growth after 24 hours. 08/29/22 16:51 Blood - Venous Blood Culture - Preliminary Prelim: GPC Gram Stain only Progress Note: A&P Assessment and plan (1) Essential hypertension: Status: Acute (2) Crescendo angina: Status: Acute (3) Symptomatic bradycardia: Status: Acute (4) PAF (paroxysmal atrial fibrillation): Status: Acute (5) Syncope: Status: Acute (6) Abdominal pain: Status: Acute (7) Diarrhea: Status: Acute (8) Weakness: Status: Acute (9) Generalized anxiety disorder: Status: Acute (10) Major depression, single episode: Status: Acute (11) Hyperlipidemia: Status: Acute (12) Left-sided cerebrovascular accident (CVA): Status: Acute (13) Obesity (BMI 30-39.9): Status: Acute Plan So we are in the process of ruling out underlying ischemic heart disease which could be precipitating recent symptomatology but I do believe of course that there is and a sick sinus syndrome here manifested by paroxysmal atrial fibrillation as well as symptomatic bradycardia but sinus bradycardia and following atrial premature she has manifested increased 1st degree AV block as well so conduction disease is diffuse Continue with aspirin and heparin Quality Stroke Does the patient have a stroke diagnosis?: No VTE Prior VTE?: No VTE Risk Level:: Medical - moderate - high VTE Device Contraindication: Treatment Not Tolerated VTE Drug Contraindication: N/A - Med Ordered
[2022-08-31] MEDS: Aspirin 81 MG TAB.CHEW PO (12:44)
[2022-08-31 12:45] LABS: PTT Heparin Drip 94.7 SEC (53-77.9)
[2022-08-31 13:38] LABS: Troponin-I High Sensitivity 58.2 ng/L (<3.5-17.0)
--- NOTE | 2022-08-31 13:49 | MHC.CM.PN ---
CM met with Patient at bedside and addressed IMM with her, providing her with the original and a copy has been placed on the chart. [place] and she uses both a cane and a walker to assist with mobility. Patient is active with [facility] for PT and [facility] 2X/week; home/resume said services is the goal and CM has initiated and will follow for dc planning. PCP is Dr. Guzmán and Patient has received J&J/Covid vax.
--- NOTE | 2022-08-31 15:55 | PC.NURSE ---
Addendum entered by Juice Michaels RN 08/31/22 16:11: Heparin gtt had been running at 10 U/Kg/hour, recheck for 1130 was delayed during being off unit at [facility] med, recheck at 12:00 resulted by 13:00 and was 94.7, so Heparin gtt was held for 1 hour, and patient was sent to [facility] with report given and plan to restart gtt at 7 units /kg/hour after holding for 1 hour and recheck of PTT hd at 19:00 Original Note: Assumed care at 07:00 Patient alert, oriented, responds appropriately. Patient denies chest pain. Ok to get OOB , was assisted OOB to commode and to chair with 1 minimal assist. Patient diet advanced to regular diet with no caffeine due to nuc med stress test pending, was taken for first part of the stress test today. Was in sinus rhythm with 1st degree AV block today. Loose stool brown colored x1 today, discussed question of further GI workup with MD, and this was not considered necessary due to diarrhea being more of a chronic issue per MD. Patient says she ambulates with a cane at home. Transferred to [facility] this afternoon.
[2022-08-31] MEDS: Acetaminophen 325 MG TABLET 650 MG PO (18:21)
[2022-08-31 19:40] LABS: PTT Heparin Drip 72.3 SEC (53-77.9)
[2022-08-31] MEDS: Nystatin Powder 15 GM BOTTLE 1 APPL TOPICAL (20:29)
[2022-08-31] MEDS: Morphine Sulfate 4 MG/ML CARTRIDGE IVPUSH (20:46)
[2022-08-31] MEDS: Heparin Sodium,Porcine/1/2NS 25,000 UNIT/250 ML IV.SOLN 6.65 UNIT IVCONT (20:52)
[2022-09-01 02:40] LABS: PTT Heparin Drip 108.7 SEC (53-77.9)
[2022-09-01 02:51] LABS: Anion Gap 13 (12-20); Blood Urea Nitrogen 10 mg/dL (9-16); Calcium 8.8 mg/dL (8.4-10.2); Carbon Dioxide 24 mmol/L (22-29); Chloride 107 mmol/L (96-108); Creatinine Clr Calc Pharmacy 87.7; Estimated Glomerular Filt Rate > 60; Glucose Random 115 mg/dL (60-115); Magnesium 1.6 mg/dL (1.6-2.6); Potassium 3.9 mmol/L (3.3-5.1); Sodium 140 mmol/L (135-145)
[2022-09-01 03:09] VITALS: BP 156/68; PULSE 61; RESP 18; TEMP 36.8; O2SAT 96
[2022-09-01 04:08] LABS: INTERNATIONAL NORM RATIO 1.2 (0.9-1.1); Prothrombin Time 14.3 SEC (10.0-13.1)
[2022-09-01 04:10] LABS: PTT Heparin Drip 80.8 SEC (53-77.9)
[2022-09-01 06:00] VITALS: BMI 31.1
--- NOTE | 2022-09-01 06:01 | PC.NURSE ---
Pt's Ptt came back critical at 108.7. Per protocol her heparin was held for an hour and the ptt was redrawn. Dr. Brown was notified.
[2022-09-01] MEDS: Omeprazole 40 MG CAPSULE.DR PO ×2 (06:54→15:10)
[2022-09-01 08:00] VITALS: BP 160/71; PULSE 66; RESP 22; TEMP 36.3; O2SAT 98
[2022-09-01] MEDS: amLODIPine Besylate 10 MG TABLET PO (08:16)
[2022-09-01] MEDS: Aspirin 81 MG TAB.CHEW PO (08:16)
[2022-09-01] MEDS: 0.9 % Sodium Chloride Flush 3 ML SYRINGE IVFLUSH ×3 (08:16→20:01)
[2022-09-01] MEDS: Nystatin Powder 15 GM BOTTLE 1 APPL TOPICAL ×2 (08:16→20:01)
[2022-09-01 10:31] LABS: PTT Heparin Drip 48.8 SEC (53-77.9)
[2022-09-01] MEDS: Heparin Sodium,Porcine 5,000 UNIT/ML VIAL 7600 UNIT IVPUSH (11:24)
--- NOTE | 2022-09-01 11:36 | P.PNCA_ITS ---
Subjective Subjective Date of Service: 09/01/22 Interval history: She states that she feels fine. No cardiac symptoms at all. Review of Systems Review of Systems Yes all other systems are reviewed and are negative Constitutional: Reports as per HPI Eyes: Reports as per HPI Reports as per HPI Cardiovascular: Reports as per HPI, Denies acrocyanosis, Denies cool extremities, Denies chest pain, Denies leg edema, Denies lightheadedness, Denies palpitations and Denies dyspnea Respiratory: Reports as per HPI, Reports no additional respiratory complaints and Denies dyspnea Gastrointestinal: Reports as per HPI and Reports no additional gastrointestinal complaints Genitourinary: Reports as per HPI Musculoskeletal: Reports no additional musculoskeletal complaints and Reports as per HPI Skin/Breast: Reports system reviewed and no additional complaints, except as docu Reports system reviewed and no additional complaints, except as documented and Reports as per HPI Psychiatric: Reports no additional psychiatric complaints and Reports as per HPI Endocrine: Reports no additional endocrine complaints, Reports as per HPI and Denies palpitations Hematologic/Lymphatic: Reports no additional hematologic/lymphatic complaints and Reports as per HPI Allergic/Immunologic: Reports no additional allergic/immunologic complaints and Reports as per HPI Physical Exam Vital Signs: Last Vital Signs Temp 97.4 F 09/01/22 08:00 Pulse 66 09/01/22 08:00 Resp 22 H 09/01/22 08:00 BP 160/71 H 09/01/22 08:00 Pulse Ox 98 09/01/22 08:00 O2 Del Method 09/01/22 08:00 O2 Flow Rate 2 08/31/22 05:57 BMI result Body Mass Index 31.1 Const General: comfortable and no acute distress Orientation/consciousness: patient oriented x3 HEENT Other: Unremarkable Head: Yes normal to inspection Neck Neck: Yes normal visual inspection Chest Chest palpation & inspection: normal inspection of the chest Resp Auscultation: clear to auscultation bilaterally Cardio Palpation: normal PMI Heart sounds: S1 normal heart sound present, S2 normal heart sound present, no gallops, no murmurs and no rubs GI Palpation (GI): Soft to palpation Back/Spine/Pelvis Other: unremarkable Skin General skin exam: no rashes or lesions noted Neuro General: patient oriented x3 Extrem General: Yes normal to inspection Psych Mental Status: mental status grossly normal Objective Labs and Meds Result diagrams: 08/31/22 04:39 09/01/22 01:46 Lab results: Laboratory Results - last 24 hr 08/31/22 08/31/22 08/31/22 12:01 12:41 19:10 PT INR aPTT Heparin Protocol 94.7 H D 72.3 D Sodium Potassium Chloride Carbon Dioxide Anion Gap BUN Creatinine Estim Creat Clear Calc Estimated GFR Random Glucose Calcium Magnesium Troponin I High Sens 58.2 H* D 09/01/22 09/01/22 09/01/22 01:46 01:46 03:51 PT 14.3 H INR 1.2 H aPTT Heparin Protocol 108.7 H* D Sodium 140 Potassium 3.9 Chloride 107 Carbon Dioxide 24 Anion Gap 13 BUN 10 Creatinine 0.76 Estim Creat Clear Calc 87.7 Estimated GFR > 60 Random Glucose 115 Calcium 8.8 D Magnesium 1.6 Troponin I High Sens 09/01/22 09/01/22 03:51 09:58 PT INR aPTT Heparin Protocol 80.8 H D 48.8 L D Sodium Potassium Chloride Carbon Dioxide Anion Gap BUN Creatinine Estim Creat Clear Calc Estimated GFR Random Glucose Calcium Magnesium Troponin I High Sens Imaging Radiologist's impression: Impressions Chest X-Ray 08/31/22 05:05 IMPRESSION: No acute disease. Progress Note: A&P Assessment and plan (1) PAF (paroxysmal atrial fibrillation): Status: Acute (2) Sinus bradycardia: Status: Acute (3) Syncope: Status: Acute (4) Essential hypertension: Status: Acute Plan She did have sinus bradycardia when she arrived that was thought to be vasovagal. That has not recurred at this time. She was on metoprolol and that has been stopped. In telemetry, she is back in atrial fibrillation but it is well controlled rate. Hence would hold off on beta-blockers completely. She has no symptoms from this. Also, was recently put on Multaq but she has not been taking it and hence did not restart. With regard to anticoagulation, went over this again, and she is agreeable to try Eliquis. She has been very noncompliant in the past and we did discuss about this in great length. With regard to the question of chest pain that was brought up by the residential real estate sales manager, I spent several minutes enquiring and she has absolutely no chest pain whatsoever. He had apparently had some sharp pains that are transient l asting only seconds that do not sound like angina to me. In any case, she already did 1 part of the stress test on Saturday and hence the 2nd part can be completed on Saturday. Echocardiogram without any clear-cut wall motion abnormalities. Finally with regard to hypertension, remains high and she has had uncontrolled blood pressures leading to intracranial bleed in the past. Currently on amlodipine 10 mg daily. She was on lisinopril 40 mg last time. Can resume that. Discussed with Dr. Finley. Time Spent With Patient Time: Total time managing care of this patient today 35 minutes. Progress Note: Quality Stroke Does the patient have a stroke diagnosis?: No Procedures Date of Service Date of Service: 09/01/22
[2022-09-01] MEDS: lisinopriL 40 MG TABLET PO (12:09)
[2022-09-01] MEDS: Morphine Sulfate 4 MG/ML CARTRIDGE IVPUSH ×2 (12:09→20:01)
[2022-09-01 13:06] VITALS: BP 136/65; PULSE 79; RESP 20; TEMP 36.7; O2SAT 96
--- NOTE | 2022-09-01 13:22 | HO.PM.IMPN ---
Subjective Subjective Date of Service: 09/01/22 Interval History: 72-year-old admitted with hypertension urgency and NSTEMI. Troponin peak 70.2 no acute issues overnight Review of Systems Denies chest pain Denies shortness of breath Denies nausea vomiting diarrhea Denies fever chills Physical Exam Vital Signs: Vital Signs: Last Vital Signs Temp 98.1 F 09/01/22 13:06 Pulse 79 09/01/22 13:06 Resp 20 09/01/22 13:06 BP 136/65 09/01/22 13:06 Pulse Ox 96 09/01/22 13:06 O2 Del Method 09/01/22 13:06 O2 Flow Rate 2 08/31/22 05:57 BMI result Body Mass Index 31.1 Const: Other: Awake alert no acute distress Resp: Other: Clear to auscultation bilaterally no rales rhonchi or wheezes Cardio: Other: No S4; positive S1-S2; Extrem: Other: No edema bilaterally Objective Data Active Medications Acetaminophen (Acetaminophen 325 Mg Tablet) 650 mg PO Q6H PRN PRN Reason: Pain, Mild (Pain Scale 1-3) Last Admin: 08/31/22 18:21 Dose: 650 mg Documented By: CAROL Amlodipine Besylate (Amlodipine Besylate 10 Mg Tablet) 10 mg PO DAILY [facility]; Protocol Last Admin: 09/01/22 08:16 Dose: 10 mg Documented By: CAROL Aspirin (Aspirin 81 Mg Tab.Chew) 81 mg PO DAILY [facility] Last Admin: 09/01/22 08:16 Dose: 81 mg Documented By: CAROL Atropine Sulfate (Atropine Sulfate 1 Mg/10 Ml Syringe) 1 mg IVPUSH Q2H PRN PRN Reason: bradycardia Heparin Sodium (Porcine) (Heparin Sodium,Porcine 5,000 Unit/Ml Vial) 3,800 unit 40 unit/kg (3800 unit) IVPUSH PROTOCOL BOLUS PRN; Protocol PRN Reason: 40 unit/kg - Heparin Protocol Heparin Sodium (Porcine) (Heparin Sodium,Porcine 5,000 Unit/Ml Vial) 7,600 unit 80 unit/kg (7600 unit) IVPUSH PROTOCOL BOLUS PRN; Protocol PRN Reason: 80 unit/kg - Heparin Protocol Last Admin: 09/01/22 11:24 Dose: 7,600 unit Documented By: CAROL Heparin Sodium/Sodium Chloride (Heparin Sodium,Porcine/1/2ns) 25,000 unit in 250 mls @ 0 mls/hr IVCONT .Q0M [facility]; Protocol Last Titration: 09/01/22 11:20 Dose: 7 units/kg/hr, 6.65 mls/hr Documented By: CAROL Co-signed By: DANIELA Lisinopril (Lisinopril 40 Mg Tablet) 40 mg PO DAILY [facility]; Protocol Last Admin: 09/01/22 12:09 Dose: 40 mg Documented By: CAROL Morphine Sulfate (Morphine Sulfate 4 Mg/Ml Cartridge) 4 mg IVPUSH Q6H PRN; Protocol PRN Reason: Pain, Severe (Pain Scale 7-10) Last Admin: 09/01/22 12:09 Dose: 4 mg Documented By: CAROL Nystatin (Nystatin Powder 15 Gm Bottle) 1 appl TOPICAL BID [facility]; Protocol Last Admin: 09/01/22 08:16 Dose: 1 appl Documented By: CAROL Omeprazole (Omeprazole 40 Mg Capsule.Dr) 40 mg PO BID@0630,1630 [facility] Last Admin: 09/01/22 06:54 Dose: 40 mg Documented By: FIORDALIZA Sodium Chloride (0.9 % Sodium Chloride Flush 3 Ml Syringe) 3 ml IVFLUSH QSHIFT [facility] Last Admin: 09/01/22 08:16 Dose: 3 ml Documented By: CAROL Labs CBC & Chem 7: 08/31/22 04:39 09/01/22 01:46 Labs: Laboratory Results - last 24 hr 08/31/22 08/31/22 09/01/22 12:41 19:10 01:46 PT INR aPTT Heparin Protocol 72.3 D 108.7 H* D Anion Gap Estim Creat Clear Calc Estimated GFR Random Glucose Calcium Magnesium Troponin I High Sens 58.2 H* D 09/01/22 09/01/22 09/01/22 01:46 03:51 03:51 PT 14.3 H INR 1.2 H aPTT Heparin Protocol 80.8 H D Anion Gap 13 Estim Creat Clear Calc 87.7 Estimated GFR > 60 Random Glucose 115 Calcium 8.8 D Magnesium 1.6 Troponin I High Sens 09/01/22 09:58 PT INR aPTT Heparin Protocol 48.8 L D Anion Gap Estim Creat Clear Calc Estimated GFR Random Glucose Calcium Magnesium Troponin I High Sens Microbiology Microbiology Results: Microbiology 08/29/22 16:51 Blood Culture - Preliminary Blood - Venous No growth after 48 hours. 08/30/22 Unknown Urine Culture - Final Urine clean catch - Urine hicks top 08/29/22 16:51 Blood Culture - Final Blood - Venous Coag negative Staphylococcus Assessment and Plan (1) NSTEMI (non-ST elevated myocardial infarction): Status: Acute (2) Essential hypertension: Status: Acute (3) PAF (paroxysmal atrial fibrillation): Status: Acute Plan 72-year-old female who was recently discharged from the hospital after being treated with IV antibiotics for UTI presents to the hospital with complaints of abdominal pain and diarrhea; C diff negative. Evolved NSTEMI 1.NSTEMI -troponin peak at 70 -continue heparin drip for a total of 48 hours -complete myocardial perfusion scan 09/03/2022 2.Abdominal pain/diarrhea -GI panel negative -conservatives at this time - follow renals/divalents 3.Paroxysmal AFib - NSR on monitor -restart Eliquis -continue BBl 4.Hypertension -acceptable control on current therapies -adjust as indicated DVT prophylaxis: Eliquis Full code Will require ongoing hospitalization to complain heparin drip protocol and complete marked cardio perfusion scan Time Spent With Patient Time: Total time managing care of this patient today ____ minutes. Quality Stroke Does the patient have a stroke diagnosis?: No VTE Prior VTE?: No VTE Risk Level:: Medical - moderate - high VTE Device Contraindication: Treatment Not Tolerated VTE Drug Contraindication: N/A - Med Ordered
[2022-09-01 15:26] VITALS: BP 130/61; PULSE 61; RESP 18; TEMP 37.1; O2SAT 97
[2022-09-01 17:15] LABS: PTT Heparin Drip > 200.0 SEC (53-77.9)
[2022-09-01 19:32] LABS: PTT Heparin Drip 79.4 SEC (53-77.9)
[2022-09-01 19:33] VITALS: BP 158/77; PULSE 62; RESP 18; TEMP 37; O2SAT 98
[2022-09-01] MEDS: Heparin Sodium,Porcine/1/2NS 25,000 UNIT/250 ML IV.SOLN 4.75 UNIT IVCONT (19:57)
[2022-09-02] VITALS: BP 145/78; PULSE 59; RESP 18; TEMP 37; O2SAT 97
[2022-09-02 02:28] LABS: PTT Heparin Drip 52.9 SEC (53-77.9)
[2022-09-02] MEDS: Heparin Sodium,Porcine 5,000 UNIT/ML VIAL 3800 UNIT IVPUSH (02:50)
[2022-09-02 02:57] VITALS: BP 155/70; PULSE 58; RESP 18; TEMP 36.9; O2SAT 96
[2022-09-02] MEDS: Omeprazole 40 MG CAPSULE.DR PO ×2 (06:37→15:39)
[2022-09-02 07:55] VITALS: BP 150/80; PULSE 61; RESP 16; TEMP 36.7; O2SAT 98
[2022-09-02] MEDS: amLODIPine Besylate 10 MG TABLET PO (08:54)
[2022-09-02] MEDS: Apixaban 5 MG TABLET PO ×2 (08:54→21:44)
[2022-09-02] MEDS: lisinopriL 40 MG TABLET PO (08:54)
[2022-09-02] MEDS: Aspirin 81 MG TAB.CHEW PO (08:55)
[2022-09-02] MEDS: Morphine Sulfate 4 MG/ML CARTRIDGE IVPUSH ×2 (08:56→19:28)
[2022-09-02] MEDS: Nystatin Powder 15 GM BOTTLE 1 APPL TOPICAL ×2 (09:50→21:45)
[2022-09-02] MEDS: ondansetron HCL 4 MG/2 ML VIAL IVPUSH ×2 (10:36→19:28)
[2022-09-02 11:13] LABS: MANUAL DIFF FLAG NO
[2022-09-02 11:18] LABS: Basophils Absolute Auto 0.1 X10*3/uL (0.0-0.2); Basophils Percent Auto 0.7 % (0-2); Eosinophils Absolute Auto 0.3 X10*3/uL (0.0-0.4); Eosinophils Percent Auto 3.2 % (0-4); Hematocrit 40.9 % (37.0-47.0); Hemoglobin 13.9 g/dl (12.0-16.0); Imm Gran Abs Auto 0.02 X10*3/uL (0.00-0.03); Imm Gran Pct Auto 0.2 % (0.0-0.4); Lymphocytes Absolute Auto 2.5 X10*3/uL (1.2-4.9); Lymphocytes Percent Auto 26.6 % (20-40); Mean Corpuscular Hemoglobin 27.6 pg (27.0-33.0); Mean Corpuscular Volume 81.2 fL (80.0-98.0); Mean Platelet Volume 11.5 fL (9.4-12.3); Monocytes Absolute Auto 0.6 X10*3/uL (0.1-1.2); Monocytes Percent Auto 6.3 % (2-11); Neutrophils Absolute Auto 5.9 x10*3/uL (2.0-8.3); Platelet Count 286 X10*3/uL (160-400); Red Blood Count 5.04 X10*6/uL (4.20-5.50); Red Cell Distribution Width 12.5 % (11.0-16.0); White Blood Count 9.4 X10*3/uL (4.8-10.8)
[2022-09-02 11:29] LABS: PTT Heparin Drip 60.8 SEC (53-77.9)
[2022-09-02 11:37] VITALS: BP 135/73; PULSE 72; RESP 20; TEMP 36.8; O2SAT 95
[2022-09-02 11:37] LABS: Alanine Aminotransferase 23 U/L (0-31); Albumin Level 4.2 g/dL (3.5-5.0); Alkaline Phosphatase 51 U/L (39-117); Anion Gap 15 (12-20); Aspartate Amino Transferase 20 U/L (5-31); Bilirubin Total 1.1 mg/dL (0.0-1.0); Blood Urea Nitrogen 12 mg/dL (9-16); Calcium 9.5 mg/dL (8.4-10.2); Carbon Dioxide 25 mmol/L (22-29); Chloride 105 mmol/L (96-108); Creatinine Clr Calc Pharmacy 87.3; Estimated Glomerular Filt Rate > 60; Glucose Fasting 94 mg/dL (60-99); Potassium 3.9 mmol/L (3.3-5.1); Sodium 141 mmol/L (135-145)
--- NOTE | 2022-09-02 11:52 | P.PNIM_ITS ---
Subjective Subjective Date of Service: 09/02/22 Interval History: Admitted with a non ST elevation [place]. Off heparin drip in on Eliquis. To complete myocardial perfusion scan in Review of Systems Denies chest pain Denies shortness of breath Denies nausea vomiting diarrhea Denies fever chills Physical Exam Vital Signs: Vital Signs: Last Vital Signs Temp 98.3 F 09/02/22 11:37 Pulse 72 09/02/22 11:37 Resp 20 09/02/22 11:37 BP 135/73 09/02/22 11:37 Pulse Ox 95 09/02/22 11:37 O2 Del Method 09/02/22 07:55 O2 Flow Rate 2 08/31/22 05:57 BMI result Body Mass Index 31.1 Const: Other: Awake alert no acute distress Resp: Other: Clear to auscultation bilaterally no rales rhonchi or wheezes Cardio: Other: No S4; positive S1-S2; Extrem: Other: No edema bilaterally Objective Data Active Medications Acetaminophen (Acetaminophen 325 Mg Tablet) 650 mg PO Q6H PRN PRN Reason: Pain, Mild (Pain Scale 1-3) Last Admin: 08/31/22 18:21 Dose: 650 mg Documented By: CAROL Amlodipine Besylate (Amlodipine Besylate 10 Mg Tablet) 10 mg PO DAILY [facility]; Protocol Last Admin: 09/02/22 08:54 Dose: 10 mg Documented By: JENIFFER Apixaban (Apixaban 5 Mg Tablet) 5 mg PO BID [facility] Last Admin: 09/02/22 08:54 Dose: 5 mg Documented By: JENIFFER Aspirin (Aspirin 81 Mg Tab.Chew) 81 mg PO DAILY [facility] Last Admin: 09/02/22 08:55 Dose: 81 mg Documented By: JENIFFER Atropine Sulfate (Atropine Sulfate 1 Mg/10 Ml Syringe) 1 mg IVPUSH Q2H PRN PRN Reason: bradycardia Lisinopril (Lisinopril 40 Mg Tablet) 40 mg PO DAILY [facility]; Protocol Last Admin: 09/02/22 08:54 Dose: 40 mg Documented By: JENIFFER Morphine Sulfate (Morphine Sulfate 4 Mg/Ml Cartridge) 4 mg IVPUSH Q6H PRN; Protocol PRN Reason: Pain, Severe (Pain Scale 7-10) Last Admin: 09/02/22 08:56 Dose: 4 mg Documented By: JENIFFER Nystatin (Nystatin Powder 15 Gm Bottle) 1 appl TOPICAL BID [facility]; Protocol Last Admin: 09/02/22 09:50 Dose: 1 appl Documented By: CAROL Omeprazole (Omeprazole 40 Mg Capsule.) 40 mg PO BID@0630,1630 [facility] Last Admin: 09/02/22 06:37 Dose: 40 mg Documented By: FIORDALIZA Ondansetron HCl (Ondansetron Hcl 4 Mg/2 Ml Vial) 4 mg IVPUSH Q4H PRN PRN Reason: Nausea Last Admin: 09/02/22 10:36 Dose: 4 mg Documented By: CAROL Sodium Chloride (0.9 % Sodium Chloride Flush 3 Ml Syringe) 3 ml IVFLUSH QSHIFT [facility] Last Admin: 09/02/22 08:51 Dose: Not Given Documented By: JENIFFER Non-Admin Reason: See Note Labs CBC & Chem 7: 09/02/22 09:56 09/02/22 09:56 Labs: Laboratory Results - last 24 hr 09/01/22 09/01/22 09/02/22 16:21 18:39 02:03 MCV MCH MCHC RDW Plt Count MPV Immature Gran % (Auto) Neut % (Auto) Lymph % (Auto) Rhea % (Auto) Eos % (Auto) Baso % (Auto) Lymph # (Auto) Rhea # (Auto) Eos # (Auto) Baso # (Auto) Abs Immat Gran (auto) Absolute Neuts (auto) Absolute Nucleated RBC Nucleated RBC % (auto) aPTT Heparin Protocol > 200.0 H* D 79.4 H D 52.9 L D Anion Gap Estim Creat Clear Calc Estimated GFR Fasting Glucose Calcium Total Bilirubin AST ALT Alkaline Phosphatase Total Protein Albumin 09/02/22 09/02/22 09/02/22 09:56 09:56 09:56 MCV 81.2 MCH 27.6 MCHC 34.0 RDW 12.5 Plt Count 286 MPV 11.5 Immature Gran % (Auto) 0.2 Neut % (Auto) 63.0 Lymph % (Auto) 26.6 Rhea % (Auto) 6.3 Eos % (Auto) 3.2 Baso % (Auto) 0.7 Lymph # (Auto) 2.5 Rhea # (Auto) 0.6 Eos # (Auto) 0.3 Baso # (Auto) 0.1 Abs Immat Gran (auto) 0.02 Absolute Neuts (auto) 5.9 Absolute Nucleated RBC 0.000 Nucleated RBC % (auto) 0.0 aPTT Heparin Protocol 60.8 Anion Gap 15 Estim Creat Clear Calc 87.3 Estimated GFR > 60 Fasting Glucose 94 Calcium 9.5 D Total Bilirubin 1.1 H AST 20 ALT 23 Alkaline Phosphatase 51 Total Protein 7.0 Albumin 4.2 Assessment and Plan (1) NSTEMI (non-ST elevated myocardial infarction): Status: Acute (2) Essential hypertension: Status: Acute (3) PAF (paroxysmal atrial fibrillation): Status: Acute Plan 72-year-old female who was recently discharged from the hospital after being treated with IV antibiotics for UTI presents to the hospital with complaints of abdominal pain and diarrhea; C diff negative. Evolved NSTEMI 1.NSTEMI -troponin peak at 70 -off heparin..eliquis -complete myocardial perfusion scan 09/03/2022 2.Abdominal pain/diarrhea -GI panel negative -conservatives at this time - follow renals/divalents 3.Paroxysmal AFib - NSR on monitor -restart Eliquis -continue BBl 4.Hypertension -acceptable control on current therapies -adjust as indicated DVT prophylaxis: Eliquis Full code Will require ongoing hospitalization to complain heparin drip protocol and co mplete marked cardio perfusion scan Time Spent With Patient Time: Total time managing care of this patient today ____ minutes. Quality Stroke Does the patient have a stroke diagnosis?: No VTE Prior VTE?: No VTE Risk Level:: Medical - moderate - high VTE Device Contraindication: Treatment Not Tolerated VTE Drug Contraindication: N/A - Med Ordered
[2022-09-02 15:00] VITALS: BP 142/68; PULSE 69; RESP 18; TEMP 37.3; O2SAT 96
[2022-09-02] MEDS: 0.9 % Sodium Chloride Flush 3 ML SYRINGE IVFLUSH ×2 (15:39→21:47)
[2022-09-02 19:04] VITALS: BP 132/61; PULSE 72; RESP 18; TEMP 36.2; O2SAT 91
[2022-09-03] VITALS: BP 129/60; PULSE 64; RESP 16; TEMP 36.8; O2SAT 95
[2022-09-03 04:00] VITALS: BP 126/60; PULSE 58; RESP 17; TEMP 36.8; O2SAT 95
[2022-09-03] MEDS: Omeprazole 40 MG CAPSULE.DR PO ×2 (06:04→15:33)
[2022-09-03 06:59] LABS: MANUAL DIFF FLAG NO
[2022-09-03 07:04] LABS: Basophils Absolute Auto 0.1 X10*3/uL (0.0-0.2); Basophils Percent Auto 0.6 % (0-2); Eosinophils Absolute Auto 0.2 X10*3/uL (0.0-0.4); Eosinophils Percent Auto 2.6 % (0-4); Hematocrit 35.9 % (37.0-47.0); Imm Gran Abs Auto 0.03 X10*3/uL (0.00-0.03); Imm Gran Pct Auto 0.4 % (0.0-0.4); Lymphocytes Percent Auto 23.8 % (20-40); Mean Corpuscular HGB Conc 33.4 g/dl (31.0-35.0); Mean Corpuscular Hemoglobin 26.8 pg (27.0-33.0); Mean Corpuscular Volume 80.3 fL (80.0-98.0); Mean Platelet Volume 11.1 fL (9.4-12.3); Monocytes Absolute Auto 0.5 X10*3/uL (0.1-1.2); Monocytes Percent Auto 6.2 % (2-11); Neutrophils Absolute Auto 5.6 x10*3/uL (2.0-8.3); Neutrophils Percent Auto 66.4 % (45-73); Platelet Count 245 X10*3/uL (160-400); Red Blood Count 4.47 X10*6/uL (4.20-5.50); Red Cell Distribution Width 12.5 % (11.0-16.0); White Blood Count 8.4 X10*3/uL (4.8-10.8)
[2022-09-03 07:29] LABS: Alanine Aminotransferase 31 U/L (0-31); Albumin Level 3.9 g/dL (3.5-5.0); Alkaline Phosphatase 46 U/L (39-117); Anion Gap 16 (12-20); Aspartate Amino Transferase 27 U/L (5-31); Blood Urea Nitrogen 19 mg/dL (9-16); Calcium 9.1 mg/dL (8.4-10.2); Carbon Dioxide 24 mmol/L (22-29); Chloride 105 mmol/L (96-108); Creatinine Clr Calc Pharmacy 81.9; Estimated Glomerular Filt Rate > 60; Glucose Fasting 103 mg/dL (60-99); Potassium 3.9 mmol/L (3.3-5.1); Sodium 141 mmol/L (135-145); Total Protein 6.3 g/dL (6.5-8.0)
[2022-09-03 07:44] VITALS: BP 124/68; PULSE 68; RESP 17; TEMP 36.9; O2SAT 97
[2022-09-03 07:44] LABS: Bilirubin Total 0.8 mg/dL (0.0-1.0)
[2022-09-03] MEDS: Aspirin 81 MG TAB.CHEW PO (09:45)
[2022-09-03] MEDS: 0.9 % Sodium Chloride Flush 3 ML SYRINGE IVFLUSH ×3 (09:45→19:57)
[2022-09-03] MEDS: Apixaban 5 MG TABLET PO ×2 (09:46→19:58)
[2022-09-03] MEDS: lisinopriL 40 MG TABLET PO (09:46)
[2022-09-03] MEDS: amLODIPine Besylate 10 MG TABLET PO (09:46)
[2022-09-03] MEDS: Nystatin Powder 15 GM BOTTLE 1 APPL TOPICAL ×2 (10:00→19:59)
--- NOTE | 2022-09-03 13:13 | P.PNIM_ITS ---
Subjective Subjective Date of Service: 09/03/22 Interval History: Presented with non ST elevation FL; heparin drip times 48 hours. To complete perfusion scan today. No further chest pain since admission Review of Systems Denies chest pain Denies shortness of breath Denies nausea vomiting diarrhea Denies fever chills Physical Exam Vital Signs: Vital Signs: Last Vital Signs Temp 98.5 F 09/03/22 07:44 Pulse 68 09/03/22 07:44 Resp 17 09/03/22 07:44 BP 124/68 09/03/22 07:44 Pulse Ox 97 09/03/22 07:44 O2 Del Method 09/03/22 07:44 O2 Flow Rate 2 08/31/22 05:57 BMI result Body Mass Index 31.1 Const: Other: Awake alert no acute distress Resp: Other: Clear to auscultation bilaterally no rales rhonchi or wheezes Cardio: Other: No S4; positive S1-S2; Extrem: Other: No edema bilaterally Objective Data Active Medications Acetaminophen (Acetaminophen 325 Mg Tablet) 650 mg PO Q6H PRN PRN Reason: Pain, Mild (Pain Scale 1-3) Last Admin: 08/31/22 18:21 Dose: 650 mg Documented By: CAROL Amlodipine Besylate (Amlodipine Besylate 10 Mg Tablet) 10 mg PO DAILY [facility]; Protocol Last Admin: 09/03/22 09:46 Dose: 10 mg Documented By: CAROL Apixaban (Apixaban 5 Mg Tablet) 5 mg PO BID [facility] Last Admin: 09/03/22 09:46 Dose: 5 mg Documented By: CAROL Aspirin (Aspirin 81 Mg Tab.Chew) 81 mg PO DAILY [facility] [place] Last Admin: 09/03/22 09:45 Dose: 81 mg Documented By: CAROL Atropine Sulfate (Atropine Sulfate 1 Mg/10 Ml Syringe) 1 mg IVPUSH Q2H PRN PRN Reason: bradycardia Lisinopril (Lisinopril 40 Mg Tablet) 40 mg PO DAILY [facility]; Protocol Last Admin: 09/03/22 09:46 Dose: 40 mg Documented By: CAROL Morphine Sulfate (Morphine Sulfate 4 Mg/Ml Cartridge) 4 mg IVPUSH Q6H PRN; Protocol PRN Reason: Pain, Severe (Pain Scale 7-10) Last Admin: 09/02/22 19:28 Dose: 4 mg Documented By: LUIS Nystatin (Nystatin Powder 15 Gm Bottle) 1 appl TOPICAL BID [facility]; Protocol Last Admin: 09/03/22 10:00 Dose: 1 appl Documented By: CAROL Omeprazole (Omeprazole 40 Mg Capsule.Dr) 40 mg PO BID@0630,1630 [facility] [place] Last Admin: 09/03/22 06:04 Dose: 40 mg Documented By: LUIS Ondansetron HCl (Ondansetron Hcl 4 Mg/2 Ml Vial) 4 mg IVPUSH Q4H PRN PRN Reason: Nausea Last Admin: 09/02/22 19:28 Dose: 4 mg Documented By: LUIS Sodium Chloride (0.9 % Sodium Chloride Flush 3 Ml Syringe) 3 ml IVFLUSH QSHIFT [facility] [place] Last Admin: 09/03/22 09:45 Dose: 3 ml Documented By: CAROL Labs CBC & Chem 7: 09/03/22 06:28 09/03/22 06:28 Labs: Laboratory Results - last 24 hr 09/03/22 09/03/22 06:28 06:28 MCV 80.3 MCH 26.8 L MCHC 33.4 RDW 12.5 Plt Count 245 MPV 11.1 Immature Gran % (Auto) 0.4 Neut % (Auto) 66.4 Lymph % (Auto) 23.8 [place] % (Auto) 6.2 Eos % (Auto) 2.6 Baso % (Auto) 0.6 Lymph # (Auto) 2.0 [place] # (Auto) 0.5 Eos # (Auto) 0.2 Baso # (Auto) 0.1 Abs Immat Gran (auto) 0.03 Absolute Neuts (auto) 5.6 Absolute Nucleated RBC 0.000 Nucleated RBC % (auto) 0.0 Anion Gap 16 Estim Creat Clear Calc 81.9 Estimated GFR > 60 Fasting Glucose 103 H Calcium 9.1 Total Bilirubin 0.8 AST 27 D ALT 31 Alkaline Phosphatase 46 Total Protein 6.3 L Albumin 3.9 Assessment and Plan (1) NSTEMI (non-ST elevated myocardial infarction): Status: Acute (2) Essential hypertension: Status: Acute (3) PAF (paroxysmal atrial fibrillation): Status: Acute Plan 72-year-old female who was recently discharged from the hospital after being treated with IV antibiotics for UTI presents to the hospital with complaints of abdominal pain and diarrhea; C diff negative. Evolved NSTEMI 1.NSTEMI -troponin peak at 70 -off heparin..eliquis -completed myocardial perfusion scan .... Await results -further treatment as per Cardiology 2.Abdominal pain/diarrhea -GI panel negative -conservatives at this time - follow renals/divalents 3.Paroxysmal AFib - NSR on monitor -restart Eliquis -continue BBl 4.Hypertension -acceptable control on current therapies -adjust as indicated DVT prophylaxis: Eliquis Full code Will require ongoing hospitalization to complain heparin drip protocol and complete marked cardio perfusion scan Time Spent With Patient Time: Total time managing care of this patient today ____ minutes. Quality Stroke Does the patient have a stroke diagnosis?: No VTE Prior VTE?: No VTE Risk Level:: Medical - moderate - high VTE Device Contraindication: Treatment Not Tolerated VTE Drug Contraindication: N/A - Med Ordered
--- NOTE | 2022-09-03 13:36 | MHC.CM.PN ---
Per ROUNDS discussion, Patient needs to complete Cardio Perfusion Scan and is therefor not yet medically cleared for dc. Home/resume services is the goal and CM will continue to follow.
[2022-09-03] MEDS: Morphine Sulfate 4 MG/ML CARTRIDGE IVPUSH ×2 (15:33→22:16)
[2022-09-03 16:00] VITALS: BP 161/71; PULSE 74; RESP 19; TEMP 36.2; O2SAT 97
[2022-09-03 19:59] VITALS: BP 114/58; PULSE 70; RESP 19; TEMP 36.7; O2SAT 97
[2022-09-03 23:25] VITALS: BP 147/67; PULSE 61; RESP 15; TEMP 36.6; O2SAT 95
[2022-09-04 03:50] VITALS: BP 126/72; PULSE 80; RESP 20; TEMP 36.8; O2SAT 95
[2022-09-04] MEDS: Omeprazole 40 MG CAPSULE.DR PO ×2 (06:04→15:11)
[2022-09-04 06:05] LABS: MANUAL DIFF FLAG NO
[2022-09-04 06:27] LABS: Basophils Absolute Auto 0.1 X10*3/uL (0.0-0.2); Basophils Percent Auto 0.9 % (0-2); Eosinophils Absolute Auto 0.2 X10*3/uL (0.0-0.4); Eosinophils Percent Auto 2.8 % (0-4); Hematocrit 36.2 % (37.0-47.0); Imm Gran Abs Auto 0.03 X10*3/uL (0.00-0.03); Imm Gran Pct Auto 0.4 % (0.0-0.4); Lymphocytes Absolute Auto 2.3 X10*3/uL (1.2-4.9); Lymphocytes Percent Auto 28.6 % (20-40); Mean Corpuscular HGB Conc 33.1 g/dl (31.0-35.0); Mean Corpuscular Hemoglobin 27.5 pg (27.0-33.0); Mean Platelet Volume 11.4 fL (9.4-12.3); Monocytes Absolute Auto 0.6 X10*3/uL (0.1-1.2); Monocytes Percent Auto 7.4 % (2-11); Neutrophils Absolute Auto 4.7 x10*3/uL (2.0-8.3); Neutrophils Percent Auto 59.9 % (45-73); Platelet Count 239 X10*3/uL (160-400); Red Blood Count 4.36 X10*6/uL (4.20-5.50); Red Cell Distribution Width 12.8 % (11.0-16.0); White Blood Count 7.9 X10*3/uL (4.8-10.8)
[2022-09-04 06:32] LABS: Alanine Aminotransferase 44 U/L (0-31); Albumin Level 3.4 g/dL (3.5-5.0); Alkaline Phosphatase 41 U/L (39-117); Anion Gap 13 (12-20); Aspartate Amino Transferase 38 U/L (5-31); Bilirubin Total 0.6 mg/dL (0.0-1.0); Blood Urea Nitrogen 18 mg/dL (9-16); Calcium 8.6 mg/dL (8.4-10.2); Carbon Dioxide 22 mmol/L (22-29); Chloride 108 mmol/L (96-108); Creatinine Clr Calc Pharmacy 86.2; Estimated Glomerular Filt Rate > 60; Glucose Fasting 100 mg/dL (60-99); Sodium 139 mmol/L (135-145); Total Protein 5.6 g/dL (6.5-8.0)
[2022-09-04 08:00] VITALS: BP 134/60; PULSE 69; RESP 18; TEMP 36.6; O2SAT 97
[2022-09-04] MEDS: Morphine Sulfate 4 MG/ML CARTRIDGE IVPUSH ×2 (10:02→18:40)
[2022-09-04] MEDS: lisinopriL 40 MG TABLET PO (10:03)
[2022-09-04] MEDS: Aspirin 81 MG TAB.CHEW PO (10:03)
[2022-09-04] MEDS: amLODIPine Besylate 10 MG TABLET PO (10:03)
[2022-09-04] MEDS: Nystatin Powder 15 GM BOTTLE 1 APPL TOPICAL (10:03)
[2022-09-04] MEDS: Apixaban 5 MG TABLET PO ×2 (10:03→20:41)
--- NOTE | 2022-09-04 10:35 | HO.PM.IMPN ---
Subjective Subjective Date of Service: 09/04/22 Interval History: Patient observed sitting up in chair, she reports that she is feeling well and ready to go home soon. She is currently denying chest pain, nausea, vomiting or diarrhea. Review of Systems A complete 12 point review of systems has been performed and is negative if not noted in HPI Physical Exam Vital Signs: Vital Signs: Last Vital Signs Temp 97.8 F 09/04/22 08:00 Pulse 69 09/04/22 08:00 Resp 18 09/04/22 08:00 BP 134/60 09/04/22 08:00 Pulse Ox 97 09/04/22 08:00 O2 Del Method 09/04/22 08:00 O2 Flow Rate 2 08/31/22 05:57 BMI result Body Mass Index 31.1 Const: Other: General: Appears stated age, in no acute distress, answers questions accurately and appropriately. Skin: Warm and well perfused Respiratory: Lungs CTAB, no rales/rhonchi, no expiratory/inspiratorywheezing, Cardiac: Regular rhythm, no rubs, gallops, murmurs or clicks. No JVD/carotid bruits. Abdomen: Soft, rounded, nontender,non-distended, bowel sounds noted throughout Extremities: No pedal /pitting edema noted to bilateral lower extremities, no swelling or tenderness. Neuro: Alert and oriented x3 Psych: Mood appropriate, no agitation /restlessness noted. Objective Data Active Medications Acetaminophen (Acetaminophen 325 Mg Tablet) 650 mg PO Q6H PRN PRN Reason: Pain, Mild (Pain Scale 1-3) Last Admin: 08/31/22 18:21 Dose: 650 mg Documented By: CAROL Amlodipine Besylate (Amlodipine Besylate 10 Mg Tablet) 10 mg PO DAILY [facility]; Protocol Last Admin: 09/04/22 10:03 Dose: 10 mg Documented By: JENIFFER Apixaban (Apixaban 5 Mg Tablet) 5 mg PO BID [facility] Last Admin: 09/04/22 10:03 Dose: 5 mg Documented By: JENIFFER Aspirin (Aspirin 81 Mg Tab.Chew) 81 mg PO DAILY [facility] Last Admin: 09/04/22 10:03 Dose: 81 mg Documented By: JENIFFER Atropine Sulfate (Atropine Sulfate 1 Mg/10 Ml Syringe) 1 mg IVPUSH Q2H PRN PRN Reason: bradycardia Lisinopril (Lisinopril 40 Mg Tablet) 40 mg PO DAILY [facility]; Protocol Last Admin: 09/04/22 10:03 Dose: 40 mg Documented By: JENIFFER Morphine Sulfate (Morphine Sulfate 4 Mg/Ml Cartridge) 4 mg IVPUSH Q6H PRN; Protocol PRN Reason: Pain, Severe (Pain Scale 7-10) Last Admin: 09/04/22 10:02 Dose: 4 mg Documented By: JENIFFER Nystatin (Nystatin Powder 15 Gm Bottle) 1 appl TOPICAL BID [facility]; Protocol Last Admin: 09/04/22 10:03 Dose: 1 appl Documented By: JENIFFER Omeprazole (Omeprazole 40 Mg Capsule.Dr) 40 mg PO BID@0630,1630 [facility] Last Admin: 09/04/22 06:04 Dose: 40 mg Documented By: AMNA Ondansetron HCl (Ondansetron Hcl 4 Mg/2 Ml Vial) 4 mg IVPUSH Q4H PRN PRN Reason: Nausea Last Admin: 09/02/22 19:28 Dose: 4 mg Documented By: LUIS Sodium Chloride (0.9 % Sodium Chloride Flush 3 Ml Syringe) 3 ml IVFLUSH QSHIFT [facility] Last Admin: 09/04/22 07:08 Dose: Not Given Documented By: JENIFFER Non-Admin Reason: See Note Labs CBC & Chem 7: 09/04/22 05:57 09/04/22 05:57 Labs: Laboratory Results - last 24 hr 09/04/22 09/04/22 05:57 05:57 MCV 83.0 MCH 27.5 MCHC 33.1 RDW 12.8 Plt Count 239 MPV 11.4 Immature Gran % (Auto) 0.4 Neut % (Auto) 59.9 Lymph % (Auto) 28.6 [place] % (Auto) 7.4 Eos % (Auto) 2.8 Baso % (Auto) 0.9 Lymph # (Auto) 2.3 [place]yer # (Auto) 0.6 Eos # (Auto) 0.2 Baso # (Auto) 0.1 Abs Immat Gran (auto) 0.03 Absolute Neuts (auto) 4.7 Absolute Nucleated RBC 0.000 Nucleated RBC % (auto) 0.0 Anion Gap 13 Estim Creat Clear Calc 86.2 Estimated GFR > 60 Fasting Glucose 100 H Calcium 8.6 Total Bilirubin 0.6 AST 38 H ALT 44 H Alkaline Phosphatase 41 Total Protein 5.6 L Albumin 3.4 L Microbiology Microbiology Results: Microbiology 08/29/22 16:51 Blood Culture - Final Blood - Venous No growth after 5 days. Assessment and Plan (1) NSTEMI (non-ST elevated myocardial infarction): Status: Acute (2) Essential hypertension: Status: Acute (3) PAF (paroxysmal atrial fibrillation): Status: Acute Plan 72-year-old female who was recently discharged from the hospital after being treated with IV antibiotics for UTI presents to the hospital with complaints of abdominal pain and diarrhea; C diff negative. Evolved NSTEMI NSTEMI -She is currently without chest pain -Patient was on a heparin drip for 48 hours, now on Eliquis. -Troponin peak at 70 -Myocardial perfusion scan reveals no clear evidence of ischemia / infarction. LVEF 55% during stress and 57% at rest. -Further treatment as per Cardiology Abdominal pain/diarrhea -GI panel negative, no further nausea/vomiting. - Conservative management at this time. Paroxysmal AFib - NSR on monitor, rate controlled - On Eliquis, BB Hypertension - Blood pressure has remained stable, there were episodes of elevation however patient also reports anxiety. - Continue current regimen. Monitor blood pressures. DVT prophylaxis - Eliquis Patient is a Full code Case and plan discussed with Dr Rubén Moses Quality Stroke Does the patient have a stroke diagnosis?: No VTE Prior VTE?: No VTE Risk Level:: Medical - moderate - high VTE Device Contraindication: Treatment Not Tolerated VTE Drug Contraindication: N/A - Med Ordered
[2022-09-04 12:00] VITALS: BP 128/56; PULSE 65; RESP 18; TEMP 36.6; O2SAT 96
[2022-09-04 16:00] VITALS: BP 144/74; PULSE 74; RESP 18; TEMP 37.1; O2SAT 95
[2022-09-04 19:58] VITALS: BP 137/86; PULSE 89; RESP 18; TEMP 36.6; O2SAT 97
[2022-09-04 23:35] VITALS: BP 129/6; PULSE 65; RESP 18; TEMP 37.1; O2SAT 98
[2022-09-05] MEDS: Morphine Sulfate 4 MG/ML CARTRIDGE IVPUSH ×2 (00:40→12:38)
[2022-09-05 04:00] VITALS: BP 137/70; PULSE 58; RESP 20; TEMP 36.9; O2SAT 96
[2022-09-05] MEDS: Omeprazole 40 MG CAPSULE.DR PO (05:28)
[2022-09-05 08:00] VITALS: BP 133/63; PULSE 59; RESP 16; TEMP 36.6; O2SAT 95
[2022-09-05] MEDS: Aspirin 81 MG TAB.CHEW PO (08:38)
[2022-09-05] MEDS: amLODIPine Besylate 10 MG TABLET PO (08:38)
[2022-09-05] MEDS: Apixaban 5 MG TABLET PO (08:38)
[2022-09-05] MEDS: lisinopriL 40 MG TABLET PO (08:38)
--- NOTE | 2022-09-05 11:02 | PM.DS ---
DS: Providers Provider Date of Service: 09/05/22 Date of admission: 08/31/22 09:28 Primary care physician: Brenden Guzmán MD Consults: 08/30/22 06:57 Consult to Gastroenterology Routine Consulting Provider: Gamaliel Jurado Reason for consultation: Diarrhea, abd pain, small bowel inflammation? Has provider been notified: No 08/30/22 08:55 Consult to Cardiology Routine Consulting Provider: Andreas Moe Reason for consultation: Syncope, bradycardia Has provider been notified: Yes DS: Diagnosis Discharge Diagnosis (1) NSTEMI (non-ST elevated myocardial infarction): Status: Resolved (2) PAF (paroxysmal atrial fibrillation): Status: Resolved DS: Summary Hospital Course Hospital Course: Chief Complaint: abd pain, diarrhea ? 72-year-old female with past medical history of AFib, CVA, HLD, depression and anxiety, HTN, obesity, presents to the hospital with complaints of abdominal pain as well as diarrhea.? Patient was recently discharged from the hospital after being treated for UTI.? Patient reports that she was on antibiotics about a week and half ago.? Treated with ceftriaxone IV.? Patient returns today stating significant abdominal pain around the umbilical region, nonradiating, sharp,? intermittent, relieved with pain? pain medication received in the ED.? Patient reports nausea with no vomiting, she reports significant diarrhea every 30 minutes to the point where she cannot even get to the bathroom.? She denies any fever no chills, no chest pain no shortness of breath, no urinary symptoms and no lower extremity edema.? No weakness numbness or tingling. ? On arrival to the ED patient hemodynamically stable with no significant abnormal vitals Labs are significant for WBC count of 8.9, otherwise unremarkable, INR 1.2,? labs otherwise unremarkable Abdominal pelvic CT shows fluid distension of the distal small bowel and proximal colon suggesting diarrhea, mild wall thickening and hyperemia of the terminal ileum with minimal surrounding fat stranding suggesting an active inflammatory process of the small bowel ?C diff negative, GI panel pending Hospital course: Abdominal pain/diarrhea--CT without acute finding, GI panel was negative. Was seen by GI and was treated conservatively with hydration. Diarrhea is now resolved. Syncope--patient had a syncopal episode while on commode and associated with bradycardia. Initial thought was that bradycardia was related to vasovagal episode however bradycardia peristed and so patient was transfered to ICU for close monitoring. Troponin I increased to 70 and was started on IV heparin for possible NSTEMI, ultimate had a stress test with nuclear imaging and was negative. Bradycardia was likely related to med (metoprolol and Multaq) now discontinued and HR up in the 60s to 80. Paroxysmal AFib--previously was on Metoprolol and Multaq and coumadin, all discontinued and started on Eliquis.. Hypertension--BP controlled without meds Time Spent with Patient Time attestation: Total time managing care of this patient today ____ minutes. Discharge coordination time: Greater than 30 minutes Quality: Safe Use of Opioids Does Pt have an Active Cancer Diagnosis on the Problem List?: No Quality: Stroke Does the patient have a stroke diagnosis?: No Physical Exam Vital Signs: Vital Signs: Last Vital Signs Temp 97.8 F 09/05/22 08:00 Pulse 59 09/05/22 08:00 Resp 16 09/05/22 08:00 BP 133/63 09/05/22 08:00 Pulse Ox 95 09/05/22 08:00 O2 Del Method 09/05/22 08:00 O2 Flow Rate 2 08/31/22 05:57 BMI result Body Mass Index 31.1 Discharge Plan Discharge Anticipated Discharge Date/Time: 09/05/22 11:02 Patient Disposition: Home Health Service Discharge Diagnosis: NSTEMI, Bradycardia Referrals: [facility] [Outside] - 1 Week Brenden Guzmán MD [Primary Care Provider] - 1 Week Discharge Medications: New Eliquis 5 mg Tablet 5 mg PO BID Qty: 60 0RF Continued lisinopril 40 mg tablet 1 tab PO DAILY amlodipine 10 mg tablet 10 mg PO DAILY 30 Days Qty: 30 2RF Protocol: Hold for SBP< HOLD for SBP < : 90 spironolactone 25 mg tablet 12.5 mg PO DAILY Qty: 30 2RF Protocol: Hold for SBP< HOLD for SBP < : 90 Discontinued warfarin 5 mg tablet 5 mg PO DAILY 30 Days Qty: 30 3RF metoprolol tartrate 50 mg tablet 1 tab PO BID Multaq 400 mg tablet 400 mg PO BID Qty: 60 2RF No Action omeprazole 40 mg capsule,delayed release(DR/EC) 1 cap PO DAILY metoprolol tartrate 50 mg tablet 1 tab PO BID Discharge Orders: Discharge Order (Routine); Ordered 09/05/22 Ordered By: Rubén Moses Diet: Advance to usual diet Activity on Discharge: As tolerated Stand Alone Forms: Patient Portal Discharge page Care Plan Goals: Full recovery from syncope resolution of bradycardia Health Concerns: Syncope Bradycardia Plan of Treatment: Stop taking metoprolol, and Multaq Stop taking coumadin and instead take Eliquis Assessment: as above Discharge Date/Time: 09/05/22 16:32
--- NOTE | 2022-09-05 11:47 | P.PNIM_ITS ---
Subjective Subjective Date of Service: 09/05/22 Interval History: Doing well and has no new complaint Review of Systems no chest pain no dizziness Physical Exam Vital Signs: Vital Signs: Last Vital Signs Temp 97.8 F 09/05/22 08:00 Pulse 59 09/05/22 08:00 Resp 16 09/05/22 08:00 BP 133/63 09/05/22 08:00 Pulse Ox 95 09/05/22 08:00 O2 Del Method 09/05/22 08:00 O2 Flow Rate 2 08/31/22 05:57 BMI result Body Mass Index 31.1 Const: Other: General: Appears stated age, in no acute distress, answers questions accurately and appropriately. Skin: Warm and well perfused Respiratory: Lungs CTAB, no rales/rhonchi, no expiratory/inspiratorywheezing, Cardiac: Regular rhythm, no rubs, gallops, murmurs or clicks. No JVD/carotid bruits. Abdomen: Soft, rounded, nontender,non-distended, bowel sounds noted throughout Extremities: No pedal /pitting edema noted to bilateral lower extremities, no swelling or tenderness. Neuro: Alert and oriented x3 Psych: Mood appropriate, no agitation /restlessness noted. Objective Data Active Medications Acetaminophen (Acetaminophen 325 Mg Tablet) 650 mg PO Q6H PRN PRN Reason: Pain, Mild (Pain Scale 1-3) Last Admin: 08/31/22 18:21 Dose: 650 mg Documented By: CAROL Amlodipine Besylate (Amlodipine Besylate 10 Mg Tablet) 10 mg PO DAILY [facility]; Protocol Last Admin: 09/05/22 08:38 Dose: 10 mg Documented By: JENIFFER Apixaban (Apixaban 5 Mg Tablet) 5 mg PO BID [facility] Last Admin: 09/05/22 08:38 Dose: 5 mg Documented By: JENIFFER Aspirin (Aspirin 81 Mg Tab.Chew) 81 mg PO DAILY [facility] Last Admin: 09/05/22 08:38 Dose: 81 mg Documented By: JENIFFER Atropine Sulfate (Atropine Sulfate 1 Mg/10 Ml Syringe) 1 mg IVPUSH Q2H PRN PRN Reason: bradycardia Lisinopril (Lisinopril 40 Mg Tablet) 40 mg PO DAILY [facility]; Protocol Last Admin: 09/05/22 08:38 Dose: 40 mg Documented By: JENIFFER Morphine Sulfate (Morphine Sulfate 4 Mg/Ml Cartridge) 4 mg IVPUSH Q6H PRN; Protocol PRN Reason: Pain, Severe (Pain Scale 7-10) Last Admin: 09/05/22 00:40 Dose: 4 mg Documented By: DAINA Nystatin (Nystatin Powder 15 Gm Bottle) 1 appl TOPICAL BID [facility]; Protocol Last Admin: 09/05/22 08:38 Dose: Not Given Documented By: JENIFFER Non-Admin Reason: Patient Refused Omeprazole (Omeprazole 40 Mg Capsule.) 40 mg PO BID@0630,4840 [facility] Last Admin: 09/05/22 05:28 Dose: 40 mg Documented By: DAINA Ondansetron HCl (Ondansetron Hcl 4 Mg/2 Ml Vial) 4 mg IVPUSH Q4H PRN PRN Reason: Nausea Last Admin: 09/02/22 19:28 Dose: 4 mg Documented By: LUIS Sodium Chloride (0.9 % Sodium Chloride Flush 3 Ml Syringe) 3 ml IVFLUSH QSHIFT [facility] Last Admin: 09/05/22 07:14 Dose: Not Given Documented By: JENIFFER Non-Admin Reason: See Note Labs CBC & Chem 7: 09/04/22 05:57 09/04/22 05:57 Assessment and Plan (1) Sinus bradycardia: Status: Acute (2) PAF (paroxysmal atrial fibrillation): Status: Acute Plan Abdominal pain/diarrhea--CT without acute finding, GI panel was negative. Was seen by GI and was treated conservatively with hydration. Diarrhea is now resolved. Syncope--patient had a syncopal episode while on commode and associated with bradycardia. Initial thought was that bradycardia was related to vasovagal episode however bradycardia peristed and so patient was transfered to ICU for close monitoring. Troponin I increased to 70 and was started on IV heparin for possible NSTEMI, ultimate had a stress test with nuclear imaging and was negative. Bradycardia was likely related to med (metoprolol and Multaq) now discontinued and HR up in the 60s to 80. Paroxysmal AFib--previously was on Metoprolol and Multaq and coumadin, all discontinued and started on Eliquis.. Hypertension--BP controlled without meds DC possibly later today Time Spent With Patient Time: Total time managing care of this patient today ____ minutes. Quality Stroke Does the patient have a stroke diagnosis?: No VTE Prior VTE?: No VTE Risk Level:: Medical - moderate - high VTE Device Contraindication: Treatment Not Tolerated VTE Drug Contraindication: N/A - Med Ordered
[2022-09-05 12:00] VITALS: BP 135/69; PULSE 62; RESP 20; TEMP 36.5; O2SAT 96
--- NOTE | 2022-09-05 12:35 | MHC.CM.PN ---
Per ROUNDS discussion, Patient may be medically cleared for dc later today; CM will follow (home/resume [facility] is the goal).
[2022-09-05 14:00] VITALS: BP 135/69; PULSE 71; O2SAT 88
[2022-09-05 15:12] VITALS: O2SAT 94
--- NOTE | 2022-09-05 15:12 | W.MHC.F2F ---
Service Date Service Date: 09/05/22 Encounter Date of encounter: 09/05/22 Reasons for Services Signs and symptoms assessed: syncope, weakness Reason for custodial: medication management and teach disease management Homebound: Leaving the home is medically contraindicated at this time without the asist of a device and/or another person due th the listed conditions above and below. Reason homebound: weakness related to hospital stay Homebound supporting statement: Homebound due recent hospitaliazation for bradycardia and syncope, and therefore needs the assistance of another person Certification: Based on the above findings, I certify that this patient is confined to the home and needs intermittent custodial care, physical therapy and/or speech therapy, or continues to need occupational therapy. The patient is under my care, and I have initiated the establishment of the plan of care. The patient will be followed by a physician who will periodically review the plan of care. Time Spent With Patient Time: Total time managing care of this patient today ____ minutes.
[2022-09-05 15:16] VITALS: BP 127/81; PULSE 77; RESP 18; TEMP 36.2; O2SAT 94
--- NOTE | 2022-09-05 15:29 | MHC.CM.PN ---
Patient has been medically cleared for dc to home today with services. Patient is active with [facility], who has been notified of today's dc. IMM addressed at bedside with Patient.
--- NOTE | 2022-09-05 15:47 | PC.NURSE ---
iv and tele removed from pt. all belongings with pt. pt educated on d/c packet
== END 2022-09-05 16:32 | disposition home health service (06) | DRG 281 ==
LOC: HO.ED 20:44 → HO.EDOVER 08-30 02:59 → HO.ICU 08-30 17:34 → HO.IMC 09-01 07:14 → HO.ICU 09-03 16:04 → HO.IMC 09-03 16:04
PROVIDERS: Hospitalist; Internal Medicine Cardiovascular Disease; Nurse Practitioner Family; Admitting Provider Internal Medicine; Emergency Provider Emergency Medicine Emergency Medical Services; PCP Internal Medicine; Visit Provider Internal Medicine
DX: I21.4 Non-ST elevation (NSTEMI) myocardial infarction (principal); N39.0 Urinary tract infection, site not specified; I20.0 Unstable angina; E78.00 Pure hypercholesterolemia, unspecified; I10 Essential (primary) hypertension; I48.0 Paroxysmal atrial fibrillation; F41.9 Anxiety disorder, unspecified; E66.9 Obesity, unspecified; E86.0 Dehydration; F32.9 Major depressive disorder, single episode, unspecified; R00.1 Bradycardia, unspecified; I44.0 Atrioventricular block, first degree; K52.9 Noninfective gastroenteritis and colitis, unspecified; Z68.31 Body mass index [BMI] 31.0-31.9, adult; Z20.822 Contact with and (suspected) exposure to COVID-19; Z91.14 Patient's other noncompliance with medication regimen; Z86.73 Personal history of transient ischemic attack (TIA), and cerebral infarction without residual deficits; Z87.891 Personal history of nicotine dependence; Z79.01 Long term (current) use of anticoagulants; Z79.899 Other long term (current) drug therapy
CPT/HCPCS: 0241U; 36415; 71045; 74176; 78452; 80048; 80053; 80076; 81001; 82947; 83605; 83735; 83880; 84100; 84484; 85025; 85610; 85730; 87040; 87086; 87147; 87205; 87493; 87507; 87635; 93005; 93017; 93308; 97161; 99285; A9500; J0280; J0461; J1885; J2270; J2405; J2785

== ENCOUNTER 2022-09-07 11:29 | Emergency (ER) | payer MEDICARE, SELFPAY ==
--- NOTE | ~2022-09-07 | CT_ITS ---
EXAMINATION: CT ANGIOGRAM OF THE CHEST WITH AND WITHOUT CONTRAST (CT PULMONARY ANGIOGRAM FOR PE) CLINICAL INFORMATION: Reason for Exam elevated d-dime, orthopnea, r/o PE COMPARISON: No prior chest CT. Abdominal ultrasound dated 07/13/2014. TECHNIQUE: Prior to contrast administration, noncontrast localization images were obtained. Subsequently, multidetector volumetric imaging was performed from the thoracic inlet to below the diaphragms following the administration of 65 mL Omnipaque 350 intravenous contrast. No contrast reaction reported Sagittal, coronal, and MIP oblique sagittal reformatted images were obtained on the CT workstation, uploaded to PACS, and reviewed. This CT examination was performed using dose optimization techniques as appropriate, variously including the following: *Automated exposure control *Adjustment of mA and/or kV according to patient size (this includes techniques or standardized protocols for targeted exams where dose is matched to indication/reason for exam; i.e. extremities or head) *Use of iterative reconstruction technique Total exam dose-length product 446 mGy-cm FINDINGS: QUALITY OF STUDY/CONTRAST BOLUS: Satisfactory. PULMONARY ARTERIES: No central or segmental pulmonary emboli. THORACIC AORTA: No aneurysm or dissection. LUNG: No focal consolidation or suspicious nodule identified. Scattered, benign, calcified granulomata. PLEURA: No pleural effusion or pneumothorax. heart strain.
--- NOTE | 2022-09-07 11:42 | ED_ITS ---
HPI - General Adult General Chief complaint: General Medical Stated complaint: nv Time Seen by Provider: 09/07/22 11:41 Source: patient and EMS Mode of arrival: EMS Limitations: no limitations History of Present Illness HPI narrative: Patient is a 72 year old assigned female at with a history of HTN, a-fib, and MDD presenting to the emergency department today with nausea, vomiting, and diarrhea. Patient states that she was discharged from here after a heart issue and is still having nausea, vomiting, and diarrhea. Nursing staff at the patient's home states that the patient is living in an unfit environment with rats in the mobile home, feces and urine from her dogs everywhere, inability to pay for propane to heat her home, and the inability to make good decisions for herself. Nursing staff from her home has requested that the patient be evaluated for ability to make her own decisions and possible placement. Patient denies any dizziness, lightheadedness, abdominal pain, fever, chills, blurry vision, double vision, loss of vision, chest pain, difficulty breathing, shortness of breath, back pain, night sweats, pain with urination, increased urinary frequency, increased urinary urgency, blood in her urine or stool, syncope or a near syncopal episode, recent trauma or falls, bowel incontinence, bladder incontinence, bowel retention, bladder retention, or any other complaints at th is time. Onset (ago): day(s) Severity: mild Severity scale (1-10): 3 Relieving factors: none Exacerbating factors: none Associated symptoms: nausea/vomiting Treatments prior to arrival: none Related Data Home Medications Medication Instructions Recorded Confirmed lisinopril 40 mg tablet 1 tab PO DAILY 08/30/22 09/07/22 metoprolol tartrate 50 mg tablet 1 tab PO BID 09/07/22 omeprazole 40 mg capsule,delayed 1 cap PO DAILY 09/07/22 release Previous Rx's Medication Instructions Recorded amlodipine 10 mg tablet 10 mg PO DAILY 30 days #30 tabs 08/02/22 spironolactone 25 mg tablet 12.5 mg PO DAILY #30 tabs 08/02/22 apixaban 5 mg tablet (Eliquis) 5 mg PO BID #60 tabs 09/05/22 Allergies Allergy/AdvReac Type Severity Reaction Status Date / Time No Known Allergies Allergy Verified 08/05/22 17:12 Review of Systems Constitutional: Constitutional: Reports no additional constitutional complaints, Denies chills, Denies fever(s) and Denies night sweats Eyes: Eyes: Reports no additional eye complaints, Denies blurry vision, Denies change in vision, Denies diplopia, Denies eye discharge, Denies loss of vision and Denies eye pain ENT: Denies dizziness Cardiovascular: Cardiovascular: Reports no additional cardiovascular complaints, Denies chest pain, Denies lightheadedness, Denies Loss of Consciousness and Denies dyspnea Respiratory: Respiratory: Reports no additional respiratory complaints and Denies dyspnea Gastrointestinal: Gastrointestinal: Reports no additional gastrointestinal complaints, Denies abdominal pain, Denies melena, Denies hematochezia, Denies change in bowel habits, Denies change in stool character, Reports diarrhea, Reports nausea and Reports vomiting Genitourinary: Genitourinary: Denies hematuria, Denies urinary frequency, Denies dysuria, Denies urinary incontinence, Denies urinary hesitancy and Denies urinary urgency Musculoskeletal: Musculoskeletal: Reports no additional musculoskeletal com plaints, Denies numbness and Denies tingling Neurologic: Denies dizziness, Denies loss of vision, Denies numbness and Denies tingling Psychiatric: Psychiatric: Reports no additional psychiatric complaints Endocrine: Endocrine: Reports no additional endocrine complaints Hematologic/Lymphatic: Hematologic/Lymphatic: Reports no additional hematologic/lymphatic complaints Allergic/Immunologic: Allergic/Immunologic: Reports no additional allergic/immunologic complaints PMF Past Medical History Attestation statement: The following information was validated with the patient. Source: old records reviewed and nursing notes reviewed Medical History Essential hypertension HTN (hypertension) Left-sided cerebrovascular accident (CVA) Obesity (BMI 30-39.9) Paroxysmal atrial fibrillation Pure hypercholesterolemia Severe uncontrolled high blood pressure Surgical History Hx of appendectomy Hx of cholecystectomy Hx of hernia repair Hx of hysterectomy Family History Family History Father Heart disease Pacemaker Diabetes Mother Stroke Sister Thyroid disease Social History Social History Household Members: None Housing: Other Housing Other:: [facility] Do you presently have visiting nurse or other home services: Yes ([facility] 2 x/week, PT 1 x/week) Alcohol intake: current Alcohol intake frequency: holidays/special occasions only Alcohol type: beer Patient Tobacco Use Status: Former Tobacco user Quit Date: 2016 Tobacco use type: Cigarette e-Cigarette/Vaping Use: Never Used Second Hand Smoke Exposure: Yes Advance Directives: Yes Advance Directives on File: Yes Advance Directives Date on File: 09/26/21 service: No Current occupational status: disabled Gender identity: Female Physical Exam ED Vital Signs: Vital Signs - 24 hr 09/07/22 11:43 Temperature 98.7 F Pulse Rate 76 Respiratory Rate 20 Blood Pressure 155/70 H Pulse Oximetry 96 Oxygen Delivery Method Room Air BMI result Body Mass Index 31.4 Const General: cooperative, no acute distress, alert and awake Nutritional Appearance: well nourished Orientation/consciousness: patient oriented x3 Limitations: no limitations HENMT Head: Yes normal to inspection and Yes atraumatic Ears: hearing grossly normal bilaterally and external ears normal General nose exam: Normal external nose present, no nasal discharge noted and no epistaxis Face and sinus: Yes normal facial exam, No abrasion and No laceration Mouth: Normal oral and palatal mucosa present, no drooling and no muffled voice Eyes General: appearance normal, both eyes and all related structures Periorbital: periorbital findings normal Eyelids: Yes eyelids normal Conjunctivae: conjunctivae normal Pupils: Equal, round and reactive pupils present EOM: EOMs intact bilaterally Neck Neck: Yes normal visual inspection, Yes full ROM and Yes no lymphadenopathy Chest Chest palpation & inspection: normal inspection of the chest Resp Effort & Inspection: normal respiratory effort and able to speak in complete sentences Auscultation: clear to auscultation bilaterally Cardio Rate: regular rate Rhythm: regular rhythm GI Inspection: Yes normal to inspection Palpation (GI): Soft to palpation, not firm, nontender, no guarding and not rigid Neuro General: patient oriented x3 and moves all extremities Cranial nerves: Yes Equal, round and reactive pupils present Cognition (Neuro): normal cognition Motor exam (neuro): 5/5 motor strength present throughout Sensory Exam: Normal double simultaneous stimulation for sensation Coordination: [id number] test normal Extrem General: Yes normal to inspection, Yes full ROM and Yes capillary refill normal Psych Appearance: grossly normal Mental Status: mental status grossly normal Affect: normal affect Attitude: cooperative Thought process: Normal thought process present Thought content: Normal thought content present Insight: Good insight present (Psych) Medical Decision Making Medical Decision Making MDM Narrative: Patient is a 72 year old assigned female at with a history of atrial fib, QUAN, and HTN presenting to the emergency department today with nausea, vomiting, and diarrhea. Patient's physical exam was unremarkable. Patient's blood work showed an elevated WBC count of 12. Patient's COVID-19 test is positive. Patient's elevated WBC count is secondary to her COVID-19 infection. Patient's urine showed no acute process. Patient's EKG was unremarkable. I explained my physical exam findings as well as all test results to the patient. I answered all questions asked by the patient. Patient is awaiting case management evaluation and psychiatric evaluation for decision making capability. Differential Diagnosis Differential Diagnoses: The differential diagnosis associated with the presentation includes COVID-19 Lab Data [facility] Lab Attestation statement: I reviewed the patient's lab results. Result Diagrams: 09/07/22 12:49 09/07/22 12:49 Labs: Lab Results 09/07/22 09/07/22 09/07/22 Range/Units 12:49 12:49 12:49 WBC 12.0 H (4.8-10.8) X10*3/uL RBC 5.00 (4.20-5.50) X10*6/uL Hgb 13.7 (12.0-16.0) g/dl Hct 40.4 (37.0-47.0) % MCV 80.8 (80.0-98.0) fL MCH 27.4 (27.0-33.0) pg MCHC 33.9 (31.0-35.0) g/dl RDW 13.2 (11.0-16.0) % Plt Count 313 D (160-400) X10*3/uL MPV 10.8 (9.4-12.3) fL Immature Gran % (Auto) 0.5 H (0.0-0.4) % Neut % (Auto) 85.9 H (45-73) % Lymph % (Auto) 6.3 L (20-40) % [place] % (Auto) 6.7 (2-11) % Eos % (Auto) 0.1 (0-4) % Baso % (Auto) 0.5 (0-2) % Lymph # (Auto) 0.8 L (1.2-4.9) X10*3/uL [place] # (Auto) 0.8 (0.1-1.2) X10*3/uL Eos # (Auto) 0.0 (0.0-0.4) X10*3/uL Baso # (Auto) 0.1 (0.0-0.2) X10*3/uL Abs Immat Gran (auto) 0.06 H (0.00-0.03) X10*3/uL Absolute Neuts (auto) 10.3 H (2.0-8.3) x10*3/uL Absolute Nucleated RBC 0.000 (0.0-0.012) X10*3/uL Nucleated RBC % (auto) 0.0 (0.0-0.2) /100WBC PT (10.0-13.1) SEC INR (0.9-1.1) APTT (26.0-36.4) SEC Sodium 138 (135-145) mmol/L Potassium 4.3 (3.3-5.1) mmol/L Chloride 102 (96-108) mmol/L Carbon Dioxide 26 (22-29) mmol/L Anion Gap 14 (12-20) BUN 13 (9-16) mg/dL Creatinine 0.80 (0.5-1.4) mg/dL Estim Creat Clear Calc 82.4 Estimated GFR > 60 Random Glucose 112 (60-115) mg/dL Calcium 9.5 D (8.4-10.2) mg/dL Magnesium 1.8 (1.6-2.6) mg/dL Total Bilirubin 1.5 H (0.0-1.0) mg/dL AST 14 (5-31) U/L ALT 26 (0-31) U/L Alkaline Phosphatase 53 (39-117) U/L Total Protein 7.2 (6.5-8.0) g/dL Albumin 4.3 (3.5-5.0) g/dL Urine Color Urine Appearance Urine pH (5.0-9.0) Ur Specific [place] (1.005-1.025) Urine Protein (Neg-Trace) mg/dL Urine Glucose (UA) (Negative) mg/dL Urine Ketones (Negative) mg/dL Urine Blood (Negative) Urine Nitrite (Negative) Ur Leukocyte Esterase (Negative) Urine RBC (0-2) /HPF Urine WBC (0-5) /HPF Ur Squamous Epith Cells (0-2) /HPF Urine Bacteria (None Seen) Hyaline Casts (0-2) /LPF Influenza Type A (PCR) NEGATIVE (Negative) Influenza Type B (PCR) NEGATIVE (Negative) RSV RNA Qual (PCR) NEGATIVE (Negative) SARS-CoV-2 RNA (RT-PCR) POSITIVE A (Negative) 09/07/22 09/07/22 Range/Units 12:49 15:23 WBC (4.8-10.8) X10*3/uL RBC (4.20-5.50) X10*6/uL Hgb (12.0-16.0) g/dl Hct (37.0-47.0) % MCV (80.0-98.0) fL MCH (27.0-33.0) pg MCHC (31.0-35.0) g/dl RDW (11.0-16.0) % Plt Count (160-400) X10*3/uL MPV (9.4-12.3) fL Immature Gran % (Auto) (0.0-0.4) % Neut % (Auto) (45-73) % Lymph % (Auto) (20-40) % [place] % (Auto) (2-11) % Eos % (Auto) (0-4) % Baso % (Auto) (0-2) % Lymph # (Auto) (1.2-4.9) X10*3/uL [place] # (Auto) (0.1-1.2) X10*3/uL Eos # (Auto) (0.0-0.4) X10*3/uL Baso # (Auto) (0.0-0.2) X10*3/uL Abs Immat Gran (auto) (0.00-0.03) X10*3/uL Absolute Neuts (auto) (2.0-8.3) x10*3/uL Absolute Nucleated RBC (0.0-0.012) X10*3/uL Nucleated RBC % (auto) (0.0-0.2) /100WBC PT 22.2 H (10.0-13.1) SEC INR 1.9 H (0.9-1.1) APTT 37.7 H D (26.0-36.4) SEC Sodium (135-145) mmol/L Potassium (3.3-5.1) mmol/L Chloride (96-108) mmol/L Carbon Dioxide (22-29) mmol/L Anion Gap (12-20) BUN (9-16) mg/dL Creatinine (0.5-1.4) mg/dL Estim Creat Clear Calc Estimated GFR Random Glucose (60-115) mg/dL Calcium (8.4-10.2) mg/dL Magnesium (1.6-2.6) mg/dL Total Bilirubin (0.0-1.0) mg/dL AST (5-31) U/L ALT (0-31) U/L Alkaline Phosphatase (39-117) U/L Total Protein (6.5-8.0) g/dL Albumin (3.5-5.0) g/dL Urine Color Yellow Urine Appearance Clear Urine pH 7.5 (5.0-9.0) Ur Specific [place] 1.020 (1.005-1.025) Urine Protein Trace (Neg-Trace) mg/dL Urine Glucose (UA) Negative (Negative) mg/dL Urine Ketones Negative (Negative) mg/dL Urine Blood Negative (Negative) Urine Nitrite Negative (Negative) Ur Leukocyte Esterase Trace H (Negative) Urine RBC 3-5 H (0-2) /HPF Urine WBC 0-5 (0-5) /HPF Ur Squamous Epith Cells 3-5 (0-2) /HPF Urine Bacteria Trace (None Seen) Hyaline Casts 0-2 (0-2) /LPF Influenza Type A (PCR) (Negative) Influenza Type B (PCR) (Negative) RSV RNA Qual (PCR) (Negative) SARS-CoV-2 RNA (RT-PCR) (Negative) Independent Interpretation I performed an independent interpretation of an: EKG Interpretation: Vent. Rate: 076 BPM ? ? Atrial Rate: 076 BPM P-R Int: 184 ms? QRS Dur: 114 ms QT Int: 390 ms ? ? ? P-R-T Axes: 038 -39 145 degrees QTc Int: 438 ms ? Sinus rhythm with Premature supraventricular complexes Left axis deviation Incomplete right bundle branch block Left ventricular hypertrophy with repolarization abnormality ( R in aVL , [place] product ) Cannot rule out Septal infarct , age undetermined Abnormal ECG When compared with ECG of 31-AUG-2022 08:48, Premature supraventricular complexes are now Present DD/ 1200 Independent Historian Clinical information obtained from an independent historian. History obtained from or confirmed by: EMS and Other (nursing notes from visiting nurse staff) Discharge Plan Discharge Clinical Impression: COVID-19 Patient Disposition: Still a Patient Prescriptions: No Action lisinopril 40 mg tablet 1 tab PO DAILY Eliquis 5 mg Tablet 5 mg PO BID Qty: 60 0RF omeprazole 40 mg capsule,delayed release(DR/EC) 1 cap PO DAILY metoprolol tartrate 50 mg tablet 1 tab PO BID amlodipine 10 mg tablet 10 mg PO DAILY 30 Days Qty: 30 2RF Protocol: Hold for SBP< HOLD for SBP < : 90 spironolactone 25 mg tablet 12.5 mg PO DAILY Qty: 30 2RF Protocol: Hold for SBP< HOLD for SBP < : 90
[2022-09-07 11:43] VITALS: BP 155/70; PULSE 76; RESP 20; TEMP 37.1; O2SAT 96; BMI 31.4
--- NOTE | 2022-09-07 11:52 | ECG_ITS ---
Test Reason : vomiting Blood Pressure : / mmHG Vent. Rate : 076 BPM Atrial Rate : 076 BPM P-R Int : 184 ms QRS Dur : 114 ms QT Int : 390 ms P-R-T Axes : 038 -39 145 degrees QTc Int : 438 ms Sinus rhythm with Premature supraventricular complexes Left axis deviation Incomplete right bundle branch block Left ventricular hypertrophy with repolarization abnormality ( R in aVL , [place] product ) Cannot rule out Septal infarct , age undetermined Abnormal ECG When compared with ECG of 31-AUG-2022 08:48, Premature supraventricular complexes are now Present Referred By: Margot Sheth Electronically Signed By:Chito Hubbard
--- NOTE | 2022-09-07 12:54 | MHC.EDTECH ---
Covid swab collected and sent to lab
--- NOTE | 2022-09-07 12:54 | PC.NURSE ---
pt a&ox3, urine sample obtained, 22G IV placed left hand, labs drawn, pt pending lab results, no new orders at this time.
[2022-09-07 12:58] LABS: MANUAL DIFF FLAG NO
[2022-09-07 13:01] LABS: Basophils Absolute Auto 0.1 X10*3/uL (0.0-0.2); Basophils Percent Auto 0.5 % (0-2); Eosinophils Percent Auto 0.1 % (0-4); Hematocrit 40.4 % (37.0-47.0); Hemoglobin 13.7 g/dl (12.0-16.0); Imm Gran Abs Auto 0.06 X10*3/uL (0.00-0.03); Imm Gran Pct Auto 0.5 % (0.0-0.4); Lymphocytes Absolute Auto 0.8 X10*3/uL (1.2-4.9); Lymphocytes Percent Auto 6.3 % (20-40); Mean Corpuscular HGB Conc 33.9 g/dl (31.0-35.0); Mean Corpuscular Hemoglobin 27.4 pg (27.0-33.0); Mean Corpuscular Volume 80.8 fL (80.0-98.0); Mean Platelet Volume 10.8 fL (9.4-12.3); Monocytes Absolute Auto 0.8 X10*3/uL (0.1-1.2); Monocytes Percent Auto 6.7 % (2-11); Neutrophils Absolute Auto 10.3 x10*3/uL (2.0-8.3); Neutrophils Percent Auto 85.9 % (45-73); Platelet Count 313 X10*3/uL (160-400); Red Cell Distribution Width 13.2 % (11.0-16.0)
[2022-09-07 13:04] LABS: Appearance Urine Clear; Color Urine Yellow; Glucose Urine UA Negative (Negative); Leukocyte Esterase Urine Trace (Negative); Nitrite Urine Negative (Negative); PH 7.5 (5.0-9.0); UMIC TRIGGER UACC YES; Urine Blood Negative (Negative); Urine Ketones Negative (Negative); Urine Protein Trace mg/dL (Neg-Trace)
[2022-09-07 13:07] LABS: Bacteria Urine Trace (None Seen); Hyaline Casts Urine 0-2 /LPF (0-2); WBC Urine 0-5 /HPF (0-5)
--- NOTE | 2022-09-07 13:07 | PC.NURSE ---
spoke w [facility] [employer] (onsite case manager: Beau), pt has open case, query capacity to care for herself and make decisions regarding care, per onsite case manager home is an unsafe location for pt to discharge to at this point. provider notified.
[2022-09-07 13:26] LABS: Alanine Aminotransferase 26 U/L (0-31); Albumin Level 4.3 g/dL (3.5-5.0); Alkaline Phosphatase 53 U/L (39-117); Anion Gap 14 (12-20); Aspartate Amino Transferase 14 U/L (5-31); Bilirubin Total 1.5 mg/dL (0.0-1.0); Blood Urea Nitrogen 13 mg/dL (9-16); Calcium 9.5 mg/dL (8.4-10.2); Carbon Dioxide 26 mmol/L (22-29); Chloride 102 mmol/L (96-108); Creatinine Clr Calc Pharmacy 82.4; Estimated Glomerular Filt Rate > 60; Glucose Random 112 mg/dL (60-115); Magnesium 1.8 mg/dL (1.6-2.6); Potassium 4.3 mmol/L (3.3-5.1); Sodium 138 mmol/L (135-145); Total Protein 7.2 g/dL (6.5-8.0)
[2022-09-07 13:41] LABS: Influenza A PCR NEGATIVE (Negative); Influenza B PCR NEGATIVE (Negative); Resp Syncy Virus RNA Qual PCR NEGATIVE (Negative); SARS COV2 PCR INHOUSE POSITIVE (Negative)
--- NOTE | 2022-09-07 15:25 | PHA.MEDREC ---
Addendum entered by Denys Cooper RPh 09/07/22 15:33: pt has metoprolol and omperazole ready at the pharmacy but has not been started yet Original Note: Pharmacy Consult ? Medication Reconciliation Pharmacy has completed the medication reconciliation. Patient poor historian of meds. Called pharmacy to confirm meds. Patient unaware of when they last took medications. State it was this morning, but cannot name what medications were taken today.
[2022-09-07 15:36] LABS: INTERNATIONAL NORM RATIO 1.9 (0.9-1.1); Prothrombin Time 22.2 SEC (10.0-13.1)
[2022-09-07 15:39] LABS: Partial Thromboplastin Time 37.7 SEC (26.0-36.4)
--- NOTE | 2022-09-07 16:09 | MHC.CM.ED ---
Received case management consult from Margot HEADLEY. Patient sent to ER by [facility] due to patient vomiting and concern patient doesn't have capacity to make her own decisions. Received telephone call from Anna Marie at [facility]. Patient took Eliquis and Coumadin last night, even though Couamdin was discontinued. Patient also stated she can't afford propane for her trailer. Uses multiple portable heaters. Doesn't have food in the house. But receives late husbands pension and SSI and can't afford food, medication, or propane. ER work up revealed patient to be positive for Covid. Psych consult ordered and pending to evaluate if patient has capacity to make her medical decisions. T/W left a message for patient's daughter/HCP, Joan via telephone at [phone] requesting a return telephone call. Continue to monitor for d/c needs.
--- NOTE | 2022-09-07 17:49 | PC.NURSE ---
pt had an episode of stool incontinence, provider notified, pt assisted w cleaning and repositioned back to bed.
--- NOTE | 2022-09-07 18:03 | PC.NURSE ---
medicated per provider order.
[2022-09-07 20:26] VITALS: BP 147/67; PULSE 81; RESP 18; TEMP 37.3; O2SAT 95
[2022-09-07] MEDS: Apixaban 5 MG TABLET PO (22:12)
--- NOTE | 2022-09-07 22:37 | PC.NURSE ---
pt medicated per provider order, no new episodes of stool incontinence.
[2022-09-08 01:02] VITALS: BP 158/67; PULSE 82; TEMP 37.4; O2SAT 95
--- NOTE | 2022-09-08 03:45 | PC.NURSE ---
Pt sleeping respirations regular.
[2022-09-08 05:49] VITALS: BP 154/69; PULSE 78; TEMP 36.8; O2SAT 96
--- NOTE | 2022-09-08 06:24 | PC.NURSE ---
Pt sleeping, respirations regular.
[2022-09-08 07:14] VITALS: BP 154/69; PULSE 71; RESP 18; TEMP 36.8; O2SAT 94
--- NOTE | 2022-09-08 08:16 | PC.NURSE ---
pt c/o abdominal pain for three weeks and persistent cough. FANG Frost made aware. reporting abd pain is chronic, new order for DOUGN victor m zhu
[2022-09-08 09:11] VITALS: BP 154/69; PULSE 71; O2SAT 94
[2022-09-08] MEDS: Spironolactone 25 MG TABLET 12.5 MG PO (09:20)
[2022-09-08] MEDS: amLODIPine Besylate 10 MG TABLET PO (09:20)
[2022-09-08] MEDS: Apixaban 5 MG TABLET PO ×2 (09:21→20:27)
[2022-09-08] MEDS: lisinopriL 40 MG TABLET PO (09:21)
--- NOTE | 2022-09-08 10:44 | P.CNPS_ITS ---
History of Present Illness Date of Service: 09/08/22 Chief Complaint: nv Reason for Consult: capacity Requesting physician: Margot Sheth Discussed with referring provider: Yes Sources of Information: patient interviewed, chart reviewed and crisis/core team assessment reviewed HPI Narrative: Jazmyn is a 72 year female who carries a dx of HTN, a-fib, obesity, and MDD, recurrent. She presented to [facility] on 09/07/22 with complaints of nausea, vomiting, and diarrhea. She was recently admitted to [facility] 08/30-09/05/22 due to paroxysmal afib, sinus bradycardia. While inpatient, pt developed ST-elevation and T wave inversion, felt to have CAD. Her metoprolol, multaq, and Coumadin were d/c?d due to contributing to bradycardia, eliquis was started. She was also admitted to [facility] 07/28-08/01/22 due to HAs, dizziness, HTN, UTI, and sinus bradycardia. Prior to this admission, she had not seen a PCP in about a year. Psych consult placed for capacity. Upon chart review, there has been concern with pt?s ability to care for herself in the home and she has worsening medical conditions. She does not know her medication names, took her Coumadin last night despite this being discontinued. She also stated she sometimes does not have money to get her medications. EMS burns s reported that she lives in a trailer and her residence is unkempt with a strong odor. She lives alone, has VNA twice a week, and is supposed to have PT once a week but has not had this for unclear reasons. She reports lack of assistive devices i.e. shower chair, grab bars, uses a donated cane to ambulate because insurance would not cover a walker, has moved her bed to the middle of the trailer in the living room due to concern for falling. Says she mainly stays in bed all day and showers once a week at her bf?s (lives a few trailers down) due to difficulty getting around in her apartment as it is so cluttered. Per VNA, pt?s home has rats, feces and urine from her dogs everywhere. She has c omplained of inability to pay for propane to heat her home and has multiple portable heaters. I spoke with pt today. She is oriented x 4 and says she came to the hospital because she was coughing, felt dizzy, and ?I didn?t feel good, I had pain.? In the ED she was found to be COVID positive. Pt does think she has a UTI, which I informed her she does not. Pt came to the hospital without her cell phone because she could not find it at home, does not know her daughter?s number and has been unable to get in touch with family. Pt says she has a hx of stroke and that her memory is not good, however she is able to pass simple mental status test i.e. can recall three words after short period (apple, juan c, table), spell WORLD backwards, knows the date and president. Pt is forthcoming about the c ondemned state of her mobile home, ?I cant do any cleaning, if I bend over, I fall over.? Admits ?I need more help.? Obtains meals for lunch and dinner from meals on wheels, otherwise she does not grocery shop. Pt is concerned with falling and says this is why she stays in bed, ?I don?t have any strength, im very very weak.? Feels she has been decompensating x 1-2 years, ?I cant take it no more.? Says ?I?m living like a pig.? Pt discusses feeling depressed, ?my depression is real bad.? Sleep is poor, falls asleep 10pm, wakes up 1am and is up the whole night, then falls back to sleep 7-8am. Discloses trauma hx, her completed suicide in 1981. Has not been on antidepressants in ?a couple years? but says it was helpful. Worried about copays, ?I don?t have no money.? Says she has told her PCP she is depressed and discloses hx of passive SI without plan or intent but says ?he don?t say nothing, I tried telling him but he don?t care.? Stressors include feeling isolated, doesn?t get to see her grandchildren. Says she is anxious daily. Denies psychotic sx. No hx of manic or hypomanic episodes endorsed. Feels safe, no imminent safety concerns. [facility] Medical History Essential hypertension HTN (hypertension) Left-sided cerebrovascular accident (CVA) Obesity (BMI 30-39.9) Paroxysmal atrial fibrillation Pure hypercholesterolemia Severe uncontrolled high blood pressure Surgical History Hx of appendectomy Hx of cholecystectomy Hx of hernia repair Hx of hysterectomy Diagnostics Vital Signs (24Hr): Vital Signs - 24 hr 09/07/22 11:43 09/07/22 20:26 09/08/22 01:02 Temperature 98.7 F 99.1 F 99.3 F Pulse Rate 76 81 82 Respiratory Rate 20 18 Blood Pressure 155/70 H 147/67 H 158/67 H Pulse Oximetry 96 95 95 Oxygen Delivery Method Room Air Room Air Room Air 09/08/22 05:49 09/08/22 07:14 09/08/22 09:11 Temperature 98.2 F 98.3 F Pulse Rate 78 71 71 Respiratory Rate 18 Blood Pressure 154/69 H 154/69 H 154/69 H Pulse Oximetry 96 94 94 Oxygen Delivery Method Room Air Room Air BMI result Body Mass Index 31.4 Labs Results: 09/07/22 12:49 09/07/22 12:49 Labs: Laboratory Results - last 48 hr 09/07/22 09/07/22 09/07/22 12:49 12:49 12:49 WBC 12.0 H RBC 5.00 Hgb 13.7 Hct 40.4 MCV 80.8 MCH 27.4 MCHC 33.9 RDW 13.2 Plt Count 313 D MPV 10.8 Immature Gran % (Auto) 0.5 H Neut % (Auto) 85.9 H Lymph % (Auto) 6.3 L [place] % (Auto) 6.7 Eos % (Auto) 0.1 Baso % (Auto) 0.5 Lymph # (Auto) 0.8 L [place] # (Auto) 0.8 Eos # (Auto) 0.0 Baso # (Auto) 0.1 Abs Immat Gran (auto) 0.06 H Absolute Neuts (auto) 10.3 H Absolute Nucleated RBC 0.000 Nucleated RBC % (auto) 0.0 PT INR APTT Sodium 138 Potassium 4.3 Chloride 102 Carbon Dioxide 26 Anion Gap 14 BUN 13 Creatinine 0.80 Estim Creat Clear Calc 82.4 Estimated GFR > 60 Random Glucose 112 Calcium 9.5 D Magnesium 1.8 Total Bilirubin 1.5 H AST 14 ALT 26 Alkaline Phosphatase 53 Total Protein 7.2 Albumin 4.3 Urine Color Urine Appearance Urine pH Ur Specific [place] Urine Protein Urine Glucose (UA) Urine Ketones Urine Blood Urine Nitrite Ur Leukocyte Esterase Urine RBC Urine WBC Ur Squamous Epith Cells Urine Bacteria Hyaline Casts Influenza Type A (PCR) NEGATIVE Influenza Type B (PCR) NEGATIVE RSV RNA Qual (PCR) NEGATIVE SARS-CoV-2 RNA (RT-PCR) POSITIVE A 09/07/22 09/07/22 12:49 15:23 WBC RBC Hgb Hct MCV MCH MCHC RDW Plt Count MPV Immature Gran % (Auto) Neut % (Auto) Lymph % (Auto) [place] % (Auto) Eos % (Auto) Baso % (Auto) Lymph # (Auto) [place] # (Auto) Eos # (Auto) Baso # (Auto) Abs Immat Gran (auto) Absolute Neuts (auto) Absolute Nucleated RBC Nucleated RBC % (auto) PT 22.2 H INR 1.9 H APTT 37.7 H D Sodium Potassium Chloride Carbon Dioxide Anion Gap BUN Creatinine Estim Creat Clear Calc Estimated GFR Random Glucose Calcium Magnesium Total Bilirubin AST ALT Alkaline Phosphatase Total Protein Albumin Urine Color Yellow Urine Appearance Clear Urine pH 7.5 Ur Specific [place] 1.020 Urine Protein Trace Urine Glucose (UA) Negative Urine Ketones Negative Urine Blood Negative Urine Nitrite Negative Ur Leukocyte Esterase Trace H Urine RBC 3-5 H Urine WBC 0-5 Ur Squamous Epith Cells 3-5 Urine Bacteria Trace Hyaline Casts 0-2 Influenza Type A (PCR) Influenza Type B (PCR) RSV RNA Qual (PCR) SARS-CoV-2 RNA (RT-PCR) Mental Status Exam Mental Status Exam Narrative: A&O. Obese, hospital attire, unkempt. Poor eye contact, attentive. No Tics or Tremors. No abnormal involuntary movements. Calm, cooperative, engaged. Non- pressured speech, spontaneous with regular rate and rhythm, normal volume and prosody. No prolonged speech latency or dysarthria. Mood is ?depressed,? affect is euthymic. Denies SI/SIB/HI upon inquiry. Denies A/VH or delusional thought content. Thoughts are coherent, organized. No known cognitive or memory impairment. Insight/ Judgment fair and adequate. Medications Medications Current Medications Amlodipine Besylate (Amlodipine Besylate 10 Mg Tablet) 10 mg PO DAILY COUNTS INCLUDE 234 BEDS AT THE [facility]; Protocol Last Admin: 09/08/22 09:20 Dose: 10 mg Apixaban (Apixaban 5 Mg Tablet) 5 mg PO BID COUNTS INCLUDE 234 BEDS AT THE [facility] Last Admin: 09/08/22 09:21 Dose: 5 mg Benzonatate (Benzonatate 100 Mg Capsule) 100 mg PO TID PRN PRN Reason: Cough Lisinopril (Lisinopril 40 Mg Tablet) 40 mg PO DAILY COUNTS INCLUDE 234 BEDS AT THE [facility]; Protocol Last Admin: 09/08/22 09:21 Dose: 40 mg Pharmacy Consult (Consult Rx Perform Med Rec) 1 each MISCELLANE ONCE PRN PRN Reason: Consult order Spironolactone (Spironolactone 25 Mg Tablet) 12.5 mg PO DAILY COUNTS INCLUDE 234 BEDS AT THE [facility]; Protocol Last Admin: 09/08/22 09:20 Dose: 12.5 mg Allergies Allergies Allergy/AdvReac Type Severity Reaction Status Date / Time No Known Allergies Allergy Verified 08/05/22 17:12 Assessment & Plan Assessment & Plan (1) Generalized anxiety disorder: Status: Acute Code(s): F41.1 - Generalized anxiety disorder (2) MDD (major depressive disorder), recurrent episode, moderate: Status: Acute Code(s): F33.1 - Major depressive disorder, recurrent, moderate Plan Plan: At this time, pt lacks capacity for medical decision making. Her residence is unlivable and she struggles financially- she does not appreciate the risks this poses to her wellbeing, i.e. has led to poor hygiene, med non-compliance, immobility, and decompensation. Pt has been neglecting her mental health, appears depressed. She does not have adequate social supports or in home services to help her maintain functioning in her home. She will need case management to help her obtain in home services or fdc placement. Will start lexapro 10 mg daily for sx of MDD, QUAN. I have shared this with Margot Sheth Pt may not leave AMA She does not meet criteria for psych inpatient level of care at this time Thank you for this consultation. If you have any questions or concerns, please do not hesitate to contact psychiatry service. Total time managing care of this patient today ____ minutes. Patient educated on: medication risk/benefits and therapeutic strategies
--- NOTE | 2022-09-08 11:49 | MHC.CM.PN ---
CM AWAITING COMPLETION OF PSYCHIATRIC CONSULT REPORT
[2022-09-08] MEDS: Escitalopram Oxalate 10 MG TABLET PO (13:01)
[2022-09-08 15:38] VITALS: BP 133/60; PULSE 67; RESP 16; O2SAT 97
[2022-09-08] MEDS: Benzonatate 100 MG CAPSULE PO (20:27)
[2022-09-08] MEDS: Acetaminophen 325 MG TABLET 650 MG PO (20:27)
--- NOTE | 2022-09-08 20:31 | PC.NURSE ---
Assumed care of pt. at 1900. Pt. resting in room watching tv at this time. Pt. reporting pain at 8/10 under her breast and her neck. Pt. reports feeling swollen in her neck. pt. is covid +. Obtained order for tylenol, which pt. reports doesn't typically work, however, she will try this along with the tessalon for the cough. Pt. was medicated and resting quietly at this time.
[2022-09-08] MEDS: Morphine Sulfate 2 MG/ML CARTRIDGE IVPUSH (22:14)
--- NOTE | 2022-09-09 04:18 | PC.NURSE ---
Pt sleeping in bed with tv on in background. Pt. respirations are even and unlabored. No distress noted.
[2022-09-09 05:41] VITALS: BP 127/71; PULSE 64; RESP 12; TEMP 36.5; O2SAT 97
[2022-09-09] MEDS: Morphine Sulfate 2 MG/ML CARTRIDGE 1 MG IVPUSH (06:32)
[2022-09-09 07:41] VITALS: BP 117/66; PULSE 57; RESP 20; TEMP 36.6; O2SAT 95
[2022-09-09] MEDS: Spironolactone 25 MG TABLET 12.5 MG PO (08:25)
[2022-09-09] MEDS: lisinopriL 40 MG TABLET PO (08:26)
[2022-09-09] MEDS: amLODIPine Besylate 10 MG TABLET PO (08:26)
[2022-09-09] MEDS: Apixaban 5 MG TABLET PO ×2 (08:26→22:12)
[2022-09-09] MEDS: Escitalopram Oxalate 10 MG TABLET PO (08:26)
[2022-09-09] MEDS: Benzonatate 100 MG CAPSULE PO (08:29)
--- NOTE | 2022-09-09 10:16 | MHC.CM.ED ---
Patient remains in ER. Per psych, no capacity to make decisions. Physical therapy eval completed. Home therapy is recommended. Waiting for patient's sister/HCP, Joan to return telephone call to CM to determine a safe d/c plan. Patient does not have [facility]. Continue to monitor for d/c needs.
[2022-09-09 12:26] VITALS: BP 109/56; PULSE 55; RESP 20; TEMP 36.5; O2SAT 98
[2022-09-09] MEDS: Ondansetron ODT 4 MG TAB.RAPDIS TRANSLINGU (12:38)
[2022-09-09 14:47] VITALS: BP 148/77; PULSE 63; RESP 18; TEMP 36.7; O2SAT 97
[2022-09-09 16:19] VITALS: BP 99/44; PULSE 56; RESP 12; TEMP 36.6; O2SAT 96
--- NOTE | 2022-09-09 20:07 | PC.NURSE ---
Assumed care of patient. No apparent distress. Pt resting quietly while watching tv.
[2022-09-10 03:27] VITALS: BP 126/62; PULSE 55; RESP 18; TEMP 36.4; O2SAT 93
[2022-09-10] MEDS: Benzonatate 100 MG CAPSULE PO (04:38)
--- NOTE | 2022-09-10 06:51 | PC.NURSE ---
Pt continues to sleep. No apparent distress.
[2022-09-10] MEDS: Escitalopram Oxalate 10 MG TABLET PO (08:05)
[2022-09-10] MEDS: Spironolactone 25 MG TABLET 12.5 MG PO (08:05)
[2022-09-10] MEDS: amLODIPine Besylate 10 MG TABLET PO (08:05)
[2022-09-10] MEDS: lisinopriL 40 MG TABLET PO (08:06)
[2022-09-10] MEDS: Apixaban 5 MG TABLET PO ×2 (08:06→20:39)
[2022-09-10 08:09] VITALS: BP 126/62; PULSE 59; RESP 18; O2SAT 98
--- NOTE | 2022-09-10 08:09 | PC.NURSE ---
Pt alert/oriented. Denies pain or discomfort. VSS. Speaking full sentences. Ate 100% breakfast. States pain relief to abd s/p Tramadol last shift. Skin pwd. AM meds given
[2022-09-10 12:08] VITALS: BP 134/58; PULSE 55; RESP 14; TEMP 36.4; O2SAT 96
--- NOTE | 2022-09-10 12:20 | MHC.CM.ED ---
Patient remains in ER. Received voicemail from patient's daughter/HCP, Joan. T/W attempted to return Joan's telephone call at [phone]. Left message requesting return telephone call. Patient was found not to have capacity by psych. Physical therapy is rec home therapy. Patient's home is dirty and doesn't have food. Patient's daughter lives in the same trailer park but at a different trailer. Continue to monitor for d/c needs.
[2022-09-10 14:18] VITALS: BP 110/52; PULSE 57; RESP 16; O2SAT 97
--- NOTE | 2022-09-10 14:36 | PC.NURSE ---
pt. alert and oriented. complains of epigastric pain and asked for tramodol. Per provider gave her GI meds. pt resting comfortably. asked to use the phone but her daughter's line was busy.
[2022-09-10 20:36] VITALS: BP 153/55; PULSE 59; RESP 16; O2SAT 97
[2022-09-10] MEDS: traMADoL HCL 50 MG TABLET PO (22:00)
--- NOTE | 2022-09-10 23:45 | PC.NURSE ---
Pt requested tramadol for abdominal pain reports it helped relieve pain compaired to GI cocktail. Pt is resting at this time.
[2022-09-11 00:05] VITALS: BP 149/52; PULSE 58; RESP 16; TEMP 36.4; O2SAT 98
[2022-09-11 06:00] VITALS: BP 143/63; PULSE 56; RESP 16; TEMP 36.6; O2SAT 97
[2022-09-11 07:31] VITALS: BP 144/54; PULSE 56; RESP 20; TEMP 36.5; O2SAT 96
[2022-09-11] MEDS: lisinopriL 40 MG TABLET PO (07:33)
[2022-09-11] MEDS: amLODIPine Besylate 10 MG TABLET PO (07:33)
[2022-09-11] MEDS: Apixaban 5 MG TABLET PO ×2 (07:33→20:05)
[2022-09-11] MEDS: Spironolactone 25 MG TABLET 12.5 MG PO (07:33)
[2022-09-11] MEDS: Escitalopram Oxalate 10 MG TABLET PO (07:33)
--- NOTE | 2022-09-11 11:12 | MHC.CM.ED ---
Patient remains in ER. Attempted to reach patient's daughter/HCP, Joan via telephone at [phone]. Left message requesting return telephone call. Continue to monitor for d/c needs.
[2022-09-11 14:48] VITALS: BP 131/59; PULSE 61; RESP 16; TEMP 36.7; O2SAT 95
[2022-09-11 15:41] VITALS: BP 138/59; PULSE 58; RESP 18; TEMP 36.7; O2SAT 96
--- NOTE | 2022-09-11 16:45 | MHC.CM.PN ---
CM was able to speak with patient's Daughter/HCP Joan Chi ([phone]). CM explained to daughter that pt was diagnosed with Covid on 09/07, but does not meet criteria for inpatient hospitalization and the psychiatry met with her mother and they feel that she is not capable to make medical decisions. Daughter was reminded that she is the HCP and it's her responsibility to make medical decisions for her mother. Explained to daughter that patient is ready for discharge, but that she needs care and cannot go back to her trailer, as it is not in livable condition at this time. Daughter and her boyfriend agree that trailer needs to be cleaned, and daughter states she cannot take her mother home with Covid, as she has not received any Covid vaccinations. Daughter is requesting time to consider options. Daughter asked CM what options did she have. CM explained that daughter could take her home and care for her. If daughter is not capable of caring for her mother, then the hospital will need to explore guardianship. The court would appoint a guardian and then they would make decisions regarding her mother's care, not her. Daughter is aware that PT evaluated her mother and are recommending Home with PT services. Unfortunately, patient cannot go home, and would need to move to her daughters inorder to have PT at home. Daughter did tell CM that her mother has been more forgetful since her stroke last year. CM did explain to daughter that it appears her mother is unable to manage her finances, as she has no propane to heat her home and is using space heaters. Daughter is aware that patient cannot remain in the emergency indefinitely, and that she will need to make a decision regarding her ability to care for her mother. CM and daughter agreed to speak again tomorrow about 3:30 pm and either formulate a safe d/c plan or consider petitioning for guardianship if daughter is unable to do so. CM will follow for d/c plan.
--- NOTE | 2022-09-11 17:58 | PC.NURSE ---
Pt is resting comfortably on stretcher at this time. This RN spoke with pts daughter regarding plan of care. Pt remains in the ED at this time. Covid precautions in place
--- NOTE | 2022-09-11 20:33 | PC.NURSE ---
pt reports feeling upset because her daughter notified her that the hospital may go for guardianship. Pt is upset stating I am damn well able to make decisions for myself and I'll move out of state if I need to . This RN sat and comforted pt. Pt now resting comfortably on stretcher and is much calmer at this time
[2022-09-11 22:42] VITALS: BP 120/57; PULSE 61; RESP 19; TEMP 36.7; O2SAT 96
[2022-09-11] MEDS: traMADoL HCL 50 MG TABLET PO (23:37)
[2022-09-11] MEDS: Benzonatate 100 MG CAPSULE PO (23:37)
--- NOTE | 2022-09-11 23:49 | PC.NURSE ---
pt requesting tramadol for pain, states she has had it the last few nights and it has helped her get to sleep. MERT Rainey aware. verbal order for Tramadol given. Administered per NOV. Pt now resting comfortably on stretcher
[2022-09-12] VITALS (7 sets, daily range): BP systolic 129–162; BP diastolic 47–65; PULSE 50–60; RESP 16–22; TEMP 36.5–36.7; O2SAT 96–98
[2022-09-12] MEDS: Spironolactone 25 MG TABLET 12.5 MG PO (10:00)
[2022-09-12] MEDS: amLODIPine Besylate 10 MG TABLET PO (10:01)
[2022-09-12] MEDS: Escitalopram Oxalate 10 MG TABLET PO (10:01)
[2022-09-12] MEDS: Apixaban 5 MG TABLET PO ×2 (10:01→22:04)
[2022-09-12] MEDS: lisinopriL 40 MG TABLET PO (10:01)
--- NOTE | 2022-09-12 10:04 | PC.NURSE ---
pt requesting morphine for bodyaches. pt offered tylenol and refused. pa aware.
--- NOTE | 2022-09-12 16:28 | MHC.CM.PN ---
CM called and spoke with daughter/HCP Joan Chi regarding discharge plan. Joan tells CM that she will take her mother home to her trailer to care for her. They will clean the mother's trailer and plan to all move in to mother's trailer, as it is bigger and paid for. ANN will follow patient for SN and PT at the daughter's trailer, [address]. ANN notified via [facility] for discharge on 09/13 at 11am via BLS. Sherri booked for 09/13 at 11am. family living educatorBeau notified at [facility] of patient discharge to daughter's care. Message left. Patient aware. [employer] and Dunia RN aware. Paperwork with apartment community assistant manager. Today is day 5 for Covid isolation. Daughter is aware. CM will follow for discharge needs.
[2022-09-12] MEDS: Acetaminophen 325 MG TABLET 650 MG PO (17:03)
--- NOTE | 2022-09-12 18:52 | PC.NURSE ---
Pt sleeping on and off, resting comfortably in bed. Dinner provided
[2022-09-12] MEDS: Benzonatate 100 MG CAPSULE PO (22:04)
--- NOTE | 2022-09-12 22:10 | PC.NURSE ---
Pt's V/S are stable,pt is resting and no apparent distress.
[2022-09-13 03:25] VITALS: BP 166/56; PULSE 50; RESP 16; TEMP 37; O2SAT 98
--- NOTE | 2022-09-13 05:31 | PC.NURSE ---
Rounds: Pt is alseep, V/S are stable, and a/ox3.
[2022-09-13] MEDS: Apixaban 5 MG TABLET PO (07:20)
[2022-09-13] MEDS: lisinopriL 40 MG TABLET PO (07:20)
[2022-09-13] MEDS: amLODIPine Besylate 10 MG TABLET PO (07:20)
[2022-09-13] MEDS: Spironolactone 25 MG TABLET 12.5 MG PO (07:20)
[2022-09-13] MEDS: Escitalopram Oxalate 10 MG TABLET PO (07:20)
[2022-09-13 07:33] VITALS: BP 171/73; PULSE 60; RESP 16; TEMP 36.6; O2SAT 98
--- NOTE | 2022-09-13 07:54 | PC.NURSE ---
report taken from frieda mckenna pt here as case mgmt, per notes pt is to be discharged home via ambulance to her home in [place], her family is moving in with her to assist in her care. pt awake to voice, able to ambulate to bathroom using walker with steady gait. sitting up at bedside eating breakfast, took all hs medications this am. tolerating po without issue. nad. awaiting transport home.
== END 2022-09-13 11:33 | disposition home or self-care (01) ==
PROVIDERS: Physician Assistant Medical; Emergency Provider Student in an Organized Health Care Education/Training Program; PCP Internal Medicine
DX: U07.1 COVID-19 (principal); R11.2 Nausea with vomiting, unspecified; R19.7 Diarrhea, unspecified; R26.2 Difficulty in walking, not elsewhere classified; Z79.899 Other long term (current) drug therapy; Z87.891 Personal history of nicotine dependence
CPT/HCPCS: 0241U; 36415; 71275; 80053; 81001; 81003; 83735; 85025; 85610; 85730; 93005; 97161; 97530; 99285; J2270; Q9967

== ENCOUNTER → 2023-02-18 10:28 | Outpatient (BNVA) | payer MEDICARE, SELFPAY | PROVIDERS: PCP Internal Medicine; Referring Provider Internal Medicine; Visit Provider Internal Medicine | DX: I11.0 Hypertensive heart disease with heart failure (principal); I50.32 Chronic diastolic (congestive) heart failure; I48.0 Paroxysmal atrial fibrillation | CPT/HCPCS: 99212 ==

== ENCOUNTER 2023-02-28 10:34 | Outpatient (REF) | payer MEDICARE, SELFPAY ==
[2023-02-28 11:22] LABS: B Type Natriuretic Peptide 450 pg/mL (<100)
== END 2023-02-28 10:35 | disposition home or self-care (01) ==
LOC: HO.LAB 10:34
PROVIDERS: Nurse Practitioner Family; PCP Internal Medicine; Visit Provider Internal Medicine
DX: I50.32 Chronic diastolic (congestive) heart failure (principal)
CPT/HCPCS: 36415; 83880

== ENCOUNTER 2023-04-04 14:51 | Outpatient (REF) | payer MEDICARE, SELFPAY ==
[2023-04-04 15:09] LABS: Appearance Urine Cloudy; Color Urine Yellow; Glucose Urine UA Negative (Negative); Leukocyte Esterase Urine Large (3+) (Negative); Nitrite Urine Negative (Negative); PH 5.5 (5.0-9.0); UMIC TRIGGER UA YES; Urine Blood Moderate (2+) (Negative); Urine Ketones Negative (Negative); Urine Protein 30 (1+) mg/dL (Neg-Trace)
[2023-04-04 15:13] LABS: Bacteria Urine 1+ (None Seen); Hyaline Casts Urine 0-2 /LPF (0-2); WBC Urine >50 /HPF (0-5)
== END 2023-04-04 14:52 | disposition home or self-care (01) ==
LOC: HO.LNP 14:51
PROVIDERS: Visit Provider Internal Medicine Geriatric Medicine
DX: N39.0 Urinary tract infection, site not specified (principal)
CPT/HCPCS: 81001; 81003; 87086

== ENCOUNTER 2023-06-06 10:29 | Outpatient (AMB) | payer MEDICARE, SELFPAY ==
[2023-06-06 11:05] VITALS: BP 132/80; PULSE 40; O2SAT 96; BMI 28.7
--- NOTE | 2023-06-06 11:05 | MHC.PC.OV ---
Vital Signs 06/06/23 11:05 Height 5 ft 10 in Weight 200 lb BMI 28.7 BP 132/80 Blood Pressure Location Lt brachial Position Sitting Pulse 40 L Pulse Source Pulse Oximeter Pulse Oximetry (%) 96 Oxygen Delivery Method Room Air Intake Visit Reasons: CHF,AFIB,HTN Motor Pool Driver Required: No Accompanied by: Self / Same As Patient Allergies No Known Allergies Allergy (Verified 06/06/23 11:51) Medication List - Last Reconciled 06/06/23 by Brenden Guzmán MD acetaminophen ER (Tylenol Arthritis Pain) 650 mg PO Q12H PRN amlodipine 10 mg See Protocol PO DAILY 30 days hydrochlorothiazide 12.5 mg PO DAILY 30 days lisinopril 40 mg PO DAILY metoprolol succinate ER 100 mg PO DAILY 30 days rosuvastatin 5 mg PO DAILY 30 days warfarin 5 mg PO DAILY 30 days Tobacco use date assessed: 06/06/23 Fall risk assessment: No Falls in past year Last assessed Fall Risk: 06/06/23 Dental Screening Dental Screen Date: 06/06/23 Did you have a dental visit in the last 12 months?: No Did you have a dental problem in the last 6 months where you did not have access to dental care?: No Was dental information given to patient?: No HPI CHF,AFIB,HTN HPI Details Patient comes in today for her follow up visit States that she feels okay She denies any headaches or dizziness Denies any chest pains, no SOB No nausea/vomiting, no abdominal pain No change in bowel habits noted Is currently on Coumadin for her PAF as she cannot afford the cost of Apixaban Presently still has no clear plans yet on what to do regarding checking and monitoring her INR regularly She has no follow up labs done recently Patient would also like to get her tetanus booster today [facility] Medical History (Updated 06/09/23 @ 23:43 by Brenden Guzmán MD) Overweight (BMI 25.0-29.9) Paroxysmal atrial fibrillation Chronic heart failure with preserved ejection fraction (HFpEF) Pure hypercholesterolemia Severe uncontrolled high blood pressure Generalized anxiety disorder Major depression, single episode Hyperlipidemia Left-sided cerebrovascular accident (CVA) Obesity (BMI 30-39.9) Essential hypertension HTN (hypertension) Surgical History Hx of cholecystectomy Hx of hernia repair Hx of appendectomy Hx of hysterectomy Family History Father Heart disease Pacemaker Diabetes Mother Stroke Sister Thyroid disease Social History Household Members: None Housing: Other Housing Other:: [facility] Do you presently have visiting nurse or other home services: Yes (VNA 2 x/week, PT 1 x/week) Alcohol intake: current Alcohol intake frequency: does not drink Alcohol type: beer Patient Tobacco Use Status: Former Tobacco user Quit Date: 2016 Tobacco use type: Cigarette e-Cigarette/Vaping Use: Never Used Second Hand Smoke Exposure: Yes Advance Directives Date on File: 09/26/21 service: No Current occupational status: disabled Gender identity: Female Cognitive needs: No Hearing needs: No Vision needs: No Questionnaire PHQ-9 Over the last 2 weeks, how often have you been bothered by any of the following problems? 1. Little interest or pleasure in doing things: nearly every day 2. Feeling down, depressed, or hopeless: nearly every day 3. Trouble falling or staying asleep, or sleeping too much: more than half the days 4. Feeling tired or having little energy: nearly every day 5. Poor appetite or overeating: nearly every day 6. Feeling bad about yourself - or that you are a failure or have let yourself or your family down: nearly every day 7. Trouble concentrating on things, such as reading the newspaper or watching television: not at all 8. Moving or speaking so slowly that other people could have noticed. Or the opposite - being so fidgety or restless that you have been moving around a lot more than usual: not at all 9. Thoughts that you would be better off or of hurting yourself in some way: nearly every day Total score: 20 Depression Screening Interpretation: Positive Depression Screening Follow-up: Existing condition, Community Mental Health Worker F/U and Follow-up Visit Requested [id number] - PHQ-9 Billing: Yes Source: Developed by Drs. Demarcus Alexis, Martha Marcus, Grady Hu and colleagues, with an educational sarmad from [employer]. Thrive Questionnaire Date Thrive assessed: 06/06/23 I am a: Patient What is your living situation today?: I have a steady place to live Within the past 12 months, did the food you bought not last and you didn't have the money to get more?: Sometimes True Within the past 12 months, did you worry whether your food would run out before you got money to buy more?: Sometimes True Do you have trouble paying for medicines?: No Do you have trouble getting transportation to medical appointments?: No Do you have trouble paying your heating and electricity bill?: No Do you have trouble taking care of your child, family member or friend?: No Do you have trouble with day-to-day activities such as bathing, preparing meals, shopping, managing finances, etc.?: No Are you currently unemployed and looking for a job?: No Are you interested in more education?: No Please select the resources that you would like help with: Paying for medicine, Transportation, Utilities and Daily support Currently or been in a relationship where the following occur: no concerns reported AUDIT C Alcohol Use Questionnaire (AUDIT-C) 1. How often do you have a drink containing alcohol?: 2-3 times a week 2. How many drinks containing alcohol do you have on a typical day when you are drinking?: 3 or 4 3. How often do you have six or more drinks on one occasion?: Never Total Score: 4 Score Reviewed/Action Taken: Yes (reviewed. Education provided on health risks associated with alcohol use. ) QUAN-7 AMB Questionnaire QUAN-7 Date QUAN - 7 assessed: 06/06/23 Feeling nervous, anxious, or on edge: 0 = Not at all Not being able to stop or control worryin = Not at all Worrying too much about different things: 0 = Not at all Trouble relaxin = Not at all Being so restless that it is hard to sit still: 0 = Not at all Becoming easily annoyed or irritable: 0 = Not at all Feeling afraid as if something awful might happen: 0 = Not at all Total QUAN-7 score (0-4 normal; 5-9 mild; 10-14 moderate; 15-21 severe): 0 Source: Developed by Drs. Demarcus Alexis, Martha Marcus, Grady Hu and colleagues, with an educational sarmad from [employer]. Review of Systems Const Denies chills, Reports fatigue, Denies fever(s) and Denies headache(s) ENT Denies dysphagia, Denies dizziness, Denies otalgia, Denies headache(s), Denies odynophagia and Denies sore throat Card Denies chest pain, Denies palpitations and Denies dyspnea Resp Denies cough and Denies dyspnea GI Denies abdominal pain, Denies constipation, Denies dysphagia, Denies heartburn, Denies diarrhea, Denies nausea, Denies odynophagia and Denies vomiting Denies difficulty voiding, Denies nocturia and Denies dysuria Musc Reports arthralgias (both knees) Skin/Breast Denies rash Neuro Denies dizziness and Denies headache(s) Endo Reports fatigue and Denies palpitations Physical exam (Primary Care) Vital Signs: Last Vital Signs Pulse 40 L 06/06/23 11:05 BP 132/80 06/06/23 11:05 Pulse Ox 96 06/06/23 11:05 Oxygen Delivery Method Room Air 06/06/23 11:05 BMI result Body Mass Index 28.7 Tobacco/Smoking Status: Tobacco use Status Tobacco use date assessed 06/06/23 06/06/23 11:07 Patient Tobacco Use Status Former Tobacco user 06/06/23 11:07 Tobacco use type Cigarette 06/06/23 11:07 e-Cigarette/Vaping Use Never Used 06/06/23 11:07 PHQ-9: PHQ-9 Score PHQ-9: Total score 20 06/06/23 12:04 Depression Screening Interpretation: Positive Depression Screening Follow-up: Existing condition, Community Mental Health Worker F/U and Follow-up Visit Requested Thrive Assessment: Date of Thrive Assessment Date Thrive assessed 06/06/23 06/06/23 11:07 Currently or been in a relationship where the following occur: no concerns reported Const General: no acute distress and alert HENMT Ears: TM's normal bilaterally and EAC's normal Throat: Yes posterior oropharynx normal and Yes tonsils normal (no TP congestion noted) Neck Neck: Yes no lymphadenopathy and Yes supple Resp Auscultation: clear to auscultation bilaterally, no rales and no wheezes Cardio Rate: regular rate Rhythm: regular rhythm Heart sounds: no murmurs GI Palpation (GI): Soft to palpation and nontender Auscultation: normal bowel sounds Skin Rashes: no rashes Extrem General: Yes no clubbing, cyanosis or edema Right lower extremity: knee Details: tenderness; no swelling Left lower extremity: knee Details: tenderness; no swelling Immunizations tetanus-diphtheria toxoids-Td 2 Lf unit-2 Lf unit/0.5 mL IM suspension Performing Provider: Brenden Guzmán MD [facility] Administered by: MILDRED Benjamin on 06/06/23 12:14 Dose Route Admin Location Dispensed Lot Number Expiration Date NDC [employer] 0.5 mL IM Left Deltoid 0.5 mL [id number] 01/20/24 [address]-8 [employer] VIS Given Date VIS Provided VIS Publication Date 06/06/23 Single Vaccine 21 Eligibility Eligibility Date Funding Source Not VFC Eligible 06/06/23 [facility] Assessment and Plan Assessment & Plan (1) Paroxysmal atrial fibrillation: Code(s): I48.0 - Paroxysmal atrial fibrillation Plan: Patient is currently in sinus rhythm Continue Metoprolol ER 100 mg QD Was on Multaq 400 mg BID and Eliquis 2.5 mg BID for thromboembolism prophylaxis previously; Multaq has since been discontinued by cardiology and patient could not afford the cost of Apixaban She has since switched over to Coumadin and recently started taking Coumadin 5 mg QD Presently has no plans on what to do regarding her PT/INR monitoring - discussed options of either following up with the Coumadin clinic regularly or home INR monitoring, both of which may pose issues / barriers for patient Will send her to the lab [facility] to check her labs and PT/ INR for now Will have office staff try to reach out to patient's daughter or HCP to find out what they can do to help patient with her INR monitoring so we will know how to help patient get set up for this Follow up with cardiology as scheduled (2) Essential hypertension: Code(s): I10 - Essential (primary) hypertension Plan: Reinforced low-sodium diet - goal is systolic BP of at least 130 mm or less Continue Lisinopril 40 mg QD, Amlodipine 10 mg QD and HCTZ 12.5 mg QD (3) Left-sided cerebrovascular accident (CVA): Comment: 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 Code(s): I63.9 - Cerebral infarction, unspecified Plan: Currently has no residual neurologic deficits; left cerebellar bleed was most likely due to uncontrolled hypertension and patient was also on Eliquis at that time Reinforced importance of blood pressure control to minimize risks of recurrence (4) Pure hypercholesterolemia: Code(s): E78.00 - Pure hypercholesterolemia, unspecified Plan: Reinforced low-cholesterol diet Continue Rosuvastatin 5 mg QD Cholesterol levels were last checked in July 2021 - total cholesterol was at 204 mg/dl and LDL cholesterol was at 132 mg/dl then Will have patient recheck her labs and fasting lipids [facility] for follow-up (5) Overweight (BMI 25.0-29.9): Code(s): E66.3 - Overweight Plan: Reinforced diet; exercise and weight loss are going to prove difficult due to patient's physical condition and comorbidities although she has lost a good amount of weight since her last visit Plan Td booster given today Follow up in 3 months Orders: Orders Complete Blood Count Auto Diff 06/06/23 I10 - Essential (primary) hypertension B Type Natriuretic Peptide 06/06/23 I50.9 - Heart failure, unspecified Vitamin D 25-OH Total 06/06/23 E55.9 - Vitamin D deficiency, unspecified Vitamin B12 and Folate 06/06/23 E53.8 - Deficiency of other specified B group vitamins Comprehensive [employer]. Panel Fast 06/06/23 E78.00 - Pure hypercholesterolemia, unspecified Lipid Panel 06/06/23 E78.00 - Pure hypercholesterolemia, unspecified UA CC w/rflx Micro + Cult 06/06/23 R30.0 - Dysuria TSH reflex Free T4 06/06/23 E78.00 - Pure hypercholesterolemia, unspecified Prothrombin Time INR 06/06/23 I48.0 - Paroxysmal atrial fibrillation, I50.32 - Chronic diastolic (congestive) heart failure Td State Immunization 06/06/23 Z23 - Encounter for immunization Coding Level of Care Code Est Pt Level 4 (72745) Diagnoses Paroxysmal atrial fibrillation I48.0 Essential hypertension I10 Left-sided cerebrovascular accident (CVA) I63.9 Pure hypercholesterolemia E78.00 Overweight (BMI 25.0-29.9) E66.3
== END 2023-06-06 11:58 | disposition home or self-care (01) ==
PROVIDERS: PCP Internal Medicine; Visit Provider Internal Medicine
DX: Z23 Encounter for immunization (principal)
CPT/HCPCS: 90471; 90714; 99214

== ENCOUNTER 2023-06-06 12:23 | Outpatient (REF) | payer MEDICARE, SELFPAY ==
[2023-06-06 12:45] LABS: MANUAL DIFF FLAG NO
[2023-06-06 13:15] LABS: Basophils Absolute Auto 0.1 X10*3/uL (0.0-0.2); Basophils Percent Auto 0.7 % (0-2); Eosinophils Absolute Auto 0.2 X10*3/uL (0.0-0.4); Eosinophils Percent Auto 2.4 % (0-4); Hematocrit 40.7 % (37.0-47.0); Hemoglobin 13.5 g/dl (12.0-16.0); Imm Gran Abs Auto 0.02 X10*3/uL (0.00-0.03); Imm Gran Pct Auto 0.2 % (0.0-0.4); Lymphocytes Absolute Auto 1.9 X10*3/uL (1.2-4.9); Lymphocytes Percent Auto 22.9 % (20-40); Mean Corpuscular HGB Conc 33.2 g/dl (31.0-35.0); Mean Corpuscular Volume 81.4 fL (80.0-98.0); Mean Platelet Volume 11.5 fL (9.4-12.3); Monocytes Absolute Auto 0.6 X10*3/uL (0.1-1.2); Monocytes Percent Auto 6.7 % (2-11); Neutrophils Absolute Auto 5.6 x10*3/uL (2.0-8.3); Neutrophils Percent Auto 67.1 % (45-73); Platelet Count 314 X10*3/uL (160-400); Red Cell Distribution Width 14.1 % (11.0-16.0); White Blood Count 8.3 X10*3/uL (4.8-10.8)
[2023-06-06 13:25] LABS: Prothrombin Time 121.6 SEC (11.1-13.3)
[2023-06-06 13:33] LABS: B Type Natriuretic Peptide 409 pg/mL (<100)
[2023-06-06 13:34] LABS: Estimated Average Glucose 114 mg/dL; Hemoglobin A1c % 5.6 % (<6.0)
[2023-06-06 13:52] LABS: Appearance Urine Clear; Color Urine Dark Yellow; Glucose Urine UA Negative (Negative); Leukocyte Esterase Urine Moderate (2+) (Negative); Nitrite Urine Negative (Negative); PH 5.5 (5.0-9.0); UMIC TRIGGER UACC YES; Urine Blood Negative (Negative); Urine Ketones Trace mg/dL (Negative); Urine Protein Negative (Neg-Trace)
[2023-06-06 13:56] LABS: Bacteria Urine 2+ (None Seen); Hyaline Casts Urine 0-2 /LPF (0-2); RBC Urine 0-2 /HPF (0-2); UACC Culture Trigger YES; WBC Urine 21-50 /HPF (0-5)
[2023-06-06 14:38] LABS: Alanine Aminotransferase 15 U/L (0-31); Albumin Level 4.2 g/dL (3.5-5.0); Alkaline Phosphatase 46 U/L (39-117); Anion Gap 13 (12-20); Aspartate Amino Transferase 17 U/L (5-31); Bilirubin Total 1.8 mg/dL (0.0-1.0); Blood Urea Nitrogen 30 mg/dL (9-16); Calcium 9.5 mg/dL (8.4-10.2); Carbon Dioxide 27 mmol/L (22-29); Chloride 104 mmol/L (96-108); Cholesterol 120 mg/dL (<200); Estimated Glomerular Filt Rate 53; Glucose Fasting 87 mg/dL (60-99); HDL Cholesterol 31 mg/dL (>40); LDL Cholesterol Calculated 72 mg/dL (<100); Potassium 4.3 mmol/L (3.3-5.1); Sodium 140 mmol/L (135-145); TSH reflex Free T4 1.21 uIU/mL (0.32-4.0); Total Protein 7.2 g/dL (6.5-8.0); Triglycerides 85 mg/dL (<150); Vitamin D 25-OH Total 29.2 ng/mL (>30)
[2023-06-06 14:51] LABS: Folate 12.5 ng/mL (> or = 4.0); Vitamin B12 560 pg/mL (200-900)
== END 2023-06-06 12:24 | disposition home or self-care (01) ==
LOC: HO.LAB 12:23
PROVIDERS: PCP Internal Medicine; Visit Provider Internal Medicine
DX: E78.00 Pure hypercholesterolemia, unspecified (principal); E55.9 Vitamin D deficiency, unspecified; E53.8 Deficiency of other specified B group vitamins; I48.0 Paroxysmal atrial fibrillation; I11.0 Hypertensive heart disease with heart failure; I50.32 Chronic diastolic (congestive) heart failure; R73.01 Impaired fasting glucose; R30.0 Dysuria
CPT/HCPCS: 36415; 80053; 80061; 81001; 82306; 82607; 82746; 83036; 83880; 84443; 85025; 85610; 87086

== ENCOUNTER 2023-09-03 13:44 | Inpatient (IN) | payer MEDICARE, MEDICAID, SELFPAY ==
--- NOTE | 2023-09-03 | ECG_ITS ---
Test Reason : BRADYCARDIA Blood Pressure : / mmHG Vent. Rate : 050 BPM Atrial Rate : 000 BPM P-R Int : 000 ms QRS Dur : 116 ms QT Int : 446 ms P-R-T Axes : 000 -45 169 degrees QTc Int : 406 ms Atrial fibrillation with slow ventricular response Left axis deviation Minimal voltage criteria for LVH, may be normal variant ( Tee product ) Septal infarct (cited on or before 07-SEP-2022) ST & T wave abnormality, consider lateral ischemia Abnormal ECG When compared with ECG of 07-SEP-2022 12:00, Atrial fibrillation has replaced Sinus rhythm Vent. rate has decreased BY 26 BPM Referred By: Lennie Torre Electronically Signed By:ANGELA RODRIGUEZ MD
--- NOTE | ~2023-09-03 | XR_ITS ---
EXAMINATION: XR CHEST CLINICAL INFORMATION: Rule out pneumonia COMPARISON: 08/31/2022 TECHNIQUE: Frontal view of the chest was obtained. FINDINGS: Heart and mediastinum within normal limits. No vascular congestion, consolidations or effusions. Degenerative changes bilateral shoulders. XR/XR chest 1V IMPRESSION: No acute cardiopulmonary disease.
[2023-09-03 13:53] VITALS: BP 147/71; PULSE 57; RESP 14; TEMP 36.8; O2SAT 99; BMI 31.1
--- NOTE | 2023-09-03 14:14 | ED_ITS ---
HPI - General Adult General Chief complaint: General Medical Stated complaint: SOB WEAKNESS PER EMS Source: patient Mode of arrival: EMS Limitations: no limitations History of Present Illness HPI narrative: Patient comes to the emergency room complaining of low heart rate and dizziness. Patient states that she has visiting nurses, they noted that patient's heart rate was between 40 and 50 which is abnormal for the patient. Patient states that she has been keeping an eye on her heart rate per visiting VNA because patient has reported feeling lightheaded with sitting up. Patient states that she has not had any syncopal episodes. Patient denies any chest pain or shortness of breath. Related Data Previous Rx's Medication Instructions Recorded acetaminophen 650 mg 650 mg PO Q12H PRN pain #20 tabs 08/06/23 tablet,extended release (Tylenol Arthritis Pain) amlodipine 10 mg tablet 10 mg PO DAILY 30 days #30 tabs 08/06/23 hydrochlorothiazide 12.5 mg capsule 12.5 mg PO DAILY 30 days #30 caps 08/06/23 lisinopril 40 mg tablet 40 mg PO DAILY 90 days #90 tabs 08/06/23 metoprolol succinate 100 mg 100 mg PO DAILY 30 days #30 tabs 08/06/23 tablet,extended release 24 hr rosuvastatin 5 mg tablet 5 mg PO DAILY 30 days #30 tabs 08/06/23 warfarin 5 mg tablet 5 mg PO DAILY 30 days #30 tabs 08/06/23 ADULT PULL UPS (large) #100 ea 08/26/23 Allergies Allergy/AdvReac Type Severity Reaction Status Date / Time No Known Allergies Allergy Verified 06/06/23 11:51 Review of Systems 2 Review of Systems: Constitutional : No Weight loss, No Fever, No Chills, No Night Sweats, No Fatigue, No Malaise ENT/Mouth : No Hearing loss, No Ear Pain, No Nasal Congestion, No Sinus Pain, No Hoarseness, No sore throat, No Rhinorrhea, No Swallowing Difficulty Eyes: No Eye Pain, No Swelling, No Redness, No Foreign Body, No Discharge, No Vision Changes Cardiovascular : Patient complaining of low heart rate, lightheadedness Edema, patient complaining of low heart rate, intermittent dizziness/lightheadedness Respiratory : No Cough, No Sputum, No Wheezing, No Smoke Exposure, No Dyspnea Gastrointestinal : No Nausea, No Vomiting, No Diarrhea, No Constipation, No abdominal Pain, No Hematochezia, No Melena Genitourinary : no irregular bleeding, No Dysuria, No Urinary Frequency, No Hematuria, No Urinary Incontinence, No Urgency, No Flank Pain, No Urinary Flow Changes, No Hesitancy Musculoskeletal : No joint pain, No Myalgias, No Joint Swelling Skin : No Skin Lesions, No rash Neuro : No Weakness, No Numbness, No Paresthesias, No Loss of Consciousness, No Dizziness, No Headache Psych : No Anxiety/Panic, No Depression, No SI/HI/AH/VH, No Social Issues, Heme/Lymph: No Bruising, No Bleeding,No Lymphadenopathy Endocrine : No Polyuria, No Polydipsia, No Temperature Intolerance [facility] Past Medical History Medical History Overweight (BMI 25.0-29.9) Paroxysmal atrial fibrillation Chronic heart failure with preserved ejection fraction (HFpEF) Pure hypercholesterolemia Severe uncontrolled high blood pressure Generalized anxiety disorder Major depression, single episode Hyperlipidemia Left-sided cerebrovascular accident (CVA) Obesity (BMI 30-39.9) Essential hypertension HTN (hypertension) Surgical History Hx of cholecystectomy Hx of hernia repair Hx of appendectomy Hx of hysterectomy Family History Family History Father Heart disease Pacemaker Diabetes Mother Stroke Sister Thyroid disease Social History Social History Household Members: None Housing: Other Housing Other:: [facility] Do you presently have visiting nurse or other home services: Yes (VNA 2 x/week, PT 1 x/week) Alcohol intake: current Alcohol intake frequency: a few times a month Alcohol type: beer Patient Tobacco Use Status: Former Tobacco user Quit Date: 2016 Tobacco use type: Cigarette Smoked in Last 30 Days: No e-Cigarette/Vaping Use: Never Used Second Hand Smoke Exposure: Yes Use of substances other than those prescribed or required for medical reasons: No Advance Directives: Yes Advance Directives on File: Yes Advance Directives Date on File: 09/26/21 service: No Current occupational status: disabled Gender identity: Female Cognitive needs: No Hearing needs: No Vision needs: No Physical Exam ED Vital Signs: Vital Signs - 24 hr 09/03/23 13:53 09/03/23 17:53 09/03/23 19:07 Temperature 98.2 F Pulse Rate 57 53 56 Respiratory Rate 14 20 Blood Pressure 147/71 H 134/73 169/77 H Pulse Oximetry 99 98 Oxygen Delivery Method Room Air Room Air 09/03/23 19:08 09/03/23 19:10 Temperature Pulse Rate 60 73 Respiratory Rate Blood Pressure 147/76 H 146/76 H Pulse Oximetry Oxygen Delivery Method BMI result Body Mass Index 31.1 Const Other: Appearance: Alert. Oriented X3. No acute distress. Eyes: Pupils equal, round and reactive to light. ENT: Pharynx normal. Neck: Normal inspection. Neck supple. No lymph nodes noted. No crepitus CVS: Heart rate between 45 and 65, Normal heart rate and rhythm. Pulses normal. Normal S1 and S2 Respiratory: No respiratory distress. Breath sounds normal. No Wheezing. No rales Abdomen: Soft and nontender. No rigidity. No distention. Skin: Skin warm and dry. Normal skin color. Normal skin turgor. Extremities: No lower extremity edema. No Lacerations. No Rash Neuro: Oriented X 3. No motor deficit. No sensory deficit. Moving all extremities. No slurred speech. CN 2 through 12 grossly intact Psych: calm, cooperative, normal affect Course Course Course Narrative: -all of patient's labs and imaging pending Medications Administered Generic Name Dose Route Start Last Admin Trade Name Freq PRN Reason Stop Dose Admin Sodium Chloride 1,000 mls @ 500 mls/hr 09/03/23 19:42 09/03/23 19:47 Ns IVCONT 09/03/23 21:41 500 mls/hr .Q2H ONE Administration Medical Decision Making Medical Decision Making [facility] Narrative: -my interpretation of EKG: Atrial fibrillation, heart rate 50, slow ventricular response, no ST segment depression or elevation, no T-wave inversion, QTC 406 -his EKG with Dr. Jackson from Cardiology, there are no 3rd degree blocks -patient's troponin is at baseline, patient has not had any chest pain or shortness of breath. -patient orthostatic vitals were positive, patient receiving IV fluids -I discussed the patient with Dr. Gallegos, patient was symptomatic, bradycardic, we will admit for observation. Differential Diagnosis Differential Diagnoses: The differential diagnosis associated with the presentation includes (Orthostatic hypotension, atrial fibrillation with low ventricular rate, 3rd degree block) Admission/Observation Consideration of admission/observation: Escalation of care including admission/observation considered Consult Healthcare Provider Management of the patient was discussed with: Hospitalist and Director Patient Lab Data MDM Lab Attestation statement: I reviewed the patient's lab results. 09/03/23 14:34 09/03/23 14:34 Labs: Lab Results 09/03/23 09/03/23 09/03/23 Range/Units 14:24 14:34 15:07 WBC 7.6 (4.8-10.8) X10*3/uL RBC 4.79 (4.20-5.50) X10*6/uL Hgb 13.3 (12.0-16.0) g/dl Hct 40.0 (37.0-47.0) % MCV 83.5 (80.0-98.0) fL MCH 27.8 (27.0-33.0) pg MCHC 33.3 (31.0-35.0) g/dl RDW 12.9 (11.0-16.0) % Plt Count 263 (160-400) X10*3/uL MPV 10.6 (9.4-12.3) fL Immature Gran % (Auto) 0.3 (0.0-0.4) % Neut % (Auto) 59.1 (45-73) % Lymph % (Auto) 30.1 (20-40) % Mineral % (Auto) 6.6 (2-11) % Eos % (Auto) 3.0 (0-4) % Baso % (Auto) 0.9 (0-2) % Lymph # (Auto) 2.3 (1.2-4.9) X10*3/uL Mineral # (Auto) 0.5 (0.1-1.2) X10*3/uL Eos # (Auto) 0.2 (0.0-0.4) X10*3/uL Baso # (Auto) 0.1 (0.0-0.2) X10*3/uL Abs Immat Gran (auto) 0.02 (0.00-0.03) X10*3/uL Absolute Neuts (auto) 4.5 (2.0-8.3) x10*3/uL Absolute Nucleated RBC 0.000 (0.0-0.012) X10*3/uL Nucleated RBC % (auto) 0.0 (0.0-0.2) /100WBC PT 13.9 H D (11.1-13.3) SEC INR 1.1 D (0.9-1.1) Sodium 140 (135-145) mmol/L Potassium 4.3 (3.3-5.1) mmol/L Chloride 105 (96-108) mmol/L Carbon Dioxide 28 (22-29) mmol/L Anion Gap 11 L (12-20) BUN 15 (9-16) mg/dL Creatinine 0.69 (0.5-1.4) mg/dL Estim Creat Clear Calc 90.7 Estimated GFR > 60 Random Glucose 97 (60-115) mg/dL Lactic Acid 2.0 (0.5-2.0) mmol/L Calcium 9.3 (8.4-10.2) mg/dL Magnesium 1.8 (1.6-2.6) mg/dL Total Bilirubin 1.2 H (0.0-1.0) mg/dL Direct Bilirubin 0.4 (0.0-0.5) mg/dL AST 14 (5-31) U/L ALT 13 (0-31) U/L Alkaline Phosphatase 57 (39-117) U/L Troponin I High Sens 10.3 D (<3.5-17.0) ng/L B-Natriuretic Peptide 246 H (<100) pg/mL Total Protein 7.3 (6.5-8.0) g/dL Albumin 4.2 (3.5-5.0) g/dL Lipase 25 (8-78) U/L TSH 1.02 (0.32-4.0) uIU/mL Urine Opiates Screen Not Detected (Not Detect) Urine Fentanyl Screen Not Detected (Not Detect) Ur Barbiturates Screen Not Detected (Not Detect) Ur Phencyclidine Scrn Not Detected (Not Detect) Ur Amphetamines Screen Not Detected (Not Detect) U Benzodiazepines Scrn Not Detected (Not Detect) Urine Cocaine Screen POSITIVE H (Not Detect) U Marijuana (THC) Screen Not Detected (Not Detect) Ethyl Alcohol < 10 mg/dL COVID-19 (DENNIS) Negative (Negative) COVID-19 Clin Com See Note Influenza Type A (JULIO CESAR) Negative (Negative) Influenza Type B (JULIO CESAR) Negative (Negative) Influenza A & B Note See Note Independent Interpretation I performed an independent interpretation of an: EKG Critical Care Time Critical Care Time Critical Care Time: Yes Total Critical Care Time: 60 Attestation: Please follow-up with your primary care physician tomorrow. If you have any worsening or new symptoms, please return to the emergency room or call 911 Discharge Plan Discharge Clinical Impression: Symptomatic bradycardia Patient Disposition: Admitted As Inpatient Prescriptions: No Action acetaminophen [Tylenol Arthritis Pain] 650 mg tablet extended release 650 mg PO Q12H PRN (Reason: pain) Qty: 20 0RF amlodipine 10 mg tablet 10 mg PO DAILY 30 Days Qty: 30 2RF Protocol: Hold for SBP< HOLD for SBP < : 90 hydrochlorothiazide 12.5 mg capsule 12.5 mg PO DAILY 30 Days Qty: 30 3RF metoprolol succinate 100 mg tablet extended release 24 hr 100 mg PO DAILY 30 Days Qty: 30 3RF rosuvastatin 5 mg tablet 5 mg PO DAILY 30 Days Qty: 30 3RF warfarin 5 mg tablet 5 mg PO DAILY 30 Days Qty: 30 3RF Rx Instructions: Take 1 tablet daily or as instructed lisinopril 40 mg tablet 40 mg PO DAILY 90 Days Qty: 90 1RF (DME) ADULT PULL UPS (large) large See Rx Instructions .Route .MEDSUPPLY Qty: 100 12RF Rx Instructions: Use as directed 3 times a day
[2023-09-03 14:42] LABS: Hemoglobin 13.3 g/dl (12.0-16.0); MANUAL DIFF FLAG NO; Red Blood Count 4.79 X10*6/uL (4.20-5.50); White Blood Count 7.6 X10*3/uL (4.8-10.8)
[2023-09-03 14:43] LABS: Basophils Absolute Auto 0.1 X10*3/uL (0.0-0.2); Basophils Percent Auto 0.9 % (0-2); Eosinophils Absolute Auto 0.2 X10*3/uL (0.0-0.4); Imm Gran Abs Auto 0.02 X10*3/uL (0.00-0.03); Imm Gran Pct Auto 0.3 % (0.0-0.4); Lymphocytes Absolute Auto 2.3 X10*3/uL (1.2-4.9); Lymphocytes Percent Auto 30.1 % (20-40); Mean Corpuscular HGB Conc 33.3 g/dl (31.0-35.0); Mean Corpuscular Hemoglobin 27.8 pg (27.0-33.0); Mean Corpuscular Volume 83.5 fL (80.0-98.0); Mean Platelet Volume 10.6 fL (9.4-12.3); Monocytes Absolute Auto 0.5 X10*3/uL (0.1-1.2); Monocytes Percent Auto 6.6 % (2-11); Neutrophils Absolute Auto 4.5 x10*3/uL (2.0-8.3); Neutrophils Percent Auto 59.1 % (45-73); Platelet Count 263 X10*3/uL (160-400); Red Cell Distribution Width 12.9 % (11.0-16.0)
[2023-09-03 14:48] LABS: INTERNATIONAL NORM RATIO 1.1 (0.9-1.1); Prothrombin Time 13.9 SEC (11.1-13.3)
[2023-09-03 14:57] LABS: COVID-19 Test Negative (Negative); IDNOW Serial# 08D9AD1C
[2023-09-03 15:00] LABS: IDNOW Serial# BCCEAD1C; Influenza A Negative (Negative); Influenza B2 Negative (Negative)
[2023-09-03 15:01] LABS: Alanine Aminotransferase 13 U/L (0-31); Albumin Level 4.2 g/dL (3.5-5.0); Alkaline Phosphatase 57 U/L (39-117); Anion Gap 11 (12-20); Aspartate Amino Transferase 14 U/L (5-31); Bilirubin Direct 0.4 mg/dL (0.0-0.5); Bilirubin Total 1.2 mg/dL (0.0-1.0); Blood Urea Nitrogen 15 mg/dL (9-16); Calcium 9.3 mg/dL (8.4-10.2); Carbon Dioxide 28 mmol/L (22-29); Chloride 105 mmol/L (96-108); Creatinine Clr Calc Pharmacy 90.7; Estimated Glomerular Filt Rate > 60; Glucose Random 97 mg/dL (60-115); Lipase 25 U/L (8-78); Magnesium 1.8 mg/dL (1.6-2.6); Potassium 4.3 mmol/L (3.3-5.1); Sodium 140 mmol/L (135-145); Total Protein 7.3 g/dL (6.5-8.0)
[2023-09-03 15:04] LABS: Ethanol < 10 mg/dL
[2023-09-03 15:05] LABS: B Type Natriuretic Peptide 246 pg/mL (<100)
[2023-09-03 15:10] LABS: Troponin-I High Sensitivity 10.3 ng/L (<3.5-17.0)
[2023-09-03 15:22] LABS: Amphetamine Screen Urine Not Detected (Not Detect); Barbiturates, Urine Not Detected (Not Detect); Benzodiazepines Screen Urine Not Detected (Not Detect); Cannabinoid Screen Urine Not Detected (Not Detect); Cocaine Screen Urine POSITIVE (Not Detect); Fentanyl, urine Not Detected (Not Detect); Opiate Screen Urine Not Detected (Not Detect); Phencyclidine Screen Urine Not Detected (Not Detect)
[2023-09-03 15:24] LABS: TSH reflex Free T4 1.02 uIU/mL (0.32-4.0)
[2023-09-03 17:53] VITALS: BP 134/73; PULSE 53; RESP 20; O2SAT 98
[2023-09-03 19:07] VITALS: BP 169/77; PULSE 56
[2023-09-03 19:08] VITALS: BP 147/76; PULSE 60
[2023-09-03 19:10] VITALS: BP 146/76; PULSE 73
[2023-09-03] MEDS: 0.9 % Sodium Chloride 1,000 ML 500 ML IVCONT (19:47)
[2023-09-03 20:48] VITALS: BP 144/58; PULSE 62; RESP 17; TEMP 36.8; O2SAT 98
--- NOTE | 2023-09-03 21:09 | P.HPHOSP_ITS ---
History of Present Illness Date of Service: 09/03/23 Attending physician on admission: Cherie Gallegos Chief Complaint: lightheadedness, bradycardia 73-year-old female with history of paroxysmal atrial fibrillation no longer on anticoagulation, heart failure preserved ejection fraction, hyperlipidemia, hypertension, depression, history CVA presented to the ED earlier today for evaluation of lightheadedness and low heart rate ongoing for several weeks. She states she has also had dyspnea both at rest with exertion ongoing for several weeks. Denies any palpitations, retrosternal chest pressure, or syncope. She follows with Cardiology and tells me that her piggery worker advised her to stop taking her Coumadin about 2 months ago as she has not been able to keep up with INR checks. Apparently she has also not been taking any of her home medications including her metoprolol. She does have [facility] in the home who has been monitoring her heart rates as she has been experiencing bradycardia ranging between 40-50. She adamantly denies any illicit drug use. Reports occasional alcohol use and no cigarette smoking. On arrival, mom vitals stable except for bradycardia with heart rate ranging in the high 40s to 57. Orthostatic vital signs were positive with SBP 169 -->147 . Hematology studies unremarkable. Renal function normal, electrolyte levels normal. Troponin within normal limits. BNP baseline. TSH 1.02. Urine tox screen positive for cocaine. Negative for COVID-19 negative for any acute cardiopulmonary abnormality. EKG shows atrial fibrillation with slow ventricular response, rate 50 otherwise unchanged compared to prior EKGs. No AV nanci block. In the ED, given 1 L IV NS. [facility] Medical History Overweight (BMI 25.0-29.9) Paroxysmal atrial fibrillation Chronic heart failure with preserved ejection fraction (HFpEF) Pure hypercholesterolemia Severe uncontrolled high blood pressure Generalized anxiety disorder Major depression, single episode Hyperlipidemia Left-sided cerebrovascular accident (CVA) Obesity (BMI 30-39.9) Essential hypertension HTN (hypertension) Family History Father Heart disease Pacemaker Diabetes Mother Stroke Sister Thyroid disease Surgical History Hx of cholecystectomy Hx of hernia repair Hx of appendectomy Hx of hysterectomy Social History Household Members: None Housing: Other Housing Other:: [facility] Do you presently have visiting nurse or other home services: Yes ([facility]NA 2 x/week, PT 1 x/week) Alcohol intake: current Alcohol intake frequency: a few times a month Alcohol type: beer Patient Tobacco Use Status: Former Tobacco user Quit Date: 2016 Tobacco use type: Cigarette Smoked in Last 30 Days: No e-Cigarette/Vaping Use: Never Used Second Hand Smoke Exposure: Yes Use of substances other than those prescribed or required for medical reasons: No Advance Directives: Yes Advance Directives on File: Yes Advance Directives Date on File: 09/26/21 service: No Current occupational status: disabled Gender identity: Female Cognitive needs: No Hearing needs: No Vision needs: No Meds Allergies Allergy/AdvReac Type Severity Reaction Status Date / Time No Known Allergies Allergy Verified 06/06/23 11:51 Active Medications: Current Medications Sodium Chloride (Ns) 1,000 mls @ 500 mls/hr IVCONT .Q2H ONE Stop: 09/03/23 21:41 Last Admin: 09/03/23 19:47 Dose: 500 mls/hr Physical Exam 2 Vital Signs and Narrative: Vital Signs: Last Vital Signs Temp 98.2 F 09/03/23 20:48 Pulse 62 09/03/23 20:48 Resp 17 09/03/23 20:48 BP 144/58 H 09/03/23 20:48 Pulse Ox 98 09/03/23 20:48 O2 Del Method Room Air 09/03/23 20:48 BMI result Body Mass Index 31.1 Constitutional - Awake and Alert, No apparent distress Eyes - PERRLA, EOMI Cardiovascular - S1S2, irregularly irregular, bradycardia, No edema Respiratory - Normal lung expansion, Normal respiratory effort, No respiratory distress, CTA bilaterally Gastrointestinal - NT / ND; +BS; No rebound or guarding Extremities - no calf tenderness bilaterally, no swelling Skin - Warm/Dry Neurological - Alert & oriented x3 Results Labs 09/03/23 14:34 09/03/23 14:34 Labs: Laboratory Results - last 24 hr 09/03/23 09/03/23 09/03/23 14:24 14:34 15:07 MCV 83.5 MCH 27.8 MCHC 33.3 RDW 12.9 Plt Count 263 MPV 10.6 Immature Gran % (Auto) 0.3 Neut % (Auto) 59.1 Lymph % (Auto) 30.1 [place] % (Auto) 6.6 Eos % (Auto) 3.0 Baso % (Auto) 0.9 Lymph # (Auto) 2.3 [place] # (Auto) 0.5 Eos # (Auto) 0.2 Baso # (Auto) 0.1 Abs Immat Gran (auto) 0.02 Absolute Neuts (auto) 4.5 Absolute Nucleated RBC 0.000 Nucleated RBC % (auto) 0.0 PT 13.9 H D INR 1.1 D Anion Gap 11 L Estim Creat Clear Calc 90.7 Estimated GFR > 60 Random Glucose 97 Lactic Acid 2.0 Calcium 9.3 Magnesium 1.8 Total Bilirubin 1.2 H Direct Bilirubin 0.4 AST 14 ALT 13 Alkaline Phosphatase 57 B-Natriuretic Peptide 246 H Total Protein 7.3 Albumin 4.2 Lipase 25 TSH 1.02 Urine Opiates Screen Not Detected Urine Fentanyl Screen Not Detected Ur Barbiturates Screen Not Detected Ur Phencyclidine Scrn Not Detected Ur Amphetamines Screen Not Detected U Benzodiazepines Scrn Not Detected Urine Cocaine Screen POSITIVE H U Marijuana (THC) Screen Not Detected Ethyl Alcohol < 10 COVID-19 ([place]) Negative COVID-19 Clin Com See Note Influenza Type A (JULIO CESAR) Negative Influenza Type B (JULIO CESAR) Negative Influenza A & B Note See Note Imaging Radiologist's Impressions: Impressions Chest X-Ray 09/03/23 15:01 IMPRESSION: No acute cardiopulmonary disease. Assessment and Plan (1) Symptomatic bradycardia: Status: Acute (2) Orthostatic hypotension: Status: Acute Plan 73-year-old female with history of paroxysmal atrial fibrillation no longer on anticoagulation, heart failure preserved ejection fraction, hyperlipidemia, hypertension, depression, history CVA to be observed for symptomatic bradycardia and orthostatic hypotension. #Symptomatic bradycardia -Has not taken bb in 2 months. Continue holding -EKG shows atrial fibrillation with slow ventricular rate, no AV nanci blocks -cardiology consult -monitor on telemetry # paroxysmal atrial fibrillation with slow ventricular rate -no longer on anticoagulation or rate control medications due to noncompliance # orthostatic hypotension -receive 1 L IV NS in the ED. Continue IVF -Repeat orthostatics am # hypertension -blood pressure reasonably controlled continue monitoring -noncompliant with antihypertensive #HFpEF -no acute exacerbation, clinically euvolemic DVT prophylaxis-Lovenox Full code Quality Stroke Does the patient have a stroke diagnosis?: No VTE Prior VTE?: No VTE Risk Level:: Medical - moderate - high VTE Device Contraindication: Treatment Not Indicated VTE Drug Contraindication: N/A - Med Ordered
[2023-09-03] MEDS: 0.9 % Sodium Chloride 1,000 ML 100 ML IVCONT (21:59)
[2023-09-03] MEDS: Enoxaparin Sodium 40 MG/0.4 ML SYRINGE SUBCUT (21:59)
--- NOTE | 2023-09-03 22:15 | PHA.MEDREC ---
Pharmacy Consult ? Medication Reconciliation Pharmacy has completed the medication reconciliation. Spoke to patient and confirmed medication list. Patient said she has not taken warfarin since 2 months ago and she's taking Eliquis because it's more convenient. She's also taking metoprolol ER 50mg and 25mg. She says [facility] only delivered half of her medications so she doesn't know what she is taking and what she is missing.
[2023-09-04] VITALS (14 sets, daily range): BP systolic 138–181; BP diastolic 60–87; PULSE 51–72; RESP 14–20; TEMP 36–36.8; O2SAT 96–98; BMI 31.1
--- NOTE | 2023-09-04 00:13 | PC.NURSE ---
pt using commode independently at bedside
[2023-09-04] MEDS: Benzonatate 100 MG CAPSULE 200 MG PO (03:24)
--- NOTE | 2023-09-04 04:06 | PC.NURSE ---
pt medicated per NOV for cough. pt now resting comfortably with eyes closed, breathing even and unlabored. no apparent distress at this time
--- NOTE | 2023-09-04 06:00 | PC.NURSE ---
pt resting comfortably the majority of the night. denied pain or concerns at this time
[2023-09-04 06:46] LABS: MANUAL DIFF FLAG NO
[2023-09-04 06:51] LABS: Basophils Absolute Auto 0.1 X10*3/uL (0.0-0.2); Basophils Percent Auto 0.9 % (0-2); Eosinophils Absolute Auto 0.3 X10*3/uL (0.0-0.4); Eosinophils Percent Auto 3.6 % (0-4); Hematocrit 37.7 % (37.0-47.0); Hemoglobin 12.6 g/dl (12.0-16.0); Imm Gran Abs Auto 0.02 X10*3/uL (0.00-0.03); Imm Gran Pct Auto 0.3 % (0.0-0.4); Lymphocytes Absolute Auto 2.4 X10*3/uL (1.2-4.9); Lymphocytes Percent Auto 31.3 % (20-40); Mean Corpuscular HGB Conc 33.4 g/dl (31.0-35.0); Mean Corpuscular Hemoglobin 27.6 pg (27.0-33.0); Mean Corpuscular Volume 82.7 fL (80.0-98.0); Mean Platelet Volume 10.8 fL (9.4-12.3); Monocytes Absolute Auto 0.5 X10*3/uL (0.1-1.2); Monocytes Percent Auto 6.3 % (2-11); Neutrophils Absolute Auto 4.4 x10*3/uL (2.0-8.3); Neutrophils Percent Auto 57.6 % (45-73); Platelet Count 239 X10*3/uL (160-400); Red Blood Count 4.56 X10*6/uL (4.20-5.50); Red Cell Distribution Width 12.8 % (11.0-16.0); White Blood Count 7.6 X10*3/uL (4.8-10.8)
[2023-09-04 07:01] LABS: Anion Gap 12 (12-20); Blood Urea Nitrogen 12 mg/dL (9-16); Calcium 8.9 mg/dL (8.4-10.2); Carbon Dioxide 28 mmol/L (22-29); Chloride 107 mmol/L (96-108); Creatinine Clr Calc Pharmacy 93.3; Estimated Glomerular Filt Rate > 60; Glucose Random 93 mg/dL (60-115); Potassium 3.6 mmol/L (3.3-5.1); Sodium 143 mmol/L (135-145)
[2023-09-04] MEDS: 0.9 % Sodium Chloride 1,000 ML 100 ML IVCONT (09:08)
[2023-09-04] MEDS: 0.9 % Sodium Chloride Flush 3 ML SYRINGE IVFLUSH ×2 (09:09→20:17)
[2023-09-04] MEDS: Apixaban 5 MG TABLET PO ×2 (10:23→20:15)
[2023-09-04] MEDS: Atorvastatin Calcium 20 MG TABLET PO (10:23)
[2023-09-04] MEDS: Sertraline HCL 50 MG TABLET PO (10:24)
[2023-09-04] MEDS: Valsartan 40 MG TABLET 20 MG PO ×2 (10:29→20:15)
[2023-09-04] MEDS: Metoprolol Tartrate 12.5 MG HALFTAB PO (10:29)
--- NOTE | 2023-09-04 11:35 | P.CONCA_ITS ---
History of Present Illness History of Present Illness Date of Service: 09/04/23 Requesting physician: Maryann Arredondo Consult reason: atrial fibrillation Chief complaint: Symptomatic bradycardia Narrative: I was consulted to see Jazmyn in cardiology consultation today as she came into the hospital with not feeling well. Patient has significant past medical history of noncompliance and has had multiple hospitalization related noncompliance with antihypertensive leading to pulmonary edema as well as intracranial hemorrhage related hypertensive crisis. She also has history of atrial fibrillation has been paroxysmal as per the notes but came to the hospital yesterday because she was not feeling well and says she was generally lightheaded. On further history while she was laying down she says she still has lightheadedness and cc dark spots and this is the symptoms that she gets when she is moving around or when she is upright. She came to the emergency room yesterday was noted to be in atrial fibrillation with slow ventricular response. It is very difficult to know as to what medication she is getting as she decides to take her own medications as she feels like it. She is currently not on oral anticoagulation therapy, however last note from Dr. Moe shows that she should be on Eliquis. However probably cost related issues and she was not able to afford Eliquis on was supposed warfarin but then she was not compliant with her INR follow-up. She lives by herself. She has difficulty getting around and says does get exertional fatigue and shortness of breath. No clear orthopnea, PND. She is admitted because she was noted to have some orthostasis yesterday although notice that her supine blood pressure was in 160 and a standing blood pressure in the 140s without clear hypotension. Automatic blood pressure machine was used to obtain these data and this could be erroneous in the setting of atrial fibrillation. Last echocardiogram in the system here shows hyperdynamic LV systolic function without major valvular abnormality with mild left atrial enlargement. Myocardial perfusion imaging last year was within normal limits. Review of Systems 2 Constitutional: Constitutional: Reports fatigue, Reports lethargy and Denies poor appetite Eyes: Eyes: Reports no additional eye complaints Cardiovascular: Cardiovascular: Denies chest pain with activity, Denies leg edema, Reports lightheadedness, Denies palpitations, Reports dyspnea on exertion and Denies orthopnea Respiratory: Respiratory: Reports no additional respiratory complaints and Reports dyspnea on exertion Gastrointestinal: Gastrointestinal: Reports no additional gastrointestinal complaints Genitourinary: Genitourinary: Reports no additional female genitourinary complaints Musculoskeletal: Musculoskeletal: Reports no additional musculoskeletal complaints Neurologic: Reports system reviewed and no additional complaints, except as documented Psychiatric: Psychiatric: Reports no additional psychiatric complaints Endocrine: Endocrine: Reports no additional endocrine complaints, Reports fatigue and Denies palpitations PMFSH Past Medical History Medical History Overweight (BMI 25.0-29.9) Paroxysmal atrial fibrillation Chronic heart failure with preserved ejection fraction (HFpEF) Pure hypercholesterolemia Severe uncontrolled high blood pressure Generalized anxiety disorder Major depression, single episode Hyperlipidemia Left-sided cerebrovascular accident (CVA) Obesity (BMI 30-39.9) Essential hypertension HTN (hypertension) Family History Family History Father Heart disease Pacemaker Diabetes Mother Stroke Sister Thyroid disease Surgical History Surgical History Hx of cholecystectomy Hx of hernia repair Hx of appendectomy Hx of hysterectomy Social History Social History Household Members: None Housing: Other Housing Other:: [facility] Do you presently have visiting nurse or other home services: Yes (VNA 2 x/week, PT 1 x/week) Alcohol intake: current Alcohol intake frequency: a few times a month Alcohol type: beer Patient Tobacco Use Status: Former Tobacco user Quit Date: 2016 Tobacco use type: Cigarette Smoked in Last 30 Days: No e-Cigarette/Vaping Use: Never Used Second Hand Smoke Exposure: Yes Use of substances other than those prescribed or required for medical reasons: No Advance Directives: Yes Advance Directives on File: Yes Advance Directives Date on File: 09/26/21 Nutrition Risks: No Nutritional Risk service: No Current occupational status: disabled Gender identity: Female Cognitive needs: No Hearing needs: No Vision needs: No Meds Allergies Allergy/AdvReac Type Severity Reaction Status Date / Time No Known Allergies Allergy Verified 06/06/23 11:51 Active Medications: Current Medications Acetaminophen (Acetaminophen 325 Mg Tablet) 650 mg PO Q6H PRN PRN Reason: Pain, Mild (Pain Scale 1-3) Apixaban (Apixaban 5 Mg Tablet) 5 mg PO BID LORETO Last Admin: 09/04/23 10:23 Dose: 5 mg Atorvastatin Calcium (Atorvastatin Calcium 20 Mg Tablet) 20 mg PO DAILY [facility] Last Admin: 09/04/23 10:23 Dose: 20 mg Benzonatate (Benzonatate 100 Mg Capsule) 200 mg PO TID PRN PRN Reason: cough Last Admin: 09/04/23 03:24 Dose: 200 mg Sodium Chloride (Ns) 1,000 mls @ 100 mls/hr IVCONT .Q10H [facility] Last Admin: 09/04/23 09:08 Dose: 100 mls/hr Magnesium Hydroxide (Milk Of Magnesia 30 Ml Oral.Susp) 30 ml PO DAILY PRN PRN Reason: Constipation Metoprolol Tartrate (Metoprolol Tartrate 12.5 Mg Halftab) 12.5 mg PO BID [facility]; Protocol Last Admin: 09/04/23 10:29 Dose: 12.5 mg Ondansetron HCl (Ondansetron Hcl 4 Mg/2 Ml Vial) 4 mg IVPUSH Q8H PRN PRN Reason: Nausea and Vomiting Sertraline HCl (Sertraline Hcl 50 Mg Tablet) 50 mg PO DAILY [facility] Last Admin: 09/04/23 10:24 Dose: 50 mg Sodium Chloride (0.9 % Sodium Chloride Flush 3 Ml Syringe) 3 ml IVFLUSH QSHIFT [facility] Last Admin: 09/04/23 09:09 Dose: 3 ml Valsartan (Valsartan 40 Mg Tablet) 20 mg PO BID [facility]; Protocol Last Admin: 09/04/23 10:29 Dose: 20 mg Home Medications Medication Instructions Recorded Confirmed Last Taken Type apixaban 5 mg tablet (Eliquis) 5 mg PO BID 09/03/23 09/03/23 Unknown History metoprolol succinate 25 mg 25 mg PO DAILY 09/03/23 09/03/23 Unknown History tablet,extended release 24 hr metoprolol succinate 50 mg 50 mg PO DAILY 09/03/23 09/03/23 Unknown History tablet,extended release 24 hr sertraline 50 mg tablet 50 mg PO DAILY 09/03/23 09/03/23 Unknown History spironolactone 25 mg tablet 12.5 mg PO DAILY 09/03/23 09/03/23 Unknown History Physical Exam 2 Vital Signs: Vital Signs: Last Vital Signs Temp 96.8 F 09/04/23 09:42 Pulse 51 09/04/23 09:42 Resp 20 12/20/23 09:42 BP 146/72 H 09/04/23 09:42 Pulse Ox 98 09/04/23 09:42 O2 Del Method Room Air 09/04/23 09:42 BMI result Body Mass Index 31.1 Const: General: cooperative, comfortable, no acute distress, alert and awake Nutritional Appearance: obese Orientation/consciousness: patient oriented x3 Limitations: no limitations HEENT: Head: Yes normocephalic and Yes atraumatic Neck: Neck: Yes trachea midline, Yes supple and Yes no JVD Resp: Effort & Inspection: normal respiratory effort Auscultation: clear to auscultation bilaterally Cardio: Jugular venous distension: no JVD Rhythm: abnormal rhythm irregularly irregular Heart sounds: S1 normal heart sound present, S2 normal heart sound present, no click, no gallops, no murmurs and no rubs GI: Auscultation: normal bowel sounds Skin: General skin exam: no rashes or lesions noted Neuro: General: patient oriented x3 and no focal motor deficits Extrem: General: Yes no clubbing, cyanosis or edema Objective Labs and Meds 09/04/23 06:09 09/04/23 06:09 Lab results: Laboratory Results - last 24 hr 09/03/23 09/03/23 09/03/23 14:24 14:34 15:07 WBC 7.6 RBC 4.79 Hgb 13.3 Hct 40.0 MCV 83.5 MCH 27.8 MCHC 33.3 RDW 12.9 Plt Count 263 MPV 10.6 Immature Gran % (Auto) 0.3 Neut % (Auto) 59.1 Lymph % (Auto) 30.1 [place] % (Auto) 6.6 Eos % (Auto) 3.0 Baso % (Auto) 0.9 Lymph # (Auto) 2.3 [place] # (Auto) 0.5 Eos # (Auto) 0.2 Baso # (Auto) 0.1 Abs Immat Gran (auto) 0.02 Absolute Neuts (auto) 4.5 Absolute Nucleated RBC 0.000 Nucleated RBC % (auto) 0.0 PT 13.9 H D INR 1.1 D Sodium 140 Potassium 4.3 Chloride 105 Carbon Dioxide 28 Anion Gap 11 L BUN 15 Creatinine 0.69 Estim Creat Clear Calc 90.7 Estimated GFR > 60 Random Glucose 97 Lactic Acid 2.0 Calcium 9.3 Magnesium 1.8 Total Bilirubin 1.2 H Direct Bilirubin 0.4 AST 14 ALT 13 Alkaline Phosphatase 57 Troponin I High Sens 10.3 D B-Natriuretic Peptide 246 H Total Protein 7.3 Albumin 4.2 Lipase 25 TSH 1.02 Urine Opiates Screen Not Detected Urine Fentanyl Screen Not Detected Ur Barbiturates Screen Not Detected Ur Phencyclidine Scrn Not Detected Ur Amphetamines Screen Not Detected U Benzodiazepines Scrn Not Detected Urine Cocaine Screen POSITIVE H U Marijuana (THC) Screen Not Detected Ethyl Alcohol < 10 COVID-19 ([place]) Negative COVID-19 Clin Com See Note Influenza Type A (JULIO CESAR) Negative Influenza Type B (JULIO CESAR) Negative Influenza A & B Note See Note 09/04/23 06:09 WBC 7.6 RBC 4.56 Hgb 12.6 Hct 37.7 MCV 82.7 MCH 27.6 MCHC 33.4 RDW 12.8 Plt Count 239 MPV 10.8 Immature Gran % (Auto) 0.3 Neut % (Auto) 57.6 Lymph % (Auto) 31.3 [place] % (Auto) 6.3 Eos % (Auto) 3.6 Baso % (Auto) 0.9 Lymph # (Auto) 2.4 [place] # (Auto) 0.5 Eos # (Auto) 0.3 Baso # (Auto) 0.1 Abs Immat Gran (auto) 0.02 Absolute Neuts (auto) 4.4 Absolute Nucleated RBC 0.000 Nucleated RBC % (auto) 0.0 PT INR Sodium 143 Potassium 3.6 Chloride 107 Carbon Dioxide 28 Anion Gap 12 BUN 12 Creatinine 0.67 Estim Creat Clear Calc 93.3 Estimated GFR > 60 Random Glucose 93 Lactic Acid Calcium 8.9 Magnesium Total Bilirubin Direct Bilirubin AST ALT Alkaline Phosphatase Troponin I High Sens B-Natriuretic Peptide Total Protein Albumin Lipase TSH Urine Opiates Screen Urine Fentanyl Screen Ur Barbiturates Screen Ur Phencyclidine Scrn Ur Amphetamines Screen U Benzodiazepines Scrn Urine Cocaine Screen U Marijuana (THC) Screen Ethyl Alcohol COVID-19 ([place]) COVID-19 Clin Com Influenza Type A (JULIO CESAR) Influenza Type B (JULIO CESAR) Influenza A & B Note EKG shows atrial fibrillation with slow ventricular response with nonspecific ST T wave changes Imaging Radiologist's impression: Impressions Chest X-Ray 09/03/23 15:01 IMPRESSION: No acute cardiopulmonary disease. Assessment and Plan (1) Persistent atrial fibrillation: Status: Acute Patient with prior history of paroxysmal atrial fibrillation but appears to be more persistent atrial fibrillation that could be contributing were symptoms of exertional fatigue and shortness of breath due to loss of AV synchrony in setting of diastolic dysfunction. She is not in overt heart failure at this point time. She came with slow ventricular response at unclear as to how much metoprolol which she was taking at home. Today heart rate is in the 70s. Would resume metoprolol at low dose 12.5 mg b.i.d.. I had a very long discussion with patient about compliance with medications as this is a predominant cause for recurrent hospitalization and her health condition. She will require both education as well as social intervention to hopefully help with direct observed therapy. I will also restart on Eliquis 5 mg b.i.d. for oral anticoagulation therapy. Once if she is adequately oral anticoagulated can consider rhythm control approach if she is compliant with follow-ups. Will require Holter monitor as an outpatient. (2) Labile blood pressure: Status: Acute Labile blood pressure with significant comorbidities in the past including pulmonary edema as well as intracranial hemorrhage with uncontrolled blood pressure. I am not sure if she truly has orthostatic hypertension. I would like to remeasure orthostatic vitals with manual blood pressure machines. Will also start on low-dose valsartan 20 mg b.i.d.. Only gently uptitrated medications and more pursue this as outpatient. Importance of compliance with medication was discussed to avoid recurrent hospitalization a comorbidities including premature that. She understands. Low-salt diet was recommended. Advised to maintain adequate hydration. Observe for 1 more days as to her blood pressure including orthostatics and guide our therapy accordingly. (3) Chronic heart failure with preserved ejection fraction (HFpEF): Status: Acute Patient with prior history of congestive in the setting of hypertensive urgency. At this point time importance of blood pressure control was discussed but a permissive hypertension up to systolic 140-150 may be acceptable in her case to avoid symptoms related to low blood pressure. Will sign of the case at this point time and follow as outpatient. Procedures Date of Service Date of Service: 09/04/23
--- NOTE | 2023-09-04 13:00 | MHC.CM.PN ---
IMM 09/04/23, Pt lives alone in a trailer, she has HCP on file, and confirmed, her daughter, Joan. She has home health services from [facility], they provide nurse case management of assisting in a health crisis, like urgent care in the home. For assistance with medication management upon DC, will refer for VNA. She has a service that does her laundry and someone to come in and clean. PCP was confirmed, Dr. Barba. She will need assistance with transportation to go home. CM to follow and assist as needed with DC planning.
--- NOTE | 2023-09-04 15:50 | MHC.RECOVRN ---
Met with pt in 474 after consult placed to Addiction Medicine for cocaine use. Pt had presented to the ED for ?abnormal EKG and increased SOB x 2 weeks. Upon evaluation, pt admitted for symptomatic bradycardia and orthostatic hypotension. Pt UDS positive for cocaine. Pt sitting in bed, awake, alert, engages in conversation. Pt immediately states I know I was positive but I don't do that. Pt reports hx of cocaine use, denies current use. Educated pt on fentanyl presence in cocaine and harm reduction tools if she does use. Pt actively listened during education and was accepting of resources and fentanyl test strips. Pt provided with resources as well as t/w contact information if she would like to discuss further. Denies questions or concerns. Discussed with Selena Martinez APRN.
--- NOTE | 2023-09-04 16:34 | PM.EVENT ---
Event Note Date of Service: 09/04/23 Event Note: Addiction consult placed for patient with +UDS (cocaine) Seen by distribution operations manager Receptive to harm reduction discussion and fentanyl test strips Please see distribution operations manager note from 09/04 for additional details No follow up indicated at this time, unless requested by patient Time Spent With Patient Time: Total time managing care of this patient today ____ minutes.
--- NOTE | 2023-09-04 16:45 | HO.PM.IMPN ---
Subjective Subjective Date of Service: 09/04/23 Interval History: Seen in follow up for symptomatic bradycardia/lightheadedness Interval history: Seen at bedside with Dr. Jackson. Pt reports constant lightheadedness. When questioned further with specific review of symptoms patient states she has both lightheadedness and vertigo constantly, worse with position changes and ambulation. There is associated black spots in vision and occasional blurred vision. She feels off balance. Occassional pulsing frontal headaches. No nausea/vomiting. No syncope. She is not a great historian. States she gets bubble packs of her medications but still may not take them all. Has some social support from her daughter who lives nearby Review of Systems Review of Systems: Yes all other systems are reviewed and are negative Physical Exam Vital Signs: Vital Signs: Last Vital Signs Temp 97 F 09/04/23 15:38 Pulse 60 09/04/23 15:38 Resp 16 09/04/23 15:38 BP 169/69 H 09/04/23 15:38 Pulse Ox 97 09/04/23 15:38 O2 Del Method Room Air 09/04/23 15:38 BMI result Body Mass Index 31.1 Constitutional - Awake and Alert, No apparent distress Eyes - PERRLA, EOMI Cardiovascular - S1S2, RRR, No edema Respiratory - Normal lung expansion, Normal respiratory effort, No respiratory distress, CTA bilaterally Gastrointestinal - NT / ND; +BS; No rebound or guarding Extremities - no calf tenderness bilaterally, no swelling Skin - Warm/Dry Neurological - Alert & oriented x3, slight horizontal nystagmus, otherwise CN II-XII in tact, 5/5 strength BUE and BLE. Negative romberg. No gait ataxia Psychological - Appropriate affect Objective Data Active Medications Acetaminophen (Acetaminophen 325 Mg Tablet) 650 mg PO Q6H PRN PRN Reason: Pain, Mild (Pain Scale 1-3) Apixaban (Apixaban 5 Mg Tablet) 5 mg PO BID [facility] Last Admin: 09/04/23 10:23 Dose: 5 mg Documented By: MARIUSZ Atorvastatin Calcium (Atorvastatin Calcium 20 Mg Tablet) 20 mg PO DAILY [facility] Last Admin: 09/04/23 10:23 Dose: 20 mg Documented By: MARIUSZ Benzonatate (Benzonatate 100 Mg Capsule) 200 mg PO TID PRN PRN Reason: cough Last Admin: 09/04/23 03:24 Dose: 200 mg Documented By: ANABEL Sodium Chloride (Ns) 1,000 mls @ 100 mls/hr IVCONT .Q10H [facility] Last Admin: 09/04/23 09:08 Dose: 100 mls/hr Documented By: KALEY Magnesium Hydroxide (Milk Of Magnesia 30 Ml Oral.Susp) 30 ml PO DAILY PRN PRN Reason: Constipation Ondansetron HCl (Ondansetron Hcl 4 Mg/2 Ml Vial) 4 mg IVPUSH Q8H PRN PRN Reason: Nausea and Vomiting Sertraline HCl (Sertraline Hcl 50 Mg Tablet) 50 mg PO DAILY [facility] Last Admin: 09/04/23 10:24 Dose: 50 mg Documented By: MARIUSZ Sodium Chloride (0.9 % Sodium Chloride Flush 3 Ml Syringe) 3 ml IVFLUSH QSHIFT [facility] Last Admin: 09/04/23 09:09 Dose: 3 ml Documented By: KALEY Valsartan (Valsartan 40 Mg Tablet) 20 mg PO BID [facility]; Protocol Last Admin: 09/04/23 10:29 Dose: 20 mg Documented By: MARIUSZ Labs 09/04/23 06:09 09/04/23 06:09 Labs: Laboratory Results - last 24 hr 09/04/23 06:09 MCV 82.7 MCH 27.6 MCHC 33.4 RDW 12.8 Plt Count 239 MPV 10.8 Immature Gran % (Auto) 0.3 Neut % (Auto) 57.6 Lymph % (Auto) 31.3 [place] % (Auto) 6.3 Eos % (Auto) 3.6 Baso % (Auto) 0.9 Lymph # (Auto) 2.4 [place] # (Auto) 0.5 Eos # (Auto) 0.3 Baso # (Auto) 0.1 Abs Immat Gran (auto) 0.02 Absolute Neuts (auto) 4.4 Absolute Nucleated RBC 0.000 Nucleated RBC % (auto) 0.0 Anion Gap 12 Estim Creat Clear Calc 93.3 Estimated GFR > 60 Random Glucose 93 Calcium 8.9 Assessment and Plan (1) Labile blood pressure: Status: Acute (2) Persistent atrial fibrillation: Status: Acute (3) Symptomatic bradycardia: Status: Acute (4) Vertigo: Status: Acute Plan 73-year-old female with history of paroxysmal atrial fibrillation no longer on anticoagulation, heart failure preserved ejection fraction, hyperlipidemia, hypertension, depression, history CVA to be observed for symptomatic bradycardia and orthostatic hypotension. #Symptomatic bradycardia -pt is not a great historian as to which medications she is taking at home despite bubble packs- does not take all of her medications -EKG shows atrial fibrillation with slow ventricular rate, no AV nanic blocks -metorpolol resumed at 12.5mg this am with recurrence of bradycardia 38-56. Hold bb -cardiology input appreciated -monitor on telemetry # paroxysmal atrial fibrillation with slow ventricular rate -eliquis 5mg BID resumed -unable to tolerate bb as above -appreciate cardiology input # orthostatic hypotension -Repeat orthostatic VS now -no true hypotension. Less likely cause of patient's symptoms -DC IVF #Dizziness/vertigo -dizziness symptoms at least in part are consistent with vertigo, likely BPPV- ongoing for weeks -trial meclizine -neg romberg or evidence of cerebellar ataxia. No indication for urgent imaging -outpt followup # hypertension -blood pressure elevated -Discussed with Dr. Jackson. Unclear what pt is actually taking at home -start valsartan 20mg BID. attempted to resume metoprolol as above #Medication noncompliance -discussed with patient the importance of medication compliance- taking medications exactly as prescribed -Discussed with director social welfare who will work with [place] to try to get more regular nursing/social support to assist patient with medications at home #HFpEF -no acute exacerbation, clinically euvolemic DVT prophylaxis-Lovenox Full code Given ongoing lightheadedness with symptomatic bradycardia requiring ongoing medication adjustment of antihypertensives to achieve optimal blood pressure control without exacerbating bradycardia or afib which requires close monitoring of vital signs and expert consultation that cannot safely take place in outpt setting. Quality Stroke Does the patient have a stroke diagnosis?: No VTE Prior VTE?: No VTE Risk Level:: Medical - moderate - high VTE Device Contraindication: Treatment Not Indicated VTE Drug Contraindication: N/A - Med Ordered
[2023-09-04] MEDS: Acetaminophen 325 MG TABLET 650 MG PO (20:15)
[2023-09-05] VITALS: BP 148/73; PULSE 62; TEMP 36.5; O2SAT 97
[2023-09-05 04:00] VITALS: BP 134/76; PULSE 47; RESP 18; TEMP 37; O2SAT 97
[2023-09-05 07:20] VITALS: BP 138/77; PULSE 59; RESP 20; TEMP 36.5; O2SAT 97
[2023-09-05] MEDS: 0.9 % Sodium Chloride Flush 3 ML SYRINGE IVFLUSH (07:59)
[2023-09-05] MEDS: Atorvastatin Calcium 20 MG TABLET PO (08:25)
[2023-09-05] MEDS: Butalb/Acetamin/Caff 50/325/40 TABLET 1 TAB PO (08:25)
[2023-09-05] MEDS: Sertraline HCL 50 MG TABLET PO (08:25)
[2023-09-05] MEDS: Apixaban 5 MG TABLET PO (08:25)
[2023-09-05] MEDS: Valsartan 40 MG TABLET 20 MG PO (08:26)
--- NOTE | 2023-09-05 10:48 | P.DS_ITS ---
DS: Providers Provider Date of Service: 09/05/23 Date of admission: 09/04/23 12:24 Date of discharge: 09/05/23 Primary care physician: Brenden Guzmán MD Admitting clinician: Maryann Arredondo Attending physician on admission: Cherie Gallegos Consults: 09/03/23 21:06 Addiction Medicine Routine Consulting Provider: Addiction Covering Reason for consultation: cocaine use Consult to Cardiology Routine Consulting Provider: [facility] Reason for consultation: symptomatic bradycardia Attending physician on discharge: Darien Alvarado Discharging clinician: Maryann Arredondo DS: Diagnosis Discharge Diagnosis (1) Labile blood pressure: Status: Acute (2) Persistent atrial fibrillation: Status: Acute (3) Symptomatic bradycardia: Status: Acute (4) Vertigo: Status: Acute DS: Summary Hospital Course Hospital Course: HPI on admission by this provider 09/03: Chief Complaint: lightheadedness, bradycardia 73-year-old female with history of paroxysmal atrial fibrillation no longer on anticoagulation, heart failure preserved ejection fraction, hyperlipidemia, hypertension, depression, history CVA presented to the ED earlier today for evaluation of lightheadedness and low heart rate ongoing for several weeks. She states she has also had dyspnea both at rest with exertion ongoing for several weeks. Denies any palpitations, retrosternal chest pressure, or syncope. She follows with Cardiology and tells me that her hand brim ironer advised her to stop taking her Coumadin about 2 months ago as she has not been able to keep up with INR checks. Apparently she has also not been taking any of her home medications including her metoprolol. She does have [facility] in the home who has been monitoring her heart rates as she has been experiencing bradycardia ranging between 40-50. She adamantly denies any illicit drug use. Reports occasional alcohol use and no cigarette smoking. On arrival, mom vitals stable except for bradycardia with heart rate ranging in the high 40s to 57. Orthostatic vital signs were positive with SBP 169 -->147 . Hematology studies unremarkable. Renal function normal, electrolyte levels normal. Troponin within normal limits. BNP baseline. TSH 1.02. Urine tox screen positive for cocaine. Negative for COVID-19 negative for any acute cardiopulmonary abnormality. EKG shows atrial fibrillation with slow ventricular response, rate 50 otherwise unchanged compared to prior EKGs. No AV nanci block. In the ED, given 1 L IV NS. Hospital course: Pt admitted to med/tele for further management of lightheadedness/symptomatic bradycardia. She has remained in atrial fibrillation with slow ventricular rate. She was monitored on telemtry which showed atrial fibrillation, but no AV nanci blocks. There is an issue with medication noncompliance as well that is likely complicating patient presentation/symptoms/overall health. SHe has medications delivered in bubble pack but sometimes does not take them all. She is unable to tell me or confirm which medications she is actually taking. She has [place] in her home once weekly. All medications except eliquis were held on discharge, including metoprolol. HR remained stable in 50's-60's without any change in symptoms. Cardiology was consulted recommending metoprolol 12.5mg BID and valsartan 20mg BID to help with blood pressure control with goal SBP 140-150. She did develop worsenign bradycardia with HR 38-56 so BB was again discontinued. PT was noted to be orthostatic, but without any true hypotension so unlikley to be contributing to patient's symptoms. She does get headaches consistent with migraines which may also contribute to the lightheadedness and was treated with fioricet. General weakness and fatigue is likely related to persistent atrial fibrillation and patient will need to follow up with her hand brim ironer outpt to determine if cardioversion may be appropiate. She was evaluated by PT who did not recommend home services as patient is at functional baseline. Continue ambulation with cane/walker. Advised to continue eliquis 5mg BID. Urine tox screen on admission was positive for cocaine which patient initially denies. However was evaluated by recovery team and counseled on cessation and declined further services. Strongly advised avoidance of all illicit substances. She will be discharged home with valsartan 20mg BID, eliquis 5mg BID, rosuvastatin 5mg daily, sertraline 50mg daily, and a short course of fioricet to use prn for migraines. All other prior home medications should be discontinued. Follow up soon with PCP and cardiology. [place] will continue with weekly services and VNA service has been requested for medication asisstance and recommend continued med administration in bubble packs to help with compliance. Status at Discharge Functional status at discharge: uses cane/walker Overall status at discharge: patient is progressing back to baseline Time Attestation Discharge coordination time: Greater than 30 minutes Quality: Safe Use of Opioids Does Pt have an Active Cancer Diagnosis on the Problem List?: No Quality: Stroke Does the patient have a stroke diagnosis?: No Physical Exam Vital Signs: Vital Signs: Last Vital Signs Temp 97.7 F 09/05/23 07:20 Pulse 59 09/05/23 07:20 Resp 20 09/05/23 07:20 BP 138/77 09/05/23 07:20 Pulse Ox 97 09/05/23 07:20 O2 Del Method Room Air 09/05/23 07:20 BMI result Body Mass Index 31.1 Constitutional - Awake and Alert, No apparent distress Eyes - PERRLA, EOMI Cardiovascular - S1S2, RRR, No edema Respiratory - Normal lung expansion, Normal respiratory effort, No respiratory distress, CTA bilaterally Extremities - no calf tenderness bilaterally, no swelling Musculoskeletal - Normal inspection, normal ROM Skin - Warm/Dry Neurological - Alert & oriented x3 Psychological - Appropriate affect DS: Data Data Completed and Pending Labs on day of discharge: Preliminary micro results at discharge 09/03/23 14:34 Blood Culture - Preliminary Blood - Venous No growth after 24 hours. 09/03/23 14:46 Blood Culture - Preliminary Blood - Venous No growth after 24 hours. Discharge Plan Discharge Anticipated Discharge Date/Time: 09/05/23 10:35 Patient Disposition: Home Health Service Discharge Diagnosis: lightheadedness, symptomatic bradycardia, atrial fibrillation with slow ventricular rate [facility]Outside[facility] - 1 Week Brenden Guzmán MD [Primary Care Provider] - 1 Week Discharge Medications: New valsartan 40 mg tablet 20 mg PO BID Qty: 60 1RF kupsnmudka-ppiolqcjhnbwt-neoa 50-325-40 mg capsule 1 cap PO Q6H PRN (Reason: migraine headache) Qty: 10 0RF Continued acetaminophen [Tylenol Arthritis Pain] 650 mg tablet extended release 650 mg PO Q12H PRN (Reason: pain) Qty: 20 0RF (DME) ADULT PULL UPS (large) large See Rx Instructions .Route .MEDSUPPLY Qty: 100 12RF Rx Instructions: Use as directed 3 times a day Eliquis 5 mg tablet 5 mg PO BID Qty: 60 1RF sertraline 50 mg tablet 50 mg PO DAILY Qty: 30 1RF rosuvastatin 5 mg tablet 5 mg PO DAILY 30 Days Qty: 30 3RF Discontinued amlodipine 10 mg tablet 10 mg PO DAILY 30 Days Qty: 30 2RF Protocol: Hold for SBP< HOLD for SBP < : 90 hydrochlorothiazide 12.5 mg capsule 12.5 mg PO DAILY 30 Days Qty: 30 3RF lisinopril 40 mg tablet 40 mg PO DAILY 90 Days Qty: 90 1RF metoprolol succinate 50 mg tablet extended release 24 hr 50 mg PO DAILY metoprolol succinate 25 mg tablet extended release 24 hr 25 mg PO DAILY Rx Instructions: take with 50mg spironolactone 25 mg tablet 12.5 mg PO DAILY Discharge Orders: Discharge Order (Routine); Ordered 09/05/23 Ordered By: Maryann Arredondo Diet: Advance to usual diet Activity on Discharge: As tolerated Stand Alone Forms: Patient Portal Discharge page Care Plan Goals: Prevent lightheadness improve functional status Medication compliance Health Concerns: see below Plan of Treatment: Lightheadedness- possibly symptomatic bradycardia -stop metoprolol and do not resume -ambulate/increase activity to help support heart rate Migraine headache -also possibly related to dizziness given associated headache with nausea -short term course fioricer given Atrial fibrillation- persistent with bradycardia -stop metoprolol as above -continue eliquis twice daily -follow up with cardiology for possible cardioverion Stop any and all illicit drug use. Take ALL medications exactly as prescribed. Skipping doses and starting and stopping medications can result in additional medication changes that can adversely affect your blood pressure/heart rate or overall health. Follow up with pcp soon Assessment: see above. see discharge summary Discharge Date/Time: 09/05/23 13:15
--- NOTE | 2023-09-05 11:09 | MHC.CM.PN ---
Pt has been medically cleared for DC. She will have home care services from [place], she will go home via [facility].
--- NOTE | 2023-09-05 11:21 | PM.PNCARD ---
Subjective Subjective Date of Service: 09/05/23 Principal diagnosis: Persistent AFib, labile blood pressure Interval history: Blood pressure really looks good on low-dose valsartan. Metoprolol was stopped due to low heart rate. Overnight still had heart rate in the 30s and 40s but with ambulation heart rate went up to the 70s. Patient says she feels really good. No trouble breathing or orthopnea PND or leg edema. Review of Systems Constitutional: Reports no additional constitutional complaints Cardiovascular: Reports no additional cardiovascular complaints Respiratory: Reports no additional respiratory complaints Gastrointestinal: Reports no additional gastrointestinal complaints Musculoskeletal: Reports no additional musculoskeletal complaints Skin/Breast: Reports system reviewed and no additional complaints, except as docu Reports system reviewed and no additional complaints, except as documented Psychiatric: Reports no additional psychiatric complaints Physical Exam Vital Signs: Last Vital Signs Temp 97.7 F 09/05/23 07:20 Pulse 59 09/05/23 07:20 Resp 20 09/05/23 07:20 BP 138/77 09/05/23 07:20 Pulse Ox 97 09/05/23 07:20 O2 Del Method Room Air 09/05/23 07:20 BMI result Body Mass Index 31.1 Const General: cooperative, comfortable, no acute distress, alert and awake Nutritional Appearance: obese Orientation/consciousness: patient oriented x3 Limitations: no limitations HEENT Head: Yes normocephalic and Yes atraumatic Neck Neck: Yes trachea midline, Yes supple and Yes no JVD Resp Effort & Inspection: normal respiratory effort Auscultation: clear to auscultation bilaterally Cardio Jugular venous distension: no JVD Rhythm: abnormal rhythm irregularly irregular Heart sounds: S1 normal heart sound present, S2 normal heart sound present, no click, no gallops, no murmurs and no rubs GI Auscultation: normal bowel sounds Skin General skin exam: no rashes or lesions noted Neuro General: patient oriented x3 and no focal motor deficits Extrem General: Yes no clubbing, cyanosis or edema Objective Labs and Meds 09/04/23 06:09 09/04/23 06:09 Progress Note: A&P Assessment and plan (1) Persistent atrial fibrillation: Status: Acute Assessment and Plan: Persistent atrial fibrillation with some slow ventricular response overnight. Otherwise heart rate with patient is adequately controlled. No indication for pacemaker. Could be due to factor metoprolol given yesterday. Follow-up although monitor next week and follow up in the clinic in 2 weeks time to discuss possible rhythm management. Continue full oral anticoagulation, currently on Eliquis. Most importantly did going to be compliance by patient with her medical regimen. (2) Labile blood pressure: Status: Acute Assessment and Plan: Labile blood pressure but appears well controlled with just low-dose valsartan therapy. Importance of compliance with medication was discussed to avoid over medication and feeling poorly with it. Clinically no signs of heart failure. Low-salt diet was discussed. Follow up in the clinic in 2 weeks time Time Spent With Patient Time: Total time managing care of this patient today ____ minutes. Progress Note: Quality Stroke Does the patient have a stroke diagnosis?: No Procedures Date of Service Date of Service: 09/05/23
[2023-09-05 11:29] VITALS: BP 142/83; PULSE 61; RESP 20; TEMP 36.2; O2SAT 97
--- NOTE | 2023-09-05 11:35 | P.F2F_ITS ---
Service Date Service Date: 09/05/23 Encounter Date of encounter: 09/05/23 Reasons for Services Signs and symptoms assessed: medication noncompliance, uncontrolled blood pressures, bradycardia, lightheadedness Reason for jail: medication management and other (vital sign monitoring) Homebound: Leaving the home is medically contraindicated at this time without the asist of a device and/or another person due th the listed conditions above and below. Reason homebound: unsteady gait / fall risk, poor balance / fall risk and unable to drive Certification: Based on the above findings, I certify that this patient is confined to the home and needs intermittent jail care, physical therapy and/or speech therapy, or continues to need occupational therapy. The patient is under my care, and I have initiated the establishment of the plan of care. The patient will be followed by a physician who will periodically review the plan of care. Time Spent With Patient Time: Total time managing care of this patient today ____ minutes.
== END 2023-09-05 13:15 | disposition home health service (06) | DRG 309 ==
LOC: HO.ED 19:54 → HO.EDOVER 22:15 → HO.IMC 09-04 07:26
PROVIDERS: Admitting Provider Physician Assistant; Emergency Provider Emergency Medicine; PCP Internal Medicine; Visit Provider Physician Assistant
DX: R00.1 Bradycardia, unspecified (principal); I50.32 Chronic diastolic (congestive) heart failure; I48.19 Other persistent atrial fibrillation; I11.0 Hypertensive heart disease with heart failure; Z20.822 Contact with and (suspected) exposure to COVID-19; E78.5 Hyperlipidemia, unspecified; T44.7X6A Underdosing of beta-adrenoreceptor antagonists, initial encounter; Z87.891 Personal history of nicotine dependence; Z86.73 Personal history of transient ischemic attack (TIA), and cerebral infarction without residual deficits; Z79.899 Other long term (current) drug therapy
CPT/HCPCS: 36415; 71045; 80048; 80076; 80307; 83605; 83690; 83735; 83880; 84443; 84484; 85025; 85610; 87040; 87502; 87635; 93005; 97161; 99222; 99285; J1650

== ENCOUNTER → 2023-09-03 14:13 | Outpatient (BNV) | payer MEDICARE, MEDICAID, SELFPAY | PROVIDERS: Emergency Provider Emergency Medicine; PCP Internal Medicine; Visit Provider Physician Assistant | DX: R09.89 Other specified symptoms and signs involving the circulatory and respiratory systems (principal); I48.19 Other persistent atrial fibrillation; R00.1 Bradycardia, unspecified; R42 Dizziness and giddiness | CPT/HCPCS: 99223; 99232; 99239; G0180 ==

== ENCOUNTER → 2023-09-03 14:14 | Outpatient (BNV) | payer MEDICARE, MEDICAID, SELFPAY | PROVIDERS: Emergency Provider Emergency Medicine; PCP Internal Medicine; Visit Provider Internal Medicine Cardiovascular Disease | DX: R00.1 Bradycardia, unspecified (principal); I44.4 Left anterior fascicular block | CPT/HCPCS: 93010 ==

== ENCOUNTER → 2023-09-03 21:06 | Outpatient (BNV) | payer MEDICARE, MEDICAID, SELFPAY | PROVIDERS: Admitting Provider Physician Assistant; Emergency Provider Emergency Medicine; PCP Internal Medicine; Visit Provider Internal Medicine Cardiovascular Disease | DX: I48.19 Other persistent atrial fibrillation (principal); R09.89 Other specified symptoms and signs involving the circulatory and respiratory systems | CPT/HCPCS: 99222; 99233 ==

== ENCOUNTER 2023-12-18 12:44 | Outpatient (AMB) | payer MEDICARE, MEDICAID, SELFPAY ==
[2023-12-18 12:49] VITALS: BP 140/86; PULSE 57; O2SAT 98; BMI 30.4
--- NOTE | 2023-12-18 12:49 | MHC.PC.OV ---
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: Not Required per policy Accompanied by: Self / Same As Patient Allergies No Known Allergies Allergy (Verified 12/18/23 12:49) Tobacco use date assessed: 12/18/23 Fall risk assessment: 1 Fall in past year Last assessed Fall Risk: 12/18/23 Dental Screening Dental Screen Date: 12/18/23 Did you have a dental visit in the last 12 months?: Yes Did you have a dental problem in the last 6 months where you did not have access to dental care?: No Was dental information given to patient?: Patient has dentist HPI HPI Comments History of Present Illness Details 73-year-old female with history of heart failure preserved ejection fraction, hypertension, hyperlipidemia, paroxysmal atrial fibrillation anticoagulated Eliquis, history of polysubstance abuse presents the office today for hospital discharge follow-up. She was admitted to [facility] from 10/19-10/24 due to acute exacerbation of congestive heart failure secondary to influenza a. She also had hospitalization [facility] from 09/03-09/05 due to heart failure exacerbation. During both hospitalizations, she was treated with IV diuresis and reverted back to 40 mg p.o. Lasix which she reports she has been compliant with. During most recent hospitalization Aldactone was also added and she was continued on valsartan. She had initially required BiPAP due to respiratory distress and hypoxia but was weaned to 1 L via nasal cannula and then eventually to room air. During hospitalization Coreg was discontinued due to episodes of asymptomatic bradycardia mainly during sleep. Has not yet followed up with Cardiology and needs to schedule upcoming appointment. She was recommended for SGLT2 but has recurrent UTI so this was not recommended. She reports she has been compliant with low-sodium diet as well as diuretics. Despite this. Continues experiencing dyspnea on exertion as well as nocturnal dyspnea. Again, she does need follow-up with pulmonology. Last echocardiogram showed normal LV systolic function with EF 65-70% with evidence of LVH. She denies any ongoing use of illicit substances. Reports only occasional alcohol use. Denies any fevers, chills, abdominal pain, nausea, vomiting, lightheadedness, palpitations, or chest pains. She reports compliance with all medications which was a concern previously. FOrmer smoker. [facility] Medical History (Updated 12/28/23 @ 17:06 by FANG Jerez) Persistent atrial fibrillation Chronic heart failure with preserved ejection fraction (HFpEF) Vertigo Labile blood pressure Orthostatic hypotension Symptomatic bradycardia Overweight (BMI 25.0-29.9) Paroxysmal atrial fibrillation Pure hypercholesterolemia Severe uncontrolled high blood pressure Generalized anxiety disorder Major depression, single episode Hyperlipidemia Left-sided cerebrovascular accident (CVA) Obesity (BMI 30-39.9) Essential hypertension HTN (hypertension) Surgical History Hx of cholecystectomy Hx of hernia repair Hx of appendectomy Hx of hysterectomy Family History Father Heart disease Pacemaker Diabetes Mother Stroke Sister Thyroid disease Social History Household Members: None Housing: Other Housing Other:: [facility] Do you presently have visiting nurse or other home services: Yes (VNA 2 x/week, PT 1 x/week) Alcohol intake: current Alcohol intake frequency: a few times a month Alcohol type: beer Comment: refuses high alarm protocol Patient Tobacco Use Status: Former Tobacco user Quit Date: 2016 Tobacco use type: Cigarette e-Cigarette/Vaping Use: Never Used Second Hand Smoke Exposure: Yes Advance Directives Date on File: 09/26/21 service: No Current occupational status: disabled Gender identity: Female Cognitive needs: No Hearing needs: No Vision needs: No Questionnaire PHQ-9 Over the last 2 weeks, how often have you been bothered by any of the following problems? 1. Little interest or pleasure in doing things: nearly every day 2. Feeling down, depressed, or hopeless: nearly every day 3. Trouble falling or staying asleep, or sleeping too much: more than half the days 4. Feeling tired or having little energy: nearly every day 5. Poor appetite or overeating: nearly every day 6. Feeling bad about yourself - or that you are a failure or have let yourself or your family down: nearly every day 7. Trouble concentrating on things, such as reading the newspaper or watching television: not at all 8. Moving or speaking so slowly that other people could have noticed. Or the opposite - being so fidgety or restless that you have been moving around a lot more than usual: not at all 9. Thoughts that you would be better off or of hurting yourself in some way: nearly every day Total score: 20 Depression Screening Interpretation: Positive Depression Screening Follow-up: Existing condition, Community Mental Health Worker F/U and Follow-up Visit Requested Depression Screening Done: Yes [id number] - PHQ-9 Billing: Yes Source: Developed by Drs. Demarcus Alexis, Martha Marcus, Grayd Hu and colleagues, with an educational sarmad from [employer]. Thrive Questionnaire Date Thrive assessed: 12/18/23 I am a: Patient What is your living situation today?: I have a steady place to live Within the past 12 months, did the food you bought not last and you didn't have the money to get more?: Never true Within the past 12 months, did you worry whether your food would run out before you got money to buy more?: Never true Do you have trouble paying for medicines?: No Do you have trouble getting transportation to medical appointments?: No Do you have trouble paying your heating and electricity bill?: No Do you have trouble taking care of your child, family member or friend?: No Do you have trouble with day-to-day activities such as bathing, preparing meals, shopping, managing finances, etc.?: No Are you currently unemployed and looking for a job?: No Are you interested in more education?: No Please select the resources that you would like help with: None THRIVE Score: 0 AUDIT C Alcohol Use Questionnaire (AUDIT-C) 1. How often do you have a drink containing alcohol?: 2-3 times a week 2. How many drinks containing alcohol do you have on a typical day when you are drinking?: 3 or 4 3. How often do you have six or more drinks on one occasion?: Never Total Score: 4 Score Reviewed/Action Taken: Yes (reviewed. Education provided on health risks associated with alcohol use. ) QUAN-7 AMB Questionnaire QUAN-7 Date QUAN - 7 assessed: 12/18/23 Feeling nervous, anxious, or on edge: 0 = Not at all Not being able to stop or control worryin = Not at all Worrying too much about different things: 0 = Not at all Trouble relaxin = Not at all Being so restless that it is hard to sit still: 0 = Not at all Becoming easily annoyed or irritable: 0 = Not at all Feeling afraid as if something awful might happen: 0 = Not at all Total QUAN-7 score (0-4 normal; 5-9 mild; 10-14 moderate; 15-21 severe): 0 Source: Developed by Drs. Demarcus Alexis, Martha Marcus, Grady Hu and colleagues, with an educational sarmad from [employer]. Review of Systems Const All systems reviewed & are unremarkable except as noted in HPI and below Physical exam (Primary Care) Vital Signs: Last Vital Signs Pulse 57 12/18/23 12:49 BP 140/86 H 12/18/23 12:49 Pulse Ox 98 12/18/23 12:49 Oxygen Delivery Method Room Air 12/18/23 12:49 BMI result Body Mass Index 30.4 Tobacco/Smoking Status: Tobacco use Status Tobacco use date assessed 12/18/23 12/18/23 12:50 Patient Tobacco Use Status Former Tobacco user 12/18/23 12:50 Tobacco use type Cigarette 12/18/23 12:50 e-Cigarette/Vaping Use Never Used 12/18/23 12:50 PHQ-9: PHQ-9 Score PHQ-9: Total score 20 12/28/23 17:00 Depression Screening Interpretation: Positive Depression Screening Follow-up: Existing condition, Community Mental Health Worker F/U and Follow-up Visit Requested Thrive Assessment: Date of Thrive Assessment Date Thrive assessed 12/18/23 12/18/23 12:50 Const Other: Constitutional - Awake and Alert, No apparent distress Eyes - PERRLA, EOMI Cardiovascular - S1S2, RRR, No edema Respiratory - Normal lung expansion, Normal respiratory effort, No respiratory distress, CTA bilaterally Extremities - no calf tenderness bilaterally, no swelling Skin - Warm/Dry Neurological - Alert & oriented x3 Psychological - Appropriate affect Results Reviewed Results Reviewed: CBC, BMP, chest x-ray, serologies, [facility] discharge summary, cardiology consult [facility], echocardiogram, [facility] [place] discharge summary Assessment and Plan Assessment & Plan (1) Dyspnea: Code(s): R06.00 - Dyspnea, unspecified Plan: Suspect multifactorial related to loss of AV synchrony in setting of diastolic dysfunction as well as related to her persistent atrial fibrillation. Clinically she is euvolemic on exam. She has been compliant with her diuretics. She should continue taking Lasix 40 mg daily and spironolactone 25 mg daily. Advised to schedule follow-up soon with Cardiology. Given significant smoking history, there may also be a component of chronic lung disease. She is referred for pulmonary function testing. Given albuterol inhaler and also advised to use this every 4-6 hours as needed for shortness of breath and wheezing. No evidence of hypoxia. (2) Persistent atrial fibrillation: Code(s): I48.19 - Other persistent atrial fibrillation Plan: Rate controlled in office. She should continue off of carvedilol due to asymptomatic bradycardia. Continue on Eliquis 5 mg twice daily for anticoagulation. Follow-up with Cardiology soon (3) Chronic heart failure with preserved ejection fraction (HFpEF): Code(s): I50.32 - Chronic diastolic (congestive) heart failure Plan: Euvolemic on exam. Continue Lasix 40 mg, spironolactone 25 mg as well as valsartan 40 mg daily. Not the best candidate for SGLT2 given recurrent UTI. Follow up with Cardiology as advised Orders: Orders PFT pulmonary function test 12/18/23 Medications: New albuterol sulfate 90 mcg/actuation 1 inh inhalation QID PRN 8.5 grams 2RF shortness of breath or wheezing Coding Level of Care Code Tele Est Pt Level 5 (26487) Diagnoses Dyspnea R06.00 Persistent atrial fibrillation I48.19 Chronic heart failure with preserved ejection fraction (HFpEF) I50.32 Time Spent (min) 45 Comment Time spent reviewing above, interview/exam with patient, documentation time
== END 2023-12-18 13:25 | disposition home or self-care (01) ==
PROVIDERS: PCP Internal Medicine; Visit Provider Physician Assistant
DX: I50.32 Chronic diastolic (congestive) heart failure (principal); I48.19 Other persistent atrial fibrillation; R06.00 Dyspnea, unspecified
CPT/HCPCS: 99215

== ENCOUNTER 2024-03-31 17:52 | Emergency (ER) | payer MEDICARE, MEDICAID, SELFPAY ==
--- NOTE | ~2024-03-31 | CT_ITS ---
EXAMINATION: CT ANGIOGRAM CHEST, ABDOMEN AND PELVIS CLINICAL INFORMATION: Pain. COMPARISON: None available. TECHNIQUE: Contiguous axial CT angiography of the chest, abdomen and pelvis performed after the intravenous administration of 85 mL Omnipaque 300. Sagittal and coronal reformatted images also obtained. MIPS images also obtained. This CT examination was performed using dose optimization techniques as appropriate, variously including the following: *Automated exposure control *Adjustment of mA and/or kV according to patient size (this includes techniques or standardized protocols for targeted exams where dose is matched to indication/reason for exam; i.e. extremities or head) *Use of iterative reconstruction technique DLP: 631 mGy-cm QUALITY OF STUDY/CONTRAST BOLUS: Satisfactory. VASCULAR: There is mild to moderate mixed plaque throughout the thoracic and abdominal aorta. There is an aberrant right subclavian artery. There is no evidence for pulmonary embolism. There is atherosclerotic plaque of the mesenteric vessels without evidence for significant stenosis of the celiac artery or superior mesenteric artery. There appears to be mild to moderate narrowing of the origin of the inferior mesenteric artery. There is atherosclerotic plaque of both renal arteries with mild to moderate narrowing proximally on the left. LUNG: There is minimal basilar scarring. There is mild diffuse interstitial thickening. There is no evidence for active infiltrate. PLEURA: There are no significant pleural effusions. MEDIASTINUM: The heart is normal in size. No pericardial effusion. No hilar or mediastinal lymphadenopathy. No evidence of septal bowing or right heart strain. CORONARY ARTERY CALCIFICATION: Mild. CHEST WALL/AXILLA: No axillary or internal mammary lymphadenopathy. LIVER, GALLBLADDER, AND BILIARY TREE: The liver is normal in size, shape, and attenuation. No focal hepatic lesion or biliary ductal dilatation is present. There has been a prior cholecystectomy. PANCREAS: Unremarkable SPLEEN: Unremarkable ADRENAL GLANDS: Unremarkable KIDNEYS AND URETERS: The kidneys are normal in size, shape, and attenuation. There is a lobular cyst midpole left kidney measuring 5 cm. There is no hydronephrosis BLADDER: Unremarkable GASTROINTESTINAL TRACT: There is retained stool. The appendix is not seen ABDOMINAL WALL: No significant hernia is appreciated. LYMPH NODES: Normal VASCULAR: There is atherosclerotic plaque of the abdominal aorta and proximal branches. PELVIC VISCERA: Unremarkable. OSSEOUS STRUCTURES: There is diffuse thoracolumbar disc degenerative change. CT/CT angio abdomen pelvis IMPRESSION: 1. No evidence for pulmonary embolism. 2. Mild to moderate atherosclerotic plaque of the aorta and proximal branches. 3. Aberrant right subclavian artery. 4. No acute intra-abdominal or intrathoracic process.
--- NOTE | ~2024-03-31 | XR_ITS ---
EXAMINATION: XR CHEST CLINICAL INFORMATION: Left chest pain COMPARISON: Chest 09/03/2023 TECHNIQUE: Frontal view of the chest was obtained. FINDINGS: No significant abnormality is noted involving the heart, lungs, mediastinum, bony thorax or soft tissues. XR/XR chest 1V IMPRESSION: Unremarkable chest exam.
[2024-03-31 18:00] VITALS: BP 178/82; PULSE 80; O2SAT 99
[2024-03-31 18:20] VITALS: BP 176/78; PULSE 66; RESP 18; TEMP 36.8; O2SAT 96; BMI 28.2
--- NOTE | 2024-03-31 18:23 | ECG_ITS ---
Test Reason : SHORTNESS OF BREATH Blood Pressure : / mmHG Vent. Rate : 066 BPM Atrial Rate : 000 BPM P-R Int : 000 ms QRS Dur : 120 ms QT Int : 440 ms P-R-T Axes : 000 -44 146 degrees QTc Int : 461 ms Atrial fibrillation with premature ventricular or aberrantly conducted complexes Left axis deviation Left ventricular hypertrophy with QRS widening and repolarization abnormality ( R in aVL , Tee product , Romhilt-Mora ) Abnormal ECG When compared with ECG of 03-SEP-2023 14:14, Criteria for Septal infarct are no longer Present T wave amplitude has increased in Anterior leads QT has lengthened Referred By: Generic ED Physician Electronically Signed By:ANGELA RODRIGUEZ MD
[2024-03-31 19:29] VITALS: BP 176/90; PULSE 68; RESP 20; TEMP 36.8; O2SAT 97
[2024-03-31 19:34] LABS: MANUAL DIFF FLAG NO
[2024-03-31 19:39] LABS: Basophils Absolute Auto 0.1 X10*3/uL (0.0-0.2); Basophils Percent Auto 1.4 % (0-2); Eosinophils Absolute Auto 0.1 X10*3/uL (0.0-0.4); Eosinophils Percent Auto 1.6 % (0-4); Hematocrit 42.1 % (37.0-47.0); Hemoglobin 13.9 g/dl (12.0-16.0); Imm Gran Abs Auto 0.01 X10*3/uL (0.00-0.03); Imm Gran Pct Auto 0.2 % (0.0-0.4); Lymphocytes Absolute Auto 2.1 X10*3/uL (1.2-4.9); Lymphocytes Percent Auto 36.2 % (20-40); Mean Corpuscular Volume 78.7 fL (80.0-98.0); Mean Platelet Volume 11.5 fL (9.4-12.3); Monocytes Absolute Auto 0.5 X10*3/uL (0.1-1.2); Monocytes Percent Auto 8.1 % (2-11); Neutrophils Absolute Auto 3.1 x10*3/uL (2.0-8.3); Neutrophils Percent Auto 52.5 % (45-73); Platelet Count 248 X10*3/uL (160-400); Red Blood Count 5.35 X10*6/uL (4.20-5.50); Red Cell Distribution Width 14.7 % (11.0-16.0); White Blood Count 5.8 X10*3/uL (4.8-10.8)
--- NOTE | 2024-03-31 19:42 | PC.NURSE ---
this rn assumed care of pt, pt a&ox4, respirations even and unlbaored. pt reporting x10 days of blood in stool including on the toilet paper and in the bowl. pt reporting diarrhea but denies n/v/d. pt denies abdominal pain at this time. Oswaldo HEADLEY at bedside preforming rectal exam, pt tolerated well. OBX sent to lab.
[2024-03-31 19:49] LABS: OBS Int Ctl Valid YES; OBS1 NEGATIVE (NEGATIVE)
[2024-03-31 19:51] LABS: Alanine Aminotransferase 12 U/L (0-31); Albumin Level 4.1 g/dL (3.5-5.0); Alkaline Phosphatase 64 U/L (39-117); Anion Gap 14 (12-20); Aspartate Amino Transferase 17 U/L (5-31); Bilirubin Total 2.4 mg/dL (0.0-1.0); Blood Urea Nitrogen 14 mg/dL (9-16); Calcium 9.4 mg/dL (8.4-10.2); Carbon Dioxide 26 mmol/L (22-29); Chloride 107 mmol/L (96-108); Creatinine Clr Calc Pharmacy 84.4; Estimated Glomerular Filt Rate > 60; Glucose Random 93 mg/dL (60-115); INTERNATIONAL NORM RATIO 1.4 (0.9-1.1); Potassium 3.7 mmol/L (3.3-5.1); Prothrombin Time 17.5 SEC (11.1-13.3); Sodium 143 mmol/L (135-145); Total Protein 6.9 g/dL (6.5-8.0)
--- NOTE | 2024-03-31 19:55 | ED_ITS ---
HPI - General Adult General Chief complaint: General Medical Stated complaint: upper L quadrant pain x5 hrs Time Seen by Provider: 03/31/24 19:01 Source: patient, RN notes reviewed and old records reviewed Mode of arrival: ambulatory Limitations: no limitations History of Present Illness ED Provider: Ewelina SAMANO narrative: 73-year-old female with past medical history significant for CHF, persistent AFib on Eliquis, hyperlipidemia presents for evaluation of left-sided chest pain. Patient reports that 5 hours prior to arrival she noted pain to her left upper abdomen/chest. She reports associated dark stool for the last 10 days She states that she occasionally has bright red blood per rectum Currently she states that her chest pain has resolved I worse her pain was sharp, 03/25 She reports it lasted about 10 seconds before resolving Denies any fevers or chills. She reports she occasionally feels lightheaded Denies any nausea, vomiting Related Data Home Medications ?Medication ?Instructions ?Recorded ?Confirmed spironolactone 25 mg tablet 25 mg PO DAILY 12/28/23 (Aldactone) valsartan 40 mg tablet 40 mg PO DAILY 12/28/23 Previous Rx's ?Medication ?Instructions ?Recorded acetaminophen 650 mg 650 mg PO Q12H PRN pain #20 tabs 08/06/23 tablet,extended release (Tylenol Arthritis Pain) ADULT PULL UPS (large) #100 ea 08/26/23 [id number]-znsaslipljrrq-ubpwqhih 1 cap PO Q6H PRN migraine headache 09/05/23 50 mg-325 mg-40 mg capsule #10 caps albuterol sulfate 90 mcg/actuation 1 inh inhalation QID PRN shortness 12/21/23 aerosol inhaler of breath or wheezing #8.5 grams furosemide 40 mg tablet 40 mg PO DAILY #30 tabs 12/28/23 rosuvastatin 5 mg tablet 5 mg PO DAILY 30 days #30 tabs 01/02/24 apixaban 5 mg tablet (Eliquis) 5 mg PO BID #60 tabs 03/04/24 sertraline 50 mg tablet 50 mg PO DAILY #30 tabs 03/04/24 Allergies Allergy/AdvReac Type Severity Reaction Status Date / Time No Known Allergies Allergy Verified 03/31/24 18:22 Review of Systems 2 Constitutional: Constitutional: Denies body ache(s), Denies chills and Denies headache(s) Eyes: Eyes: Denies blurry vision ENT: Denies vertigo, Reports dizziness, Denies headache(s) and Denies sore throat Cardiovascular: Cardiovascular: Reports chest pain, Denies syncope, Denies leg edema, Reports lightheadedness and Reports dyspnea Respiratory: Respiratory: Denies cough and Reports dyspnea Gastrointestinal: Gastrointestinal: Reports abdominal pain, Reports melena, Reports hematochezia, Denies nausea and Denies vomiting Genitourinary: Genitourinary: Denies dysuria Musculoskeletal: Musculoskeletal: Denies back pain Integumentary/Breasts: Skin/Breast: Denies rash Neurologic: Denies vertigo, Reports dizziness, Denies syncope and Denies headache(s) ON LICENSE OF [facility] Past Medical History Medical History (Updated 03/31/24 @ 20:02 by Jan Theodore) Persistent atrial fibrillation Chronic heart failure with preserved ejection fraction (HFpEF) Vertigo Labile blood pressure Orthostatic hypotension Symptomatic bradycardia Overweight (BMI 25.0-29.9) Paroxysmal atrial fibrillation Pure hypercholesterolemia Severe uncontrolled high blood pressure Generalized anxiety disorder Major depression, single episode Hyperlipidemia Left-sided cerebrovascular accident (CVA) Obesity (BMI 30-39.9) Essential hypertension HTN (hypertension) Surgical History Hx of cholecystectomy Hx of hernia repair Hx of appendectomy Hx of hysterectomy Family History Family History Father Heart disease Pacemaker Diabetes Mother Stroke Sister Thyroid disease Social History Social History Household Members: None Housing: Other Housing Other:: [facility] Do you presently have visiting nurse or other home services: Yes (VNA 2 x/week, PT 1 x/week) Alcohol intake: current Alcohol intake frequency: holidays/special occasions only Alcohol type: beer Comment: refuses high alarm protocol Patient Tobacco Use Status: Former Tobacco user Tobacco use type: Cigarette Smoked in Last 30 Days: No e-Cigarette/Vaping Use: Never Used Second Hand Smoke Exposure: Yes Use of substances other than those prescribed or required for medical reasons: No Advance Directives: Yes Advance Directives on File: Yes Advance Directives Date on File: 09/26/21 Do you have a plan to hurt others: No Plan service: No Current occupational status: disabled Gender identity: Female Cognitive needs: No Hearing needs: No Vision needs: No Physical Exam ED Vital Signs: Vital Signs - 24 hr 03/31/24 18:20 03/31/24 19:29 03/31/24 22:07 Temperature 98.2 F 98.3 F 97.8 F Pulse Rate 66 68 70 Respiratory Rate 18 20 15 Blood Pressure 176/78 H 176/90 H 204/105 H Pulse Oximetry 96 97 93 Oxygen Delivery Method Room Air Room Air Room Air 03/31/24 22:49 04/01/24 01:00 Temperature 98.6 F Pulse Rate 67 51 Respiratory Rate 17 Blood Pressure 207/103 H 185/86 H Pulse Oximetry 93 Oxygen Delivery Method Room Air BMI result Body Mass Index 28.2 Const General: healthy appearing, comfortable, no acute distress, alert and awake Nutritional Appearance: well nourished Orientation/consciousness: patient oriented x3 HENMT Head: Yes normocephalic and Yes atraumatic Eyes Eyelids: Yes eyelids normal Conjunctivae: conjunctivae normal Sclerae: sclerae normal Corneas: corneas normal Pupils: Equal, round and reactive pupils present EOM: EOMs intact bilaterally Neck Neck: Yes full ROM Resp Effort & Inspection: normal respiratory effort, able to speak in complete sentences, no audible wheezes and not labored Auscultation: clear to auscultation bilaterally GI Inspection: No distended Palpation (GI): Soft to palpation, not firm, Tenderness to palpation present (GI) in the epigastrum, in the LUQ and in the RUQ; not in the LLQ and not in the RLQ, no guarding and not rigid Rectal Exam - Female: visual inspection normal, normal sphincter tone, No Abnormal stool present, No heme positive stool, No External hemorrhoid(s) present and heme negative stool Skin General skin exam: elasticity normal Neuro General: patient oriented x3 Cranial nerves: Yes Equal, round and reactive pupils present and Yes Bilaterally intact EOM present Cognition (Neuro): normal cognition Extrem Other: Moving all extremities well without any obvious deformities Course Reevaluation(s) Reevaluation #1: Patient's heart rate was dropping into the 40s after receiving labetalol, mental status remained unchanged, her blood pressure was improved to 185/86 but was always hypertensive. A repeat EKG was obtained that shows AFib with slow ventricular rate at [address] changes compared to previous. A repeat troponin was negative. Still awaiting CT angiography of the chest abdomen Time: 01:58 Medications Administered Discontinued Medications Generic Name Dose Route Start Last Admin Trade Name Katelynn PRN Reason Stop Dose Admin Iohexol 85 ml 03/31/24 23:20 03/31/24 23:21 Iohexol 350 Mg/Ml 100 Ml Infus..Btl IV 03/31/24 23:21 85 ml ONCE ONE Administration Labetalol HCl 10 mg 03/31/24 22:33 03/31/24 22:49 Labetalol Hcl 100 Mg/20 Ml Vial IVPUSH 03/31/24 22:34 10 mg ONCE ONE Administration Medical Decision Making Medical Decision Making [facility] Narrative: 73-year-old female with past medical history as documented above presents for evaluation of an episode of chest pain that lasted about 10 seconds 5 hours prior to arrival. She also complains of lightheadedness, dark stool and occasional bloody stool. Her rectal exam is heme-negative and no occult blood. Patient was hypertensive to 176/90, otherwise vital signs are within normal limits. Plan for labs including H&H to evaluate for significant GI bleed. Given the patient's pain is currently resolved I do not see any indication for CT scan of the abdomen pelvis at this time. We will get a chest x-ray and an EKG to evaluate for chest pain Differential Diagnosis Differential Diagnoses: The differential diagnosis associated with the presentation includes Peptic ulcer disease Acute abdominal pain Chest pain ACS GERD GI bleed Cholelithiasis Acute cholecystitis Pneumonia CHF Admission/Observation Consideration of admission/observation: Escalation of care including admission/observation considered Consider admission but the patient ruled out for ACS. She has not anemia to suggest GI bleed, guaiac negative on exam. CT angiography chest and abdomen showed no acute pathology. Lab Data [facility] Lab Attestation statement: I reviewed the patient's lab results. No leukocytosis or anemia. Normal platelet count. No electrolyte abnormalities. Renal function within normal limits. Patient's total bilirubin is elevated 2.4. She is status post cholecystectomy. Troponin is elevated to 34.7, will obtain repeat troponin 03/31/24 19:29 03/31/24 19:29 Labs: Lab Results 03/31/24 03/31/24 03/31/24 Range/Units 19:29 19:38 22:32 WBC 5.8 (4.8-10.8) X10*3/uL RBC 5.35 (4.20-5.50) X10*6/uL Hgb 13.9 (12.0-16.0) g/dl Hct 42.1 (37.0-47.0) % MCV 78.7 L (80.0-98.0) fL MCH 26.0 L (27.0-33.0) pg MCHC 33.0 (31.0-35.0) g/dl RDW 14.7 (11.0-16.0) % Plt Count 248 (160-400) X10*3/uL MPV 11.5 (9.4-12.3) fL Immature Gran % (Auto) 0.2 (0.0-0.4) % Neut % (Auto) 52.5 (45-73) % Lymph % (Auto) 36.2 (20-40) % [place] % (Auto) 8.1 (2-11) % Eos % (Auto) 1.6 (0-4) % Baso % (Auto) 1.4 (0-2) % Lymph # (Auto) 2.1 (1.2-4.9) X10*3/uL [place] # (Auto) 0.5 (0.1-1.2) X10*3/uL Eos # (Auto) 0.1 (0.0-0.4) X10*3/uL Baso # (Auto) 0.1 (0.0-0.2) X10*3/uL Abs Immat Gran (auto) 0.01 (0.00-0.03) X10*3/uL Absolute Neuts (auto) 3.1 (2.0-8.3) x10*3/uL Absolute Nucleated RBC 0.000 (0.0-0.012) X10*3/uL Nucleated RBC % (auto) 0.0 (0.0-0.2) /100WBC PT 17.5 H D (11.1-13.3) SEC INR 1.4 H (0.9-1.1) Sodium 143 (135-145) mmol/L Potassium 3.7 (3.3-5.1) mmol/L Chloride 107 (96-108) mmol/L Carbon Dioxide 26 (22-29) mmol/L Anion Gap 14 (12-20) BUN 14 (9-16) mg/dL Creatinine 0.73 (0.5-1.4) mg/dL Estim Creat Clear Calc 84.4 Estimated GFR > 60 Random Glucose 93 (60-115) mg/dL Calcium 9.4 (8.4-10.2) mg/dL Total Bilirubin 2.4 H (0.0-1.0) mg/dL AST 17 (5-31) U/L ALT 12 (0-31) U/L Alkaline Phosphatase 64 (39-117) U/L Troponin I High Sens 34.7 H D 34.0 H (<3.5-17.0) ng/L Total Protein 6.9 (6.5-8.0) g/dL Albumin 4.1 (3.5-5.0) g/dL Stool Occult Blood NEGATIVE (NEGATIVE) Blood Type O Positive Antibody Screen NEGATIVE Independent Interpretation I performed an independent interpretation of an: EKG (AFib with a rate of [address] depressions in the lateral leads) Radiology Impression Discussion of test interpretation with radiology: I have reviewed the radiologist's reading. Radiologist Impression: CT/CT angio chest aorta IMPRESSION: 1. No evidence for pulmonary embolism. 2. Mild to moderate atherosclerotic plaque of the aorta and proximal branches. 3. Aberrant right subclavian artery. 4. No acute intra-abdominal or intrathoracic process. Discharge Plan Discharge Clinical Impression: Chest pain Patient Disposition: Home, Self-Care Instructions: Chest Pain (ED) Additional Instructions: Your workup in the ER today was reassuring. It does not appear that you are having a GI bleed Your vomit was reassuring. Your CT scan did not show any abnormalities Follow-up with your primary doctor return for new or worsening symptoms Prescriptions: No Action acetaminophen [Tylenol Arthritis Pain] 650 mg tablet extended release 650 mg PO Q12H PRN (Reason: pain) Qty: 20 0RF (DME) ADULT PULL UPS (large) large See Rx Instructions .Route .MEDSUPPLY Qty: 100 12RF Rx Instructions: Use as directed 3 times a day albuterol sulfate 90 mcg/actuation HFA aerosol inhaler 1 inh inhalation QID PRN (Reason: shortness of breath or wheezing) Qty: 8.5 2RF rosuvastatin 5 mg tablet 5 mg PO DAILY 30 Days Qty: 30 3RF Eliquis 5 mg tablet 5 mg PO BID Qty: 60 2RF sertraline 50 mg tablet 50 mg PO DAILY Qty: 30 2RF kfkztmuasf-cvgvqvmojndmv-lkdk 50-325-40 mg capsule 1 cap PO Q6H PRN (Reason: migraine headache) Qty: 10 0RF furosemide 40 mg tablet 40 mg PO DAILY Qty: 30 2RF spironolactone [Aldactone] 25 mg tablet 25 mg PO DAILY valsartan 40 mg tablet 40 mg PO DAILY Print Language: Belarusian
[2024-03-31 19:59] LABS: Troponin-I High Sensitivity 34.7 ng/L (<3.5-17.0)
--- NOTE | 2024-03-31 21:44 | PC.NURSE ---
pt ambulatory with steady gait to the bathroom.
[2024-03-31 22:07] VITALS: BP 204/105; PULSE 70; RESP 15; TEMP 36.6; O2SAT 93
[2024-03-31 22:49] VITALS: BP 207/103; PULSE 67
[2024-03-31] MEDS: Labetalol HCL 100 MG/20 ML VIAL 10 MG IVPUSH (22:49)
--- NOTE | 2024-03-31 22:53 | PC.NURSE ---
Oswaldo HEADLEY aware of pt blood pressure, pt medicated per mar at this time.
[2024-03-31] MEDS: iohexoL 350 MG/ML 100 ML INFUS..BTL 85 ML IV (23:21)
--- NOTE | 2024-04-01 00:22 | ECG_ITS ---
Test Reason : radha Blood Pressure : / mmHG Vent. Rate : 058 BPM Atrial Rate : 000 BPM P-R Int : 000 ms QRS Dur : 128 ms QT Int : 492 ms P-R-T Axes : 000 -49 186 degrees QTc Int : 482 ms Atrial fibrillation with slow ventricular response with premature ventricular or aberrantly conducted complexes Left axis deviation Left ventricular hypertrophy with QRS widening ( R in aVL , [place] product ) T wave abnormality, consider lateral ischemia Abnormal ECG When compared with ECG of 31-MAR-2024 19:02, Nonspecific T wave abnormality now evident in Inferior leads Referred By: Jan Theodore Electronically Signed By:ANGELA RODRIGUEZ MD
[2024-04-01 01:00] VITALS: BP 185/86; PULSE 51; RESP 17; TEMP 37; O2SAT 93
--- NOTE | 2024-04-01 01:00 | PC.NURSE ---
pt noted to be bradycardic between 45-50bpm, Oswaldo HEADLEY aware, repeat ekg preformed.
--- NOTE | 2024-04-01 02:28 | PC.NURSE ---
VICKY HEADLEY aware of pt blood pressure, okay for discharge.
[2024-04-01 02:29] VITALS: BP 185/86; PULSE 51; RESP 17; TEMP 37; O2SAT 93
== END 2024-04-01 02:29 | disposition home or self-care (01) ==
PROVIDERS: Physician Assistant; Emergency Provider Emergency Medicine; PCP Internal Medicine
DX: R07.89 Other chest pain (principal); R10.12 Left upper quadrant pain; I48.91 Unspecified atrial fibrillation; R42 Dizziness and giddiness; Z79.01 Long term (current) use of anticoagulants; Z87.891 Personal history of nicotine dependence; Z79.899 Other long term (current) drug therapy
CPT/HCPCS: 36415; 71045; 71275; 74174; 80053; 82272; 84484; 85025; 85610; 86850; 86900; 86901; 93005; 96374; 99284; 99285; J1920; Q9967

== ENCOUNTER → 2024-03-31 18:23 | Outpatient (BNV) | payer MEDICARE, MEDICAID, SELFPAY | PROVIDERS: Emergency Provider Emergency Medicine; PCP Internal Medicine; Visit Provider Internal Medicine Cardiovascular Disease | DX: R06.02 Shortness of breath (principal); R94.31 Abnormal electrocardiogram [ECG] [EKG] | CPT/HCPCS: 93010 ==

== ENCOUNTER → 2024-04-01 00:22 | Outpatient (BNV) | payer MEDICARE, MEDICAID, SELFPAY | PROVIDERS: Emergency Provider Emergency Medicine; PCP Internal Medicine; Visit Provider Internal Medicine Cardiovascular Disease | DX: R00.1 Bradycardia, unspecified (principal); R94.31 Abnormal electrocardiogram [ECG] [EKG] | CPT/HCPCS: 93010 ==

== ENCOUNTER 2024-12-09 14:23 | Outpatient (AMB) | payer MEDICARE, MEDICAID, SELFPAY ==
--- NOTE | 2024-12-09 14:32 | MHC.PC.OV ---
Vital Signs 12/09/24 14:34 Height 5 ft 10 in Weight 180 lb 5.41 oz BMI 25.9 BP 142/86 H Blood Pressure Location Lt brachial Position Sitting Respiration 18 Pulse 84 Pulse Source Pulse Oximeter Temp 98.4 F Temp Source Oral Pulse Oximetry (%) 98 Oxygen Delivery Method Room Air Intake Visit Reasons: Med follow up Cab Driver Required: No Accompanied by: Self / Same As Patient Allergies No Known Allergies Allergy (Verified 12/22/24 21:20) Medication List - Last Reconciled 12/09/24 by AUBREE Chu acetaminophen ER (Tylenol Arthritis Pain) 650 mg PO Q12H PRN [ADULT PULL UPS (large) Use as directed 3 times a day] albuterol sulfate 90 mcg/actuation 1 inh inhalation QID PRN apixaban (Eliquis) 5 mg PO BID [id number]-[id number]-[id number] 50-325-40 mg 1 cap PO Q6H PRN furosemide 40 mg PO DAILY rosuvastatin 5 mg PO DAILY 30 days sertraline 50 mg PO DAILY spironolactone (Aldactone) 25 mg PO DAILY valsartan 40 mg PO DAILY Tobacco use date assessed: 12/09/24 Fall risk assessment: 2 + Falls in past year Last assessed Fall Risk: 12/09/24 Dental Screening Dental Screen Date: 12/09/24 Did you have a dental visit in the last 12 months?: Yes Did you have a dental problem in the last 6 months where you did not have access to dental care?: No Was dental information given to patient?: Patient has dentist HPI Med follow up HPI Details The patient is a 74-year-old female with significant past medical history of CHF with preserved ejection fraction, persistent atrial fibrillation, major depression disorder, pure hypercholesterolemia. Patient of Dr. Guzmán, was last seen in office on 06/06/2023. The patient reports that she has not followed up for a while And she is only presenting to get her medications refilled The patient reports that she has a pacemaker because her heart rate was low She also reports that she had a cyst on her kidney and was placed on antibiotics by ID at [facility] Patient reports that she is all good now. The patient is currently using a walker for ambulation Patient denies shortness of breath, chest pain, heart palpitation or dizziness She denies any change in bowel habits or any urinary symptoms [facility] Medical History Persistent atrial fibrillation Chronic heart failure with preserved ejection fraction (HFpEF) Vertigo Labile blood pressure Orthostatic hypotension Symptomatic bradycardia Overweight (BMI 25.0-29.9) Paroxysmal atrial fibrillation Pure hypercholesterolemia Severe uncontrolled high blood pressure Generalized anxiety disorder Major depression, single episode Hyperlipidemia Left-sided cerebrovascular accident (CVA) Obesity (BMI 30-39.9) Essential hypertension HTN (hypertension) Surgical History History of hip replacement Hx of cholecystectomy Hx of hernia repair Hx of appendectomy Hx of hysterectomy Family History Father Heart disease Pacemaker Diabetes Mother Stroke Sister Thyroid disease Social History Household Members: None Housing: Other Housing Other:: [facility] Do you presently have visiting nurse or other home services: Yes ([facility]NA 2 x/week, PT 1 x/week) Alcohol intake: current Alcohol intake frequency: holidays/special occasions only Alcohol type: beer Comment: refuses high alarm protocol Patient Tobacco Use Status: Former Tobacco user Tobacco use type: Cigarette e-Cigarette/Vaping Use: Never Used Second Hand Smoke Exposure: Yes Advance Directives Date on File: 09/26/21 service: No Current occupational status: disabled Gender identity: Female Cognitive needs: No Hearing needs: No Vision needs: Yes Questionnaire PHQ-9 Over the last 2 weeks, how often have you been bothered by any of the following problems? 1. Little interest or pleasure in doing things: nearly every day 2. Feeling down, depressed, or hopeless: nearly every day 3. Trouble falling or staying asleep, or sleeping too much: nearly every day 4. Feeling tired or having little energy: nearly every day 5. Poor appetite or overeating: nearly every day 6. Feeling bad about yourself - or that you are a failure or have let yourself or your family down: nearly every day 7. Trouble concentrating on things, such as reading the newspaper or watching television: nearly every day 8. Moving or speaking so slowly that other people could have noticed. Or the opposite - being so fidgety or restless that you have been moving around a lot more than usual: not at all 9. Thoughts that you would be better off or of hurting yourself in some way: not at all Total score: 21 Depression Screening Interpretation: Positive Depression Screening Follow-up: Existing condition, Community Mental Health Worker F/U and Follow-up Visit Requested Depression Screening Done: Yes 76783 - PHQ-9 Billing: Yes Source: Developed by Drs. Demarcus Alexis, Martha Marcus, Grady Hu and colleagues, with an educational sarmad from [employer]. Thrive Questionnaire Date Thrive assessed: 12/09/24 I am a: Patient What is your living situation today?: I have a steady place to live Within the past 12 months, did the food you bought not last and you didn't have the money to get more?: Sometimes True Within the past 12 months, did you worry whether your food would run out before you got money to buy more?: Sometimes True Do you have trouble paying for medicines?: No Do you have trouble getting transportation to medical appointments?: No Do you have trouble paying your heating and electricity bill?: No Do you have trouble taking care of your child, family member or friend?: No Do you have trouble with day-to-day activities such as bathing, preparing meals, shopping, managing finances, etc.?: No Are you currently unemployed and looking for a job?: No Are you interested in more education?: No Please select the resources that you would like help with: Food Currently or been in a relationship where the following occur: No concerns reported THRIVE Score: 2 AUDIT C Alcohol Use Questionnaire (AUDIT-C) 1. How often do you have a drink containing alcohol?: 2-4 times a month 2. How many drinks containing alcohol do you have on a typical day when you are drinking?: 3 or 4 3. How often do you have six or more drinks on one occasion?: Never Total Score: 3 Score Reviewed/Action Taken: Yes (reviewed. Education provided on health risks associated with alcohol use. ) QUAN-7 AMB Questionnaire QUAN-7 Date QUAN - 7 assessed: 12/09/24 Feeling nervous, anxious, or on edge: 3 = Nearly every day Not being able to stop or control worryin = Nearly every day Worrying too much about different things: 3 = Nearly every day Trouble relaxin = Nearly every day Being so restless that it is hard to sit still: 3 = Nearly every day Becoming easily annoyed or irritable: 3 = Nearly every day Feeling afraid as if something awful might happen: 0 = Not at all Total QUAN-7 score (0-4 normal; 5-9 mild; 10-14 moderate; 15-21 severe): 18 Source: Developed by Drs. Demarcus Alexis, Martha Marcus, Grady Hu and colleagues, with an educational sarmad from [employer]. QUAN-7 Assessment Billing QUAN-7 Assessment Tool: QUAN-7 Assessment 19339 Review of Systems Const Denies headache(s) Eyes Denies loss of vision ENT Denies vertigo, Denies dizziness, Denies headache(s) and Denies sore throat Card Denies chest pain, Denies leg edema and Denies lightheadedness Resp Denies cough, Denies hemoptysis and Denies wheezing GI Denies abdominal pain, Denies melena, Denies constipation, Denies diarrhea and Denies vomiting Denies urinary frequency, Denies dysuria and Denies urinary urgency Musc Reports arthralgias (Bilateral knee), Denies joint swelling, Denies numbness and Denies tingling Neuro Denies Abnormal speech present, Denies behavioral changes, Denies vertigo, Denies dizziness, Denies headache(s), Denies loss of vision, Denies memory loss, Denies numbness and Denies tingling Psych Reports anxiety, Denies behavioral changes, Reports depression, Denies memory loss and Denies panic attacks Sidney/Lymph Denies easy bleeding and Denies easy bruising Aller/Immun Denies wheezing Physical exam (Primary Care) Vital Signs: Last Vital Signs Temp 98.4 F 12/09/24 14:34 Pulse 84 12/09/24 14:34 Resp 18 12/09/24 14:34 BP 142/86 H 12/09/24 14:34 Pulse Ox 98 12/09/24 14:34 Oxygen Delivery Method Room Air 12/09/24 14:34 BMI result Body Mass Index 25.9 Tobacco/Smoking Status: Tobacco use Status Tobacco use date assessed 12/09/24 12/09/24 14:48 Patient Tobacco Use Status Former Tobacco user 12/09/24 14:48 Tobacco use type Cigarette 12/09/24 14:48 e-Cigarette/Vaping Use Never Used 12/09/24 14:48 PHQ-9: PHQ-9 Score PHQ-9: Total score 21 12/09/24 14:57 Depression Screening Interpretation: Positive Depression Screening Follow-up: Existing condition, Community Mental Health Worker F/U and Follow-up Visit Requested Thrive Assessment: Date of Thrive Assessment Date Thrive assessed 12/09/24 12/09/24 14:48 Currently or been in a relationship where the following occur: No concerns reported Const General: healthy appearing, no acute distress, alert and awake Nutritional Appearance: well nourished Orientation/consciousness: oriented to person, oriented to place and oriented to time HENMT Ears: external ears normal General nose exam: Normal external nose present Eyes Conjunctivae: conjunctivae normal Sclerae: sclerae normal Pupils: Equal, round and reactive pupils present Neck Neck: Yes no lymphadenopathy and Yes no JVD Thyroid: Thyroid normal Carotids: no bruits Resp Effort & Inspection: normal respiratory effort and not tachypneic Auscultation: no crackles, no rales, no rhonchi and no wheezes Cardio Rate: regular rate Rhythm: regular rhythm Heart sounds: no murmurs and normal S1 and S2 GI Palpation (GI): Soft to palpation, nontender, no hepatomegaly and no splenomegaly Auscultation: normal bowel sounds Skin General skin exam: no rashes or lesions noted and dry skin Neuro General: oriented to person, oriented to place and oriented to time Cranial nerves: Yes Equal, round and reactive pupils present Speech: No Abnormal speech present Gait exam (Neuro): Normal gait present Motor exam (neuro): no tremor noted Extrem Right upper extremity: full ROM Left upper extremity: full ROM Right lower extremity: full ROM and knee Details: tenderness; no edema Left lower extremity: full ROM and knee Details: tenderness; no edema Psych Mental Status: mental status grossly normal Speech and movement: Normal speech and movement present Affect: normal affect Attitude: cooperative Thought process: Normal thought process present Coding Level of Care Code Est Pt Level 4 (45045) Diagnoses Chronic heart failure with preserved ejection fraction (HFpEF) I50.32 Persistent atrial fibrillation I48.19 Overweight (BMI 25.0-29.9) E66.3 MDD (major depressive disorder), recurrent episode, moderate F33.1 Pure hypercholesterolemia E78.00 Chronic pain of both knees M25.561; M25.562; G89.29 Chronicity: chronic Additional Codes QUAN-7 Assessment Billing - QUAN-7 Assessment Tool: QUAN-7 Assessment 15010 ([id number]) PHQ-9 - 16999 - PHQ-9 Billing: Yes ([id number]) Time Spent (min) 41 Assessment & Plan Assessment & Plan (1) Chronic heart failure with preserved ejection fraction (HFpEF): Code(s): I50.32 - Chronic diastolic (congestive) heart failure Category: Medical Plan: Reinforced low-sodium diet Continue furosemide 40 mg daily, spironolactone 25 mg daily, valsartan 40 mg daily, monitor weight and report inappropriate weight gains Follow up with Cardiology as scheduled (2) Persistent atrial fibrillation: Code(s): I48.19 - Other persistent atrial fibrillation Category: Medical Plan: Continue apixaban 5 mg b.i.d. avoid triggers like caffeine (3) Overweight (BMI 25.0-29.9): Code(s): E66.3 - Overweight Category: Medical Plan: Reinforced low-calorie diet and activity as tolerated (4) MDD (major depressive disorder), recurrent episode, moderate: Code(s): F33.1 - Major depressive disorder, recurrent, moderate Category: Medical Plan: Encouraged CBT Continue sertraline 50 mg daily Denies SI/HI (5) Pure hypercholesterolemia: Code(s): E78.00 - Pure hypercholesterolemia, unspecified Category: Medical Plan: No recent labs. Blood work ordered for patient to do as soon as possible Reinforced low-cholesterol diet Continue rosuvastatin 5 mg daily (6) Bilateral knee pain: Code(s): M25.561 - Pain in right knee; M25.562 - Pain in left knee Category: Medical Qualifiers: Chronicity: chronic Qualified Code(s): M25.561 - Pain in right knee; M25.562 - Pain in left knee; G89.29 - Other chronic pain Plan: Continue acetaminophen ER 650 mg q.12 hours May use NSAIDs and decreased knee stress until improvement is seen with quad strengthening exercises Consider to PT if no improvement after 3-4 weeks Continue modified activity as tolerated ( walker) Orders: Orders Comprehensive [place]. Panel Fast 03/26/25 I50.32 - Chronic diastolic (congestive) heart failure, I48.19 - Other persistent atrial fibrillation, R06.00 - Dyspnea, unspecified, R32 - Unspecified urinary incontinence, I48.0 - Paroxysmal atrial fibrillation, Z09 - Encounter for follow-up examination after completed treatment for conditions other than malignant neoplasm, E78.00 - Pure hypercholesterolemia, unspecified, I48.91 - Unspecified atrial fibrillation Lipid Panel 12/09/24 I50.32 - Chronic diastolic (congestive) heart failure, I48.19 - Other persistent atrial fibrillation, R06.00 - Dyspnea, unspecified, R32 - Unspecified urinary incontinence, I48.0 - Paroxysmal atrial fibrillation, Z09 - Encounter for follow-up examination after completed treatment for conditions other than malignant neoplasm, E78.00 - Pure hypercholesterolemia, unspecified, I48.91 - Unspecified atrial fibrillation TSH reflex Free T4 12/09/24 I50.32 - Chronic diastolic (congestive) heart failure, I48.19 - Other persistent atrial fibrillation, R06.00 - Dyspnea, unspecified, R32 - Unspecified urinary incontinence, I48.0 - Paroxysmal atrial fibrillation, Z09 - Encounter for follow-up examination after completed treatment for conditions other than malignant neoplasm, E78.00 - Pure hypercholesterolemia, unspecified, I48.91 - Unspecified atrial fibrillation Vitamin D 25-OH Total 12/09/24 I50.32 - Chronic diastolic (congestive) heart failure, I48.19 - Other persistent atrial fibrillation, R06.00 - Dyspnea, unspecified, R32 - Unspecified urinary incontinence, I48.0 - Paroxysmal atrial fibrillation, Z09 - Encounter for follow-up examination after completed treatment for conditions other than malignant neoplasm, E78.00 - Pure hypercholesterolemia, unspecified, I48.91 - Unspecified atrial fibrillation Complete Blood Count Auto Diff 12/09/24 I50.32 - Chronic diastolic (congestive) heart failure, I48.19 - Other persistent atrial fibrillation, R06.00 - Dyspnea, unspecified, R32 - Unspecified urinary incontinence, I48.0 - Paroxysmal atrial fibrillation, Z09 - Encounter for follow-up examination after completed treatment for conditions other than malignant neoplasm, E78.00 - Pure hypercholesterolemia, unspecified, I48.91 - Unspecified atrial fibrillation UA CC w/rflx Micro + Cult 12/09/24 I50.32 - Chronic diastolic (congestive) heart failure, I48.19 - Other persistent atrial fibrillation, R06.00 - Dyspnea, unspecified, R32 - Unspecified urinary incontinence, I48.0 - Paroxysmal atrial fibrillation, Z09 - Encounter for follow-up examination after completed treatment for conditions other than malignant neoplasm, E78.00 - Pure hypercholesterolemia, unspecified, I48.91 - Unspecified atrial fibrillation Glucose Fasting 12/09/24 I50.32 - Chronic diastolic (congestive) heart failure, I48.19 - Other persistent atrial fibrillation, R06.00 - Dyspnea, unspecified, R32 - Unspecified urinary incontinence, I48.0 - Paroxysmal atrial fibrillation, Z09 - Encounter for follow-up examination after completed treatment for conditions other than malignant neoplasm, E78.00 - Pure hypercholesterolemia, unspecified, I48.91 - Unspecified atrial fibrillation
[2024-12-09 14:34] VITALS: BP 142/86; PULSE 84; RESP 18; TEMP 36.9; O2SAT 98; BMI 25.9
== END 2024-12-09 15:20 | disposition home or self-care (01) ==
LOC: HO.HMCH 14:24
PROVIDERS: PCP Internal Medicine
DX: I50.32 Chronic diastolic (congestive) heart failure (principal); I48.19 Other persistent atrial fibrillation; E66.3 Overweight; F33.1 Major depressive disorder, recurrent, moderate; E78.00 Pure hypercholesterolemia, unspecified; M25.561 Pain in right knee; M25.562 Pain in left knee; G89.29 Other chronic pain

== ENCOUNTER → 2024-12-09 14:23 | Outpatient (BNVA) | payer MEDICARE, MEDICAID, SELFPAY | PROVIDERS: PCP Internal Medicine | DX: I50.32 Chronic diastolic (congestive) heart failure (principal); I48.19 Other persistent atrial fibrillation; E66.3 Overweight; Z68.25 Body mass index [BMI] 25.0-25.9, adult; F33.1 Major depressive disorder, recurrent, moderate; E78.00 Pure hypercholesterolemia, unspecified; M25.561 Pain in right knee; M25.562 Pain in left knee; G89.29 Other chronic pain; Z71.3 Dietary counseling and surveillance | CPT/HCPCS: 96127; 99212 ==

== ENCOUNTER 2025-01-13 11:13 | Outpatient (REF) | payer MEDICARE, MEDICAID, SELFPAY ==
[2025-01-13 11:38] LABS: MANUAL DIFF FLAG NO
[2025-01-13 11:44] LABS: Basophils Absolute Auto 0.1 X10*3/uL (0.0-0.2); Basophils Percent Auto 1.2 % (0-2); Eosinophils Absolute Auto 0.1 X10*3/uL (0.0-0.4); Eosinophils Percent Auto 1.5 % (0-4); Hematocrit 42.4 % (37.0-47.0); Hemoglobin 13.6 g/dl (12.0-16.0); Imm Gran Abs Auto 0.02 X10*3/uL (0.00-0.03); Imm Gran Pct Auto 0.3 % (0.0-0.4); Lymphocytes Absolute Auto 1.5 X10*3/uL (1.2-4.9); Lymphocytes Percent Auto 25.5 % (20-40); Mean Corpuscular HGB Conc 32.1 g/dl (31.0-35.0); Mean Corpuscular Hemoglobin 26.1 pg (27.0-33.0); Mean Corpuscular Volume 81.2 fL (80.0-98.0); Mean Platelet Volume 10.6 fL (9.4-12.3); Monocytes Absolute Auto 0.4 X10*3/uL (0.1-1.2); Monocytes Percent Auto 7.4 % (2-11); Neutrophils Absolute Auto 3.8 x10*3/uL (2.0-8.3); Neutrophils Percent Auto 64.1 % (45-73); Platelet Count 287 X10*3/uL (160-400); Red Blood Count 5.22 X10*6/uL (4.20-5.50); Red Cell Distribution Width 15.7 % (11.0-16.0); White Blood Count 5.9 X10*3/uL (4.8-10.8)
[2025-01-13 12:22] LABS: Alanine Aminotransferase 16 U/L (0-31); Albumin Level 4.2 g/dL (3.5-5.0); Alkaline Phosphatase 73 U/L (39-117); Anion Gap 11 (12-20); Aspartate Amino Transferase 24 U/L (5-31); Blood Urea Nitrogen 14 mg/dL (9-16); Calcium 9.5 mg/dL (8.4-10.2); Carbon Dioxide 31 mmol/L (22-29); Chloride 104 mmol/L (96-108); Cholesterol 172 mg/dL (<200); Estimated Glomerular Filt Rate > 60; Glucose Fasting 91 mg/dL (60-99); HDL Cholesterol 45 mg/dL (>40); LDL Cholesterol Calculated 105 mg/dL (<100); Potassium 4.7 mmol/L (3.3-5.1); Sodium 141 mmol/L (135-145); Total Protein 7.2 g/dL (6.5-8.0); Triglycerides 114 mg/dL (<150)
[2025-01-13 12:36] LABS: TSH reflex Free T4 1.09 uIU/mL (0.32-4.0); Vitamin D 25-OH Total 10.8 ng/mL (>30)
[2025-01-13 12:44] LABS: Appearance Urine Clear; Color Urine Yellow; Glucose Urine UA Negative (Negative); Leukocyte Esterase Urine Negative (Negative); Nitrite Urine Negative (Negative); Urine Blood Negative (Negative); Urine Ketones Trace mg/dL (Negative); Urine Protein Negative (Neg-Trace)
--- OUTSIDE RECORDS SUMMARY | 2025-01-13 12:52 | XMS_ITS | Encounter Summary ---
Author Organization [facility] Address [address] [place] [address] Care Team Providers Care Labor Relations Worker Name Role Phone Milvia Rogel MD Primary Care Provider + Encounter Details Date Type Department Care Team (Late st Contact Info) Description 08/10/2024 Lab Requisition [facility] - Main Lab [address] [facility] [place] [address] Milvia Rogel MD [address] [facility] 1 [place], [place] [phone] Unspecified atrial fibrillation (CMS/HCC V24, CMS/HCC V28); Essential (primary) hypertension Social History Tobacco Use Types Packs/Day Years Used Date Smoking Tobacco: Never Alcohol Use Standard Drinks/Week Comments Yes 0 (1 standard drink = 0.6 oz pur e alcohol) Comments Unknown Sex and Gender Information Value Date Recorded Sex Assigned at Not on file Legal Sex Female 4:02 PM EST Gender Identity Not on file Sexual Orientation Not on file documented as of this encounter Plan of Treatment Not on file documented as of this encounter Procedures Procedure Name Priority Date/Time Associated Diagnosis Comments COMPLETE BLOOD COUNT Routine 08/10/2024 7:11 AM EST Unspecified atrial fibrillation (CMS/HCC) Essential (primary) hypertension COMPREHENSIVE METABOLIC PANEL Routine 08/10/2024 7:11 AM EST Unspecified atrial fibrillation (CMS/HCC) Essential (primary) hypertension documented in this encounter Results * (ABNORMAL) Comprehensive metabolic panel (08/10/2024 7:11 AM EST) Sodium 143 133 - 145 mmol/L LAB CHEMISTRY METHOD 08/10/2024 11:[address] [facility] Potassium 3.6 3.5 - 5.5 mmol/L LAB CHEMISTRY METHOD 08/10/2024 11:[address] [facility] Chloride 106 96 - 110 mmol/L LAB CHEMISTRY METHOD 08/10/2024 11:[address] [facility] CO2 31 21 - 32 mmol/L LAB CHEMISTRY METHOD 08/10/2024 11:[address] [facility] Anion Gap 6 3 - 11 LAB CHEMISTRY METHOD 08/10/2024 11:[address] [facility] Glucose 88 70 - 100 mg/dL LAB CHEMISTRY METHOD 08/10/2024 11:[address] [facility] BUN 10 5 - 25 mg/dL LAB CHEMISTRY METHOD 08/10/2024 11:[address] [facility] Creatinine 0.50 0.50 - 1.10 mg/dL LAB CHEMISTRY METHOD 08/10/2024 11:[address] [facility] eGFR 99 >=60 mL/min/1. 73m2 LAB CHEMISTRY METHOD 08/10/2024 11:[address] [facility] Comment:Calculation based on the??Chronic Kidney Disease Epidemiology Collaboration (CKD-EPI) equation refit??without adjustment for race. BUN/Creatinine Ratio 20.0 LAB CHEMISTRY METHOD 08/10/2024 11:[address] [facility] Calcium 8.6 8.5 - 10.5 mg/dL LAB CHEMISTRY METHOD 08/10/2024 11:[address] [facility] AST (SGOT) 21 10 - 42 unit/L LAB CHEMISTRY METHOD 08/10/2024 11:[address] [facility] ALT (SGPT) 13 10 - 60 unit/L LAB CHEMISTRY METHOD 08/10/2024 11:[address] [facility] Alkaline Phosphatase 56 42 - 121 unit/L LAB CHEMISTRY METHOD 08/10/2024 11:[address] [facility] Total Protein 5.4(L) 6.0 - 8.0 g/dL LAB CHEMISTRY METHOD 08/10/2024 11:[address] [facility] Albumin 2.7(L) 3.2 - 5.0 g/dL LAB CHEMISTRY METHOD 08/10/2024 11:[address] [facility] Total Bilirubin 1.6(H) 0.0 - 1.4 mg/dL LAB CHEMISTRY METHOD 08/10/2024 11:[address] [facility] Blood Venous blood specimen / Unknown Venipuncture / Unknown 08/10/2024 7:11 AM EST 08/10/2024 9:55 AM EST us Milvia Rogel MD LAB BLOOD ORDERABLES Fin al Result [facility] [address] [place] [address], * (ABNORMAL) Complete blood count (08/10/2024 7:11 AM EST) WBC 8.2 4.8 - 10.8 K/mcL LAB HEMETOLOGY METHOD 08/10/2024 11:[address] [facility] RBC 4.00 3.80 - 4.80 M/mcL LAB HEMETOLOGY METHOD 08/10/2024 11:[address] [facility] Hemoglobin 10.7(L) 11.5 - 16.0 g/dL LAB HEMETOLOGY METHOD 08/10/2024 11:[address] [facility] Hematocrit 33.6(L) 35.0 - 47.0 % LAB HEMETOLOGY METHOD 08/10/2024 11:[address] [facility] MCV 83.8 79.0 - 98.0 FL LAB HEMETOLOGY METHOD 08/10/2024 11:[address] [facility] MCH 26.7(L) 27.0 - 32.0 pcg LAB HEMETOLOGY METHOD 08/10/2024 11:[address] [facility] MCHC 31.8(L) 32.0 - 37.0 g/dL LAB HEMETOLOGY METHOD 08/10/2024 11:[address] [facility] RDW 14.3 11.0 - 15.0 % LAB HEMETOLOGY METHOD 08/10/2024 11:[address] [facility] Platelets 252 130 - 400 K/mcL LAB HEMETOLOGY METHOD 08/10/2024 11:[address] [facility] MPV 10.8 7.0 - 11.0 FL LAB HEMETOLOGY METHOD 08/10/2024 11:[address] [facility] NRBC 0.0 <1.0 % LAB HEMETOLOGY METHOD 08/10/2024 11:[address] [facility] NRBC Absolute 0.00 <0.10 K/mcL LAB HEMETOLOGY METHOD 08/10/2024 11:[address] [facility] Blood Venous blood specimen / Unknown Venipuncture / Unknown 08/10/2024 7:11 AM EST 08/10/2024 9:55 AM EST Milvia Rogel MD LAB BLOOD ORDERABLES Fin al Result [facility] [address] [place] [address], documented in this encounter Visit Diagnoses Diagnosis Unspecified atrial fibrillation (CMS/HCC V24, CMS/HCC V28) Essential (primary) hypertension Unspecified essential hypertension documented in this encounter Care Teams Labor Relations Worker Relationship Specialty Start Date End Date Milvia Rogel MD [address] [place] [address] PCP - General Family Medicine 08/10/24 documented as of this encounter
--- OUTSIDE RECORDS SUMMARY | 2025-01-13 12:52 | XMS_ITS | Encounter Summary ---
Author Organization [facility] Address [address] [place] [address] Care Team Providers Care Ethics Officer Name Role Phone Milvia Rogel MD Primary Care Provider + Encounter Details Date Type Department Care Team (Late st Contact Info) Description 10/08/2024 Lab Requisition [facility] - Main Lab 299 [facility] [place] [address] Milvia Rogel MD [address] [phone] Hypokalemia Social History Tobacco Use Types Packs/Day Years [...] on file documented as of this encounter Visit Diagnoses Diagnosis Hypokalemia Hypopotassemia documented in this encounter Care Teams Ethics Officer Relationship Specialty Start Date End Date Milvia Rogel MD [address] [place] [address] PCP - General Family Medicine 08/10/24 documented as of this encounter
--- OUTSIDE RECORDS SUMMARY | 2025-01-13 12:52 | XMS_ITS | Clinical Summary ---
Author Organization [address] Address [address] [place] [phone] Phone Care Team Providers Care Revenue Manager Name Role Phone Elder, Milvia Mensah MD Primary Care Provider + Surgical History Surgery Date Site/Laterality Comments HYSTERECTOMY PROCEDURE: HISTORICAL HYSTERECTOMY; COMMENT: cysts ? CHOLECYSTECTOMY PROCEDURE: HISTORICAL CHOLECYSTECTOMY TONSILLECTOMY PROCEDURE: HISTORICAL TONSILLECTOMY BACK SURGERY PROCEDURE: HISTORICAL BACK SURGERY; COMMENT: 2002 Medical History Medical History Date Comments Essential hypertension, benign D X:Essential hypertension, benign GERD (gastroesophageal reflux disease) DX:GERD (gastroesophageal reflux disease) Depression DX:Depression IBS (irritable bowel syndrome) D X:IBS (irritable bowel syndrome) Lumbar disc herniation DX:Lumbar disc herniation Asthma DX:Asthma Allergic rhinitis DX:Allergic rh initis Family History Medical History Relation Name Comments Diabetes Father Heart attack Father Hypertension Father Hypertension Mother Lung cancer Sister 1 Relation Name Status Comments Father Mother Sister 1 Sister 2 Social History Tobacco Use Types Packs/Day Years Used Date Smoking Tobacco: Never Alcohol Use Standard Drinks/Week Comments Yes 0 (1 standard drink = 0.6 oz pur e alcohol) Comments Unknown Sex and Gender Information Value Date Recorded Sex Assigned at Not on file Legal Sex Female 4:02 PM EST Gender Identity Not on file Sexual Orientation Not on file Obstetrics History Plan of Treatment Health Maintenance Due Date Last Done Comments Breast Cancer Screening 1950 Zoster Vaccines (1 of 2) 2001 RSV Immunization Adult Patients (1 - Risk 60-74 years 1-dose series) 2011 Cholesterol Screening (Lipid Panel) 08/15/2022 Colorectal Cancer Screening: Colonoscopy 08/15/2022 Depression Screening 08/15/2022 Falls Risk Assessment 08/15/2022 Hepatitis C Screening 08/15/2022 Medicare Annual Wellness Visit 08/15/2022 Osteoporosis Screening (Bone Density Screening) 08/15/2022 Social Influencers of Health Screening 08/15/2022 COVID-19 Vaccine ( season) 2024 09/14/2021, 03/15/2021 Influenza Vaccine (Season Ended) 2025 06/12/2022, 06/30/2021, 06/05/2020, Additional history exists Hypertension/CHF/CAD Annual BMP Blood Test 10/05/2025 10/05/2024, 09/28/2024, 09/24/2024, Additional history exists DTaP,Tdap,and Td Vaccines (3 - Td or Tdap) 06/06/2033 06/06/2023, 08/05/2012 Hepatitis B Vaccines Completed 09/22/2001, 04/15/2001, 03/14/2001 Pneumococcal Vaccine: 50+ Years Completed 07/27/2017, 07/18/2016, 12/27/2006 HIB Vaccines Aged Out No longer eligi ble based on patient's age to complete this topic HPV Vaccines Aged Out No longer eligi ble based on patient's age to complete this topic Hepatitis A Vaccines Aged Out No long er eligible based on patient's age to complete this topic IPV Vaccines Aged Out No longer eligi ble based on patient's age to complete this topic MMR Vaccines Aged Out No longer eligi ble based on patient's age to complete this topic Meningococcal ACWY Vaccine Aged Out N o longer eligible based on patient's age to complete this topic Meningococcal B Vaccine Aged Out No l onger eligible based on patient's age to complete this topic RSV Immunization Patients Under 20 months Aged Out No longer eligible based on patient's age to complete this topic Varicella Vaccines Aged Out No longer eligible based on patient's age to complete this topic Procedures Procedure Name Priority Date/Time Associated Diagnosis Comments COMPREHENSIVE METABOLIC PANEL Routine 10/05/2024 7:39 AM EST Essential (primary) hypertension from Last 3 Months or Most Recently Relevant to Health Maintenance Results * (ABNORMAL) Comprehensive metabolic panel (10/05/2024 7:39 AM EST) Sodium 142 133 - 145 mmol/L LAB CHEMISTRY METHOD 10/05/2024 2:42 PM [facility] Potassium 3.1(L) 3.5 - 5.5 mmol/L LAB CHEMISTRY METHOD 10/05/2024 2:42 PM [facility] Chloride 104 96 - 110 mmol/L LAB CHEMISTRY METHOD 10/05/2024 2:42 PM [facility] CO2 30 21 - 32 mmol/L LAB CHEMISTRY METHOD 10/05/2024 2:42 PM [facility] Anion Gap 8 3 - 11 LAB CHEMISTRY METHOD 10/05/2024 2:42 PM [facility] Glucose 82 70 - 100 mg/dL LAB CHEMISTRY METHOD 10/05/2024 2:42 PM [facility] BUN 13 5 - 25 mg/dL LAB CHEMISTRY METHOD 10/05/2024 2:42 PM [facility] Creatinine 0.67 0.50 - 1.10 mg/dL LAB CHEMISTRY METHOD 10/05/2024 2:42 PM [facility] eGFR 92 >=60 mL/min/1. 73m2 LAB CHEMISTRY METHOD 10/05/2024 2:42 PM [facility] Comment:Calculation based on the??Chronic Kidney Disease Epidemiology Collaboration (CKD-EPI) equation refit??without adjustment for race. BUN/Creatinine Ratio 19.4 LAB CHEMISTRY METHOD 10/05/2024 2:42 PM [facility] Calcium 8.9 8.5 - 10.5 mg/dL LAB CHEMISTRY METHOD 10/05/2024 2:42 PM [facility] AST (SGOT) 24 10 - 42 unit/L LAB CHEMISTRY METHOD 10/05/2024 2:42 PM [facility] ALT (SGPT) 23 10 - 60 unit/L LAB CHEMISTRY METHOD 10/05/2024 2:42 PM [facility] Alkaline Phosphatase 69 42 - 121 unit/L LAB CHEMISTRY METHOD 10/05/2024 2:42 PM [facility] Total Protein 6.5 6.0 - 8.0 g/dL LAB CHEMISTRY METHOD 10/05/2024 2:42 PM EST [facility] Albumin 3.6 3.2 - 5.0 g/dL LAB CHEMISTRY METHOD 10/05/2024 2:42 PM EST [facility] Total Bilirubin 1.3 0.0 - 1.4 mg/dL LAB CHEMISTRY METHOD 10/05/2024 2:42 PM EST [facility] Blood Venous blood specimen / Unknown Venipuncture / Unknown 10/05/2024 7:39 AM EST 10/05/2024 12:21 PM EST Milvia Rogel MD LAB BLOOD ORDERABLES Fin al Result [facility] [address] [place] [address], from Last 3 Months or Most Recently Relevant to Health Maintenance Insurance [employer] MEDICARE [employer]VANTAGE MEDICAID - [place] Care Teams Revenue Manager Relationship Specialty Start Date End Date Milvia Roegl MD [address] [place] [address] PCP - General Family Medicine 08/10/24
--- OUTSIDE RECORDS SUMMARY | 2025-01-13 12:52 | XMS_ITS | Encounter Summary ---
Author Organization [facility] Address [address] [place] [address] Care Team Providers Care Quality System Manager Name Role Phone Milvia Rogel MD Primary Care Provider + Encounter Details Date Type Department Care Team (Late st Contact Info) Description 10/02/2024 Lab Requisition [facility] - Main Lab 299 [facility] [place] [employer] [address] Milvia Rogel MD [address] [phone] Essential (primary) hypertension Social History Tobacco Use [...] Associated Diagnosis Comments COMPLETE BLOOD COUNT Routine 10/05/2024 7:39 AM EST Essential (primary) hypertension COMPREHENSIVE METABOLIC PANEL Routine 10/05/2024 7:39 AM EST Essential (primary) hypertension documented in this encounter Results * (ABNORMAL) Comprehensive metabolic panel (10/05/2024 7:39 AM EST) Sodium 142 133 - 145 mmol/L LAB CHEMISTRY METHOD 10/05/2024 2:42 PM EST [facility] Potassium 3.1(L) 3.5 - 5.5 mmol/L LAB CHEMISTRY METHOD 10/05/2024 2:42 PM [facility] Chloride 104 96 - 110 mmol/L LAB CHEMISTRY METHOD 10/05/2024 2:42 PM [facility] CO2 30 21 - 32 mmol/L LAB CHEMISTRY METHOD 10/05/2024 2:42 PM [facility] Anion Gap 8 3 - 11 LAB CHEMISTRY METHOD 10/05/2024 2:42 PM [facility] Glucose 82 70 - 100 mg/dL LAB CHEMISTRY METHOD 10/05/2024 2:42 PM [facility] BUN 13 5 - 25 mg/dL LAB CHEMISTRY METHOD 10/05/2024 2:42 PM [facility] Creatinine 0.67 0.50 - 1.10 mg/dL LAB CHEMISTRY METHOD 10/05/2024 2:42 PM [facility] eGFR 92 >=60 mL/min/1. 73m2 LAB CHEMISTRY METHOD 10/05/2024 2:42 PM [facility] Comment:Calculation based on the??Chronic Kidney Disease Epidemiology Collaboration (CKD-EPI) equation refit??without adjustment for race. BUN/Creatinine Ratio 19.4 LAB CHEMISTRY METHOD 10/05/2024 2:42 PM [facility] Calcium 8.9 8.5 - 10.5 mg/dL LAB CHEMISTRY METHOD 10/05/2024 2:42 PM [facility] AST (SGOT) 24 10 - 42 unit/L LAB CHEMISTRY METHOD 10/05/2024 2:42 PM [facility] ALT (SGPT) 23 10 - 60 unit/L LAB CHEMISTRY METHOD 10/05/2024 2:42 PM [facility] Alkaline Phosphatase 69 42 - 121 unit/L LAB CHEMISTRY METHOD 10/05/2024 2:42 PM [facility] Total Protein 6.5 6.0 - 8.0 g/dL LAB CHEMISTRY METHOD 10/05/2024 2:42 PM EST [facility] Albumin 3.6 3.2 - 5.0 g/dL LAB CHEMISTRY METHOD 10/05/2024 2:42 PM [facility] Total Bilirubin 1.3 0.0 - 1.4 mg/dL LAB CHEMISTRY METHOD 10/05/2024 2:42 PM [facility] Blood Venous blood specimen / Unknown Venipuncture / Unknown 10/05/2024 7:39 AM EST 10/05/2024 12:21 PM EST us Milvia Rogel MD LAB BLOOD ORDERABLES Fin al Result [facility] [address] [place] [address], [place] [phone] * (ABNORMAL) Complete blood count (10/05/2024 7:39 AM EST) WBC 3.7(L) 4.8 - 10.8 K/mcL LAB HEMETOLOGY METHOD 10/05/2024 1:46 PM [facility] RBC 4.30 3.80 - 4.80 M/mcL LAB HEMETOLOGY METHOD 10/05/2024 1:46 PM [facility] Hemoglobin 11.5 11.5 - 16.0 g/dL LAB HEMETOLOGY METHOD 10/05/2024 1:46 PM [facility] Hematocrit 37.6 35.0 - 47.0 % LAB HEMETOLOGY METHOD 10/05/2024 1:46 PM [facility] MCV 87.4 79.0 - 98.0 FL LAB HEMETOLOGY METHOD 10/05/2024 1:46 PM [facility] MCH 26.7(L) 27.0 - 32.0 pcg LAB HEMETOLOGY METHOD 10/05/2024 1:46 PM [facility] MCHC 30.6(L) 32.0 - 37.0 g/dL LAB HEMETOLOGY METHOD 10/05/2024 1:46 PM EST [facility] RDW 14.8 11.0 - 15.0 % LAB HEMETOLOGY METHOD 10/05/2024 1:46 PM [facility] Platelets 227 130 - 400 K/mcL LAB HEMETOLOGY METHOD 10/05/2024 1:46 PM EST [facility] MPV 12.0(H) 7.0 - 11.0 FL LAB HEMETOLOGY METHOD 10/05/2024 1:46 PM EST [facility] NRBC 0.0 <1.0 % [facility] 10/05/2024 1:46 PM [facility] NRBC Absolute 0.00 <0.10 K/mcL LAB HEMETOLOGY METHOD 10/05/2024 1:46 PM [facility] Blood Venous blood specimen / Unknown Venipuncture / Unknown 10/05/2024 7:39 AM EST 10/05/2024 12:21 PM EST us Milvia Rogel MD LAB BLOOD ORDERABLES Fin al Result Performing Organization Address [facility] Co de Phone Number [facility] [address] [place] [address], documented in this encounter Visit Diagnoses Diagnosis Essential (primary) hypertension Unspecified essential hypertension documented in this encounter Care Teams Quality System Manager Relationship Specialty Start Date End Date Milvia Rogel MD [address] [place] [address] PCP - General Family Medicine 08/10/24 documented as of this encounter
--- OUTSIDE RECORDS SUMMARY | 2025-01-13 12:52 | XMS_ITS | Encounter Summary ---
Author Organization [facility] Address [address] [place] [address] Care Team Providers Care School Bus Monitor Name Role Phone Milvia Rogel MD Primary Care Provider + Encounter Details Date Type Department Care Team (Late st Contact Info) Description 10/08/2024 Lab Requisition [facility] - Main Lab 299 [facility] [place] [address] Milvia Rogel MD [address] [phone] Dysuria Social History Tobacco Use Types Packs/Day Years [...] Procedure Name Priority Date/Time Associated Diagnosis Comments URINALYSIS WITH REFLEX MICROSCOPIC AND CULTURE Routine 10/08/2024 12:00 AM EST Dysuria BATISTA URINE CULTURE TUBE Routine 10/08/2024 12:00 AM EST Dysuria URINALYSIS WITH REFLEX MICROSCOPIC AND CULTURE Routine 10/08/2024 12:00 AM EST Dysuria CULTURE URINE Routine 10/08/2024 12:00 AM EST Dysuria documented in this encounter Results * (ABNORMAL) Culture urine (10/08/2024 12:00 AM EST) Culture, Urine 10,000-49,000 CFU/mL Escherichia coli(A) JOHANN 10/10/2024 9:48 AM EST [facility] Urine Urine specimen obtained by clean catch procedure / Unknown Non-blood Collection / Unknown 10/08/2024 10/08/2024 9:57 AM EST Narrative Organism Antibiotic Method Susceptibility Escherichia coli Amoxicillin/Clavulanate JOHANN 4 ug/ml: Susceptible Escherichia coli Ampicillin/Sulbactam JOHANN 16 ug/ml: Intermediate Escherichia coli Piperacillin/Tazobactam JOHANN <=4 ug/ml: Susceptible Escherichia coli Cefazolin (Urine) JOHANN 2 ug/ml: Susceptible Escherichia coli Cefoxitin JOHANN <=4 ug/ml: Susceptible Escherichia coli Ceftazidime JOHANN <=0.5 ug/ml: Susceptible Escherichia coli Ceftriaxone JOHANN <=0.25 ug/ml: Susceptible Escherichia coli Cefepime JOHANN <=0.12 ug/ml: Susceptible Escherichia coli Meropenem JOHANN <=0.25 ug/ml: Susceptible Escherichia coli Amikacin JOHANN 4 ug/ml: Susceptible Escherichia coli Gentamicin JOHANN <=1 ug/ml: Susceptible Escherichia coli Ciprofloxacin JOHANN <=0.06 ug/ml: Susceptible Escherichia coli Levofloxacin JOHANN <=0.12 ug/ml: Susceptible Escherichia coli Nitrofurantoin JOHANN <=16 ug/ml: Susceptible Escherichia coli Trimethoprim/Sulfamethoxazole JOHANN <=20 ug/ml: Susceptible Milvia Rogel MD LAB MICROBIOLOGY - GENER AL ORDERABLES Final Result [facility] [address] [place] [address], * Batista urine culture tube (10/08/2024 12:00 AM EST) Extra Tube Hold for add-ons. 10/08/2024 10:01 AM EST [facility] Comment:Auto resulted. Urine Urine specimen obtained by clean catch procedure / Unknown 10/08/2024 10/08/2024 8:40 AM EST us Milvia Rogel MD LAB URINE ORDERABLES Fin al Result [facility] [address] [place] [address], [place] [phone] * (ABNORMAL) Urinalysis with reflex microscopic and culture (10/08/2024 12:00 AM EST) Specific [place] Urine 1.017 1.003 - 1.030 LAB URINALYSIS - AUTOMATED METHOD 10/08/2024 9:57 AM [facility] pH, Urine 5.5 5.0 - 8.0 pH LAB URINALYSIS - AUTOMATED METHOD 10/08/2024 9:57 AM [facility] Leukocytes, Urine Large(A) Negative LAB URINALYSIS - AUTOMATED METHOD 10/08/2024 9:57 AM [facility] Nitrite, Urine Negative Negative LAB URINALYSIS - AUTOMATED METHOD 10/08/2024 9:57 AM [facility] Protein, Urine 100(A) <=Trace mg/dL LAB URINALYSIS - AUTOMATED METHOD 10/08/2024 9:57 AM [facility] Glucose, Urine Negative Negative mg/dL LAB URINALYSIS - AUTOMATED METHOD 10/08/2024 9:57 AM [facility] Ketones, Urine Negative Negative mg/dL LAB URINALYSIS - AUTOMATED METHOD 10/08/2024 9:57 AM [facility] Urobilinogen, Urine 1.0 0.2 - 1.0 mg/dL LAB URINALYSIS - AUTOMATED METHOD 10/08/2024 9:57 AM [facility] Bilirubin, Urine Negative Negative LAB URINALYSIS - AUTOMATED METHOD 10/08/2024 9:57 AM [facility] Blood, Urine Large(A) Negative LAB URINALYSIS - AUTOMATED METHOD 10/08/2024 9:57 AM EST [facility] RBC, Urine 74.1(H) 0 - 4 /HPF LAB URINALYSIS - AUTOMATED METHOD 10/08/2024 9:57 AM [facility] WBC, Urine 965.2(H) 0 - 4 /HPF LAB URINALYSIS - AUTOMATED METHOD 10/08/2024 9:57 AM [facility] Squamous Epithelial, Urine 22 0 - 60 /LPF LAB URINALYSIS - AUTOMATED METHOD 10/08/2024 9:57 AM [facility] Bacteria, Urine Negative Negative /HPF LAB URINALYSIS - AUTOMATED METHOD 10/08/2024 9:57 AM [facility] Hyaline Casts, Urine 0.0 0 - 3 /LPF LAB URINALYSIS - AUTOMATED METHOD 10/08/2024 9:57 AM [facility] Urine Urine specimen obtained by clean catch procedure / Unknown Non-blood Collection / Unknown 10/08/2024 10/08/2024 8:34 AM EST us Milvia Rogel MD LAB URINE ORDERABLES Fin al Result [facility] [address] [place] [address], documented in this encounter Visit Diagnoses Diagnosis Dysuria documented in this encounter Care Teams School Bus Monitor Relationship Specialty Start Date End Date Milvia Rogel MD [address] [place] [address] PCP - General Family Medicine 08/10/24 documented as of this encounter
--- OUTSIDE RECORDS SUMMARY | 2025-01-13 12:52 | XMS_ITS | Encounter Summary ---
Author Organization [facility] Address [address] [place] [address] Care Team Providers Care Integration Consultant Name Role Phone Milvia Rogel MD Primary Care Provider + Encounter Details Date Type Department Care Team (Late st Contact Info) Description 09/25/2024 Lab Requisition [facility] - Main Lab [address] [facility] [place] [address] Milvia Rogel MD [address] [id number] Essential (primary) hypertension Social History Tobacco Use [...] Associated Diagnosis Comments COMPLETE BLOOD COUNT Routine 09/28/2024 7:01 AM EST Essential (primary) hypertension COMPREHENSIVE METABOLIC PANEL Routine 09/28/2024 7:01 AM EST Essential (primary) hypertension documented in this encounter Results * Comprehensive metabolic panel (09/28/2024 7:01 AM EST) Sodium 138 133 - 145 mmol/L LAB CHEMISTRY METHOD 09/28/2024 10:[address] [facility] Potassium 3.9 3.5 - 5.5 mmol/L LAB CHEMISTRY METHOD 09/28/2024 10:45 AM [facility] LAB Chloride 102 96 - 110 mmol/L LAB CHEMISTRY METHOD 09/28/2024 10:45 AM [facility] LAB CO2 30 21 - 32 mmol/L LAB CHEMISTRY METHOD 09/28/2024 10:45 AM [facility] LAB Anion Gap 6 3 - 11 LAB CHEMISTRY METHOD 09/28/2024 10:45 AM [facility] LAB Glucose 74 70 - 100 mg/dL LAB CHEMISTRY METHOD 09/28/2024 10:45 AM [facility] LAB BUN 19 5 - 25 mg/dL LAB CHEMISTRY METHOD 09/28/2024 10:45 AM [facility] LAB Creatinine 0.69 0.50 - 1.10 mg/dL LAB CHEMISTRY METHOD 09/28/2024 10:45 AM [facility] LAB eGFR 92 >=60 mL/min/1. 73m2 LAB CHEMISTRY METHOD 09/28/2024 10:45 AM [facility] LAB Comment:Calculation based on the??Chronic Kidney Disease Epidemiology Collaboration (CKD-EPI) equation refit??without adjustment for race. BUN/Creatinine Ratio 27.5 LAB CHEMISTRY METHOD 09/28/2024 10:45 AM [facility] LAB Calcium 8.9 8.5 - 10.5 mg/dL LAB CHEMISTRY METHOD 09/28/2024 10:45 AM [facility] LAB AST (SGOT) 16 10 - 42 unit/L LAB CHEMISTRY METHOD 09/28/2024 10:45 AM [facility] LAB ALT (SGPT) 16 10 - 60 unit/L LAB CHEMISTRY METHOD 09/28/2024 10:45 AM [facility] LAB Alkaline Phosphatase 71 42 - 121 unit/L LAB CHEMISTRY METHOD 09/28/2024 10:45 AM [facility] LAB Total Protein 6.9 6.0 - 8.0 g/dL LAB CHEMISTRY METHOD 09/28/2024 10:[address] [facility] LAB Albumin 3.8 3.2 - 5.0 g/dL LAB CHEMISTRY METHOD 09/28/2024 10:[address] [facility] LAB Total Bilirubin 1.0 0.0 - 1.4 mg/dL LAB CHEMISTRY METHOD 09/28/2024 10:45 AM [facility] LAB Blood Venous blood specimen / Unknown Venipuncture / Unknown 09/28/2024 7:01 AM EST 09/28/2024 9:31 AM EST us Milvia Rogel MD LAB BLOOD ORDERABLES Fin al Result [facility] [address] [place] [address], [place] [phone] * (ABNORMAL) Complete blood count (09/28/2024 7:01 AM EST) WBC 5.8 4.8 - 10.8 K/mcL LAB HEMETOLOGY METHOD 09/28/2024 10:12 AM [facility] LAB RBC 4.70 3.80 - 4.80 M/mcL LAB HEMETOLOGY METHOD 09/28/2024 10:12 AM [facility] LAB Hemoglobin 12.1 11.5 - 16.0 g/dL LAB HEMETOLOGY METHOD 09/28/2024 10:12 AM [facility] LAB Hematocrit 40.6 35.0 - 47.0 % LAB HEMETOLOGY METHOD 09/28/2024 10:12 AM [facility] LAB MCV 87.3 79.0 - 98.0 FL LAB HEMETOLOGY METHOD 09/28/2024 10:12 AM [facility] LAB MCH 26.0(L) 27.0 - 32.0 pcg LAB HEMETOLOGY METHOD 09/28/2024 10:12 AM [facility] LAB MCHC 29.8(L) 32.0 - 37.0 g/dL LAB HEMETOLOGY METHOD 09/28/2024 10:[address] [facility] RDW 14.6 11.0 - 15.0 % LAB HEMETOLOGY METHOD 09/28/2024 10:12 AM [facility] LAB Platelets 321 130 - 400 K/mcL LAB HEMETOLOGY METHOD 09/28/2024 10:12 AM [facility] LAB MPV 11.1(H) 7.0 - 11.0 FL LAB HEMETOLOGY METHOD 09/28/2024 10:[address] [facility] NRBC 0.0 <1.0 % LAB HEMETOLOGY METHOD 09/28/2024 10:12 AM [facility] LAB NRBC Absolute 0.00 <0.10 K/mcL LAB HEMETOLOGY METHOD 09/28/2024 10:12 AM [facility] LAB Blood Venous blood specimen / Unknown Venipuncture / Unknown 09/28/2024 7:01 AM EST 09/28/2024 9:31 AM EST Milvia Rogel MD LAB BLOOD ORDERABLES Fin al Result [facility] [address] [place] [address], documented in this encounter Visit Diagnoses Diagnosis Essential (primary) hypertension Unspecified essential hypertension documented in this encounter Care Teams Integration Consultant Relationship Specialty Start Date End Date Milvia Rogel MD [address] [place] [address] PCP - General Family Medicine 08/10/24 documented as of this encounter
--- OUTSIDE RECORDS SUMMARY | 2025-01-13 12:52 | XMS_ITS | Encounter Summary ---
Author Organization [facility] Address [address] [place] [address] Care Team Providers Care Parachute Cushion Installer Name Role Phone Milvia Rogel MD Primary Care Provider + Encounter Details Date Type Department Care Team (Late st Contact Info) Description 09/24/2024 Lab Requisition [facility] - Main Lab [address] [facility] [place] [address] Milvia Rogel MD [address] [phone] Heart failure, unspecified (CMS/HCC V24, CMS/HCC V28); Unspecified atrial fibrillation (CMS/HCC V24, CMS/HCC V28) Social History Tobacco Use Types Packs/Day Years [...] Associated Diagnosis Comments COMPLETE BLOOD COUNT Routine 09/24/2024 4:52 AM EST Heart failure, unspecified (CMS/HCC) Unspecified atrial fibrillation (CMS/HCC) COMPREHENSIVE METABOLIC PANEL Routine 09/24/2024 4:52 AM EST Heart failure, unspecified (CMS/HCC) Unspecified atrial fibrillation (CMS/HCC) documented in this encounter Results * Comprehensive metabolic panel (09/24/2024 4:52 AM EST) Sodium 139 133 - 145 mmol/L LAB CHEMISTRY METHOD 09/24/2024 11:43 AM [facility] LAB Potassium 3.6 3.5 - 5.5 mmol/L LAB CHEMISTRY METHOD 09/24/2024 11:43 AM [facility] LAB Chloride 102 96 - 110 mmol/L LAB CHEMISTRY METHOD 09/24/2024 11:43 AM [facility] LAB CO2 30 21 - 32 mmol/L LAB CHEMISTRY METHOD 09/24/2024 11:43 AM [facility] LAB Anion Gap 7 3 - 11 LAB CHEMISTRY METHOD 09/24/2024 11:43 AM [facility] LAB Glucose 71 70 - 100 mg/dL LAB CHEMISTRY METHOD 09/24/2024 11:43 AM [facility] LAB BUN 18 5 - 25 mg/dL LAB CHEMISTRY METHOD 09/24/2024 11:43 AM [facility] LAB Creatinine 0.77 0.50 - 1.10 mg/dL LAB CHEMISTRY METHOD 09/24/2024 11:43 AM [facility] LAB eGFR 82 >=60 mL/min/1. 73m2 LAB CHEMISTRY METHOD 09/24/2024 11:43 AM [facility] LAB Comment:Calculation based on the??Chronic Kidney Disease Epidemiology Collaboration (CKD-EPI) equation refit??without adjustment for race. BUN/Creatinine Ratio 23.4 LAB CHEMISTRY METHOD 09/24/2024 11:43 AM [facility] LAB Calcium 9.2 8.5 - 10.5 mg/dL LAB CHEMISTRY METHOD 09/24/2024 11:43 AM [facility] LAB AST (SGOT) 17 10 - 42 unit/L LAB CHEMISTRY METHOD 09/24/2024 11:43 AM [facility] LAB ALT (SGPT) 13 10 - 60 unit/L LAB CHEMISTRY METHOD 09/24/2024 11:43 AM [facility] LAB Alkaline Phosphatase 69 42 - 121 unit/L LAB CHEMISTRY METHOD 09/24/2024 11:43 AM EST [facility] LAB Total Protein 6.3 6.0 - 8.0 g/dL LAB CHEMISTRY METHOD 09/24/2024 11:43 AM [facility] LAB Albumin 3.4 3.2 - 5.0 g/dL LAB CHEMISTRY METHOD 09/24/2024 11:43 AM [facility] LAB Total Bilirubin 1.3 0.0 - 1.4 mg/dL LAB CHEMISTRY METHOD 09/24/2024 11:43 AM [facility] LAB Blood Venous blood specimen / Unknown Venipuncture / Unknown 09/24/2024 4:52 AM EST 09/24/2024 10:00 AM EST us Milvia Rogel MD LAB BLOOD ORDERABLES Fin al Result [facility] [address] [place] [address], [place] [phone] * (ABNORMAL) Complete blood count (09/24/2024 4:52 AM EST) WBC 5.9 4.8 - 10.8 K/mcL LAB HEMETOLOGY METHOD 09/24/2024 10:52 AM [facility] LAB RBC 4.60 3.80 - 4.80 M/mcL LAB HEMETOLOGY METHOD 09/24/2024 10:52 AM [facility] LAB Hemoglobin 12.2 11.5 - 16.0 g/dL LAB HEMETOLOGY METHOD 09/24/2024 10:52 AM [facility] LAB Hematocrit 40.5 35.0 - 47.0 % LAB HEMETOLOGY METHOD 09/24/2024 10:52 AM [facility] LAB MCV 88.2 79.0 - 98.0 FL LAB HEMETOLOGY METHOD 09/24/2024 10:52 AM EST [facility] LAB MCH 26.6(L) 27.0 - 32.0 pcg LAB HEMETOLOGY METHOD 09/24/2024 10:52 AM [facility] LAB MCHC 30.1(L) 32.0 - 37.0 g/dL LAB HEMETOLOGY METHOD 09/24/2024 10:52 AM [facility] LAB RDW 15.3(H) 11.0 - 15.0 % LAB HEMETOLOGY METHOD 09/24/2024 10:52 AM [facility] LAB Platelets 335 130 - 400 K/mcL LAB HEMETOLOGY METHOD 09/24/2024 10:52 AM [facility] LAB MPV 11.1(H) 7.0 - 11.0 FL LAB HEMETOLOGY METHOD 09/24/2024 10:52 AM [facility] LAB NRBC 0.0 <1.0 % LAB HEMETOLOGY METHOD 09/24/2024 10:52 AM [facility] LAB NRBC Absolute 0.00 <0.10 K/mcL LAB HEMETOLOGY METHOD 09/24/2024 10:52 AM [facility] LAB Blood Venous blood specimen / Unknown Venipuncture / Unknown 09/24/2024 4:52 AM EST 09/24/2024 10:00 AM EST us Milvia Rogel MD LAB BLOOD ORDERABLES Fin al Result [facility] [address] [place] [address], documented in this encounter Visit Diagnoses Diagnosis Heart failure, unspecified (CMS/HCC V24, CMS/HCC V28) Heart failure, unspecified Unspecified atrial fibrillation (CMS/HCC V24, CMS/HCC V28) documented in this encounter Care Teams Parachute Cushion Installer Relationship Specialty Start Date End Date Milvia Rogel MD [address] [place] [address] PCP - General Family Medicine 08/10/24 documented as of this encounter
== END 2025-01-13 11:14 | disposition home or self-care (01) ==
LOC: HO.LAB 11:13
PROVIDERS: PCP Internal Medicine
DX: Z09 Encounter for follow-up examination after completed treatment for conditions other than malignant neoplasm (principal); I50.32 Chronic diastolic (congestive) heart failure; I48.19 Other persistent atrial fibrillation; R06.00 Dyspnea, unspecified; R32 Unspecified urinary incontinence; I48.0 Paroxysmal atrial fibrillation; E78.00 Pure hypercholesterolemia, unspecified; I48.91 Unspecified atrial fibrillation
CPT/HCPCS: 36415; 80053; 80061; 81003; 82306; 84443; 85025

== ENCOUNTER 2025-06-14 12:49 | Outpatient (AMB) | payer MEDICARE, MEDICAID, SELFPAY ==
--- NOTE | 2025-06-14 12:58 | MHC.PC.OV ---
Vital Signs 06/14/25 13:02 Height 5 ft 10 in Weight 193 lb 12.581 oz BMI 27.8 BP 120/78 Blood Pressure Location Rt brachial Position Sitting Pulse 84 Pulse Source Pulse Oximeter Pulse Oximetry (%) 98 Oxygen Delivery Method Room Air Intake Visit Reasons: afib/hf/depression [employer] Required: No Accompanied by: Self / Same As Patient Allergies No Known Allergies Allergy (Verified 06/14/25 13:23) Medication List - Last Reconciled 06/21/25 by Brenden Guzmán MD acetaminophen ER (Tylenol Arthritis Pain) 650 mg PO Q12H PRN [ADULT PULL UPS (large) Use as directed 3 times a day] albuterol sulfate 90 mcg/actuation 1 inh inhalation QID PRN apixaban (Eliquis) 5 mg PO BID ttgkjrijsl-gupjroonhqmhv-piwr 50-325-40 mg 1 cap PO Q6H PRN carvedilol 3.125 mg PO BID cholecalciferol (vitamin D3) 50 mcg PO DAILY 90 days furosemide 40 mg PO DAILY melatonin 5 mg PO BEDTIME PRN 30 days rosuvastatin 5 mg PO DAILY 30 days sertraline 50 mg PO DAILY spironolactone (Aldactone) 25 mg PO DAILY tramadol 50 mg PO BID PRN valsartan 40 mg PO DAILY Tobacco use date assessed: 06/14/25 Fall risk assessment: 1 Fall in past year Last assessed Fall Risk: 06/14/25 Dental Screening Dental Screen Date: 06/14/25 Did you have a dental visit in the last 12 months?: Yes Did you have a dental problem in the last 6 months where you did not have access to dental care?: No Was dental information given to patient?: Patient has dentist HPI afib/hf/depression HPI Details Patient comes in today for her follow up visit - she was last seen by me over 2 years ago on 06/06/2023 States that she feels okay but reports that she has been feeling very tired all the time for a while now States that she has trouble sleeping at night - wakes up often after sleeping for a couple of hours and would then be unable to go back to sleep States that she has been spending majority of the day catching up on her sleep as a result and she is now sleeping most of the time during the day and is up for most of the night She denies any headaches or dizziness Denies any chest pains, no increased SOB No nausea/vomiting, no abdominal pain No change in bowel habits noted States that her power was also shut off at home and reports that this was primarily the reason she fell recently She last had follow up labs done back in December 2024 and has no other more recent follow up labs done since [facility] Medical History (Updated 06/21/25 @ 04:38 by Brenden Guzmán MD) Insomnia Vitamin D deficiency Left-sided cerebrovascular accident (CVA) Essential hypertension Persistent atrial fibrillation Chronic heart failure with preserved ejection fraction (HFpEF) Vertigo Labile blood pressure Orthostatic hypotension Symptomatic bradycardia Overweight (BMI 25.0-29.9) Paroxysmal atrial fibrillation Pure hypercholesterolemia Severe uncontrolled high blood pressure Generalized anxiety disorder Major depression, single episode Hyperlipidemia Obesity (BMI 30-39.9) HTN (hypertension) Surgical History History of hip replacement Hx of cholecystectomy Hx of hernia repair Hx of appendectomy Hx of hysterectomy Family History Father Heart disease Pacemaker Diabetes Mother Stroke Sister Thyroid disease Social History Household Members: None Housing: Other Housing Other:: [facility] Do you presently have visiting nurse or other home services: Yes (VNA 2 x/week, PT 1 x/week) Alcohol intake: current Alcohol intake frequency: holidays/special occasions only Alcohol type: beer Comment: refuses high alarm protocol Patient Tobacco Use Status: Former Tobacco user Tobacco use type: Cigarette e-Cigarette/Vaping Use: Never Used Second Hand Smoke Exposure: Yes Advance Directives Date on File: 09/26/21 service: No Current occupational status: disabled Gender identity: Female Cognitive needs: No Hearing needs: No Vision needs: Yes Questionnaire PHQ-9 Over the last 2 weeks, how often have you been bothered by any of the following problems? 1. Little interest or pleasure in doing things: more than half the days 2. Feeling down, depressed, or hopeless: more than half the days 3. Trouble falling or staying asleep, or sleeping too much: more than half the days 4. Feeling tired or having little energy: more than half the days 5. Poor appetite or overeating: more than half the days 6. Feeling bad about yourself - or that you are a failure or have let yourself or your family down: more than half the days 7. Trouble concentrating on things, such as reading the newspaper or watching television: more than half the days 8. Moving or speaking so slowly that other people could have noticed. Or the opposite - being so fidgety or restless that you have been moving around a lot more than usual: more than half the days 9. Thoughts that you would be better off or of hurting yourself in some way: not at all Total score: 16 Depression Screening Interpretation: Positive Depression Screening Follow-up: Community Mental Health Worker F/U and Follow-up Visit Requested Depression Screening Done: Yes 71884 - PHQ-9 Billing: Yes Source: Developed by Drs. Demarcus Alexis, Martha Marcus, Grady Hu and colleagues, with an educational sarmad from [employer]. Thrive Questionnaire Date Thrive assessed: 12/09/24 I am a: Patient What is your living situation today?: I have a steady place to live Within the past 12 months, did the food you bought not last and you didn't have the money to get more?: Never true Within the past 12 months, did you worry whether your food would run out before you got money to buy more?: Never true Do you have trouble paying for medicines?: No Do you have trouble getting transportation to medical appointments?: Yes Do you have trouble paying your heating and electricity bill?: Yes Do you have trouble taking care of your child, family member or friend?: No Do you have trouble with day-to-day activities such as bathing, preparing meals, shopping, managing finances, etc.?: No Are you currently unemployed and looking for a job?: No Are you interested in more education?: No Please select the resources that you would like help with: None Currently or been in a relationship where the following occur: No concerns reported THRIVE Score: 2 AUDIT C Alcohol Use Questionnaire (AUDIT-C) 1. How often do you have a drink containing alcohol?: Never 3. How often do you have six or more drinks on one occasion?: Never Total Score: 0 Score Reviewed/Action Taken: Yes QUAN-7 AMB Questionnaire QUAN-7 Date QUAN - 7 assessed: 12/09/24 Feeling nervous, anxious, or on edge: 2 = More than half the days Not being able to stop or control worryin = More than half the days Worrying too much about different things: 2 = More than half the days Trouble relaxin = More than half the days Being so restless that it is hard to sit still: 2 = More than half the days Becoming easily annoyed or irritable: 2 = More than half the days Feeling afraid as if something awful might happen: 2 = More than half the days Total QUAN-7 score (0-4 normal; 5-9 mild; 10-14 moderate; 15-21 severe): 14 Source: Developed by Drs. Demarcus Alexis, Martha Marcus, Grady Hu and colleagues, with an educational sarmad from [employer]. Review of Systems Const Denies chills, Reports difficulty sleeping (see HPI for details), Reports fatigue (increased lately), Denies fever(s) and Denies headache(s) ENT Denies dysphagia, Denies dizziness, Denies otalgia, Denies headache(s), Denies neck pain, Denies odynophagia and Denies sore throat Card Denies chest pain, Denies palpitations and Reports dyspnea on exertion (mild) Resp Denies chest congestion, Denies cough and Reports dyspnea on exertion (mild) GI Denies abdominal pain, Denies constipation, Denies dysphagia, Denies heartburn, Denies diarrhea, Denies nausea, Denies odynophagia and Denies vomiting Denies difficulty voiding, Denies nocturia and Denies dysuria Musc Denies back pain, Reports arthralgias (in both knees) and Denies neck pain Skin/Breast Denies rash Neuro Denies dizziness and Denies headache(s) Endo Reports fatigue (increased lately) and Denies palpitations Physical exam (Primary Care) Vital Signs: Last Vital Signs Pulse 84 06/14/25 13:02 BP 120/78 06/14/25 13:02 Pulse Ox 98 06/14/25 13:02 Oxygen Delivery Method Room Air 06/14/25 13:02 BMI result Body Mass Index 27.8 Tobacco/Smoking Status: Tobacco use Status Tobacco use date assessed 06/14/25 06/14/25 13:00 Patient Tobacco Use Status Former Tobacco user 06/14/25 13:00 Tobacco use type Cigarette 06/14/25 13:00 e-Cigarette/Vaping Use Never Used 06/14/25 13:00 PHQ-9: PHQ-9 Score PHQ-9: Total score 16 06/14/25 14:08 Depression Screening Interpretation: Positive Depression Screening Follow-up: Community Mental Health Worker F/U and Follow-up Visit Requested Thrive Assessment: Date of Thrive Assessment Date Thrive assessed 12/09/24 06/14/25 13:00 Currently or been in a relationship where the following occur: No concerns reported Const General: no acute distress and alert HENMT Ears: TM's normal bilaterally and EAC's normal Throat: Yes posterior oropharynx normal and Yes tonsils normal (no TP congestion noted) Neck Neck: Yes supple and No lymphadenopathy Thyroid: Thyroid normal Resp Auscultation: clear to auscultation bilaterally, no rales and no wheezes Cardio Rate: regular rate Rhythm: abnormal rhythm irregularly irregular Heart sounds: no murmurs GI Palpation (GI): Soft to palpation and nontender Auscultation: normal bowel sounds General: Yes no CVA tenderness Back/Spine/Pelvis Back: no CVA tenderness Thoracic/Lumbar Spine: No lumbar spinal tenderness Skin Rashes: no rashes Extrem General: Yes no clubbing, cyanosis or edema Right lower extremity: hip/thigh Details: tenderness and knee Details: tenderness; no swelling Left lower extremity: hip/thigh Details: tenderness and knee Details: tenderness; no swelling Results Reviewed Results Reviewed: Laboratory Tests 01/13/25 01/13/25 11:30 11:36 WBC 5.9 Hgb 13.6 Hct 42.4 Plt Count 287 Sodium 141 Potassium 4.7 D Creatinine 0.76 Estimated GFR > 60 Fasting Glucose 91 Calcium 9.5 AST 24 ALT 16 Triglycerides 114 Cholesterol 172 LDL Cholesterol, Calc 105 H HDL Cholesterol 45 25-OH Vitamin D Total 10.8 L TSH 1.09 Ur Specific [place] 1.020 Urine Protein Negative Urine Glucose (UA) Negative Urine Blood Negative Urine Nitrite Negative Ur Leukocyte Esterase Negative Coding Level of Care Code Est Pt Level 4 (56037) Diagnoses Persistent atrial fibrillation I48.19 Essential hypertension I10 Pure hypercholesterolemia E78.00 Left-sided cerebrovascular accident (CVA) I63.9 Vitamin D deficiency E55.9 Insomnia, unspecified type G47.00 Insomnia type: unspecified MDD (major depressive disorder), recurrent episode, moderate F33.1 Overweight (BMI 25.0-29.9) E66.3 Additional Codes PHQ-9 - 42603 - PHQ-9 Billing: Yes ([id number]) Assessment & Plan Assessment & Plan (1) Persistent atrial fibrillation: Code(s): I48.19 - Other persistent atrial fibrillation Category: Medical Plan: Patient currently remains in atrial fibrillation but is rate controlled Continue Eliquis 5 mg BID for thromboembolism prophylaxis Continue Carvedilol 3.125 mg BID She used to see Cardiology for follow-up but also has not been seen by Cardiology in a couple of years now We will go ahead and refer her back to cardiology for continuing management (2) Essential hypertension: Code(s): I10 - Essential (primary) hypertension Category: Medical Plan: Reinforced low-sodium diet - goal is systolic BP of at least 130 mm or less Continue Valsartan 40 mg QD, Spironolactone 25 mg QD and Carvedilol 3.125 mg BID (3) Pure hypercholesterolemia: Code(s): E78.00 - Pure hypercholesterolemia, unspecified Category: Medical Plan: Results of her labs done back in December 2024 reviewed and discussed with patient Reinforced low cholesterol diet Continue Rosuvastatin 5 mg QD Will recheck his labs and fasting lipids in 3 months for follow up (4) Left-sided cerebrovascular accident (CVA): Comment: 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 Code(s): I63.9 - Cerebral infarction, unspecified Category: Medical Plan: Patient currently has no residual neurologic deficits Her left cerebellar bleed was most likely due to uncontrolled hypertension at the time back in 2020 Reinforced importance of blood pressure control to minimize risks of recurrence (5) Vitamin D deficiency: Code(s): E55.9 - Vitamin D deficiency, unspecified Category: Medical Plan: She is advised that her Vitamin D level was low on her labs done back in December 2024 Will start her on Vitamin D3 2000 units QD (6) Insomnia: Code(s): G47.00 - Insomnia, unspecified Category: Medical Qualifiers: Insomnia type: unspecified Qualified Code(s): G47.00 - Insomnia, unspecified Plan: Sleep hygiene discussed Will try her on Melatonin 5 mg Q HS PRN (7) MDD (major depressive disorder), recurrent episode, moderate: Code(s): F33.1 - Major depressive disorder, recurrent, moderate Category: Medical Plan: Continue Sertraline 50 mg QD Follow up with psychiatry as scheduled (8) Overweight (BMI 25.0-29.9): Code(s): E66.3 - Overweight Category: Medical Plan: Reinforced diet/exercise as tolerated/lose weight Plan Follow up in 3 months Orders: Orders Complete Blood Count Auto Diff 3 Months D64.9 - Anemia, unspecified Comprehensive [place]. Panel Fast 3 Months E78.00 - Pure hypercholesterolemia, unspecified Lipid Panel 3 Months E78.00 - Pure hypercholesterolemia, unspecified TSH reflex Free T4 3 Months E78.00 - Pure hypercholesterolemia, unspecified UA CC w/rflx Micro + Cult 3 Months R30.0 - Dysuria Referrals Cardiology Referral I48.19 - Other persistent atrial fibrillation, I50.32 - Chronic diastolic (congestive) heart failure Medications: New melatonin 5 mg PO BEDTIME PRN 30 tabs 3RF insomnia 30 days cholecalciferol (vitamin D3) 50 mcg PO DAILY 90 caps 3RF 90 days E55.9 - Vitamin D deficiency, unspecified
[2025-06-14 13:02] VITALS: BP 120/78; PULSE 84; O2SAT 98; BMI 27.8
== END 2025-06-14 13:34 | disposition home or self-care (01) ==
LOC: HO.HMCH 12:49
PROVIDERS: PCP Internal Medicine; Visit Provider Internal Medicine
DX: I48.19 Other persistent atrial fibrillation (principal); I63.9 Cerebral infarction, unspecified; F33.1 Major depressive disorder, recurrent, moderate; Z68.27 Body mass index [BMI] 27.0-27.9, adult; E66.3 Overweight; I10 Essential (primary) hypertension; E78.00 Pure hypercholesterolemia, unspecified; E55.9 Vitamin D deficiency, unspecified; G47.00 Insomnia, unspecified

== ENCOUNTER → 2025-06-14 12:49 | Outpatient (BNVA) | payer MEDICARE, MEDICAID, SELFPAY | PROVIDERS: PCP Internal Medicine; Visit Provider Internal Medicine | DX: I11.0 Hypertensive heart disease with heart failure (principal); I50.32 Chronic diastolic (congestive) heart failure; I48.19 Other persistent atrial fibrillation; E78.00 Pure hypercholesterolemia, unspecified; E55.9 Vitamin D deficiency, unspecified; G47.00 Insomnia, unspecified; F33.1 Major depressive disorder, recurrent, moderate; E66.3 Overweight; D64.9 Anemia, unspecified; R30.0 Dysuria; Z86.73 Personal history of transient ischemic attack (TIA), and cerebral infarction without residual deficits | CPT/HCPCS: 96127; 99212 ==

== ENCOUNTER 2025-08-09 14:08 | Outpatient (AMB) | payer MEDICARE, MEDICAID, SELFPAY ==
[2025-08-09 14:13] VITALS: BP 148/90; PULSE 70; BMI 28.2
--- NOTE | 2025-08-09 14:13 | A.OFFVIS_ITS ---
Vital Signs 08/09/25 14:13 Height 5 ft 10 in Weight 196 lb 3.382 oz BMI 28.2 BP 148/90 H Blood Pressure Location Lt brachial Position Sitting Pulse 70 Pulse Source Monitor Intake Visit Reasons: 2022 pt/Persistent AFIB/CHF (HS) Section Beamer Required: No Allergies No Known Allergies Allergy (Verified 08/09/25 14:16) Medication List - Last Reconciled 08/09/25 by JUAN Posada [ADULT PULL UPS (large) Use as directed 3 times a day] albuterol sulfate 90 mcg/actuation 1 inh inhalation QID PRN apixaban (Eliquis) 5 mg PO BID carvedilol 3.125 mg PO BID cholecalciferol (vitamin D3) 50 mcg PO DAILY 90 days furosemide 40 mg PO DAILY melatonin 5 mg PO BEDTIME PRN 30 days rosuvastatin 5 mg PO DAILY 30 days sertraline 50 mg PO DAILY spironolactone (Aldactone) 25 mg PO DAILY tramadol 50 mg PO BID PRN valsartan 40 mg PO DAILY HPI HPI 2022 pt/Persistent AFIB/CHF (HS): Details: The patient is a 75 year old individual presenting for follow-up of paroxysmal atrial fibrillation and chronic diastolic heart failure, with the last visit on 02/18/2023. The patient's history includes hypertension, hyperlipidemia, CVA, obesity, and anxiety. Since the last visit, the patientfell and broke a hip in July of last year and underwent a hip replacement. Prior to the surgery at [facility], a pacemaker was implanted due to a very low heart rate. The pacemaker has not been checked since its placement. The patient reports experiencing episodes of dizziness, particularly when bending the head. The patient also reports feeling intermittent palpitations, quick, stabbing chest pains at rest and shortness of breath with exertion, such as walking. She ambulates with a walker and admits to being sedentary. She currently resides with a boyfriend as the patient's house was condemned following multiple hospital and rehab stays. Current medications include Eliquis, carvedilol, furosemide, rosuvastatin and valsartan; the patient is unsure about taking spironolactone. [facility] Medical History (Updated 08/09/25 @ 17:30 by SHAMEKA PosadaC) Insomnia Vitamin D deficiency Left-sided cerebrovascular accident (CVA) Essential hypertension Persistent atrial fibrillation Chronic heart failure with preserved ejection fraction (HFpEF) Vertigo Labile blood pressure Orthostatic hypotension Symptomatic bradycardia Overweight (BMI 25.0-29.9) Paroxysmal atrial fibrillation Pure hypercholesterolemia Severe uncontrolled high blood pressure Generalized anxiety disorder Major depression, single episode Hyperlipidemia Obesity (BMI 30-39.9) HTN (hypertension) Surgical History History of hip replacement Hx of cholecystectomy Hx of hernia repair Hx of appendectomy Hx of hysterectomy Family History Father Heart disease Pacemaker Diabetes Mother Stroke Sister Thyroid disease Social History Household Members: None Housing: Other Housing Other:: [facility] Do you presently have visiting nurse or other home services: Yes (VNA 2 x/week, PT 1 x/week) Alcohol intake: current Alcohol intake frequency: holidays/special occasions only Alcohol type: beer Comment: refuses high alarm protocol Patient Tobacco Use Status: Former Tobacco user Tobacco use type: Cigarette e-Cigarette/Vaping Use: Never Used Second Hand Smoke Exposure: Yes Advance Directives Date on File: 09/26/21 service: No Current occupational status: disabled Gender identity: Female Cognitive needs: No Hearing needs: No Vision needs: Yes Review of Systems Const All systems reviewed & are unremarkable except as noted in HPI and below ENT Denies dizziness Card Denies chest pain, Denies chest pain at rest, Denies chest pain with activity, Denies rapid heart rate, Denies pedal edema, Denies edema, Denies leg edema, Denies lightheadedness, Denies palpitations, Denies dyspnea, Denies dyspnea on exertion and Denies orthopnea Resp Denies cough, Denies dyspnea and Denies dyspnea on exertion GI Denies hematochezia and Denies change in stool character Musc Denies abnormal gait, Denies limited range of motion, Denies muscle cramps, Denies muscle weakness, Denies numbness, Denies radiating pain into limb, Denies stiffness and Denies tingling Neuro Denies abnormal gait, Denies dizziness, Denies numbness and Denies tingling Endo Denies palpitations Physical Exam Vital Signs: Last Vital Signs Pulse 70 08/09/25 14:13 BP 148/90 H 08/09/25 14:13 BMI result Body Mass Index 28.2 Const General: cooperative, healthy appearing, comfortable and no acute distress Orientation/consciousness: patient oriented x3 Neck Neck: Yes normal visual inspection Chest Other: Pacer site left upper chest benign Resp Effort & Inspection: normal respiratory effort Auscultation: clear to auscultation bilaterally, no rales, no rhonchi and no wheezes Cardio Jugular venous distension: no JVD Rate: regular rate Rhythm: regular rhythm Heart sounds: S1 normal heart sound present, S2 normal heart sound present, no gallops, no murmurs and no rubs Neuro General: patient oriented x3 Extrem General: Yes normal to inspection, No no pedal edema and No calf tenderness Psych Appearance: grossly normal Mental Status: mental status grossly normal Speech and movement: Normal speech and movement present Office Procedures Cardiac Device Check Cardiac Device Check Details: Leadjini device interrogation today shows battery 13.4 years, RV threshold 0.75 volts at 0.4 milliseconds, VVIR mode, low rate 60, brief episodes of high V rates, no EGMs for review, V paced 70.1%, V since 29.9% [id number]-YC Cardiac Device Check, single lead implantable defibrillator Procedure code (CPT) selection complete EKG Details: Today, read by me, atrial fibrillation, intermittent V paced beats, T-wave inversions inferior lateral leads, rate 70 [id number], Complete Assessment & Plan Assessment & Plan (1) Persistent atrial fibrillation: Code(s): I48.19 - Other persistent atrial fibrillation Category: Medical Plan: History of persistent atrial fibrillation that is treated with heart rate control. She is on carvedilol for rate control. EKG today does show underlying AFib, rat 70. She has some intermittent heart palpitations. Labs 01/13/2025 showed creatinine 0.76, creatinine 42.4. She is on Eliquis for anticoagulation. No changes made (2) Chronic heart failure with preserved ejection fraction (HFpEF): Code(s): I50.32 - Chronic diastolic (congestive) heart failure Category: Medical Plan: History of heart failure with preserved EF. She is reporting shortness of breath and orthopnea however does not appear fluid overloaded on exam. Last echocardi[place] done [place] [facility] [place]20[place] showing EF 55-65%, no regional wall motion abnormalities unable to assess diastolic function due to AFib. Reviewed low- salt diet, signs and symptoms of heart failure. Continue Lasix 40 mg daily. Will need to check with her pharmacy to see if she is on Aldactone. (3) Pacemaker: Code(s): Z95.0 - Presence of cardiac pacemaker Category: Medical Plan: Pacemaker was placed at [facility] [place] for what sounds like symptomatic bradycardia. She is a Medtronic single-chamber pacemaker and device interrogation today shows it is functioning normally. Battery currently 13.4 years. Will set her up with remote monitoring. Device check in the office in 6 months. (4) HTN (hypertension): Code(s): I10 - Essential (primary) hypertension Category: Medical Plan: Blood pressure goal less than 130/80. Elevated today. Recommended periodic checks at home and call if systolic is running greater than 140. Continue carvedilol, Lasix. Will check on Aldactone. (5) Hospital discharge follow-up: Code(s): Z09 - Encounter for follow-up examination after completed treatment for conditions other than malignant neoplasm Category: Medical Plan: [facility] [place] 07/2024 discharge reviewed Plan Time spent on chart review, documentation, interview and assessment Coding Level of Care Code Est Pt Level 4 (86078) Complex visit Add On G2211 Diagnoses Persistent atrial fibrillation I48.19 Chronic heart failure with preserved ejection fraction (HFpEF) I50.32 Pacemaker Z95.0 HTN (hypertension) I10 Hospital discharge follow-up Z09 CPT Codes Cardiac Device Check - Cardiac Device 4: [id number]-OI Cardiac Device Check, single lead implantable defibrillator ([id number]) EKG - CPT: 48310-Ynpzixhwgjprnlymh, Complete ([id number]) Time Spent (min) 36
--- OUTSIDE RECORDS SUMMARY | 2025-08-09 19:06 | XMS_ITS | Encounter Summary ---
Author Organization [facility] Address [address] [place] [address] Care Team Providers Care Stamping Die Maker Bench Name Role Phone Milvia Rogel MD Primary Care Provider + Encounter Details Date Type Department Care Team (Late st Contact Info) Description 08/10/2024 Lab Requisition [facility] - Main Lab 299 [facility] [place] [address] Milvia Rogel MD [address] [id number] Unspecified atrial fibrillation (CMS/HCC V24, CMS/HCC V28); [...] mmol/L LAB CHEMISTRY METHOD 08/10/2024 11:40 AM [facility] Potassium 3.6 3.5 - 5.5 mmol/L LAB CHEMISTRY METHOD 08/10/2024 11:40 AM [facility] Chloride 106 96 - 110 mmol/L LAB CHEMISTRY METHOD 08/10/2024 11:40 AM [facility] CO2 31 21 - 32 mmol/L LAB CHEMISTRY METHOD 08/10/2024 11:40 AM [facility] Anion Gap 6 3 - 11 LAB CHEMISTRY METHOD 08/10/2024 11:40 AM [facility] Glucose 88 70 - 100 mg/dL LAB CHEMISTRY METHOD 08/10/2024 11:40 AM [facility] BUN 10 5 - 25 mg/dL LAB CHEMISTRY METHOD 08/10/2024 11:40 AM [facility] Creatinine 0.50 0.50 - 1.10 mg/dL LAB CHEMISTRY METHOD 08/10/2024 11:40 AM [facility] eGFR 99 >=60 mL/min/1. 73m2 LAB CHEMISTRY METHOD 08/10/2024 11:40 AM [facility] Comment:Calculation based on the Chronic Kidney Disease Epidemiology Collaboration (CKD-EPI) equation refit without adjustment for race. BUN/Creatinine Ratio 20.0 LAB CHEMISTRY METHOD 08/10/2024 11:40 AM [facility] Calcium 8.6 8.5 - 10.5 mg/dL LAB CHEMISTRY METHOD 08/10/2024 11:40 AM [facility] AST (SGOT) 21 10 - 42 unit/L LAB CHEMISTRY METHOD 08/10/2024 11:40 AM [facility] ALT (SGPT) 13 10 - 60 unit/L LAB CHEMISTRY METHOD 08/10/2024 11:40 AM [facility] Alkaline Phosphatase 56 42 - 121 unit/L LAB CHEMISTRY METHOD 08/10/2024 11:40 AM [facility] Total Protein 5.4(L) 6.0 - 8.0 g/dL LAB CHEMISTRY METHOD 08/10/2024 11:40 AM [facility] Albumin 2.7(L) 3.2 - 5.0 g/dL LAB CHEMISTRY METHOD 08/10/2024 11:40 AM [facility] Total Bilirubin 1.6(H) 0.0 - 1.4 mg/dL LAB CHEMISTRY METHOD 08/10/2024 11:40 AM [facility] Blood Venous blood specimen / Unknown Venipuncture / Unknown 08/10/2024 7:11 AM EST 08/10/2024 9:55 AM EST Milvia Rogle MD LAB BLOOD ORDERABLES Fin al Result [facility] [address] [place] [address], * (ABNORMAL) Complete blood count (08/10/2024 7:11 AM EST) WBC 8.2 4.8 - 10.8 K/mcL LAB HEMETOLOGY METHOD 08/10/2024 11:00 AM [facility] RBC 4.00 3.80 - 4.80 M/[facility] LAB HEMETOLOGY METHOD 08/10/2024 11:00 AM [facility] Hemoglobin 10.7(L) 11.5 - 16.0 g/dL LAB HEMETOLOGY METHOD 08/10/2024 11:00 AM [facility] Hematocrit 33.6(L) 35.0 - 47.0 % LAB HEMETOLOGY METHOD 08/10/2024 11:00 AM [facility] MCV 83.8 79.0 - 98.0 FL LAB HEMETOLOGY METHOD 08/10/2024 11:00 AM [facility] MCH 26.7(L) 27.0 - 32.0 pcg LAB HEMETOLOGY METHOD 08/10/2024 11:00 AM [facility] MCHC 31.8(L) 32.0 - 37.0 g/dL LAB HEMETOLOGY METHOD 08/10/2024 11:00 AM [facility] RDW 14.3 11.0 - 15.0 % LAB HEMETOLOGY METHOD 08/10/2024 11:00 AM [facility] Platelets 252 130 - 400 K/mcL LAB HEMETOLOGY METHOD 08/10/2024 11:00 AM [facility] MPV 10.8 7.0 - 11.0 FL LAB HEMETOLOGY METHOD 08/10/2024 11:00 AM [facility] NRBC 0.0 <1.0 % LAB HEMETOLOGY METHOD 08/10/2024 11:00 AM [facility] NRBC Absolute 0.00 <0.10 K/mcL LAB HEMETOLOGY METHOD 08/10/2024 11:00 AM [facility] Blood Venous blood specimen / Unknown Venipuncture / Unknown 08/10/2024 7:11 AM EST 08/10/2024 9:55 AM EST us Milvia Rogel MD LAB BLOOD ORDERABLES Fin al Result [facility] [address] [place] [address], documented in this encounter Visit Diagnoses Diagnosis Unspecified atrial fibrillation (CMS/HCC V24, CMS/HCC V28) Essential (primary) hypertension Unspecified essential hypertension documented in this encounter Care Teams Stamping Die Maker Bench Relationship Specialty Start Date End Date Milvia Rogel MD PCP - General Family Medicine 08/10/24 documented as of this encounter
--- OUTSIDE RECORDS SUMMARY | 2025-08-09 19:06 | XMS_ITS | Encounter Summary ---
Author Organization [facility] Address [address] [place] [address] Care Team Providers Care Houseperson Name Role Phone Milvia Rogel MD Primary Care Provider + Encounter Details Date Type Department Care Team (Late st Contact Info) Description 10/08/2024 Lab Requisition [facility] - Main Lab 299 [facility] [place] [address] Milvia Rogel MD [address] [address] Dysuria Social History Tobacco Use Types Packs/Day [...] Escherichia coli(A) JOHANN 10/10/2024 9:48 AM EST [facility] Urine Urine specimen obtained by clean [...] Escherichia coli Trimethoprim/Sulfamethoxazole JOHANN <=20 ug/ml: Susceptible us Milvia Rogel MD LAB MICROBIOLOGY - GENER AL ORDERABLES Final Result [facility] [address] [place] [address], * Batista urine culture tube (10/08/2024 12:00 AM EST) Extra Tube Hold for add-ons. 10/08/2024 10:01 AM EST [facility] Comment:Auto resulted. Urine Urine specimen obtained by clean catch procedure / Unknown 10/08/2024 10/08/2024 8:40 AM EST Milvia Rogel MD LAB URINE ORDERABLES Fin al Result [facility] [address] [place] [address], [place] [phone] * (ABNORMAL) Urinalysis with reflex microscopic and culture (10/08/2024 12:00 AM EST) Pathologist [facility] Specific [place] Urine 1.017 1.003 - 1.030 LAB URINALYSIS - AUTOMATED METHOD 10/08/2024 9:57 AM [facility] pH, Urine 5.5 5.0 - 8.0 pH LAB URINALYSIS - AUTOMATED METHOD 10/08/2024 9:57 AM [facility] Leukocytes, Urine Large(A) Negative LAB URINALYSIS - AUTOMATED METHOD 10/08/2024 9:57 AM [facility] Nitrite, Urine Negative Negative LAB URINALYSIS - AUTOMATED METHOD 10/08/2024 9:57 AM [facility] Protein, Urine 100(A) <=Trace mg/dL LAB URINALYSIS - AUTOMATED METHOD 10/08/2024 9:57 AM [facility] Glucose, Urine Negative Negative mg/dL LAB URINALYSIS - AUTOMATED METHOD 10/08/2024 9:57 AM [facility] Ketones, Urine Negative Negative mg/dL LAB URINALYSIS - AUTOMATED METHOD 10/08/2024 9:57 AM [facility] Urobilinogen, Urine 1.0 0.2 - 1.0 mg/dL LAB URINALYSIS - AUTOMATED METHOD 10/08/2024 9:57 AM [facility] Bilirubin, Urine Negative Negative LAB URINALYSIS - AUTOMATED METHOD 10/08/2024 9:57 AM [facility] Blood, Urine Large(A) Negative LAB URINALYSIS - AUTOMATED METHOD 10/08/2024 9:57 AM [facility] RBC, Urine 74.1(H) 0 - 4 /HPF LAB URINALYSIS - AUTOMATED METHOD 10/08/2024 9:57 AM [facility] WBC, Urine 965.2(H) 0 - 4 /HPF LAB URINALYSIS - AUTOMATED METHOD 10/08/2024 9:57 AM [facility] Squamous Epithelial, Urine 22 0 - 60 /LPF LAB URINALYSIS - AUTOMATED METHOD 10/08/2024 9:57 AM [facility] Bacteria, Urine Negative Negative /HPF LAB URINALYSIS - AUTOMATED METHOD 10/08/2024 9:57 AM [facility] Hyaline Casts, Urine 0.0 0 - 3 /LPF LAB URINALYSIS - AUTOMATED METHOD 10/08/2024 9:57 AM [facility] Urine Urine specimen obtained by clean catch procedure / Unknown Non-blood Collection / Unknown 10/08/2024 10/08/2024 8:34 AM EST us Milvia Rogel MD LAB URINE ORDERABLES Fin al Result [facility] [address] [place] [address], documented in this encounter Visit Diagnoses Diagnosis Dysuria documented in this encounter Care Teams Houseperson Relationship Specialty Start Date End Date Milvia Rogel MD PCP - General Family Medicine 08/10/24 documented as of this encounter
--- OUTSIDE RECORDS SUMMARY | 2025-08-09 19:06 | XMS_ITS | Encounter Summary ---
Author Organization [facility] Address [address] [place] [address] Care Team Providers Care Bus Assistant Name Role Phone Milvia Rogel MD Primary Care Provider + Encounter Details Date Type Department Care Team (Late st Contact Info) Description 10/08/2024 Lab Requisition [facility] - Main Lab 299 [facility] [place] [address] Milvia Rogel MD [address] [address] Hypokalemia Social History Tobacco Use Types Packs/Day [...] Hypopotassemia documented in this encounter Care Teams Bus Assistant Relationship Specialty Start Date End Date Milvia Rogel MD PCP - General Family Medicine 08/10/24 documented as of this encounter
--- OUTSIDE RECORDS SUMMARY | 2025-08-09 19:06 | XMS_ITS | Encounter Summary ---
Author Organization [facility] Address [address] [place] [address] Care Team Providers Care Cottage Attendant Name Role Phone Milvia Rogel MD Primary Care Provider + Encounter Details Date Type Department Care Team (Late st Contact Info) Description 10/02/2024 Lab Requisition [facility] - Main Lab [address] [place] [address] Milvia Rogel MD [address] [address] Essential (primary) hypertension Social History Tobacco Use [...] mmol/L LAB CHEMISTRY METHOD 10/05/2024 2:42 PM [facility] Potassium 3.1(L) 3.5 - 5.5 mmol/L LAB CHEMISTRY METHOD 10/05/2024 2:42 PM [facility] Chloride 104 96 - 110 mmol/L LAB CHEMISTRY METHOD 10/05/2024 2:42 PM [facility] CO2 30 21 - 32 mmol/L LAB CHEMISTRY METHOD 10/05/2024 2:42 PM [facility] Anion Gap 8 3 - 11 LAB CHEMISTRY METHOD 10/05/2024 2:42 PM [facility] Glucose 82 70 - 100 mg/dL LAB CHEMISTRY METHOD 10/05/2024 2:42 PM [facility] BUN 13 5 - 25 mg/dL LAB CHEMISTRY METHOD 10/05/2024 2:42 PM [facility] Creatinine 0.67 0.50 - 1.10 mg/dL LAB CHEMISTRY METHOD 10/05/2024 2:42 PM [facility] eGFR 92 >=60 mL/min/1. 73m2 LAB CHEMISTRY METHOD 10/05/2024 2:42 PM [facility] Comment:Calculation based on the Chronic Kidney Disease Epidemiology Collaboration (CKD-EPI) equation refit without adjustment for race. BUN/Creatinine Ratio 19.4 LAB CHEMISTRY METHOD 10/05/2024 2:42 PM [facility] Calcium 8.9 8.5 - 10.5 mg/dL LAB CHEMISTRY METHOD 10/05/2024 2:42 PM [facility] AST (SGOT) 24 10 - 42 unit/L LAB CHEMISTRY METHOD 10/05/2024 2:42 PM [facility] ALT (SGPT) 23 10 - 60 unit/L LAB CHEMISTRY METHOD 10/05/2024 2:42 PM [facility] Alkaline Phosphatase 69 42 - 121 unit/L LAB CHEMISTRY METHOD 10/05/2024 2:42 PM [facility] Total Protein 6.5 6.0 - 8.0 g/dL LAB CHEMISTRY METHOD 10/05/2024 2:42 PM [facility] Albumin 3.6 3.2 - 5.0 g/dL LAB CHEMISTRY METHOD 10/05/2024 2:42 PM [facility] Total Bilirubin 1.3 0.0 - 1.4 mg/dL LAB CHEMISTRY METHOD 10/05/2024 2:42 PM EST [facility] Blood Venous blood specimen / Unknown Venipuncture / Unknown 10/05/2024 7:39 AM EST 10/05/2024 12:21 PM EST us Milvia Rogel MD LAB BLOOD ORDERABLES Fin al Result [facility] [address] [place] [address], * (ABNORMAL) Complete blood count (10/05/2024 7:39 AM EST) WBC 3.7(L) 4.8 - 10.8 K/mcL LAB HEMETOLOGY METHOD 10/05/2024 1:46 PM [facility] RBC 4.30 3.80 - 4.80 M/mcL LAB HEMETOLOGY METHOD 10/05/2024 1:46 PM [facility] Hemoglobin 11.5 11.5 - 16.0 g/dL LAB HEMETOLOGY METHOD 10/05/2024 1:46 PM [facility] Hematocrit 37.6 35.0 - 47.0 % LAB HEMETOLOGY METHOD 10/05/2024 1:46 PM [facility] MCV 87.4 79.0 - 98.0 FL LAB HEMETOLOGY METHOD 10/05/2024 1:46 PM [facility] MCH 26.7(L) 27.0 - 32.0 pcg LAB HEMETOLOGY METHOD 10/05/2024 1:46 PM EST [facility] MCHC 30.6(L) 32.0 - 37.0 g/dL LAB HEMETOLOGY METHOD 10/05/2024 1:46 PM EST [facility] RDW 14.8 11.0 - 15.0 % LAB HEMETOLOGY METHOD 10/05/2024 1:46 PM [facility] Platelets 227 130 - 400 K/mcL LAB HEMETOLOGY METHOD 10/05/2024 1:46 PM EST [facility] MPV 12.0(H) 7.0 - 11.0 FL LAB HEMETOLOGY METHOD 10/05/2024 1:46 PM EST [facility] NRBC 0.0 <1.0 % LAB HEMETOLOGY METHOD 10/05/2024 1:46 PM [facility] NRBC Absolute 0.00 <0.10 K/mcL LAB HEMETOLOGY METHOD 10/05/2024 1:46 PM [facility] Blood Venous blood specimen / Unknown Venipuncture / Unknown 10/05/2024 7:39 AM EST 10/05/2024 12:21 PM EST us Milvia Rogel MD LAB BLOOD ORDERABLES Fin al Result [facility] [address] [place] [address], documented in this encounter Visit Diagnoses Diagnosis Essential (primary) hypertension Unspecified essential hypertension documented in this encounter Care Teams Cottage Attendant Relationship Specialty Start Date End Date Milvia Rogel MD PCP - General Family Medicine 08/10/24 documented as of this encounter
--- OUTSIDE RECORDS SUMMARY | 2025-08-09 19:06 | XMS_ITS ---
Author Organization [address] Address [address] [place] [phone] Phone Care Team Providers Care Manager Dish Name Role Phone Elder, Milvia Mensah MD Primary Care Provider + Program of [facility] Status:Initial Criteria Met (Enrolling) Start date:08/09/2025 Enrollment reason:[employer] Overview This episode will track PACE documentation. Case Team Name Relationship Phone Anna Patton(Responsible Staff) Enrollment Sp ecialist [phone] Continued Care and Services Coordination
--- OUTSIDE RECORDS SUMMARY | 2025-08-09 19:06 | XMS_ITS | Encounter Summary ---
Author Organization [facility] Address [address] [place] [address] Care Team Providers Care Bucket Hooker Name Role Phone Milvia Rogel MD Primary Care Provider + Encounter Details Date Type Department Care Team (Late st Contact Info) Description 09/25/2024 Lab Requisition [facility] - Main Lab [address] [place] [address] Milvia Rogel MD [address] [address] Essential (primary) hypertension Social History Tobacco Use [...] mmol/L LAB CHEMISTRY METHOD 09/28/2024 10:45 AM [facility] Potassium 3.9 3.5 - 5.5 mmol/L LAB CHEMISTRY METHOD 09/28/2024 10:45 AM [facility] Chloride 102 96 - 110 mmol/L LAB CHEMISTRY METHOD 09/28/2024 10:45 AM [facility] CO2 30 21 - 32 mmol/L LAB CHEMISTRY METHOD 09/28/2024 10:45 AM [facility] Anion Gap 6 3 - 11 LAB CHEMISTRY METHOD 09/28/2024 10:45 AM [facility] Glucose 74 70 - 100 mg/dL LAB CHEMISTRY METHOD 09/28/2024 10:45 AM [facility] BUN 19 5 - 25 mg/dL LAB CHEMISTRY METHOD 09/28/2024 10:45 AM [facility] Creatinine 0.69 0.50 - 1.10 mg/dL LAB CHEMISTRY METHOD 09/28/2024 10:45 AM [facility] eGFR 92 >=60 mL/min/1. 73m2 LAB CHEMISTRY METHOD 09/28/2024 10:45 AM [facility] Comment:Calculation based on the Chronic Kidney Disease Epidemiology Collaboration (CKD-EPI) equation refit without adjustment for race. BUN/Creatinine Ratio 27.5 LAB CHEMISTRY METHOD 09/28/2024 10:45 AM [facility] Calcium 8.9 8.5 - 10.5 mg/dL LAB CHEMISTRY METHOD 09/28/2024 10:45 AM [facility] AST (SGOT) 16 10 - 42 unit/L LAB CHEMISTRY METHOD 09/28/2024 10:45 AM [facility] ALT (SGPT) 16 10 - 60 unit/L LAB CHEMISTRY METHOD 09/28/2024 10:45 AM [facility] Alkaline Phosphatase 71 42 - 121 unit/L LAB CHEMISTRY METHOD 09/28/2024 10:45 AM [facility] Total Protein 6.9 6.0 - 8.0 g/dL LAB CHEMISTRY METHOD 09/28/2024 10:45 AM [facility] Albumin 3.8 3.2 - 5.0 g/dL LAB CHEMISTRY METHOD 09/28/2024 10:45 AM [facility] Total Bilirubin 1.0 0.0 - 1.4 mg/dL LAB CHEMISTRY METHOD 09/28/2024 10:45 AM [facility] Blood Venous blood specimen / Unknown Venipuncture / Unknown 09/28/2024 7:01 AM EST 09/28/2024 9:31 AM EST us Milvia Rogel MD LAB BLOOD ORDERABLES Fin al Result [facility] [address] [place] [address], * (ABNORMAL) Complete blood count (09/28/2024 7:01 AM EST) WBC 5.8 4.8 - 10.8 K/mcL LAB HEMETOLOGY METHOD 09/28/2024 10:12 AM [facility] RBC 4.70 3.80 - 4.80 M/mcL LAB HEMETOLOGY METHOD 09/28/2024 10:12 AM [facility] Hemoglobin 12.1 11.5 - 16.0 g/dL LAB HEMETOLOGY METHOD 09/28/2024 10:12 AM [facility] Hematocrit 40.6 35.0 - 47.0 % LAB HEMETOLOGY METHOD 09/28/2024 10:12 AM [facility] MCV 87.3 79.0 - 98.0 FL LAB HEMETOLOGY METHOD 09/28/2024 10:12 AM [facility] MCH 26.0(L) 27.0 - 32.0 pcg LAB HEMETOLOGY METHOD 09/28/2024 10:12 AM [facility] MCHC 29.8(L) 32.0 - 37.0 g/dL LAB HEMETOLOGY METHOD 09/28/2024 10:12 AM EST [facility] RDW 14.6 11.0 - 15.0 % LAB HEMETOLOGY METHOD 09/28/2024 10:12 AM EST [facility] Platelets 321 130 - 400 K/mcL LAB HEMETOLOGY METHOD 09/28/2024 10:12 AM EST [facility] MPV 11.1(H) 7.0 - 11.0 FL LAB HEMETOLOGY METHOD 09/28/2024 10:12 AM EST [facility] NRBC 0.0 <1.0 % LAB HEMETOLOGY METHOD 09/28/2024 10:12 AM EST [facility] NRBC Absolute 0.00 <0.10 K/mcL LAB HEMETOLOGY METHOD 09/28/2024 10:12 AM [facility] Blood Venous blood specimen / Unknown Venipuncture / Unknown 09/28/2024 7:01 AM EST 09/28/2024 9:31 AM EST us Milvia Rogel MD LAB BLOOD ORDERABLES Fin al Result [facility] [address] [place] [address], documented in this encounter Visit Diagnoses Diagnosis Essential (primary) hypertension Unspecified essential hypertension documented in this encounter Care Teams Bucket Hooker Relationship Specialty Start Date End Date Milvia Rogel MD PCP - General Family Medicine 08/10/24 documented as of this encounter
--- OUTSIDE RECORDS SUMMARY | 2025-08-09 19:06 | XMS_ITS | Clinical Summary ---
Author Organization [address] Address [address] [place] [phone] Phone Care Team Providers Care Electric Blasting Cap Assembler Name Role Phone Elder, Milvia Mensah MD Primary Care Provider + Allergies No known active allergies Medications methocarbamoL (ROBAXIN) 750 mg tablet Take 1 tablet (750 mg total) by mouth 4 (four) times a day if needed for muscle spasms for up to 24 doses. 24 each 04/10/2025 Active Surgical History Surgery Date Site/Laterality Comments HYSTERECTOMY [...] Sexual Orientation Not on file Obstetrics History Last Filed Vital Signs Vital Sign Reading Time Taken Comments Blood Pressure 193/94 04/17/2025 2:07 PM EDT Pulse 63 04/17/2025 2:07 PM EDT Temperature 36.5 C (97.7 F) 04/17/2025 2:07 PM EDT Respiratory Rate 20 04/17/2025 2:07 PM EDT Oxygen Saturation 97% 04/17/2025 2:07 PM EDT Inhaled Oxygen Concentration - - Weight 83.9 kg (185 lb) 04/10/2025 8:07 PM EDT Height 177.8 cm (5' 10 ) 04/10/2025 8:07 PM EDT Body Mass Index 26.54 04/10/2025 8:07 PM EDT Plan of Treatment Health Maintenance Due Date Last Done Comments Breast Cancer Screening 1950 Colorectal Cancer Screening: Colonoscopy 1950 RSV Immunization Adult Patients (1 - Risk 50-74 years 1-dose series) 2001 Zoster Vaccines (1 of 2) 2001 Cholesterol Screening (Lipid Panel) 08/15/2022 Hepatitis C Screening 08/15/2022 Medicare Annual Wellness Visit 08/15/2022 Osteoporosis Screening (Bone Density Screening) 08/15/2022 Social Influencers of Health Screening 08/15/2022 Depression Screening 09/16/2024 COVID-19 Vaccine ( season) 2025 09/14/2021, 03/15/2021 Influenza Vaccine (#1) 2025 , 06/30/2021, 06/05/2020, Additional history exists Falls Risk Assessment 04/09/2026 04/09/2025 Hypertension/CHF/CAD Annual BMP Blood Test 04/17/2026 04/17/2025, 04/08/2025, 10/05/2024, Additional history exists DTaP,Tdap,and Td Vaccines (3 [...] Procedure Name Priority Date/Time Associated Diagnosis Comments BASIC METABOLIC PANEL STAT 04/17/2025 2:09 PM EDT from Last 3 Months or Most Recently Relevant to Health Maintenance Results * Basic metabolic panel (04/17/2025 2:09 PM EDT) Sodium 140 133 - 145 mmol/L LAB CHEMISTRY METHOD 04/17/2025 2:50 PM [facility] Potassium 4.2 3.5 - 5.5 mmol/L LAB CHEMISTRY METHOD 04/17/2025 2:50 PM [facility] Comment:Hemolysis present Chloride 107 96 - 110 mmol/L LAB CHEMISTRY METHOD 04/17/2025 2:50 PM [facility] CO2 30 21 - 32 mmol/L LAB CHEMISTRY METHOD 04/17/2025 2:50 PM [facility] Anion Gap 3 3 - 11 LAB CHEMISTRY METHOD 04/17/2025 2:50 PM [facility] Glucose 90 70 - 100 mg/dL LAB CHEMISTRY METHOD 04/17/2025 2:50 PM [facility] BUN 17 5 - 25 mg/dL LAB CHEMISTRY METHOD 04/17/2025 2:50 PM [facility] Creatinine 0.65 0.50 - 1.10 mg/dL LAB CHEMISTRY METHOD 04/17/2025 2:50 PM EDT [facility] eGFR 93 >=60 mL/min/1. 73m2 LAB CHEMISTRY METHOD 04/17/2025 2:50 PM EDT [facility] Comment:Calculation based on the Chronic Kidney Disease Epidemiology Collaboration (CKD-EPI) equation refit without adjustment for race. BUN/Creatinine Ratio 26.2 LAB CHEMISTRY METHOD 04/17/2025 2:50 PM EDT [facility] Calcium 9.5 8.5 - 10.5 mg/dL LAB CHEMISTRY METHOD 04/17/2025 2:50 PM EDT [facility] Blood Venous blood specimen / Unknown Venipuncture / Unknown 04/17/2025 2:09 PM EDT 04/17/2025 2:29 PM EDT us Sandra Osuna MD LAB BLOOD ORDERABLES Final Resul t [facility] [address] [place] [address], [place] [phone] from Last 3 Months or Most Recently Relevant to Health Maintenance Insurance [employer] MEDICARE ADVANTAGE MEDICAID - [place] Care Teams Electric Blasting Cap Assembler Relationship Specialty Start Date End Date Milvia Rogel MD PCP - General Family Medicine 08/10/24
--- OUTSIDE RECORDS SUMMARY | 2025-08-09 19:06 | XMS_ITS | Encounter Summary ---
Author Organization [facility] Address [address] [place] [address] Care Team Providers Care Merchandising Manager Name Role Phone Milvia Rogel MD Primary Care Provider + Encounter Details Date Type Department Care Team (Late st Contact Info) Description 09/24/2024 Lab Requisition [facility] - Main Lab [address] [facility] [place] [address] Milvia Rogel MD [address] [address] Heart failure, unspecified (CMS/HCC V24, CMS/HCC V28); [...] mmol/L LAB CHEMISTRY METHOD 09/24/2024 11:43 AM [facility] Potassium 3.6 3.5 - 5.5 mmol/L LAB CHEMISTRY METHOD 09/24/2024 11:43 AM [facility] Chloride 102 96 - 110 mmol/L LAB CHEMISTRY METHOD 09/24/2024 11:43 AM [facility] CO2 30 21 - 32 mmol/L LAB CHEMISTRY METHOD 09/24/2024 11:43 AM [facility] Anion Gap 7 3 - 11 LAB CHEMISTRY METHOD 09/24/2024 11:43 AM [facility] Glucose 71 70 - 100 mg/dL LAB CHEMISTRY METHOD 09/24/2024 11:43 AM [facility] BUN 18 5 - 25 mg/dL LAB CHEMISTRY METHOD 09/24/2024 11:43 AM [facility] Creatinine 0.77 0.50 - 1.10 mg/dL LAB CHEMISTRY METHOD 09/24/2024 11:43 AM [facility] eGFR 82 >=60 mL/min/1. 73m2 LAB CHEMISTRY METHOD 09/24/2024 11:43 AM [facility] Comment:Calculation based on the Chronic Kidney Disease Epidemiology Collaboration (CKD-EPI) equation refit without adjustment for race. BUN/Creatinine Ratio 23.4 LAB CHEMISTRY METHOD 09/24/2024 11:43 AM [facility] Calcium 9.2 8.5 - 10.5 mg/dL LAB CHEMISTRY METHOD 09/24/2024 11:43 AM [facility] AST (SGOT) 17 10 - 42 unit/L LAB CHEMISTRY METHOD 09/24/2024 11:43 AM [facility] ALT (SGPT) 13 10 - 60 unit/L LAB CHEMISTRY METHOD 09/24/2024 11:43 AM [facility] Alkaline Phosphatase 69 42 - 121 unit/L LAB CHEMISTRY METHOD 09/24/2024 11:43 AM [facility] Total Protein 6.3 6.0 - 8.0 g/dL LAB CHEMISTRY METHOD 09/24/2024 11:43 AM [facility] Albumin 3.4 3.2 - 5.0 g/dL LAB CHEMISTRY METHOD 09/24/2024 11:43 AM [facility] Total Bilirubin 1.3 0.0 - 1.4 mg/dL LAB CHEMISTRY METHOD 09/24/2024 11:43 AM [facility] Blood Venous blood specimen / Unknown Venipuncture / Unknown 09/24/2024 4:52 AM EST 09/24/2024 10:00 AM EST Milvia Rogel MD LAB BLOOD ORDERABLES Fin al Result [facility] [address] [place] [address], * (ABNORMAL) Complete blood count (09/24/2024 4:52 AM EST) WBC 5.9 4.8 - 10.8 K/mcL LAB HEMETOLOGY METHOD 09/24/2024 10:52 AM [facility] RBC 4.60 3.80 - 4.80 M/mcL LAB HEMETOLOGY METHOD 09/24/2024 10:52 AM [facility] Hemoglobin 12.2 11.5 - 16.0 g/dL LAB HEMETOLOGY METHOD 09/24/2024 10:52 AM [facility] Hematocrit 40.5 35.0 - 47.0 % LAB HEMETOLOGY METHOD 09/24/2024 10:52 AM [facility] MCV 88.2 79.0 - 98.0 FL LAB HEMETOLOGY METHOD 09/24/2024 10:52 AM EST [facility] MCH 26.6(L) 27.0 - 32.0 pcg LAB HEMETOLOGY METHOD 09/24/2024 10:52 AM [facility] MCHC 30.1(L) 32.0 - 37.0 g/dL LAB HEMETOLOGY METHOD 09/24/2024 10:52 AM EST [facility] RDW 15.3(H) 11.0 - 15.0 % LAB HEMETOLOGY METHOD 09/24/2024 10:52 AM [facility] Platelets 335 130 - 400 K/mcL LAB HEMETOLOGY METHOD 09/24/2024 10:52 AM [facility] MPV 11.1(H) 7.0 - 11.0 FL LAB HEMETOLOGY METHOD 09/24/2024 10:52 AM EST [facility] NRBC 0.0 <1.0 % LAB HEMETOLOGY METHOD 09/24/2024 10:52 AM [facility] NRBC Absolute 0.00 <0.10 K/mcL LAB HEMETOLOGY METHOD 09/24/2024 10:52 AM [facility] Blood Venous blood specimen / Unknown Venipuncture / Unknown 09/24/2024 4:52 AM EST 09/24/2024 10:00 AM EST us Milvia Rogel MD LAB BLOOD ORDERABLES Fin al Result [facility] [address] [place] [address], documented in this encounter Visit Diagnoses Diagnosis Heart failure, unspecified (CMS/HCC V24, CMS/HCC V28) Heart failure, unspecified Unspecified atrial fibrillation (CMS/HCC V24, CMS/HCC V28) documented in this encounter Care Teams Merchandising Manager Relationship Specialty Start Date End Date Milvia Rogel MD PCP - General Family Medicine 08/10/24 documented as of this encounter
== END 2025-08-09 15:02 | disposition home or self-care (01) ==
LOC: HO.HCS 14:09
PROVIDERS: PCP Internal Medicine; Visit Provider Nurse Practitioner Family
DX: I48.19 Other persistent atrial fibrillation (principal); I50.32 Chronic diastolic (congestive) heart failure; Z95.0 Presence of cardiac pacemaker; I10 Essential (primary) hypertension; Z09 Encounter for follow-up examination after completed treatment for conditions other than malignant neoplasm
CPT/HCPCS: 93010; 93282; 99214; G2211

== ENCOUNTER → 2025-08-09 14:08 | Outpatient (BNVA) | payer MEDICARE, MEDICAID, SELFPAY | PROVIDERS: PCP Internal Medicine; Visit Provider Nurse Practitioner Family | DX: I50.32 Chronic diastolic (congestive) heart failure (principal); I10 Essential (primary) hypertension; Z95.0 Presence of cardiac pacemaker; I48.19 Other persistent atrial fibrillation | CPT/HCPCS: 93005; 93282; 99212 ==

== ENCOUNTER 2025-09-15 13:15 | Outpatient (AMB) | payer MEDICARE, MEDICAID, SELFPAY ==
--- NOTE | 2025-09-15 13:22 | A.OFFPC_ITS ---
Vital Signs 09/15/25 13:24 Height 5 ft 10 in Weight 196 lb 6.91 oz BMI 28.2 BP 120/72 Blood Pressure Location Lt brachial Position Sitting Pulse 81 Pulse Source Pulse Oximeter Pulse Oximetry (%) 95 Oxygen Delivery Method Room Air Intake Visit Reasons: Follow Up On Site Services Specialist Required: No Accompanied by: Self / Same As Patient Allergies No Known Allergies Allergy (Verified 09/15/25 13:57) Medication List - Last Reconciled 09/15/25 by Brenden Guzmán MD [ADULT PULL UPS (large) Use as directed 3 times a day] albuterol sulfate 90 mcg/actuation 1 inh inhalation QID PRN apixaban (Eliquis) 5 mg PO BID carvedilol 3.125 mg PO BID cholecalciferol (vitamin D3) 50 mcg PO DAILY 90 days furosemide 40 mg PO DAILY melatonin 5 mg PO BEDTIME PRN 30 days rosuvastatin 5 mg PO DAILY 30 days sertraline 50 mg PO DAILY spironolactone (Aldactone) 25 mg PO DAILY tramadol 50 mg PO BID PRN valsartan 40 mg PO DAILY Tobacco use date assessed: 09/15/25 Fall risk assessment: 1 Fall in past year Last assessed Fall Risk: 09/15/25 Dental Screening Dental Screen Date: 09/15/25 Did you have a dental visit in the last 12 months?: Yes Did you have a dental problem in the last 6 months where you did not have access to dental care?: No Was dental information given to patient?: Patient has dentist HPI Follow Up HPI Details - The patient is a 75 year old female pr esenting for a follow-up visit to manage chronic conditions. - The patient has a history of a stroke, which occurred on the left side. - She reports residual left-sided weakne ss and numbness in the fingers on her left hand. - She also experiences memory problems, stating she does not remember a lot of things. - She reports she can get headaches and dizziness. - The patient has a cyst on her kidney a nd reports experiencing a lot of pain in that area, for which she previously received intravenous and oral antibiotics. - She denies any chest pains or increase d SOB - No nausea/vomiting, no abdominal pain - No change in bowel habits noted - Her last lab work was performed in Dec, over six months ago. - She has not yet had her recent labs dr espinoza due to a lack of transportation. FOR[facility]LY [facility], [facility] Medical History (Updated 09/16/25 @ 18:43 by Brenden Guzmán MD) Memory loss or impairment Insomnia Vitamin D deficiency Left-sided cerebrovascular accident (CVA) Essential hypertension Persistent atrial fibrillation Chronic heart failure with preserved ejection fraction (HFpEF) Vertigo Labile blood pressure Orthostatic hypotension Symptomatic bradycardia Overweight (BMI 25.0-29.9) Paroxysmal atrial fibrillation Pure hypercholesterolemia Severe uncontrolled high blood pressure Generalized anxiety disorder Major depression, single episode Hyperlipidemia Obesity (BMI 30-39.9) HTN (hypertension) Surgical History History of hip replacement Hx of cholecystectomy Hx of hernia repair Hx of appendectomy Hx of hysterectomy Family History Father Heart disease Pacemaker Diabetes Mother Stroke Sister Thyroid disease Social History Household Members: None Housing: Other Housing Other:: [facility] Do you presently have visiting nurse or other home services: Yes (VNA 2 x/week, PT 1 x/week) Alcohol intake: current Alcohol intake frequency: holidays/special occasions only Alcohol type: beer Comment: refuses high alarm protocol Patient Tobacco Use Status: Former Tobacco user Tobacco use type: Cigarette e-Cigarette/Vaping Use: Never Used Second Hand Smoke Exposure: Yes Advance Directives Date on File: 09/26/21 service: No Current occupational status: disabled Gender identity: Female Cognitive needs: No Hearing needs: No Vision needs: Yes Questionnaire PHQ-9 Over the last 2 weeks, how often have you been bothered by any of the following problems? 1. Little interest or pleasure in doing things: more than half the days 2. Feeling down, depressed, or hopeless: more than half the days 3. Trouble falling or staying asleep, or sleeping too much: more than half the days 4. Feeling tired or having little energy: more than half the days 5. Poor appetite or overeating: more than half the days 6. Feeling bad about yourself - or that you are a failure or have let yourself or your family down: more than half the days 7. Trouble concentrating on things, such as reading the newspaper or watching television: more than half the days 8. Moving or speaking so slowly that other people could have noticed. Or the opposite - being so fidgety or restless that you have been moving around a lot more than usual: more than half the days 9. Thoughts that you would be better off or of hurting yourself in some way: not at all Total score: 16 Depression Screening Interpretation: Positive Depression Screening Follow-up: Existing condition and In treatment Depression Screening Done: Yes 81138 - PHQ-9 Billing: Yes Source: Developed by Drs. Demarcus Alexis, Martha Marcus, Grady Hu and colleagues, with an educational sarmad from [employer]. Thrive Questionnaire Date Thrive assessed: 09/15/25 I am a: Patient What is your living situation today?: I have a steady place to live Within the past 12 months, did the food you bought not last and you didn't have the money to get more?: Never true Within the past 12 months, did you worry whether your food would run out before you got money to buy more?: Never true Do you have trouble paying for medicines?: No Do you have trouble getting transportation to medical appointments?: Yes Do you have trouble paying your heating and electricity bill?: Yes Do you have trouble taking care of your child, family member or friend?: No Do you have trouble with day-to-day activities such as bathing, preparing meals, shopping, managing finances, etc.?: No Are you currently unemployed and looking for a job?: No Are you interested in more education?: No Please select the resources that you would like help with: None Currently or been in a relationship where the following occur: No concerns reported THRIVE Score: 2 AUDIT C Alcohol Use Questionnaire (AUDIT-C) 1. How often do you have a drink containing alcohol?: Never 3. How often do you have six or more drinks on one occasion?: Never Total Score: 0 Score Reviewed/Action Taken: Yes QUAN-7 AMB Questionnaire QUAN-7 Date QUAN - 7 assessed: 09/15/25 Feeling nervous, anxious, or on edge: 2 = More than half the days Not being able to stop or control worryin = More than half the days Worrying too much about different things: 2 = More than half the days Trouble relaxin = More than half the days Being so restless that it is hard to sit still: 2 = More than half the days Becoming easily annoyed or irritable: 2 = More than half the days Feeling afraid as if something awful might happen: 2 = More than half the days Total QUAN-7 score (0-4 normal; 5-9 mild; 10-14 moderate; 15-21 severe): 14 Source: Developed by Drs. Demarcus Alexis, Martha Marcus, Grady Hu and colleagues, with an educational sarmad from [employer]. Review of Systems Const Denies chills, Reports difficulty sleeping, Reports fatigue, Denies fever(s) and Denies headache(s) ENT Denies dysphagia, Denies dizziness, Denies otalgia, Denies headache(s), Denies neck pain, Denies odynophagia and Denies sore throat Card Denies chest pain, Denies palpitations and Reports dyspnea on exertion Resp Denies chest congestion, Denies cough and Reports dyspnea on exertion GI Denies abdominal pain, Denies constipation, Denies dysphagia, Denies heartburn, Denies diarrhea, Denies nausea, Denies odynophagia and Denies vomiting Denies difficulty voiding, Denies nocturia and Denies dysuria Musc Denies back pain, Reports arthralgias (in both knees) and Denies neck pain Skin/Breast Denies rash Neuro Denies dizziness and Denies headache(s) Endo Reports fatigue and Denies palpitations Physical exam (Primary Care) Vital Signs: Last Vital Signs Pulse 81 09/15/25 13:24 BP 120/72 09/15/25 13:24 Pulse Ox 95 09/15/25 13:24 Oxygen Delivery Method Room Air 09/15/25 13:24 BMI result Body Mass Index 28.2 Tobacco/Smoking Status: Tobacco use Status Tobacco use date assessed 09/15/25 09/15/25 13:26 Patient Tobacco Use Status Former Tobacco user 09/15/25 13:23 Tobacco use type Cigarette 09/15/25 13:23 e-Cigarette/Vaping Use Never Used 09/15/25 13:23 PHQ-9: PHQ-9 Score PHQ-9: Total score 16 09/15/25 13:56 Depression Screening Interpretation: Positive Depression Screening Follow-up: Existing condition and In treatment Thrive Assessment: Date of Thrive Assessment Date Thrive assessed 09/15/25 09/15/25 13:26 Currently or been in a relationship where the following occur: No concerns reported Const General: no acute distress and alert HENMT Ears: TM's normal bilaterally and EAC's normal Throat: Yes posterior oropharynx normal and Yes tonsils normal (no TP congestion noted) Neck Neck: Yes supple and No lymphadenopathy Thyroid: Thyroid normal Resp Auscultation: clear to auscultation bilaterally, no rales and no wheezes Cardio Rate: regular rate Rhythm: abnormal rhythm irregularly irregular Heart sounds: no murmurs GI Palpation (GI): Soft to palpation and nontender Auscultation: normal bowel sounds General: Yes no CVA tenderness Back/Spine/Pelvis Back: no CVA tenderness Thoracic/Lumbar Spine: No lumbar spinal tenderness Skin Rashes: no rashes Extrem General: Yes no clubbing, cyanosis or edema Right lower extremity: hip/thigh Details: tenderness and knee Details: tenderness; no swelling Left lower extremity: hip/thigh Details: tenderness and knee Details: tenderness; no swelling Coding Level of Care Code Est Pt Level 4 (83185) Diagnoses Persistent atrial fibrillation I48.19 Chronic heart failure with preserved ejection fraction (HFpEF) I50.32 Essential hypertension I10 Pure hypercholesterolemia E78.00 Left-sided cerebrovascular accident (CVA) I63.9 Memory loss or impairment R41.3 Vitamin D deficiency E55.9 Insomnia, unspecified type G47.00 Insomnia type: unspecified MDD (major depressive disorder), recurrent episode, moderate F33.1 Overweight (BMI 25.0-29.9) E66.3 Additional Codes PHQ-9 - 33833 - PHQ-9 Billing: Yes ([id number]) Assessment & Plan Assessment & Plan (1) Persistent atrial fibrillation: Code(s): I48.19 - Other persistent atrial fibrillation Category: Medical Plan: Patient currently remains in atrial fibrillation but is rate controlled Continue Eliquis 5 mg BID for thromboembolism prophylaxis Continue Carvedilol 3.125 mg BID Follow up with cardiology as scheduled (2) Chronic heart failure with preserved ejection fraction (HFpEF): Code(s): I50.32 - Chronic diastolic (congestive) heart failure Category: Medical Plan: Patient continues to complain of HOWELL Her last echocardiogram done at [facility] on 12/31/2022 revealed EF of 55-65%, with no regional wall motion abnormalities; diastolic function cannot be assessed properly due to her ongoing atrial fibrillation Continue Furosemide 40 mg QD - she admits that she does not take this regularly as she is supposed to because it makes her go to the bathroom too much Continue Carvedilol 3.125 mg BID and Valsartan 40 mg QD Follow up with cardiology as scheduled (3) Essential hypertension: Code(s): I10 - Essential (primary) hypertension Category: Medical Plan: Reinforced low-sodium diet - goal is systolic BP of at least 130 mm or less Continue Valsartan 40 mg QD, Spironolactone 25 mg QD and Carvedilol 3.125 mg BID (4) Pure hypercholesterolemia: Code(s): E78.00 - Pure hypercholesterolemia, unspecified Category: Medical Plan: Patient was not able to get her follow up labs done recently - she claims that she does not have any transportation to do so at this time and will try to get them done LORRIE Reinforced low cholesterol diet Continue Rosuvastatin 5 mg QD Will recheck her labs and fasting lipids again in 3 months for follow up (5) Left-sided cerebrovascular accident (CVA): Comment: 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 Code(s): I63.9 - Cerebral infarction, unspecified Category: Medical Plan: Patient currently has mild left-sided weakness with no other significant residual neurologic deficits although she reports that she has been experiencing issues with memory recall lately Her left cerebellar bleed was most likely due to uncontrolled hypertension at the time back in 2020 Reinforced importance of blood pressure control to minimize risks of recurrence She also has not seen neurology over the past few years and will refer her to neurology for reevaluation (6) Memory loss or impairment: Code(s): R41.3 - Other amnesia Category: Medical Plan: Will refer her to neurology for further evaluation and management of her perceived declining memory (7) Vitamin D deficiency: Code(s): E55.9 - Vitamin D deficiency, unspecified Category: Medical Plan: Continue Vitamin D3 2000 units QD (8) Insomnia: Code(s): G47.00 - Insomnia, unspecified Category: Medical Qualifiers: Insomnia type: unspecified Qualified Code(s): G47.00 - Insomnia, unspecified Plan: Sleep hygiene reinforced Continue Melatonin 5 mg Q HS PRN (9) MDD (major depressive disorder), recurrent episode, moderate: Code(s): F33.1 - Major depressive disorder, recurrent, moderate Category: Medical Plan: Continue Sertraline 50 mg QD Follow up with psychiatry as scheduled (10) Overweight (BMI 25.0-29.9): Code(s): E66.3 - Overweight Category: Medical Plan: Reinforced diet; exercise and weight loss are unrealistic given patient's poor activity tolerance, left-sided weakness and other multiple comorbidities Plan Follow up in 3 months Orders: Orders Vitamin D 25-OH Total 3 Months E55.9 - Vitamin D deficiency, unspecified UA CC w/rflx Micro + Cult 3 Months R30.0 - Dysuria TSH reflex Free T4 3 Months E78.00 - Pure hypercholesterolemia, unspecified NT Pro B Type Natriuretic Pept 3 Months R06.09 - Other forms of dyspnea Comprehensive Bruning. Panel Fast 3 Months E78.00 - Pure hypercholesterolemia, u nspecified Lipid Panel 3 Months E78.00 - Pure hypercholesterolemia, unspecified Complete Blood Count Auto Diff 3 Months D64.9 - Anemia, unspecified Vitamin B12 and Folate 3 Months E53.8 - Deficiency of other specified B group vitamins Referrals Neurology Referral I63.9 - Cerebral infarction, unspecified
[2025-09-15 13:24] VITALS: BP 120/72; PULSE 81; O2SAT 95; BMI 28.2
--- OUTSIDE RECORDS SUMMARY | 2025-09-15 14:44 | XMS_ITS | Encounter Summary ---
Author Organization [facility] Address [address] [place] [address] Care Team Providers Care Signalman Name Role Phone Milvia Rogel MD Primary Care Provider + Encounter Details Date Type Department Care Team (Late st Contact Info) Description 10/08/2024 Lab Requisition [facility] - Main Lab 299 [facility] [place] [address] Milvia Rogel MD [address] [address] Hypokalemia Social History Tobacco Use Types Packs/Day [...] Hypopotassemia documented in this encounter Care Teams Signalman Relationship Specialty Start Date End Date Milvia Rogel MD [address] [place] [address] [phone] PCP - General Family Medicine 08/10/24 documented as of this encounter
--- OUTSIDE RECORDS SUMMARY | 2025-09-15 14:44 | XMS_ITS | Encounter Summary ---
Author Organization [facility] Address [address] [place] [address] Care Team Providers Care Compound Machine Operator Name Role Phone Milvia Rogel MD Primary Care Provider + Encounter Details Date Type Department Care Team (Late st Contact Info) Description 09/24/2024 Lab Requisition [facility] - Main Lab 299 [facility] [place] [address] Milvia Rogel MD [address] [phone] Heart failure, unspecified (CMS/HCC V24, CMS/HCC V28); [...] Result [facility] [address] [place] [address], * (ABNORMAL) Complete blood count (09/24/2024 4:52 [...] LAB HEMETOLOGY METHOD 09/24/2024 10:52 AM EST [facility] MCH 26.6(L) 27.0 - 32.0 pcg LAB HEMETOLOGY METHOD 09/24/2024 10:52 AM [facility] MCHC 30.1(L) 32.0 - 37.0 g/dL LAB HEMETOLOGY METHOD 09/24/2024 10:52 AM EST [facility] RDW 15.3(H) 11.0 - 15.0 % LAB HEMETOLOGY METHOD 09/24/2024 10:52 AM [facility] Platelets 335 130 - 400 K/mcL LAB HEMETOLOGY METHOD 09/24/2024 10:52 AM [facility] MPV 11.1(H) 7.0 - 11.0 FL LAB HEMETOLOGY METHOD 09/24/2024 10:52 AM EST [facility] NRBC [...] Result [facility] [address] [place] [address], documented in this encounter Visit Diagnoses Diagnosis Heart failure, unspecified (CMS/HCC V24, CMS/HCC V28) Heart failure, unspecified Unspecified atrial fibrillation (CMS/HCC V24, CMS/HCC V28) documented in this encounter Care Teams Compound Machine Operator Relationship Specialty Start Date End Date Milvia Rogel MD [address] [phone] PCP - General Family Medicine 08/10/24 documented as of this encounter
--- OUTSIDE RECORDS SUMMARY | 2025-09-15 14:44 | XMS_ITS | Encounter Summary ---
Author Organization [facility] Address [address] [place] [address] Care Team Providers Care Braille Coder Name Role Phone Milvia Rogel MD Primary Care Provider + Encounter Details Date Type Department Care Team (Late st Contact Info) Description 10/08/2024 Lab Requisition [facility] - Main Lab [address] [facility] [place] [address] Milvia Rogel MD [address] [phone] Dysuria Social History Tobacco Use Types Packs/Day [...] Escherichia coli(A) JOHANN 10/10/2024 9:48 AM EST [facility] Urine Urine specimen obtained [...] MICROBIOLOGY - GENER AL ORDERABLES Final Result [facility] [address] [place] [address], * Batista urine culture tube (10/08/2024 12:00 AM EST) Pathologist [facility] Extra Tube Hold for add-ons. 10/08/2024 10:01 AM EST [facility] Comment:Auto resulted. Urine Urine specimen obtained by clean catch procedure / Unknown 10/08/2024 10/08/2024 8:40 AM EST us Milvia Rogel MD LAB URINE ORDERABLES Fin al Result [facility] [address] [place] [address], [place] [phone] * (ABNORMAL) Urinalysis with reflex microscopic and culture (10/08/2024 12:00 AM EST) Pathologist [facility] Specific [place] Urine 1.017 1.003 - 1.030 LAB URINALYSIS - AUTOMATED METHOD 10/08/2024 9:57 AM [facility] pH, Urine 5.5 5.0 - 8.0 pH LAB URINALYSIS - AUTOMATED METHOD 10/08/2024 9:57 AM [facility] Leukocytes, Urine Large(A) Negative LAB URINALYSIS - AUTOMATED METHOD 10/08/2024 9:57 AM [facility] Nitrite, Urine Negative Negative LAB URINALYSIS - AUTOMATED METHOD 10/08/2024 9:57 AM [facility] Protein, Urine 100(A) <=Trace mg/dL LAB URINALYSIS - AUTOMATED METHOD 10/08/2024 9:57 AM [facility] Glucose, Urine Negative Negative mg/dL LAB URINALYSIS - AUTOMATED METHOD 10/08/2024 9:57 AM [facility] Ketones, Urine Negative Negative mg/dL LAB URINALYSIS - AUTOMATED METHOD 10/08/2024 9:57 AM [facility] Urobilinogen, Urine 1.0 0.2 - 1.0 mg/dL LAB URINALYSIS - AUTOMATED METHOD 10/08/2024 9:57 AM [facility] Bilirubin, Urine Negative Negative LAB URINALYSIS - AUTOMATED METHOD 10/08/2024 9:57 AM [facility] Blood, Urine Large(A) Negative LAB URINALYSIS - AUTOMATED METHOD 10/08/2024 9:57 AM [facility] RBC, Urine 74.1(H) 0 - 4 /HPF LAB URINALYSIS - AUTOMATED METHOD 10/08/2024 9:57 AM [facility] WBC, Urine 965.2(H) 0 - 4 /HPF LAB URINALYSIS - AUTOMATED METHOD 10/08/2024 9:57 AM [facility] Squamous Epithelial, Urine 22 0 - 60 /LPF LAB URINALYSIS - AUTOMATED METHOD 10/08/2024 9:57 AM [facility] Bacteria, Urine Negative Negative /HPF LAB URINALYSIS - AUTOMATED METHOD 10/08/2024 9:57 AM [facility] Hyaline Casts, Urine 0.0 0 - 3 /LPF LAB URINALYSIS - AUTOMATED METHOD 10/08/2024 9:57 AM [facility] Urine Urine specimen obtained by clean catch procedure / Unknown Non-blood Collection / Unknown 10/08/2024 10/08/2024 8:34 AM EST us Milvia Rogel MD LAB URINE ORDERABLES Fin al Result [facility] [address] [place] [address], documented in this encounter Visit Diagnoses Diagnosis Dysuria documented in this encounter Care Teams Braille Coder Relationship Specialty Start Date End Date Milvia Rogel MD [address] [place] [phone] PCP - General Family Medicine 08/10/24 documented as of this encounter
--- OUTSIDE RECORDS SUMMARY | 2025-09-15 14:44 | XMS_ITS | Encounter Summary ---
Author Organization [facility] Address [address] [place] [address] Care Team Providers Care Maint Mechanic Name Role Phone Milvia Rogel MD Primary Care Provider + Encounter Details Date Type Department Care Team (Late st Contact Info) Description 08/10/2024 Lab Requisition [facility] - Main Lab 299 [facility] [place] [address] Milvia Rogel MD [address] [phone] Unspecified atrial fibrillation (CMS/HCC V24, CMS/HCC V28); [...] mmol/L LAB CHEMISTRY METHOD 08/10/2024 11:40 AM [facility] Potassium 3.6 3.5 - 5.5 mmol/L LAB CHEMISTRY METHOD 08/10/2024 11:40 AM [facility] Chloride 106 96 - 110 mmol/L LAB CHEMISTRY METHOD 08/10/2024 11:40 AM [facility] CO2 31 21 - 32 mmol/L LAB CHEMISTRY METHOD 08/10/2024 11:40 AM [facility] Anion Gap 6 3 - 11 LAB CHEMISTRY METHOD 08/10/2024 11:40 AM [facility] Glucose 88 70 - 100 mg/dL LAB CHEMISTRY METHOD 08/10/2024 11:40 AM [facility] BUN 10 5 - 25 mg/dL LAB CHEMISTRY METHOD 08/10/2024 11:40 AM [facility] Creatinine 0.50 0.50 - 1.10 mg/dL LAB CHEMISTRY METHOD 08/10/2024 11:40 AM [facility] eGFR 99 >=60 mL/min/1. 73m2 LAB CHEMISTRY METHOD 08/10/2024 11:40 AM [facility] Comment:Calculation based on the Chronic Kidney Disease Epidemiology Collaboration (CKD-EPI) equation refit without adjustment for race. BUN/Creatinine Ratio 20.0 LAB CHEMISTRY METHOD 08/10/2024 11:40 AM [facility] Calcium 8.6 8.5 - 10.5 mg/dL LAB CHEMISTRY METHOD 08/10/2024 11:40 AM [facility] AST (SGOT) 21 10 - 42 unit/L LAB CHEMISTRY METHOD 08/10/2024 11:40 AM [facility] ALT (SGPT) 13 10 - 60 unit/L LAB CHEMISTRY METHOD 08/10/2024 11:40 AM [facility] Alkaline Phosphatase 56 42 - 121 unit/L LAB CHEMISTRY METHOD 08/10/2024 11:40 AM [facility] Total Protein 5.4(L) 6.0 - 8.0 g/dL LAB CHEMISTRY METHOD 08/10/2024 11:40 AM [facility] Albumin 2.7(L) 3.2 - 5.0 g/dL LAB CHEMISTRY METHOD 08/10/2024 11:40 AM [facility] Total Bilirubin 1.6(H) 0.0 - 1.4 mg/dL LAB CHEMISTRY METHOD 08/10/2024 11:40 AM [facility] Blood Venous blood specimen / Unknown Venipuncture / Unknown 08/10/2024 7:11 AM EST 08/10/2024 9:55 AM EST Milvia Rogel MD LAB BLOOD ORDERABLES Fin al Result [facility] [address] [place] [address], * (ABNORMAL) Complete blood count (08/10/2024 7:11 AM EST) WBC 8.2 4.8 - 10.8 K/mcL LAB HEMETOLOGY METHOD 08/10/2024 11:00 AM [facility] RBC 4.00 3.80 - 4.80 M/mcL LAB HEMETOLOGY METHOD 08/10/2024 11:00 AM [facility] Hemoglobin 10.7(L) 11.5 - 16.0 g/dL LAB HEMETOLOGY METHOD 08/10/2024 11:00 AM [facility] Hematocrit 33.6(L) 35.0 - 47.0 % LAB HEMETOLOGY METHOD 08/10/2024 11:00 AM [facility] MCV 83.8 79.0 - 98.0 FL LAB HEMETOLOGY METHOD 08/10/2024 11:00 AM [facility] MCH 26.7(L) 27.0 - 32.0 pcg LAB HEMETOLOGY METHOD 08/10/2024 11:00 AM [facility] MCHC 31.8(L) 32.0 - 37.0 g/dL LAB HEMETOLOGY METHOD 08/10/2024 11:00 AM [facility] RDW 14.3 11.0 - 15.0 % LAB HEMETOLOGY METHOD 08/10/2024 11:00 AM [facility] Platelets 252 130 - 400 K/mcL LAB HEMETOLOGY METHOD 08/10/2024 11:00 AM [facility] MPV 10.8 7.0 - 11.0 FL LAB HEMETOLOGY METHOD 08/10/2024 11:00 AM [facility] NRBC 0.0 <1.0 % LAB HEMETOLOGY METHOD 08/10/2024 11:00 AM [facility] NRBC Absolute 0.00 <0.10 K/mcL LAB HEMETOLOGY METHOD 08/10/2024 11:00 AM [facility] Blood Venous blood specimen / Unknown Venipuncture / Unknown 08/10/2024 7:11 AM EST 08/10/2024 9:55 AM EST us Milvia Rogel MD LAB BLOOD ORDERABLES Fin al Result [facility] [address] [place] [address], documented in this encounter Visit Diagnoses Diagnosis Unspecified atrial fibrillation (CMS/HCC V24, CMS/HCC V28) Essential (primary) hypertension Unspecified essential hypertension documented in this encounter Care Teams Maint Mechanic Relationship Specialty Start Date End Date Milvia Rogel MD [address] [place] [phone] PCP - General Family Medicine 08/10/24 documented as of this encounter
--- OUTSIDE RECORDS SUMMARY | 2025-09-15 14:44 | XMS_ITS | Encounter Summary ---
Author Organization [facility] Address [address] [place] [address] Care Team Providers Care Choir Singer Name Role Phone Milvia Rogel MD Primary Care Provider + Encounter Details Date Type Department Care Team (Late st Contact Info) Description 09/25/2024 Lab Requisition [facility] - Main Lab [address] [place] [address] Milvia Rogel MD [address] [address] Essential (primary) hypertension Social History Tobacco Use [...] mmol/L LAB CHEMISTRY METHOD 09/28/2024 10:45 AM [facility] Potassium 3.9 3.5 - 5.5 mmol/L LAB CHEMISTRY METHOD 09/28/2024 10:45 AM [facility] Chloride 102 96 - 110 mmol/L LAB CHEMISTRY METHOD 09/28/2024 10:45 AM [facility] CO2 30 21 - 32 mmol/L LAB CHEMISTRY METHOD 09/28/2024 10:45 AM [facility] Anion Gap 6 3 - 11 LAB CHEMISTRY METHOD 09/28/2024 10:45 AM [facility] Glucose 74 70 - 100 mg/dL LAB CHEMISTRY METHOD 09/28/2024 10:45 AM [facility] BUN 19 5 - 25 mg/dL LAB CHEMISTRY METHOD 09/28/2024 10:45 AM [facility] Creatinine 0.69 0.50 - 1.10 mg/dL LAB CHEMISTRY METHOD 09/28/2024 10:45 AM [facility] eGFR 92 >=60 mL/min/1. 73m2 LAB CHEMISTRY METHOD 09/28/2024 10:45 AM [facility] Comment:Calculation based on the Chronic Kidney Disease Epidemiology Collaboration (CKD-EPI) equation refit without adjustment for race. BUN/Creatinine Ratio 27.5 LAB CHEMISTRY METHOD 09/28/2024 10:45 AM [facility] Calcium 8.9 8.5 - 10.5 mg/dL LAB CHEMISTRY METHOD 09/28/2024 10:45 AM [facility] AST (SGOT) 16 10 - 42 unit/L LAB CHEMISTRY METHOD 09/28/2024 10:45 AM [facility] ALT (SGPT) 16 10 - 60 unit/L LAB CHEMISTRY METHOD 09/28/2024 10:45 AM [facility] Alkaline Phosphatase 71 42 - 121 unit/L LAB CHEMISTRY METHOD 09/28/2024 10:45 AM [facility] Total Protein 6.9 6.0 - 8.0 g/dL LAB CHEMISTRY METHOD 09/28/2024 10:45 AM EST [facility] Albumin 3.8 3.2 - 5.0 g/dL LAB CHEMISTRY METHOD 09/28/2024 10:45 AM [facility] Total Bilirubin 1.0 0.0 - 1.4 mg/dL LAB CHEMISTRY METHOD 09/28/2024 10:45 AM [facility] Blood Venous blood specimen / Unknown Venipuncture / Unknown 09/28/2024 7:01 AM EST 09/28/2024 9:31 AM EST us Milvia Rogel MD LAB BLOOD ORDERABLES Fin al Result [facility] [address] [place] [address], * (ABNORMAL) Complete blood count (09/28/2024 7:01 AM EST) WBC 5.8 4.8 - 10.8 K/mcL LAB HEMETOLOGY METHOD 09/28/2024 10:12 AM [facility] RBC 4.70 3.80 - 4.80 M/mcL LAB HEMETOLOGY METHOD 09/28/2024 10:12 AM [facility] Hemoglobin 12.1 11.5 - 16.0 g/dL LAB HEMETOLOGY METHOD 09/28/2024 10:12 AM [facility] Hematocrit 40.6 35.0 - 47.0 % LAB HEMETOLOGY METHOD 09/28/2024 10:12 AM [facility] MCV 87.3 79.0 - 98.0 FL LAB HEMETOLOGY METHOD 09/28/2024 10:12 AM [facility] MCH 26.0(L) 27.0 - 32.0 pcg LAB HEMETOLOGY METHOD 09/28/2024 10:12 AM EST [facility] MCHC 29.8(L) 32.0 - 37.0 g/dL LAB HEMETOLOGY METHOD 09/28/2024 10:12 AM EST [facility] RDW 14.6 11.0 - 15.0 % LAB HEMETOLOGY METHOD 09/28/2024 10:12 AM [facility] Platelets 321 130 - 400 K/mcL LAB HEMETOLOGY METHOD 09/28/2024 10:12 AM [facility] MPV 11.1(H) 7.0 - 11.0 FL LAB HEMETOLOGY METHOD 09/28/2024 10:12 AM [facility] NRBC 0.0 <1.0 % LAB HEMETOLOGY METHOD 09/28/2024 10:12 AM [facility] NRBC Absolute 0.00 <0.10 K/mcL LAB HEMETOLOGY METHOD 09/28/2024 10:12 AM [facility] Blood Venous blood specimen / Unknown Venipuncture / Unknown 09/28/2024 7:01 AM EST 09/28/2024 9:31 AM EST us Milvia Rogel MD LAB BLOOD ORDERABLES Fin al Result [facility] [address] [place] [address], documented in this encounter Visit Diagnoses Diagnosis Essential (primary) hypertension Unspecified essential hypertension documented in this encounter Care Teams Choir Singer Relationship Specialty Start Date End Date Milvia Rogel MD [address] [place] [phone] PCP - General Family Medicine 08/10/24 documented as of this encounter
--- OUTSIDE RECORDS SUMMARY | 2025-09-15 14:44 | XMS_ITS | Clinical Summary ---
Author Organization [address] Address [address] [place] [address] Phone Care Team Providers Care Insulation Blower Name Role Phone Elder, Milvia Mensah MD Primary Care Provider + Allergies No known active allergies Medications methocarbamoL (ROBAXIN) 750 mg tablet Take 1 tablet (750 mg total) by mouth 4 (four) times a day if needed for muscle spasms for up to 24 doses. 24 each 04/10/2025 Active Encounters Date Type Department Care Team Description 08/20/2025 3:16 PM EST - 08/20/2025 4:21 PM [facility] [address] [place] [address] Mykel Espinoza MD Ground-level fall (Primary Dx); Sprain of left shoulder, unspecified shoulder sprain type, initial encounter Discharge Disposition: Home or Self Care from Last 3 Months Surgical History Surgery Date Site/Laterality Comments HYSTERECTOMY PROCEDURE: HISTORICAL HYSTERECTOMY; COMMENT: cysts ? CHOLECYSTECTOMY PROCEDURE: HISTORICAL CHOLECYSTECTOMY TONSILLECTOMY PROCEDURE: HISTORICAL TONSILLECTOMY BACK SURGERY PROCEDURE: HISTORICAL BACK SURGERY; COMMENT: 2002 [employer] Medical History Medical History Date Comments Essential hypertension, benign D X:Essential hypertension, benign GERD (gastroesophageal reflux disease) DX:GERD (gastroesophageal reflux disease) Depression DX:Depression IBS (irritable bowel syndrome) D X:IBS (irritable bowel syndrome) Lumbar disc herniation DX:Lumbar disc herniation Asthma DX:Asthma Allergic rhinitis DX:Allergic rh initis A-fib ([facility] V24, [facility] V28) Family History Medical History Relation Name Comments Diabetes Father Heart attack Father Hypertension Father Hypertension Mother Lung cancer Sister 1 Relation Name Status Comments Father Mother Sister 1 Sister 2 Social History Tobacco Use Types Packs/Day Years Used Date Smoking Tobacco: Never Smokeless Tobacco: Never Tobacco Cessation:Counseling Given: Not Answered Alcohol Use Standard Drinks/Week Comments Not Currently 0 (1 standard drink = 0.6 oz pur e alcohol) Comments Unknown Sex and Gender Information Value Date Recorded Sex Assigned at Not on file Legal Sex Female 4:02 PM EST Gender Identity Not on file Sexual Orientation Not on file Last Filed Vital Signs Vital Sign Reading Time Taken Comments Blood Pressure 173/92 08/20/2025 3:07 PM EST Pulse 68 08/20/2025 3:07 PM EST Temperature 36.6 C (97.9 F) 08/20/2025 3:07 PM EST Respiratory Rate 16 08/20/2025 3:07 PM EST Oxygen Saturation 99% 08/20/2025 3:07 PM EST Inhaled Oxygen Concentration - - Weight 83.5 kg (184 lb) 08/20/2025 3:07 PM EST Height 177.8 cm (5' 10 ) 08/20/2025 3:07 PM EST Body Mass Index 26.4 08/20/2025 3:07 PM EST Plan of Treatment Health Maintenance Due Date Last Done Comments Breast Cancer Screening 1950 Colorectal Cancer Screening: Colonoscopy 1950 Zoster Vaccines (1 of 2) 2001 Cholesterol Screening (Lipid Panel) 08/15/2022 Hepatitis C Screening 08/15/2022 Medicare Annual Wellness Visit 08/15/2022 Osteoporosis Screening (Bone Density Screening) 08/15/2022 Social Influencers of Health Screening 08/15/2022 Depression Screening 09/16/2024 COVID-19 Vaccine ( season) 2025 06/03/2025, 09/14/2021, 03/15/2021 Falls Risk Assessment 04/09/2026 04/09/2025 Hypertension/CHF/CAD Annual BMP Blood Test 04/17/2026 04/17/2025, 04/08/2025, 10/05/2024, Additional history exists DTaP,Tdap,and Td Vaccines (3 - Td or Tdap) 06/06/2033 06/06/2023, 08/05/2012 Hepatitis B Vaccines Completed 09/22/2001, 04/15/2001, 03/14/2001 Pneumococcal Vaccine: 50+ Years Completed 07/27/2017, 07/18/2016, 12/27/2006 Influenza Vaccine Completed 06/03/2025, , 06/30/2021, Additional history exists RSV Immunization Adult Patients Completed 06/03/2025 HIB Vaccines Aged Out No longer eligi [...] mmol/L LAB CHEMISTRY METHOD 04/17/2025 2:50 PM EDT [facility] Potassium 4.2 3.5 - 5.5 mmol/L LAB CHEMISTRY METHOD 04/17/2025 2:50 PM EDT [facility] Comment:Hemolysis present Chloride 107 96 - 110 mmol/L LAB CHEMISTRY METHOD 04/17/2025 2:50 PM EDT [facility] CO2 30 21 - 32 mmol/L LAB CHEMISTRY METHOD 04/17/2025 2:50 PM EDT [facility] Anion Gap 3 3 - 11 LAB CHEMISTRY METHOD 04/17/2025 2:50 PM EDT [facility] Glucose 90 70 - 100 mg/dL LAB CHEMISTRY METHOD 04/17/2025 2:50 PM EDT [facility] BUN 17 5 - 25 mg/dL LAB CHEMISTRY METHOD 04/17/2025 2:50 PM EDT [facility] Creatinine 0.65 0.50 - 1.10 mg/dL LAB CHEMISTRY METHOD 04/17/2025 2:50 PM EDT [facility] eGFR 93 >=60 mL/min/1. 73m2 LAB CHEMISTRY METHOD 04/17/2025 2:50 PM EDT [facility] Comment:Calculation based on the Chronic Kidney Disease Epidemiology Collaboration (CKD-EPI) equation refit without adjustment for race. BUN/Creatinine Ratio 26.2 LAB CHEMISTRY METHOD 04/17/2025 2:50 PM EDT [facility] Calcium 9.5 8.5 - 10.5 mg/dL LAB CHEMISTRY METHOD 04/17/2025 2:50 PM EDT [facility] Blood Venous blood specimen / Unknown Venipuncture / Unknown 04/17/2025 2:09 PM EDT 04/17/2025 2:29 PM EDT us Sandra Osuna MD LAB BLOOD ORDERABLES Final Resul t [facility] [address] [place] [address], from Last 3 Months or Most Recently Relevant to Health Maintenance Insurance [employer] MEDICARE [employer]VANTAGE MEDICAID - [place] Care Teams Insulation Blower Relationship Specialty Start Date End Date Milvia Rogel MD [address] [address] PCP - General Family Medicine 08/10/24
--- OUTSIDE RECORDS SUMMARY | 2025-09-15 14:44 | XMS_ITS | Encounter Summary ---
Author Organization [facility] Address [address] [place] [address] Care Team Providers Care Bakery Worker Conveyor Line Name Role Phone Milvia Rogel MD Primary Care Provider + Encounter Details Date Type Department Care Team (Late st Contact Info) Description 10/02/2024 Lab Requisition [facility] - Main Lab [address] [place] [address] Milvia Rogel MD [address] [phone] Essential (primary) hypertension Social History Tobacco Use [...] mmol/L LAB CHEMISTRY METHOD 10/05/2024 2:42 PM [facility] Potassium 3.1(L) 3.5 - 5.5 mmol/L LAB CHEMISTRY METHOD 10/05/2024 2:42 PM [facility] Chloride 104 96 - 110 mmol/L LAB CHEMISTRY METHOD 10/05/2024 2:42 PM [facility] CO2 30 21 - 32 mmol/L LAB CHEMISTRY METHOD 10/05/2024 2:42 PM [facility] Anion Gap 8 3 - 11 LAB CHEMISTRY METHOD 10/05/2024 2:42 PM [facility] Glucose 82 70 - 100 mg/dL LAB CHEMISTRY METHOD 10/05/2024 2:42 PM [facility] BUN 13 5 - 25 mg/dL LAB CHEMISTRY METHOD 10/05/2024 2:42 PM [facility] Creatinine 0.67 0.50 - 1.10 mg/dL LAB CHEMISTRY METHOD 10/05/2024 2:42 PM [facility] eGFR 92 >=60 mL/min/1. 73m2 LAB CHEMISTRY METHOD 10/05/2024 2:42 PM [facility] Comment:Calculation based on the Chronic Kidney Disease Epidemiology Collaboration (CKD-EPI) equation refit without adjustment for race. BUN/Creatinine Ratio 19.4 LAB CHEMISTRY METHOD 10/05/2024 2:42 PM [facility] Calcium 8.9 8.5 - 10.5 mg/dL LAB CHEMISTRY METHOD 10/05/2024 2:42 PM [facility] AST (SGOT) 24 10 - 42 unit/L LAB CHEMISTRY METHOD 10/05/2024 2:42 PM [facility] ALT (SGPT) 23 10 - 60 unit/L LAB CHEMISTRY METHOD 10/05/2024 2:42 PM [facility] Alkaline Phosphatase 69 42 - 121 unit/L LAB CHEMISTRY METHOD 10/05/2024 2:42 PM [facility] Total Protein 6.5 6.0 - 8.0 g/dL LAB CHEMISTRY METHOD 10/05/2024 2:[address] [facility] Albumin 3.6 3.2 - 5.0 g/dL LAB CHEMISTRY METHOD 10/05/2024 2:42 PM [facility] Total Bilirubin 1.3 0.0 - 1.4 mg/dL LAB CHEMISTRY METHOD 10/05/2024 2:42 PM [facility] Blood Venous blood specimen / Unknown Venipuncture / Unknown 10/05/2024 7:39 AM EST 10/05/2024 12:21 PM EST us Milvia Rogel MD LAB BLOOD ORDERABLES Fin al Result [facility] [address] [place] [address], * (ABNORMAL) Complete blood count (10/05/2024 7:39 AM EST) WBC 3.7(L) 4.8 - 10.8 K/mcL LAB HEMETOLOGY METHOD 10/05/2024 1:46 PM [facility] RBC 4.30 3.80 - 4.80 M/mcL LAB HEMETOLOGY METHOD 10/05/2024 1:46 PM [facility] Hemoglobin 11.5 11.5 - 16.0 g/dL LAB HEMETOLOGY METHOD 10/05/2024 1:46 PM [facility] Hematocrit 37.6 35.0 - 47.0 % LAB HEMETOLOGY METHOD 10/05/2024 1:46 PM [facility] MCV 87.4 79.0 - 98.0 FL LAB HEMETOLOGY METHOD 10/05/2024 1:46 PM [facility] MCH 26.7(L) 27.0 - 32.0 pcg LAB HEMETOLOGY METHOD 10/05/2024 1:[address] [facility] MCHC 30.6(L) 32.0 - 37.0 g/dL LAB HEMETOLOGY METHOD 10/05/2024 1:46 PM [facility] RDW 14.8 11.0 - 15.0 % LAB HEMETOLOGY METHOD 10/05/2024 1:46 PM [facility] Platelets 227 130 - 400 K/mcL LAB HEMETOLOGY METHOD 10/05/2024 1:46 PM [facility] MPV 12.0(H) 7.0 - 11.0 FL LAB HEMETOLOGY METHOD 10/05/2024 1:46 PM [facility] NRBC 0.0 <1.0 % LAB HEMETOLOGY METHOD 10/05/2024 1:46 PM [facility] NRBC Absolute 0.00 <0.10 K/mcL LAB HEMETOLOGY METHOD 10/05/2024 1:46 PM [facility] Blood Venous blood specimen / Unknown Venipuncture / Unknown 10/05/2024 7:39 AM EST 10/05/2024 12:21 PM EST us Milvia Rogel MD LAB BLOOD ORDERABLES Fin al Result [facility] [address] [place] [address], documented in this encounter Visit Diagnoses Diagnosis Essential (primary) hypertension Unspecified essential hypertension documented in this encounter Care Teams Bakery Worker Conveyor Line Relationship Specialty Start Date End Date Milvia Rogel MD [address] [place] [phone] PCP - General Family Medicine 08/10/24 documented as of this encounter
== END 2025-09-15 14:00 | disposition home or self-care (01) ==
LOC: HO.HMCH 13:16
PROVIDERS: PCP Internal Medicine; Visit Provider Internal Medicine
DX: I48.19 Other persistent atrial fibrillation (principal); I50.32 Chronic diastolic (congestive) heart failure; I63.9 Cerebral infarction, unspecified; F33.1 Major depressive disorder, recurrent, moderate; I10 Essential (primary) hypertension; E78.00 Pure hypercholesterolemia, unspecified; R41.3 Other amnesia; E55.9 Vitamin D deficiency, unspecified; G47.00 Insomnia, unspecified; E66.3 Overweight

== ENCOUNTER → 2025-09-15 13:15 | Outpatient (BNVA) | payer MEDICARE, MEDICAID, SELFPAY | PROVIDERS: PCP Internal Medicine; Visit Provider Internal Medicine | DX: I48.19 Other persistent atrial fibrillation (principal); I11.0 Hypertensive heart disease with heart failure; I50.32 Chronic diastolic (congestive) heart failure; E78.00 Pure hypercholesterolemia, unspecified; R53.1 Weakness; R41.3 Other amnesia; E55.9 Vitamin D deficiency, unspecified; G47.00 Insomnia, unspecified; F33.1 Major depressive disorder, recurrent, moderate; E66.3 Overweight; I63.9 Cerebral infarction, unspecified; Z86.73 Personal history of transient ischemic attack (TIA), and cerebral infarction without residual deficits; Z13.31 Encounter for screening for depression; Z79.01 Long term (current) use of anticoagulants | CPT/HCPCS: 96127; 99212 ==